=== PATIENT | male | born 1935 | race Caucasian/White ===

== ENCOUNTER 2017-03-21 02:45 | Inpatient (IN) | payer OTHER, MEDICARE ==
[~2017-03-21] VITALS: Ht 182.9 cm; Wt 84.5 kg
--- NOTE | 2017-03-21 02:52 | ED INFLUENZA/URI COMPLAINT ---
History of Present Illness General Chief Complaint: Fever Stated Complaint: FEVER AND UN RESPONSIVE Source: EMS, W10 Exam Limitations: clinical condition Vital Signs & Intake/Output Vital Signs & Intake/Output Vital Signs Date Time Temp Pulse Resp B/P B/P Pulse O2 O2 Flow FiO2 Mean Ox Delivery Rate 03/21 0600 110 20 90/59 96 Nasal 2.0L Cannula 03/21 0536 108 03/21 0532 156 03/21 0525 156 22 125/56 99 Nasal 2.0L Cannula 03/21 0459 101.0 154 22 99/64 100 Nasal 2.0L Cannula 03/21 0415 162 22 110/62 100 Nasal 2.0L Cannula 03/21 0331 156 22 113/58 100 Nasal 2.0L Cannula 03/21 0315 156 22 110/60 100 Nasal 2.0L Cannula 03/21 0305 100 Nasal 2.0L Cannula 03/21 0302 102.5 03/21 0301 102.5 151 22 119/55 100 Nasal 2.0L Cannula Allergies Coded Allergies: amoxicillin (RASH 03/21/17) Reconcile Medications Amlodipine Besylate (Norvasc) 5 MG TABLET 1 TAB PO DAILY HTN (Reported) Aspirin (Aspirin*) 81 MG TAB.CHEW 1 TAB PO DAILY HEART HEALTH (Reported) Aspirin (Aspirin*) 81 MG TAB.CHEW 1 TAB PO DAILY HEART (Reported) Atorvastatin Calcium 20 MG TABLET 1 TAB PO DAILY CHOL (Reported) Carbidopa/Levodopa (Carbidopa-Levodopa 25-100 Tab) 25 MG-100 MG TABLET 1 TAB PO TID PARKINSONS (Reported) Ciprofloxacin HCl (Cipro) 500 MG TABLET 1 TAB PO BID INFECTION (Reported) Cranberry Fruit Concentrate (Cranberry) 450 MG CAPSULE 1 TAB PO BID VITAMIN ( Reported) Duloxetine Hydrochloride (Cymbalta) 30 MG CAPSULE.DR 1 CAP PO DAILY UNK ( Reported) Finasteride 5 MG TABLET 1 TAB PO DAILY URINE (Reported) Gabapentin (Neurontin) 300 MG CAPSULE 1 CAP PO TID NEUROPATHY (Reported) Lactobacillus Acidophilus (Acidophilus) 1 EACH CAPSULE 1 CAP PO BID PROBIOTIC (Reported) Melatonin 3 MG TABLET 1 TAB PO QPM SLEEP (Reported) Metoprolol Tartrate 50 MG TABLET 1 TAB PO BID HTN (Reported) Olmesartan Medoxomil (Benicar) 40 MG TABLET 1 TAB PO DAILY HTN (Reported) Polyethylene Glycol 3350 (Miralax) 17 GRAM POWD.PACK 1 PAC PO DAILY CONSTIPA (Reported) dissolve in water Potassium Chloride 10 MEQ CAPSULE.ER 1 CAP PO DAILY SUPPLEMENT (Reported) Prochlorperazine (Compazine) 25 MG SUPP.RECT 1 SUPP [place] DAILY NAUSEA (Reported ) Sennosides (Senokot) 8.6 MG TABLET 2 TAB PO DAILY CONSTIPATION (Reported) Triage Nurses Notes Reviewed? yes Onset: Abrupt Duration: hour(s): (? FEW HOURS) Timing: single episode today Severity: moderate, severe No Modifying Factors: none Associated Symptoms: UNRESPONSIVE, WARM TO TOUCH, HYPOTENSIVE HPI: This is a 79-year-old male with history of PPM, parkinsons disease who arrives by ambulance from custodial for chief complaint of being found unresponsive. According to EMS custodial staff reports that he was diagnosed with UTI and started on Cipro given 1 dose. It tends that they were trying to increase his fluid intake today with multiple cups of water at the bedside. Patient unresponsive by EMS, found hypotensive. Given IV fluids en route. He arrives unresponsive, moaning, tachycardic, warm to touch. Rectal temperature is 100.5. Past History Travel History Traveled to [place] past 21 day No Medical History Any Pertinent Medical History? see below for history Neurological: Parkinson's disease Cardiovascular: hypertension, ppm Renal: BPH Other Medical Hx: FREQUENT FALLS Surgical History Surgical History: PPM Family History Hx Contributory? No Review of Systems Review of Systems Constitutional: Reports: see HPI (PER W-10, PATIENT UNRESPONSIVE). Physical Exam Physical Exam General Appearance: moderate distress, severe distress, THIN, OBTUNDED, UNRESPONSIVE Head: atraumatic Eyes: Bilateral: other (4 MM, REACTIVE). Ears, Nose, Throat: DRY MUCUS MEMBRANES Neck: normal inspection, supple Respiratory: decreased breath sounds Cardiovascular: tachycardia, irregularly irregular Peripheral Pulses: 1+ radial (R), 1+ radial (L) Gastrointestinal: normal bowel sounds, soft, non-tender Extremities: normal inspection, DRY SKIN, POOR CAP REFILL Neurologic/Psych: OBTUNDED, UNRESPONSIVE Skin: DRY/WARM Core Measures Sepsis Present: Yes Sepsis Focused Exam Completed? Yes ED Sepsis Exam Date of Focused Sepsis Exam: 03/21/17 Time of Focused Sepsis Exam: 0300 Sepsis Cardiac Exam: Tachycardia Sepsis Resp Exam: DIMINISHED BILATERAL Sepsis Cap Refill Exam: >2 sec Sepsis Peripheral Pulse Exam: Weak Sepsis Peripheral Pulse Location: Radial Sepsis Skin Color Exam: Normal for Ethnicity Skin Temp/Moisture Exam: Hot/Dry Progress Differential Diagnosis: influenza, pneumonia, UTI, SEPSIS, DAISHA, DEHYDRATION, AMI Plan of Care: Orders Procedure Date/time Status Nothing by Mouth 03/21 B Active ICU LAB BUNDLE 03/21 1000 Active CBC WITHOUT DIFFERENTIAL 03/21 1000 Active LACTIC ACID 03/21 0551 Active Pathway - chart 03/21 0534 Active House Staff 03/21 0534 Active Patient Data 03/21 0534 Active Code Status 03/21 0534 Active Patient Data 03/21 0432 Active ED Holding Orders 03/21 0415 Active Admit to inpatient 03/21 0415 Active Vital Signs 03/21 0415 Active Code Status 03/21 0409 Complete Add-on Test (ER Only) 03/21 0407 Active Intake & Output 03/21 0337 Active CULTURE,URINE 03/21 0311 Active EKG 03/21 0311 Active PARTIAL THROMBOPLASTIN TIME 03/21 0310 Complete PROTHROMBIN TIME 03/21 0310 Complete PHOSPHORUS 03/21 0310 Active MAGNESIUM 03/21 0310 Active Straight Cath 03/21 0252 Active RAPID VIRAL INFLUENZA A 03/21 0251 Complete BLOOD CULTURE 03/21 0251 Active URINALYSIS 03/21 0251 Complete TROPONIN LEVEL 03/21 0251 Active LACTIC ACID 03/21 0251 Active COMPREHENSIVE METABOLIC PANEL 03/21 0251 Active CREATINE PHOSPHOKINASE 03/21 0251 Active CBC WITHOUT DIFFERENTIAL 03/21 0251 Complete Lab Add-on Test 03/21 UNK Active VTE Mechanical Prophylaxis 03/21 UNK Active Current Medications Sig/[place] Start time Last Medication Dose Stop Time Status Admin Ceftriaxone Sodium 1,000 MG Q24H 03/22 0330 AC (Rocephin) Metoprolol Tartrate 5 MG Q8 03/21 0630 UNVr (Lopressor) Sodium Chloride 1,000 ML Q10H 03/21 0615 AC 03/21 (Normal Saline 0.9%) 0620 Acetaminophen 1,000 MG ONCE ONE 03/21 0300 CAN (Ofirmev) 03/21 0314 N/A 1 UNIT (No Carrier) Laboratory Tests 03/21/17 0600: Lactic Acid Pending 03/21/17 0320: Urine Color YEL, Urine Clarity CLDY H, Urine pH 6.5, Ur Specific Orient 1.015, Urine Protein 100 H, Urine Ketones NEG, Urine Nitrite NEG, Urine Bilirubin NEG, Urine Urobilinogen 0.2, Ur Leukocyte Esterase LARGE H, Ur Microscopic SEDIMENT EXAMINED, Urine RBC 1-3, Urine WBC > 75 H, Ur Epithelial Cells RARE, Urine Bacteria PACKD H, Urine Hemoglobin SMALL H, Urine Glucose NEG 03/21/17 0310: Anion Gap 19 H, Estimated GFR 29 L, BUN/Creatinine Ratio 17.7, Glucose 78, Lactic Acid 8.4 H, Calcium 8.6, Phosphorus Pending, Magnesium Pending, Total Bilirubin 3.7 H, AST 54, ALT 22, Alkaline Phosphatase 343 H, Creatine Kinase 40 L, Troponin I 0.07, Total Protein 5.0 L, Albumin 2.5 L, Globulin 2.5, Albumin/Globulin Ratio 1.0 L, PT 28.2 H, INR 2.71 H, APTT 32, CBC w Diff MAN DIFF ORDERED, RBC 3.79 L, MCV 86.0, MCH 28.8, RDW 16.9 H, MPV 7.1 L, Gran % 96.0 H, Lymphocytes % 3.7 L, Monocytes % 0.1 L, Eosinophils % 0.2, Basophils % 0, Absolute Granulocytes 9.5 H, Segmented Neutrophils 71, Band Neutrophils 17 H, Absolute Lymphocytes 0.4 L, Lymphocytes 7 L, Monocytes 1 L, Absolute Monocytes 0 L, Eosinophils 1, Absolute Eosinophils 0, Absolute Basophils 0, Metamyelocytes 3 H, Platelet Estimate ADEQUATE, Polychromasia 1+, Poikilocytosis 1+, PUBS MCHC 33.5 Microbiology 03/21 325 BLOOD: Blood Culture - RECD 03/21 320 URINE ROUT: Urine Culture - RECD 03/21 310 NASOPHARYN: Influenza Virus A & B Rapid Smear - COMP 03/21 310 BLOOD: Blood Culture - RECD FLUID RESUSSCITATION, IV ABX ORDERED. 4 L FLUID GIVEN, HEART RATE STILL 120'S. IV LOPRESSOR GIVEN WITH GOOD RESPONSE. PATIENT DNR/DNI, ADMITTED TO ICU PER DR SALAZAR. HEAD CT NON ACUTE. Diagnostic Imaging: Viewed by Me: Radiology Read. Discussed w/RAD: Radiology Read. Radiology Impression: PATIENT: JADIEL NOBLES PRESENT AGE: 79 PATIENT ACCOUNT NO: [id number] : [birth year] LOCATION: [facility] ORDERING PHYSICIAN: Jo-Ann Frost MD SERVICE DATE: 03/21/17 EXAM TYPE: CAT - CT HEAD WO IV CONTRAST CT HEAD WITHOUT CONTRAST CLINICAL INFORMATION: Unresponsive with sepsis. COMPARISON: None available. TECHNIQUE: Contiguous axial imaging was performed from the skull base to vertex without intravenous administration of contrast. FINDINGS: There is extensive confluent hypoattenuation throughout the supratentorial white matter that may reflect advanced chronic microangiopathy though is nonspecific and an acute white matter process would be difficult to exclude. The patient has a non-MRI compatible pacemaker. Basal ganglia calcifications bilaterally. There is no intracranial hemorrhage, hydrocephalus, extra-axial surface collection, midline shift, or other herniation pattern. Parker to white matter differentiation is diffusely maintained without evidence of an evolved acute territorial infarct. The basilar cisterns are preserved. No significant soft tissue abnormality. No acute osseous abnormality. The paranasal sinuses and the mastoid air cells are well-aerated. IMPRESSION: There is extensive confluent hypoattenuation throughout the supratentorial white matter that may reflect advanced chronic microangiopathy though is nonspecific and an acute white matter process would be difficult to exclude. The patient has a non- MRI compatible pacemaker. DICTATED BY: Charles Sheridan MD DATE/TIME DICTATED:532 HEAD TURNING MACHINE OPERATOR:KISHAN DATE/TIME TRANSCRIBED:03/21/17532 CONFIDENTIAL, DO NOT COPY WITHOUT APPROPRIATE AUTHORIZATION. <Electronically signed in Other Vendor System> SIGNED BY: Charles Sheridan MD 03/21/17540 CXR Impression: PATIENT: JADIEL NOBLES PRESENT AGE: 79 PATIENT ACCOUNT NO: [id number] : [birth year] LOCATION: [facility] ORDERING PHYSICIAN: Jo-Ann Frost MD SERVICE DATE: 03/21/17 EXAM TYPE: RAD - XRY-PORTABLE CHEST XRAY XR PORTABLE CHEST CLINICAL INFORMATION: Fever and hypotension. COMPARISON: None available. TECHNIQUE: Portable frontal view of the chest was obtained. FINDINGS: Left pectoral dual-lead pacemaker with lead tips projecting over the right atrium and right ventricle. Mild left basilar opacity may reflect atelectasis, pneumonia, or aspiration. Lungs are otherwise clear. Hiatal hernia. No pneumothorax. Cardiac silhouette is enlarged. There are no acute osseous findings. Cervical degenerative changes. IMPRESSION: Mild left basilar opacity that may reflect atelectasis, pneumonia, or aspiration. DICTATED BY: Charles Sheridan MD DATE/TIME DICTATED:03/21/17440 HEAD TURNING MACHINE OPERATOR:KISHAN DATE/TIME TRANSCRIBED:03/21/17440 CONFIDENTIAL, DO NOT COPY WITHOUT APPROPRIATE AUTHORIZATION. <Electronically signed in Other Vendor System> SIGNED BY: Charles Sheridan MD 03/21/17446 Initial ED EKG: AFIB (RVR) Prior EKG: unchanged Rhythm Strip: atrial fibrillation (RVR) Departure Departure Time of Disposition: 414 Disposition: STILL A PATIENT Condition: Stable Clinical Impression Primary Impression: Sepsis Secondary Impressions: DAISHA (acute kidney injury), Atrial fibrillation with RVR, Hypokalemia, Lactic acidosis, UTI (urinary tract infection) Referrals: Madelin Chin MD (PCP/Family) Departure Forms: Customer Survey General Discharge Information Admission Note Spoke With: Krystal Salazar MD Documentation of Exam: Documentation of any treatments & extenuating circumstances including Concerns Regarding Discharge (functional status, medication knowledge or non-compliance, living conditions, etc.) that warrant an admission rather than observation: [ICU MONITOR, IV ABX, FLUID RESUSSCITATION, ELECTROLYTE REPLETION, F/U BLOOD AND URINE CULTURES, SERIAL TROPONIN, CARDIOLOGY EVALUATION, RATE CONTROL ONCE ADEQUATELY VOLUME REPLETED] Critical Care Note Critical Care Note Critical Care Time: 30-74 min
[2017-03-21 03:18] LABS: ABSOLUTE BASOPHIL COUNT 0 /CUMM (0.0-0.2); ABSOLUTE EOSINOPHIL COUNT 0 /CUMM (0.0-0.7); ABSOLUTE LYMPH COUNT 0.4 /CUMM (1.2-3.4); ABSOLUTE MONOCYTE COUNT 0 /CUMM (0.10-0.60); BASOPHIL % 0 % (0.0-2.0); EOSINOPHIL % 0.2 % (0-5)
[2017-03-21 03:28] LABS: ABSOLUTE GRANULOCYTE CT 9.5 /CUMM (1.4-6.5); HEMATOCRIT 32.6 % (42-52); MEAN CORPUSCULAR HGB 28.8 PG (27.0-31.0); MEAN CORPUSCULAR HGB CONC 33.5 G/DL (33.0-37.0); MEAN PLATELET VOLUME 7.1 FL (7.4-10.4); PLATELET COUNT 252 /CUMM (130-400); RBC DISTRIBUTION WIDTH 16.9 % (11.5-14.5); RED BLOOD CELL CT 3.79 /CUMM (4.70-6.10)
[2017-03-21 03:31] LABS: WHITE BLOOD CELL COUNT 9.9 /CUMM (4.8-10.8)
[2017-03-21 04:27] LABS: PT 28.2 SEC (9.4-12.5); PTT 32 SEC (25-37)
--- NOTE | 2017-03-21 04:38 | History & Physical ---
Salo PHILLIPS,[facility] 03/21/17 0437: General Information and HPI History of Present Illness: Mr. Torres is 79-year-old male with past medical history of Parkinson's disease , hypertension, permanent pacemaker, BPH who presents from [facility] after being found unresponsive. Patient was lethargic and unable to provide any history. According to his , he had a urinary tract infection 3 weeks ago that was treated with nitrofurantoin. He self catheterizes at baseline. He recovered from this subsequently had cloudy urine grew gram-negative rods. For this, ciprofloxacin was started yesterday. She also reports that he had some nausea and vomiting last night. Otherwise, it seems that he was found unresponsive at the longterm and sent in by EMS. Allergies/Medications Allergies: Coded Allergies: amoxicillin (RASH 03/21/17) Past History Travel History Traveled to [facility] past 21 day No Medical History Neurological: Parkinson's disease Cardiovascular: hypertension, ppm Renal: benign prost hyperplasia [employer]/Reproductive: PROSTATE Other Medical Hx: FREQUENT FALLS Surgical History Surgical History: non-contributory Review of Systems Review of Systems Constitutional: Reports: no symptoms. EENTM: Reports: no symptoms. Cardiovascular: Reports: no symptoms. Respiratory: Reports: no symptoms. GI: Reports: no symptoms. Genitourinary: Reports: no symptoms. Musculoskeletal: Reports: no symptoms. Skin: Reports: no symptoms. Neurological/Psychological: Reports: no symptoms. Hematologic/Endocrine: Reports: no symptoms. Immunologic/Allergic: Reports: no symptoms. All Other Systems: Reviewed and Negative Exam & Diagnostic Data Last 24 Hrs of Vital Signs/I&O Vital Signs Date Time Temp Pulse Resp B/P B/P Pulse O2 O2 Flow FiO2 Mean Ox Delivery Rate 03/21 0536 108 03/21 0532 156 03/21 0525 156 22 125/56 99 Nasal 2.0L Cannula 03/21 0459 101.0 154 22 99/64 100 Nasal 2.0L Cannula 03/21 0415 162 22 110/62 100 Nasal 2.0L Cannula 03/21 0331 156 22 113/58 100 Nasal 2.0L Cannula 03/21 0315 156 22 110/60 100 Nasal 2.0L Cannula 03/21 0305 100 Nasal 2.0L Cannula 03/21 0302 102.5 03/21 030 102.5 151 22 119/55 100 Nasal 2.0L Cannula Intake & Output 03/21 0800 03/21 0000 03/20 1600 Intake Total 1000 Output Total 600 Balance 400 Intake, IV 1000 Output, Urine 600 Patient 220 lb Weight Physical Exam General Appearance opens eyes to physical touch Skin No Rashes, No Breakdown, No Significant Lesion Sepsis Skin Exam (color): Normal for Ethnicity HEENT Atraumatic, PERRLA Cardiovascular Regular Rate, Normal S1, Normal S2 Lungs rhonci bilaterally Abdomen Normal Bowel Sounds, Soft, No Tenderness Extremities No Edema, Normal Pulses, No Tenderness/Swelling Sepsis Peripheral Pulse Location: Dorsalis Pedis Sepsis Peripheral Pulse Exam: Normal Sepsis Cap Refill Exam: >2 sec Last 24 Hrs of Labs/Travon: Laboratory Tests 03/21/17 0320: Urine Color YEL, Urine Clarity CLDY H, Urine pH 6.5, Ur Specific Snyder 1.015, Urine Protein 100 H, Urine Ketones NEG, Urine Nitrite NEG, Urine Bilirubin NEG, Urine Urobilinogen 0.2, Ur Leukocyte Esterase LARGE H, Ur Microscopic SEDIMENT EXAMINED, Urine RBC 1-3, Urine WBC > 75 H, Ur Epithelial Cells RARE, Urine Bacteria PACKD H, Urine Hemoglobin SMALL H, Urine Glucose NEG 03/21/17 0310: Anion Gap 19 H, Estimated GFR 29 L, BUN/Creatinine Ratio 17.7, Glucose 78, Lactic Acid 8.4 H, Calcium 8.6, Total Bilirubin 3.7 H, AST 54, ALT 22, Alkaline Phosphatase 343 H, Creatine Kinase 40 L, Troponin I 0.07, Total Protein 5.0 L, Albumin 2.5 L, Globulin 2.5, Albumin/Globulin Ratio 1.0 L, PT 28.2 H, INR 2.71 H, APTT 32, CBC w Diff MAN DIFF ORDERED, RBC 3.79 L, MCV 86.0, MCH 28.8, RDW 16.9 H, MPV 7.1 L, Gran % 96.0 H, Lymphocytes % 3.7 L, Monocytes % 0.1 L, Eosinophils % 0.2, Basophils % 0, Absolute Granulocytes 9.5 H, Segmented Neutrophils 71, Band Neutrophils 17 H, Absolute Lymphocytes 0.4 L , Lymphocytes 7 L, Monocytes 1 L, Absolute Monocytes 0 L, Eosinophils 1, Absolute Eosinophils 0, Absolute Basophils 0, Metamyelocytes 3 H, Platelet Estimate ADEQUATE, Polychromasia 1+, Poikilocytosis 1+, PUBS MCHC 33.5 Microbiology 03/21 325 BLOOD: Blood Culture - RECD 03/21 320 URINE ROUT: Urine Culture - RECD 03/21 310 NASOPHARYN: Influenza Virus A & B Rapid Smear - COMP 03/21 310 BLOOD: Blood Culture - RECD Assessment/Plan Assessment: Mr. Torres is 79-year-old male with past medical history of Parkinson's disease , hypertension, permanent pacemaker, BPH, and Afib on warfarin who presents from [facility] after being found unresponsive. On presentation, vital signs were T1 102.5, HR 151, RR 22, BP 119/55, saturating 100% on 2 L cannula. Laboratories are significant for white blood cell count 9.9 , 96% granulocytes, 17 bands, hemoglobin 10.9, MCV 86.2, sodium 135, potassium 3.0, carbon dioxide 18, BUN 39, creatinine 2.2 (baseline 1.1), lactic acid 8.4, calcium 8.6, total bilirubin 3.7, a ST 54, ALT 22, alkaline phosphatase 343, creatinine kinase 40, troponin 0.07, INR 2.71. Urinalysis revealed 100 protein, large leukocyte esterase, greater than 75 WBCs. Chest x-ray showed mild left basilar opacity. He'll be admitted to the ICU and treated for the following problems: 1. Sepsis with lactic acidosis 2. Healthcare associated pneumonia 3. Urinary tract infection 4. Hypokalemia 5. Hyperbilirubinemia 6. Supratherapeutic INR 7. Acute kidney injury 8. Normocytic anemia 9. Atrial fibrillation with rapid ventricular rate #Sepsis with lactic acidosis: The patient presents with 3/4 SIRS criteria (fever , tachycardia, tachypnea). While he does not have leukocytosis, he does have bandemia. Patient has two potential sources of infection including the urine and lung. The patient was found unresponsive and his mental status is still severely altered from baseline. At baseline, he can hold conversations apparently. This is likely due to sepsis. Please note that the patient normally gets his care at [facility] and has no medical records here. -ID consult -CRCU consult -IV fluid hydration -Trend lactic acid -Vancomycin and ceftazidine -CT head -Please obtain medical records from [facility] -Panculture, flu, legionella/streptococcus antigen -Pantoprazole #Atrial fibrillation with rapid ventricular rate: Likely secondary to sepsis. -Telemetry monitoring -Metoprolol -Cardiology consult -TTE #Acute kidney injury: Likely prerenal azotemia in the setting of dehydration and sepsis. -Fluid hydration -Avoid nephrotoxins #Hyperbilirubinemia: Patient also has elevated alkaline phosphatase. May be secondary to sepsis. -Consider R upper quadrant ultrasound #Hypokalemia: Mild with no EKG changes. -Replenish electrolytes #Supratherapeutic INR: INR 2.71. No signs of bleeding at this time. -Monitor for bleeding -Hold warfain, daily INR #Chronic medical problems: -Hold gabapentin, duloxetine, olmesartan, amlodipine, atorvastatin, finasteride, carbidopa-levodopa DVT prophylaxis with warfarin Nothing by mouth DNR/DNI As Ranked By This Provider Problem List: 1. Sepsis Core Measures/Misc (12/07) Acute Coronary Syndrome ACS Diagnosis: No Congestive Heart Failure Congestive Heart Failure Diagnosis No Cerebrovascular Accident CVA/TIA Diagnosis: No VTE (View Protocol) VTE Risk Factors Age>40 No Mechanical VTE Prophylaxis d/t N/A MechProphylax Ordered No VTE Pharm Prophylaxis d/t NA PharmProphylax ordered Sepsis (View protocol) Sepsis Present: Yes Lior PHILLIPS, [facility] 03/21/17 0546: General Information and HPI Allergies/Medications Home Med list Amlodipine Besylate (Norvasc) 5 MG TABLET 1 TAB PO DAILY HTN (Reported) Aspirin (Aspirin*) 81 MG TAB.CHEW 1 TAB PO DAILY HEART HEALTH (Reported) Aspirin (Aspirin*) 81 MG TAB.CHEW 1 TAB PO DAILY HEART (Reported) Atorvastatin Calcium 20 MG TABLET 1 TAB PO DAILY CHOL (Reported) Carbidopa/Levodopa (Carbidopa-Levodopa 25-100 Tab) 25 MG-100 MG TABLET 1 TAB PO TID PARKINSONS (Reported) Ciprofloxacin HCl (Cipro) 500 MG TABLET 1 TAB PO BID INFECTION (Reported) Cranberry Fruit Concentrate (Cranberry) 450 MG CAPSULE 1 TAB PO BID VITAMIN ( Reported) Duloxetine Hydrochloride (Cymbalta) 30 MG CAPSULE.DR 1 CAP PO DAILY UNK ( Reported) Finasteride 5 MG TABLET 1 TAB PO DAILY URINE (Reported) Gabapentin (Neurontin) 300 MG CAPSULE 1 CAP PO TID NEUROPATHY (Reported) Lactobacillus Acidophilus (Acidophilus) 1 EACH CAPSULE 1 CAP PO BID PROBIOTIC (Reported) Melatonin 3 MG TABLET 1 TAB PO QPM SLEEP (Reported) Metoprolol Tartrate 50 MG TABLET 1 TAB PO BID HTN (Reported) Olmesartan Medoxomil (Benicar) 40 MG TABLET 1 TAB PO DAILY HTN (Reported) Polyethylene Glycol 3350 (Miralax) 17 GRAM POWD.PACK 1 PAC PO DAILY CONSTIPA (Reported) dissolve in water Potassium Chloride 10 MEQ CAPSULE.ER 1 CAP PO DAILY SUPPLEMENT (Reported) Prochlorperazine (Compazine) 25 MG SUPP.RECT 1 SUPP [place] DAILY NAUSEA (Reported ) Sennosides (Senokot) 8.6 MG TABLET 2 TAB PO DAILY CONSTIPATION (Reported) Attending MD Review Statement Attending Statement Attending MD Statement: examined this patient, discuss w/resident/PA/WET CHEMISTRY ANALYST, agreed w/resident/PA/WET CHEMISTRY ANALYST, reviewed images, amended to note Attending Assessment/Plan: 79 yo M with h/o Parkinson's disease, Afib s/p PPM on coumadin, HTN, BPH with recurrent UTI, who is sent in from [facility] after being found unresponsive by the RN. History obtained from patient's . Details as documented above. In summary, patient was recently admitted to [facility], underwent left femur fracture repair and was discharged to [facility] for acute rehab. He was doing well but for recurrent UTI's (treated with macrobid 3 weeks ago). He was home for [place] and was noted to have a low grade fever. He was doing self catheterization and family noted cloudy and foul smelling urine. Urine culture was sent came back positive for GNR and he was initiated on Cipro 1 day prior to admission. He continued to have fevers, weakness, malaise and nausea/ vomiting. Early this morning at 2 am, patient found him unresponsive with HR in 120's, BP 122/70, sats 87% RA --> 93% on 2L. EMS was called and patient was brought to [place] ER. Vitals: Tmax 102.5, HR 150-170's, BP 110/62 --> 90/59 --> 95/55 after receiving 4 L NS and IV metoprolol for rate control. Examination is limited as patient does not respond to verbal stimuli, winces when touching his eyes. He is not arousable. Face is flushed, very dry mucous membranes, Skin warm and dry, capillary refill < 2 secs, pupils difficult to assess, Neck jugular fullness noted, Chest clear anteriorly, basilar crackles on the left side, Heart S1S2 irregularly irregular, unable to assess a murmur as he is tachycardic, Abd soft, NT, LE: b/l no edema, red/ flushed feet. Unable to assess back. Labs: no leukocytosis, bands 17, INR 2.71, Na 135, K 3.0, bicarb 18, AG 19, BUN 39, creat 2.2 (baseline 0.8-1.1), lactic acid 8.4 --> 11.8, Mag 1.4, T. Bili 3.7 , AST/ALT normal, CK 40, trop neg. UA cloudy, large LE, WBC > 75, packed bacteria. EKG: Afib with RVR. CXR: mild left basilar opacity atelectasis, pneumonia or aspiration. Head CT: exensive confluent hypoattenuation chronic microangiopathy, no acute process. Assessment and plan: 1. Severe sepsis of urological origin 2. Urinary retention, BPH, history of self catheterization 3. Complicated UTI 4. Lactic acidosis with AG metabolic acidosis 5. DAISHA 6. Atrial fibrillation with rapid ventricular response 7. Left basilar opacity concerning for pneumonia ?aspiration 8. Electrolytes abnormalities hypokalemia, hypomagnesemia 9. Therapeutic INR on coumadin - Admit to ICU - Vitals Q 1 hour - Fall, aspiration precautions - NPO - Panculture urine, blood and sputum culture - Urine legionella and strep Ag, check flu swab - IV ceftaz and vanco for now - IV fluids 4 L bolus given, continue maintenance at 100-150/hr - CRCU and ID consult in AM - If HR does not improve after fluid resuscitation will initiate cardizem drip low dose or consider IV metoprolol Q6 for rate control based on BP - Serial EKG and troponin - Obtain Echo and Cardio consult - Hold coumadin. Once INR < 2.0, consider IV heparin. - Replete electrolytes - Resume aspirin [place] - Hold neurontin, cymbalta, benixar, norvasc, atorvastatin, finasteride, cerbidopa-levodopa resume once patient more awake/alert. - Goals of care discussion with - Resident talked to , who wishes for central line and pressors if needed. If patient deteriorates, she will decide to keep him comfortable. GI ppx IV protonix DVT ppx therapeutic INR on coumadin. DNR/I. TTS > 45 mins Shirley Tate MD 03/21/17 0647: Resident Review Statement Resident Statement: examined this patient, discussed with email marketing intern, agreed with email marketing intern, discussed with family, reviewed EMR data (avail) Other Findings: Patient is a 79-year old male, BIBA from [facility] secondary to unresponsiveness. Most of the history is taken from the , Herlinda over the phone. According to her. Patient was relatively alright in December when he fell down and broke his hip needed to repair which was done at [facility]. Afterward, he was placed into [facility] for further rehabilitation. His recovery was slow. His that's why he is still in the [facility]. He had an episode of UTI on 3-4 weeks ago and was treated with Macrobid, after which he recovered well. He came to celebrate the [place] at home during that time he was having mild grade fever. He usually do self-catheterization and found that his urine was cloudy and having abnormal smell. She talked to [facility] for sending urine for analysis and culture. Initial test showed mixed saravanan and afterwards second sample showed gram-negative bacilli. So he was started on ciprofloxacin yesterday. He took only 1 tablet of ciprofloxacin. He was having mild grade fever of 99 - 100. His appetite has been decreased, though he is eating and drinking. He had couple of episodes of vomiting. Talked to the nurse in the facility, she told that he was conscious, till 1 o'clock, but she found unconscious at 2 o'clock. His vitals were blood pressure 122/70, heart rate 120, SPO2 87% on room air and become 93% on 2 liters of oxygen, respiratory rate was 20. So they called the EMS and send him to [facility]. ED course -At the time of admission his vitals were - temperature 102.5, pulse 151, respiratory 22, blood pressure 119/55, SPO2 98% on 2 liters of oxygen. On examination, patient was not responding to any verbal, and his all limbs were stiff. He is breathing by himself, does not have any drooling of saliva, pupils were round and reactive. Heart S1, S2 normal, murmur present, lungs bilateral air entry with mild basilar rhonchi. Pulses were palpable in all extremities. Blood workup showed hemoglobin 10.9, hematocrit 32.6, platelet count 252, granulocyte 96 , monocytes 0.1, band neutrophils 17, sodium 135, potassium 3, anion gap 19, BUN 39, lactic acid 8.4, total bilirubin 3.7, alkaline phosphatase 343, creatinine 2.2, creatinine kinase 40, troponin 0.07, albumin 2.5. Chest x- ray shows evidence of mild left basilar opacity. CT scan of head shows advanced chronic microangiopathy. Sepsis secondary to UTI with aspiration pneumonia leading to DAISHA/Lactic acidosis / Hypotension - * We'll admit the patient to ICU * We'll start patient on normal saline and cc per hour * Strict intake output charting * Aspiration precautions * Injection ceftazidime 1 gram IV every 8 and vancomycin * We'll follow the urine and blood cultures * Keep head end of the bed elevated * If blood pressure remain low, then we'll restart patient on vasopressors ( discussed with the . She want central line and pressure support though patient is DNR/DNI.) * If patient does not recovered, then we will discuss goals of care with the . Atrial fibrillation with rapid ventricular rate on PPM and Coumadin * We will start patient on injection metoprolol 5 milligrams IV every 8 as needed * We will take Cardiologic consult for further management * Will consider heaprin in future and hold coumadin We need to get the records from [facility] to know about the patient in detail. CODE STATUS-DNR/DNI Diet -nothing by mouth DVT prophylaxis-heparin
--- NOTE | 2017-03-21 04:47 | RADIOLOGY REPORT ---
XR PORTABLE CHEST CLINICAL INFORMATION: Fever and hypotension. COMPARISON: None available. TECHNIQUE: Portable frontal view of the chest was obtained. FINDINGS: Left pectoral dual-lead pacemaker with lead tips projecting over the right atrium and right ventricle. Mild left basilar opacity may reflect atelectasis, pneumonia, or aspiration. Lungs are otherwise clear. Hiatal hernia. No pneumothorax. Cardiac silhouette is enlarged. There are no acute osseous findings. Cervical degenerative changes. IMPRESSION: Mild left basilar opacity that may reflect atelectasis, pneumonia, or aspiration.
[2017-03-21] MEDS ORDERED: ASPIRIN81 M4 PO ×2 (05:05→05:12)
[2017-03-21] MEDS ORDERED: CIPRO500 M1 PO (05:12)
[2017-03-21] MEDS ORDERED: NEURONTIN300 M1 PO (05:14)
[2017-03-21] MEDS ORDERED: CYMBALTA30 M1 PO (05:15)
[2017-03-21] MEDS ORDERED: COMPAZINE25 M1 PR (05:15)
[2017-03-21] MEDS ORDERED: BENICAR40 M1 PO (05:17)
[2017-03-21] MEDS ORDERED: ATORVASTATIN CA20 M1 PO (05:18)
[2017-03-21] MEDS ORDERED: NORVASC5 M1 PO (05:18)
[2017-03-21] MEDS ORDERED: METOPROLOL TART50 M1 PO (05:18)
[2017-03-21] MEDS ORDERED: MELATONIN3 M4 PO (05:19)
[2017-03-21] MEDS ORDERED: SENOKOT8.6 M2 PO (05:19)
[2017-03-21] MEDS ORDERED: MIRALAX17 G1 PO (05:20)
[2017-03-21] MEDS ORDERED: FINASTERIDE5 M1 PO (05:21)
[2017-03-21] MEDS ORDERED: CARBIDOPA-LEVO1 EAC7 PO (05:21)
[2017-03-21] MEDS ORDERED: POTASSIUM CHLO10 ME3 PO (05:22)
[2017-03-21] MEDS ORDERED: ACIDOPHILUS1 EACH PO (05:23)
[2017-03-21] MEDS ORDERED: CRANBERRY450 M3 PO (05:25)
--- NOTE | 2017-03-21 05:41 | CT SCAN REPORT ---
CT HEAD WITHOUT CONTRAST CLINICAL INFORMATION: Unresponsive with sepsis. COMPARISON: None available. TECHNIQUE: Contiguous axial imaging was performed from the skull base to vertex without intravenous administration of contrast. FINDINGS: There is extensive confluent hypoattenuation throughout the supratentorial white matter that may reflect advanced chronic microangiopathy though is nonspecific and an acute white matter process would be difficult to exclude. The patient has a non-MRI compatible pacemaker. Basal ganglia calcifications bilaterally. There is no intracranial hemorrhage, hydrocephalus, extra-axial surface collection, midline shift, or other herniation pattern. Parker to white matter differentiation is diffusely maintained without evidence of an evolved acute territorial infarct. The basilar cisterns are preserved. No significant soft tissue abnormality. No acute osseous abnormality. The paranasal sinuses and the mastoid air cells are well-aerated. IMPRESSION: There is extensive confluent hypoattenuation throughout the supratentorial white matter that may reflect advanced chronic microangiopathy though is nonspecific and an acute white matter process would be difficult to exclude. The patient has a non-MRI compatible pacemaker.
--- NOTE | 2017-03-21 05:48 | Admission Certification ---
Admission Certification Certification Statement - As attending physician, I certify that at the time of - admission, based on clinical presentation, severity of - symptoms, need for further diagnostic testing and - therapeutic interventions, and risk of adverse outcomes - without in-hospital treatment, in my clinical assessment, - this patient requires an acute hospital stay for a minimum - of two nights or longer. I have also considered psychsocial - factors such as support system, advanced age, financial - issues, cognitive issues, and failed out-patient treatments, - past re-admission history, safety of patient, and lack of - compliance as applicable. Specific rationale supporting this admission is: Severe sepsis of urological origin with DAISHA, lactic acidosis, atrial fibrillation with rapid ventricular response, requiring ICU level of care.
[2017-03-21 08:30] VITALS: BP 74/60
--- NOTE | 2017-03-21 08:52 | Cons- CRCU ---
Eugene Camacho 03/21/17 0852: General Information and HPI Consulting Request Requested By: Dr. Tinajero Reason for Consult: Sepsis Source of Information: family, old records Exam Limitations: unable to give history, clinical condition History of Present Illness: 79-year-old gentleman with past medical history of Parkinson's disease, hypertension, permanent pacemaker, BPH and urinary retention, BIBA from [facility] after being found unresponsive. Per EMR, he had a urinary tract infection 3 weeks prior to admission, associated with n/v that was treated with nitrofurantoin. He self catheterizes at baseline. Reported outpatient urine culture from 03/19 grew gram-negative rods. For this, ciprofloxacin was started at [facility]. Allergies/Medications Allergies: Coded Allergies: amoxicillin (RASH 03/21/17) Home Med List: Amlodipine Besylate (Norvasc) 5 MG TABLET 1 TAB PO DAILY HTN (Reported) Aspirin (Aspirin*) 81 MG TAB.CHEW 1 TAB PO DAILY HEART HEALTH (Reported) Aspirin (Aspirin*) 81 MG TAB.CHEW 1 TAB PO DAILY HEART (Reported) Atorvastatin Calcium 20 MG TABLET 1 TAB PO DAILY CHOL (Reported) Carbidopa/Levodopa (Carbidopa-Levodopa 25-100 Tab) 25 MG-100 MG TABLET 1 TAB PO TID PARKINSONS (Reported) Ciprofloxacin HCl (Cipro) 500 MG TABLET 1 TAB PO BID INFECTION (Reported) Cranberry Fruit Concentrate (Cranberry) 450 MG CAPSULE 1 TAB PO BID VITAMIN ( Reported) Duloxetine Hydrochloride (Cymbalta) 30 MG CAPSULE.DR 1 CAP PO DAILY UNK ( Reported) Finasteride 5 MG TABLET 1 TAB PO DAILY URINE (Reported) Gabapentin (Neurontin) 300 MG CAPSULE 1 CAP PO TID NEUROPATHY (Reported) Lactobacillus Acidophilus (Acidophilus) 1 EACH CAPSULE 1 CAP PO BID PROBIOTIC (Reported) Melatonin 3 MG TABLET 1 TAB PO QPM SLEEP (Reported) Metoprolol Tartrate 50 MG TABLET 1 TAB PO BID HTN (Reported) Olmesartan Medoxomil (Benicar) 40 MG TABLET 1 TAB PO DAILY HTN (Reported) Polyethylene Glycol 3350 (Miralax) 17 GRAM POWD.PACK 1 PAC PO DAILY CONSTIPA (Reported) dissolve in water Potassium Chloride 10 MEQ CAPSULE.ER 1 CAP PO DAILY SUPPLEMENT (Reported) Prochlorperazine (Compazine) 25 MG SUPP.RECT 1 SUPP TX DAILY NAUSEA (Reported ) Sennosides (Senokot) 8.6 MG TABLET 2 TAB PO DAILY CONSTIPATION (Reported) Current Medications: Current Medications Sig/Woodrow Start time Last Medication Dose Route Stop Time Status Admin Acetaminophen 1,000 MG ONCE ONE 03/21 0300 CAN N/A 1 UNIT IV 03/21 0314 Acetaminophen 650 MG ONCE ONE 03/21 0300 DC 03/21 TX 03/21 0301 0302 Ceftazidime 1,000 MG Q12 03/21 2200 UNVr IV Ceftazidime 1,000 MG IQ8 03/21 0800 DC IV Ceftriaxone Sodium 1,000 MG Q24H 03/22 0330 CAN IV Ceftriaxone Sodium 0 .STK-MED ONE 03/21 0330 DC .ROUTE Ceftriaxone Sodium 1,000 MG ONCE ONE 03/21 030 DC 03/21 IV 03/21 030 0330 Metoprolol Tartrate 5 MG Q8H 03/21 0630 DC IV Metoprolol Tartrate 0 .STK-MED ONE 03/21 0531 DC IV Metoprolol Tartrate 5 MG ONCE ONE 03/21 0530 DC 03/21 IV 03/21 0531 0532 Non-Formulary 0 SEE ADMIN CRITERIA 03/21 1030 DC Medication ANY Norepinephrine 4 MG Q7H 03/21 1215 AC Sodium Chloride 250 ML IV Norepinephrine 4 MG Q24H 03/21 1200 DC 03/21 Sodium Chloride 250 ML IV 1158 Potassium Chloride 10 MEQ ONCE ONE 03/21 0515 DC 03/21 IV 03/21 0516 0600 Potassium Chloride 10 MEQ ONCE ONE 03/21 0415 DC 03/21 IV 03/21 0416 0456 Sodium Chloride 1,000 ML Q10H 03/21 0615 AC 03/21 IV 0620 Sodium Chloride 1,000 ML BOLUS ONE 03/21 0415 DC 03/21 IV 03/21 0514 0456 Sodium Chloride 1,000 ML BOLUS ONE 03/21 0415 DC 03/21 IV 03/21 0514 0415 Sodium Chloride 1,000 ML BOLUS ONE 03/21 0400 DC 03/21 IV 03/21 0459 0348 Sodium Chloride 1,000 ML BOLUS ONE 03/21 0300 DC 03/21 IV 03/21 0359 0307 Vancomycin HCl 1,000 MG DAILY 03/22 1000 UNVr Sodium Chloride 250 ML IV Vancomycin HCl 1,000 MG DAILY 03/21 1000 DC Sodium Chloride 250 ML IV Review of Systems Review of Systems Constitutional: Denies: see HPI. Past History Travel History Traveled to [place] past 21 day No Medical History Neurological: Parkinson's disease EENT: NONE Cardiovascular: hypertension, ppm Respiratory: NONE Gastrointestinal: NONE Hepatic: NONE Renal: benign prost hyperplasia Musculoskeletal: NONE Psychiatric: NONE Endocrine: [employer]IN[employer]/Reproductive: PROSTATE Other Medical Hx: FREQUENT FALLS Surgical History Surgical History: PPM Exam & Diagnostic Data Last 24 Hrs of Vital Signs/I&O Vital Signs Date Time Temp Pulse Resp B/P B/P Pulse O2 O2 Flow FiO2 Mean Ox Delivery Rate 03/21 0742 100.0 114 15 90/56 97 Nasal 2.0L Cannula 03/21 0658 103 16 95/55 97 Nasal 2.0L Cannula 03/21 0629 100.7 113 16 89/50 97 Nasal 2.0L Cannula 03/21 0600 110 20 90/59 96 Nasal 2.0L Cannula 03/21 0536 108 03/21 0532 156 03/21 0525 156 22 125/56 99 Nasal 2.0L Cannula 03/21 0459 101.0 154 22 99/64 100 Nasal 2.0L Cannula 03/21 0415 162 22 110/62 100 Nasal 2.0L Cannula 03/21 0331 156 22 113/58 100 Nasal 2.0L Cannula 03/21 0315 156 22 110/60 100 Nasal 2.0L Cannula 03/21 0305 100 Nasal 2.0L Cannula 03/21 0302 102.5 03/21 0301 102.5 151 22 119/55 100 Nasal 2.0L Cannula Intake & Output 03/21 1600 03/21 0800 03/21 0000 Intake Total 1000 Output Total 600 Balance 400 Intake, IV 1000 Output, Urine 600 Patient 220 lb Weight Physical Exam General Appearance: lethargic, pale Head: atraumatic Eyes: Bilateral: normal appearance, PERRL, EOMI, pale conjunctivae. Neck: supple, JVD Respiratory: normal breath sounds Cardiovascular: tachycardia Gastrointestinal: normal bowel sounds, soft, non-tender Extremities: no edema Diagnostic Data EKG Results afib CXR Results SERVICE DATE: 03/21/17 EXAM TYPE: RAD - XRY-PORTABLE CHEST XRAY FINDINGS: Left pectoral dual-lead pacemaker with lead tips projecting over the right atrium and right ventricle. Mild left basilar opacity may reflect atelectasis, pneumonia, or aspiration. Lungs are otherwise clear. Hiatal hernia. No pneumothorax. Cardiac silhouette is enlarged. There are no acute osseous findings. Cervical degenerative changes. IMPRESSION: Mild left basilar opacity that may reflect atelectasis, pneumonia, or aspiration. Assessment/Plan Impression/Plan: 79-year-old gentleman with past medical history of Parkinson's disease, hypertension, permanent pacemaker, BPH and urinary retention, BIBA from [facility] after being found unresponsive. Vitals: Tmax 102.5, HR 150-170's, BP 110/62 --> 90/59 --> 95/55 after receiving 4 L NS and IV metoprolol for rate control. Vitals: Tmax 102.5, HR 150-170's Labs: no leukocytosis, bands 17, INR 2.71, Na 135, K 3.0, bicarb 18, AG 19, BUN 39, creat 2.2 (baseline 0.8-1.1), lactic acid 8.4 --> 11.8, Mag 1.4, T. Bili 3.7 , AST/ALT normal, CK 40, trop neg. UA cloudy, large LE, WBC > 75, packed bacteria. EKG: Afib with RVR. CXR: mild left basilar opacity atelectasis, pneumonia or aspiration. Head CT: exensive confluent hypoattenuation chronic microangiopathy, no acute process. ED course:, BP 110/62 --> 90/59 --> 95/55 after receiving 4 L NS and IV metoprolol for rate control. Problem list: Septic shock secondary to gram-negative sepsis( UTI possible source) Metabolic acidosis DAISHA on CKD Atrial fibrillation on coumadin Hyperbilirubinemia Plan; Admit to ICU, vitals per protocol When patient was transferred up to ICU his blood pressure was 70s/50s. Spoke to and daughter who was at bedside and explained the poor prognosis and offered the option of a central line placement. Consent for procedure was obtained. The consult was obtained, we'll continue with vancomycin/ceftazidime pending cultures/sensitivity Pus was noted to be draining with urine through the lopez. CT abd and pelvis (w/o contrast) r/o hydronephrosis/nephrolithiasis when stable will obtain abdominal US to assess GB Prognosis guarded NPO DNR/DNI Problem List: 1. Atrial fibrillation with RVR 2. Lactic acidosis 3. DAISHA (acute kidney injury) 4. Hypokalemia 5. Sepsis Consult Acknowledgment - Thank you for your consult request. Lupe PHILLIPS,[facility] 03/21/17 1107: General Information and HPI Consulting Request Date of Consult: 03/21/17 Exam & Diagnostic Data Last 48 Hrs of Labs/Travon: Laboratory Tests 03/21/17 0855: Troponin I Cancelled 03/21/17 0855: Anion Gap 20 H, Estimated GFR 29 L, Glucose 77, Lactic Acid 10.6 H, Calcium 7.8 L, Phosphorus 2.1 L, Magnesium 1.4 L, Total Bilirubin 3.7 H, AST 289 H, ALT 48, Troponin I 0.14 *H, Albumin 2.1 L, PT 27.5 H, INR 2.64 H, CBC w Diff MAN DIFF ORDERED, RBC 3.45 L, MCV 86.9, MCH 29.0, RDW 17.6 H, MPV 8.1, Gran % 99.2 H, Lymphocytes % 0.6 L, Monocytes % 0.2 L, Eosinophils % 0, Basophils % 0, Absolute Granulocytes 35.9 H, Segmented Neutrophils 76 H, Band Neutrophils 21 H, Absolute Lymphocytes 0.2 L, Lymphocytes 1 L, Monocytes 2, Absolute Monocytes 0.1, Absolute Eosinophils 0, Absolute Basophils 0, Platelet Estimate ADEQUATE, Polychromasia , Poikilocytosis 2+, Anisocytosis 1+, Ovalocytes 1+, Schistocytes , PUBS MCHC 33.4, Urine Color YEL, Urine Clarity TURBD H, Urine pH 5.5, Ur Specific [place] 1.025, Urine Protein >=300 H, Urine Ketones 15 H, Urine Nitrite NEG, Urine Bilirubin NEG@ICTO, Urine Urobilinogen 0.2, Ur Leukocyte Esterase LARGE H, Ur Microscopic SEDIMENT EXAMINED, Urine RBC 5-10 H , Urine WBC PACKD H, Urine Bacteria MOD H, Urine Hemoglobin MOD H, Urine Glucose 100 H 03/21/17 0600: Lactic Acid 11.8 H 03/21/17 0320: Urine Color YEL, Urine Clarity CLDY H, Urine pH 6.5, Ur Specific [place] 1.015, Urine Protein 100 H, Urine Ketones NEG, Urine Nitrite NEG, Urine Bilirubin NEG, Urine Urobilinogen 0.2, Ur Leukocyte Esterase LARGE H, Ur Microscopic SEDIMENT EXAMINED, Urine RBC 1-3, Urine WBC > 75 H, Ur Epithelial Cells RARE, Urine Bacteria PACKD H, Urine Hemoglobin SMALL H, Urine Glucose NEG 03/21/17 0310: Anion Gap 19 H, Estimated GFR 29 L, BUN/Creatinine Ratio 17.7, Glucose 78, Lactic Acid 8.4 H, Calcium 8.6, Phosphorus 2.8, Magnesium 1.4 L, Total Bilirubin 3.7 H, AST 54, ALT 22, Alkaline Phosphatase 343 H, Creatine Kinase 40 L, Troponin I 0.07, Total Protein 5.0 L, Albumin 2.5 L, Globulin 2.5, Albumin/Globulin Ratio 1.0 L, PT 28.2 H, INR 2.71 H, APTT 32, CBC w Diff MAN DIFF ORDERED, RBC 3.79 L, MCV 86.0, MCH 28.8, RDW 16.9 H, MPV 7.1 L, Gran % 96.0 H, Lymphocytes % 3.7 L, Monocytes % 0.1 L, Eosinophils % 0.2, Basophils % 0, Absolute Granulocytes 9.5 H, Segmented Neutrophils 71, Band Neutrophils 17 H, Absolute Lymphocytes 0.4 L, Lymphocytes 7 L, Monocytes 1 L, Absolute Monocytes 0 L, Eosinophils 1, Absolute Eosinophils 0, Absolute Basophils 0, Metamyelocytes 3 H, Platelet Estimate ADEQUATE, Polychromasia 1+, Poikilocytosis 1+, PUBS MCHC 33.5, Virus Culture Pending Microbiology 03/21 310 NASOPHARYN: Influenza Virus A & B Rapid Smear - COMP Assessment/Plan Other Findings/Comments: Seen and examined independently Events and data reviewed Patient was examined independently, discussed with warehouse supervisor 3rd shift and RN History physical exam as noted above Impression This is an unfortunate elderly gentleman with significant Parkinson's, hypertension, permanent pacemaker, recurrent UTI with urinary outlet obstruction patient does self catheterize himself, recent gram-negative UTI now here with Severe septic shock with gram-negative sepsis of urological origin Multiple organ failure with significantly elevated bilirubin, rule out obstructive biliary disease Left basilar atelectasis unlikely that he has significant pneumonia however aspiration pneumonia and healthcare associated pneumonia needs to be ruled out Severe pyuria BPH Metabolic acidosis lactic acidosis due to septic shock Acute kidney injury with chronic kidney disease Atrial fibrillation with rapid ventricular response which is improving, patient has been on aspirin, and has been on warfarin, with supratherapeutic INR Significant electrolyte abnormality Significant Parkinson's disease with extensive supratentorial white matter disease with 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 RECOMMENDATION Continue intravenous antibiotics Intravenous fluids at 100 cc an hour as patient seems to be slowly improving with aggressive fluid resuscitation Replace potassium IV Ultrasound of the abd and liver and gb to rule out obstructive jaundice and hydronephrosis, if not feasible then can do a noncontrast ct Fractionate the bili Check lfts GI consult if the patient has obstructive jaundice Can change the abx to zosyn Watch urine output Patient would need a femoral line as his INR is supratherapeutic and would require low-dose vasopressors Prog poor and wishes DNR and DNI ok with pressors PT is critically ill tts 45 mins Consult Acknowledgment - Thank you for your consult request.
[2017-03-21 10:04] LABS: ABSOLUTE BASOPHIL COUNT 0 /CUMM (0.0-0.2); ABSOLUTE EOSINOPHIL COUNT 0 /CUMM (0.0-0.7); ABSOLUTE LYMPH COUNT 0.2 /CUMM (1.2-3.4); ABSOLUTE MONOCYTE COUNT 0.1 /CUMM (0.10-0.60); BASOPHIL % 0 % (0.0-2.0); EOSINOPHIL % 0 % (0-5); RED BLOOD CELL CT 3.45 /CUMM (4.70-6.10)
[2017-03-21 10:09] LABS: ABSOLUTE GRANULOCYTE CT 35.9 /CUMM (1.4-6.5); GRANULOCYTE % 99.2 % (42.2-75.2); MEAN CORPUSCULAR HGB CONC 33.4 G/DL (33.0-37.0); MEAN CORPUSCULAR VOLUME 86.9 FL (80.0-94.0); MEAN PLATELET VOLUME 8.1 FL (7.4-10.4); PLATELET COUNT 233 /CUMM (130-400); RBC DISTRIBUTION WIDTH 17.6 % (11.5-14.5)
[2017-03-21 10:15] LABS: PT 27.5 SEC (9.4-12.5)
[2017-03-21 10:19] LABS: WHITE BLOOD CELL COUNT 36.2 /CUMM (4.8-10.8)
--- NOTE | 2017-03-21 11:37 | Cons- Infect Disease ---
General Information and HPI Consulting Request Date of Consult: 03/21/17 Requested By: Lior PHILLIPS,Krystal Reason for Consult: Septic shock Source of Information: primary team Exam Limitations: clinical condition History of Present Illness: 79-year-old male with past medical history of Parkinson's disease, hypertension, permanent pacemaker, BPH and urinary retention, presented to the [facility] from [facility] after being found unresponsive. Patient lethargic brought to the hospital by EMS. Per chart notes, he had a urinary tract infection 3 weeks prior to admission, associated with n/v that was treated with nitrofurantoin. He self catheterizes at baseline. Reported outpatient urine culture from 03/19 grew gram-negative rods. For this, ciprofloxacin was started at [facility]. Patient hypotensive and febrile (102.5F); receiving empiric iv abx (Ceftazidime/ Vancomycin); required several IVF bolulses. consented to central line placement. He remains lethargic, critically ill. Allergies/Medications Allergies: Coded Allergies: amoxicillin (RASH 03/21/17) Home Med List: Amlodipine Besylate (Norvasc) 5 MG TABLET 1 TAB PO DAILY HTN (Reported) Aspirin (Aspirin*) 81 MG TAB.CHEW 1 TAB PO DAILY HEART HEALTH (Reported) Aspirin (Aspirin*) 81 MG TAB.CHEW 1 TAB PO DAILY HEART (Reported) Atorvastatin Calcium 20 MG TABLET 1 TAB PO DAILY CHOL (Reported) Carbidopa/Levodopa (Carbidopa-Levodopa 25-100 Tab) 25 MG-100 MG TABLET 1 TAB PO TID PARKINSONS (Reported) Ciprofloxacin HCl (Cipro) 500 MG TABLET 1 TAB PO BID INFECTION (Reported) Cranberry Fruit Concentrate (Cranberry) 450 MG CAPSULE 1 TAB PO BID VITAMIN ( Reported) Duloxetine Hydrochloride (Cymbalta) 30 MG CAPSULE.DR 1 CAP PO DAILY UNK ( Reported) Finasteride 5 MG TABLET 1 TAB PO DAILY URINE (Reported) Gabapentin (Neurontin) 300 MG CAPSULE 1 CAP PO TID NEUROPATHY (Reported) Lactobacillus Acidophilus (Acidophilus) 1 EACH CAPSULE 1 CAP PO BID PROBIOTIC (Reported) Melatonin 3 MG TABLET 1 TAB PO QPM SLEEP (Reported) Metoprolol Tartrate 50 MG TABLET 1 TAB PO BID HTN (Reported) Olmesartan Medoxomil (Benicar) 40 MG TABLET 1 TAB PO DAILY HTN (Reported) Polyethylene Glycol 3350 (Miralax) 17 GRAM POWD.PACK 1 PAC PO DAILY CONSTIPA (Reported) dissolve in water Potassium Chloride 10 MEQ CAPSULE.ER 1 CAP PO DAILY SUPPLEMENT (Reported) Prochlorperazine (Compazine) 25 MG SUPP.RECT 1 SUPP OR DAILY NAUSEA (Reported ) Sennosides (Senokot) 8.6 MG TABLET 2 TAB PO DAILY CONSTIPATION (Reported) Current Medications: Current Medications Sig/Woodrow Start time Last Medication Dose Route Stop Time Status Admin Acetaminophen 1,000 MG ONCE ONE 03/21 030 CAN N/A 1 UNIT IV 03/21 0314 Acetaminophen 650 MG ONCE ONE 03/21 0300 DC 03/21 OR 03/21 030 0302 Ceftazidime 1,000 MG IQ8 03/21 0800 DC IV Ceftriaxone Sodium 1,000 MG Q24H 03/22 0330 CAN IV Ceftriaxone Sodium 0 .STK-MED ONE 03/21 0330 DC .ROUTE Ceftriaxone Sodium 1,000 MG ONCE ONE 03/21 0300 DC 03/21 IV 03/21 0301 0330 Metoprolol Tartrate 5 MG Q8H 03/21 0630 DC IV Metoprolol Tartrate 0 .STK-MED ONE 03/21 0531 DC IV Metoprolol Tartrate 5 MG ONCE ONE 03/21 0530 DC 03/21 IV 03/21 0531 0532 Non-Formulary 0 SEE ADMIN CRITERIA 03/21 1030 UNVr Medication ANY Potassium Chloride 10 MEQ ONCE ONE 03/21 0515 DC 03/21 IV 03/21 0516 0600 Potassium Chloride 10 MEQ ONCE ONE 03/21 0415 DC 03/21 IV 03/21 0416 0456 Sodium Chloride 1,000 ML Q10H 03/21 0615 AC 03/21 IV 0620 Sodium Chloride 1,000 ML BOLUS ONE 03/21 0415 DC 03/21 IV 03/21 0514 0456 Sodium Chloride 1,000 ML BOLUS ONE 03/21 0415 DC 03/21 IV 03/21 0514 0415 Sodium Chloride 1,000 ML BOLUS ONE 03/21 0400 DC 03/21 IV 03/21 0459 0348 Sodium Chloride 1,000 ML BOLUS ONE 03/21 0300 DC 03/21 IV 03/21 0359 0307 Vancomycin HCl 1,000 MG DAILY 03/21 1000 DC Sodium Chloride 250 ML IV Past History Travel History Traveled to [place] past 21 day No Medical History Neurological: Parkinson's disease EENT: NONE Cardiovascular: hypertension, ppm Respiratory: NONE Gastrointestinal: NONE Hepatic: NONE Renal: benign prost hyperplasia Musculoskeletal: NONE Psychiatric: NONE 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 Exam & Diagnostic Data Last 24 Hrs of Vital Signs/I&O Vital Signs Date Time Temp Pulse Resp B/P B/P Pulse O2 O2 Flow FiO2 Mean Ox Delivery Rate 03/21 0742 100.0 114 15 90/56 97 Nasal 2.0L Cannula 03/21 0658 103 16 95/55 97 Nasal 2.0L Cannula 03/21 0629 100.7 113 16 89/50 97 Nasal 2.0L Cannula 03/21 0600 110 20 90/59 96 Nasal 2.0L Cannula 03/21 0536 108 03/21 0532 156 03/21 0525 156 22 125/56 99 Nasal 2.0L Cannula 03/21 0459 101.0 154 22 99/64 100 Nasal 2.0L Cannula 03/21 0415 162 22 110/62 100 Nasal 2.0L Cannula 03/21 0331 156 22 113/58 100 Nasal 2.0L Cannula 03/21 0315 156 22 110/60 100 Nasal 2.0L Cannula 03/21 0305 100 Nasal 2.0L Cannula 03/21 0302 102.5 03/21 0301 102.5 151 22 119/55 100 Nasal 2.0L Cannula Intake & Output 03/21 1600 03/21 0800 03/21 0000 Intake Total 1000 Output Total 600 Balance 400 Intake, IV 1000 Output, Urine 600 Patient 220 lb Weight Physical Exam Other Physical Findings: General Appearance acutely ill, pale Skin No Rashes, Pale HEENT Atraumatic, sclera nonicteric NEck + JVD Cardiovascular S1, S2 present, tachycardic Lungs rhonci bilaterally Abdomen BS diminished, soft, Hester cath with gross purulent urine Extremities No Edema, Neuro: lethargic, not opening eyes to voice Last 24 Hours of Lab Results: Laboratory Tests 03/21 03/21 03/21 0855 0855 0600 Chemistry Sodium (137 - 145 mmol/L) 138 Potassium (3.5 - 5.1 mmol/L) 3.0 L Chloride (98 - 107 mmol/L) 104 Carbon Dioxide (22 - 30 mmol/L) 14 L Anion Gap (5 - 16) 20 H BUN (9 - 20 mg/dL) 35 H Creatinine (0.7 - 1.2 mg/dL) 2.2 H Estimated GFR (>60 ml/min) 29 L Glucose (65 - 99 mg/dL) 77 Lactic Acid (0.7 - 2.1 mmol/L) 10.6 H 11.8 H Calcium (8.4 - 10.2 mg/dL) 7.8 L Phosphorus (2.5 - 4.5 mg/dL) 2.1 L Magnesium (1.6 - 2.3 mg/dL) 1.4 L Total Bilirubin (0.2 - 1.3 mg/dL) 3.7 H AST (17 - 59 U/L) 289 H ALT (21 - 72 U/L) 48 Troponin I (<0.11 ng/ml) Cancelled 0.14 *H Albumin (3.5 - 5.0 g/dL) 2.1 L Coagulation PT (9.4 - 12.5 SEC) 27.5 H INR (0.90 - 1.17) 2.64 H Hematology CBC w Diff MAN DIFF ORDERED WBC (4.8 - 10.8 /CUMM) 36.2 *H RBC (4.70 - 6.10 /CUMM) 3.45 L Hgb (14.0 - 18.0 G/DL) 10.0 L Hct (42 - 52 %) 30.0 L MCV (80.0 - 94.0 FL) 86.9 MCH (27.0 - 31.0 PG) 29.0 RDW (11.5 - 14.5 %) 17.6 H Plt Count (130 - 400 /CUMM) 233 MPV (7.4 - 10.4 FL) 8.1 Gran % (42.2 - 75.2 %) 99.2 H Lymphocytes % (20.5 - 51.1 %) 0.6 L Monocytes % (1.7 - 9.3 %) 0.2 L Eosinophils % (0 - 5 %) 0 Basophils % (0.0 - 2.0 %) 0 Absolute Granulocytes (1.4 - 6.5 /CUMM) 35.9 H Segmented Neutrophils (42.2 - 75.2 %) 76 H Band Neutrophils (0.0 - 5.0 %) 21 H Absolute Lymphocytes (1.2 - 3.4 /CUMM) 0.2 L Lymphocytes (20.5 - 51.1 %) 1 L Monocytes (1.7 - 9.3 %) 2 Absolute Monocytes (0.10 - 0.60 /CUMM) 0.1 Absolute Eosinophils (0.0 - 0.7 /CUMM) 0 Absolute Basophils (0.0 - 0.2 /CUMM) 0 Platelet Estimate (ADEQUATE) ADEQUATE Polychromasia Poikilocytosis 2+ Anisocytosis 1+ Ovalocytes 1+ Schistocytes PUBS MCHC (33.0 - 37.0 G/DL) 33.4 Urines Urine Color (YEL,AMB,STR) Pending Urine Clarity (CLEAR) Pending Urine pH (5.0 - 8.0) Pending Ur Specific [place] (1.001 - 1.035) Pending Urine Protein (NEG,<30 MG/DL) Pending Urine Ketones (NEG) Pending Urine Nitrite (NEG) Pending Urine Bilirubin (NEG) Pending Urine Urobilinogen (0.1 - 1.0 EU/dl) Pending Ur Leukocyte Esterase (NEG) Pending Ur Microscopic SEDIMENT EXAMINED Urine RBC (0 - 5 /HPF) Pending Urine Hemoglobin (NEG) Pending Urine Glucose (N MG/DL) Pending 03/21 03/21 0320 0310 Chemistry Sodium (137 - 145 mmol/L) 135 L Potassium (3.5 - 5.1 mmol/L) 3.0 L Chloride (98 - 107 mmol/L) 98 Carbon Dioxide (22 - 30 mmol/L) 18 L Anion Gap (5 - 16) 19 H BUN (9 - 20 mg/dL) 39 H Creatinine (0.7 - 1.2 mg/dL) 2.2 H Estimated GFR (>60 ml/min) 29 L BUN/Creatinine Ratio (7 - 25 %) 17.7 Glucose (65 - 99 mg/dL) 78 Lactic Acid (0.7 - 2.1 mmol/L) 8.4 H Calcium (8.4 - 10.2 mg/dL) 8.6 Phosphorus (2.5 - 4.5 mg/dL) 2.8 Magnesium (1.6 - 2.3 mg/dL) 1.4 L Total Bilirubin (0.2 - 1.3 mg/dL) 3.7 H AST (17 - 59 U/L) 54 ALT (21 - 72 U/L) 22 Alkaline Phosphatase (< 127 U/L) 343 H Creatine Kinase (55 - 170 U/L) 40 L Troponin I (<0.11 ng/ml) 0.07 Total Protein (6.3 - 8.2 g/dL) 5.0 L Albumin (3.5 - 5.0 g/dL) 2.5 L Globulin (1.9 - 4.2 gm/dL) 2.5 Albumin/Globulin Ratio (1.1 - 2.2 %) 1.0 L Coagulation PT (9.4 - 12.5 SEC) 28.2 H INR (0.90 - 1.17) 2.71 H APTT (25 - 37 SEC) 32 Hematology CBC w Diff MAN DIFF ORDERED WBC (4.8 - 10.8 /CUMM) 9.9 RBC (4.70 - 6.10 /CUMM) 3.79 L Hgb (14.0 - 18.0 G/DL) 10.9 L Hct (42 - 52 %) 32.6 L MCV (80.0 - 94.0 FL) 86.0 MCH (27.0 - 31.0 PG) 28.8 RDW (11.5 - 14.5 %) 16.9 H Plt Count (130 - 400 /CUMM) 252 MPV (7.4 - 10.4 FL) 7.1 L Gran % (42.2 - 75.2 %) 96.0 H Lymphocytes % (20.5 - 51.1 %) 3.7 L Monocytes % (1.7 - 9.3 %) 0.1 L Eosinophils % (0 - 5 %) 0.2 Basophils % (0.0 - 2.0 %) 0 Absolute Granulocytes (1.4 - 6.5 /CUMM) 9.5 H Segmented Neutrophils (42.2 - 75.2 %) 71 Band Neutrophils (0.0 - 5.0 %) 17 H Absolute Lymphocytes (1.2 - 3.4 /CUMM) 0.4 L Lymphocytes (20.5 - 51.1 %) 7 L Monocytes (1.7 - 9.3 %) 1 L Absolute Monocytes (0.10 - 0.60 /CUMM) 0 L Eosinophils (0 - 5.0 %) 1 Absolute Eosinophils (0.0 - 0.7 /CUMM) 0 Absolute Basophils (0.0 - 0.2 /CUMM) 0 Metamyelocytes (0.0 - 1.0 %) 3 H Platelet Estimate (ADEQUATE) ADEQUATE Polychromasia 1+ Poikilocytosis 1+ PUBS MCHC (33.0 - 37.0 G/DL) 33.5 Serology Virus Culture Pending Urines Urine Color (YEL,AMB,STR) YEL Urine Clarity (CLEAR) CLDY H Urine pH (5.0 - 8.0) 6.5 Ur Specific [place] (1.001 - 1.035) 1.015 Urine Protein (NEG,<30 MG/DL) 100 H Urine Ketones (NEG) NEG Urine Nitrite (NEG) NEG Urine Bilirubin (NEG) NEG Urine Urobilinogen (0.1 - 1.0 EU/dl) 0.2 Ur Leukocyte Esterase (NEG) LARGE H Ur Microscopic SEDIMENT EXAMINED Urine RBC (0 - 5 /HPF) 1-3 Urine WBC (0 - 2 /HPF) > 75 H Ur Epithelial Cells (NONE,FEW) RARE Urine Bacteria (NEG/NONE) PACKD H Urine Hemoglobin (NEG) SMALL H Urine Glucose (N MG/DL) NEG Last 24 Hours of [place] Results: SPEC #: [id number] BLANKA: 03/21/17 STATUS: COMP RECD: 03/21/[address]: Jo-Ann Frost MD SOURCE: NASOPHARYN ENTR: 03/21/17 [facility] [place] DR: Madelin Chin MD SPDESC: CONTENT DIRECTOR ORDERED: QUIK FLU AB Procedure Result > RAPID VIRAL INFLUENZA A/B Final 03/21/17 NEGATIVE FOR INFLUENZA A & B Note Rapid influenza diagnostic tests have low to moderate sensitivity compared to viral culture or RT-PCR. A negative result does not exclude influenza virus infection. If influenza is circulating in your community, a diagnosis of influenza should be considered based on patient's clinical presentation and empiric antiviral treatment should be considered, if indicated. FOR ER PATIENTS WHO ARE ADMITTED AND HEALTHCARE WORKERS, IF THE RAPID FLU IS NEGATIVE AND PATIENT HAS INFLUENZA LIKE ILLNESS, PLEASE CALL MICROBIOLOGY DEPT. [phone] FOR RT-PCR SENDOUT. PLEASE FOLLOW ISOLATION PRECAUTIONS FOR ALL SUSPECTED INFLUENZA CASES. Diagnostic Data Recent Imaging Findings: CT HEAD: IMPRESSION: There is extensive confluent hypoattenuation throughout the supratentorial white matter that may reflect advanced chronic microangiopathy though is nonspecific and an acute white matter process would be difficult to exclude. The patient has a non-MRI compatible pacemaker. DICTATED BY: Charles Sheridan MD DATE/TIME DICTATED:03/21/17532 CONSTRUCTION SUPERINTENDENT:KISHAN DATE/TIME TRANSCRIBED:03/21/17532 CXR/IMPRESSION: Mild left basilar opacity that may reflect atelectasis, pneumonia, or aspiration. DICTATED BY: Charles Sheridan MD DATE/TIME DICTATED:03/21/17440 CONSTRUCTION SUPERINTENDENT:KISHAN DATE/TIME TRANSCRIBED:03/21/17440 CONFIDENTIAL, DO NOT COPY WITHOUT APPROPRIATE AUTHORIZATION. <Electronically signed in Other Vendor System> SIGNED BY: Charels Sheridan MD 03/21/17446 Assessment/Plan Assessment/Plan Impression: 79-year-old male with past medical history of Parkinson's disease, hypertension, permanent pacemaker, BPH and urinary retention admitted 03/21 with septic shock/ UTI/pyelonephritis. Severe leukocytosis (WBC 36K) DAISHA (creatinine at baseline ~1.2) Suggestion: 1. Continue empiric GNR coverage w/ Ceftazidime 1 gm iv q 12 h; f/u UC/BC results to further guide abx therapy. 2. Possible aspiration pneumonia; nasal MRSA surv cx; Vancomycin 1 gm now; random level in am. F/U CXR in am. 3. CT abd and pelvis (w/o contrast) r/o hydronephrosis/nephrolithiasis; eval prostate. 3. Monitor CBC/BMP/lactic acid level. 4. F/U critical care attending recom. Consult Acknowledgment - Thank you for your consult request.
--- NOTE | 2017-03-21 13:20 | Proc Note Internal Medicine ---
Medicine Procedure Procedure Date: 03/21/17 Medical Procedure(s): central venous catheter placement Pre-Operative Diagnosis: Septic shock Estimated Blood Loss: less than 50ml Anesthesia: local monitored anesthesi Procedure Findings: A time-out was completed verifying correct patient, procedure, site, positioning , and equipment. The patient was placed in a dependent position appropriate for central line placement. The patients right neck was prepped and draped in sterile fashion. 1% Lidocaine was used to anesthetize the surrounding skin area. A triple lumen 7-[place] Arrow catheter was introduced into the Right femoral vein using the Seldinger technique and under ultrasound guidance. Two attempts were made by Dr. Kaye unable to advance the guide wire. Dr. Andrade was called in and catheter was re-introduced. A small incision was made in the patients skin with a scalpel and the skin was dilated. The catheter was then threaded smoothly over the guide wire, and the guidewire removed. Blood return was obtained from each port of the catheter. Each lumen of the catheter was flushed with sterile saline, and a biopatch was placed and the catheter sutured in place to the skin and a sterile dressing applied. Estimated Blood Loss: <50 mL The patient tolerated the procedure well and there were no complications. Dr. Kaye, Dr. Camacho, Dr. Andrade and Jackie RANKIN were present throughout the procedure.
[2017-03-21 16:00] VITALS: BP 88/56
--- NOTE | 2017-03-21 16:31 | Cons- Cardiology ---
General Information and HPI Consulting Request Date of Consult: 03/21/17 Requested By: Lior PHILLIPS,Krystal Reason for Consult: Rapid atrial fibrillation; primary legal summer intern Dr. Dinh Source of Information: family, old records Exam Limitations: not alert/orientated History of Present Illness: This is a 79-year-old male with a past medical history of paroxysmal atrial fibrillation on warfarin, permanent pacemaker, prior TIA, neurogenic bladder, CAD with remote PCI, hypertension, and Parkinson's disease who was admitted to [facility] from [facility] after having decreased responsiveness. The patient is currently unable to give a history due to lethargy and the HPI was obtained with his family. They tell me she was having fevers at home with foul- smelling urine since [place] worsening weakness and by mouth intake as well as nausea. No reported bleeding or syncope. He was noted to be in rapid atrial fibrillation on presentation. He was also noted to be hypotensive and required initiation of intravenous pressors. He has been started on intravenous antibiotic therapy. Per his family he had not been complaining of any worsening dyspnea or chest pain. Allergies/Medications Allergies: Coded Allergies: amoxicillin (RASH 03/21/17) Home Med List: Amlodipine Besylate (Norvasc) 5 MG TABLET 1 TAB PO DAILY HTN (Reported) Aspirin (Aspirin*) 81 MG TAB.CHEW 1 TAB PO DAILY HEART HEALTH (Reported) Aspirin (Aspirin*) 81 MG TAB.CHEW 1 TAB PO DAILY HEART (Reported) Atorvastatin Calcium 20 MG TABLET 1 TAB PO DAILY CHOL (Reported) Carbidopa/Levodopa (Carbidopa-Levodopa 25-100 Tab) 25 MG-100 MG TABLET 1 TAB PO TID PARKINSONS (Reported) Ciprofloxacin HCl (Cipro) 500 MG TABLET 1 TAB PO BID INFECTION (Reported) Cranberry Fruit Concentrate (Cranberry) 450 MG CAPSULE 1 TAB PO BID VITAMIN ( Reported) Duloxetine Hydrochloride (Cymbalta) 30 MG CAPSULE.DR 1 CAP PO DAILY UNK ( Reported) Finasteride 5 MG TABLET 1 TAB PO DAILY URINE (Reported) Gabapentin (Neurontin) 300 MG CAPSULE 1 CAP PO TID NEUROPATHY (Reported) Lactobacillus Acidophilus (Acidophilus) 1 EACH CAPSULE 1 CAP PO BID PROBIOTIC (Reported) Melatonin 3 MG TABLET 1 TAB PO QPM SLEEP (Reported) Metoprolol Tartrate 50 MG TABLET 1 TAB PO BID HTN (Reported) Olmesartan Medoxomil (Benicar) 40 MG TABLET 1 TAB PO DAILY HTN (Reported) Polyethylene Glycol 3350 (Miralax) 17 GRAM POWD.PACK 1 PAC PO DAILY CONSTIPA (Reported) dissolve in water Potassium Chloride 10 MEQ CAPSULE.ER 1 CAP PO DAILY SUPPLEMENT (Reported) Prochlorperazine (Compazine) 25 MG SUPP.RECT 1 SUPP VA DAILY NAUSEA (Reported ) Sennosides (Senokot) 8.6 MG TABLET 2 TAB PO DAILY CONSTIPATION (Reported) Current Medications: Current Medications Sig/Woodrow Start time Last Medication Dose Route Stop Time Status Admin Acetaminophen 1,000 MG ONCE ONE 03/21 300 CAN N/A 1 UNIT IV 03/21 0314 Acetaminophen 650 MG ONCE ONE 03/210 DC 03/21 VA 03/21 301 0302 Ceftazidime 1,000 MG Q12 03/21 2200 AC IV Ceftazidime 1,000 MG IQ8 03/21 0800 DC IV Ceftriaxone Sodium 1,000 MG Q24H 03/22 0330 CAN IV Ceftriaxone Sodium 0 .STK-MED ONE 03/21 0330 DC .ROUTE Ceftriaxone Sodium 1,000 MG ONCE ONE 03/21 0300 DC 03/21 IV 03/21 0301 0330 Magnesium Sulfate 1 GM Q2H 03/21 1230 AC 03/21 Dextrose/Water 100 ML IV 03/21 1629 1416 Metoprolol Tartrate 5 MG Q8H 03/21 0630 DC IV Metoprolol Tartrate 0 .STK-MED ONE 03/21 0531 DC IV Metoprolol Tartrate 5 MG ONCE ONE 03/21 0530 DC 03/21 IV 03/21 0531 0532 Non-Formulary 0 SEE ADMIN CRITERIA 03/21 1030 DC Medication ANY Norepinephrine 4 MG Q7H 03/21 1215 AC 03/21 Sodium Chloride 250 ML IV 1252 Norepinephrine 4 MG Q24H 03/21 1200 DC 03/21 Sodium Chloride 250 ML IV 1158 Potassium Chloride 20 MEQ Q1H 03/21 1230 DC 03/21 IV 03/21 1331 1518 Potassium Chloride 10 MEQ ONCE ONE 03/21 0515 DC 03/21 IV 03/21 0516 0600 Potassium Chloride 10 MEQ ONCE ONE 03/21 0415 DC 03/21 IV 03/21 0416 0456 Potassium Phosphate 15 mMol ONE ONE 03/21 1230 AC Dextrose/Water 250 ML IV 03/21 1634 Sodium Chloride 500 ML BOLUS ONE 03/21 1530 AC 03/21 IV 03/21 1629 1100 Sodium Chloride 1,000 ML BOLUS ONE 03/21 1530 AC 03/21 IV 03/21 1629 0830 Sodium Chloride 1,000 ML Q10H 03/21 0615 AC 03/21 IV 1252 Sodium Chloride 1,000 ML BOLUS ONE 03/21 0415 DC 03/21 IV 03/21 0514 0456 Sodium Chloride 1,000 ML BOLUS ONE 03/21 0415 DC 03/21 IV 03/21 0514 0415 Sodium Chloride 1,000 ML BOLUS ONE 03/21 0400 DC 03/21 IV 03/21 0459 0348 Sodium Chloride 1,000 ML BOLUS ONE 03/21 0300 DC 03/21 IV 03/21 0359 0307 Vancomycin HCl 1,000 MG ONCE ONE 03/21 1330 DC 03/21 Sodium Chloride 250 ML IV 03/21 1429 1338 Vancomycin HCl 1,000 MG DAILY 03/21 1300 DC Sodium Chloride 250 ML IV Vancomycin HCl 1,000 MG DAILY 03/21 1000 DC Sodium Chloride 250 ML IV Review of Systems Review of Systems: Unable to obtain as the patient is lethargic Past History Travel History Traveled to [place] past 21 day No Medical History Neurological: Parkinson's disease EENT: NONE Cardiovascular: hypertension, ppm Respiratory: NONE Gastrointestinal: NONE Hepatic: NONE Renal: benign prost hyperplasia Musculoskeletal: NONE Psychiatric: NONE Endocrine: PARKIN[employer]/Reproductive: PROSTATE Other Medical Hx: FREQUENT FALLS Surgical History Surgical History: PPM Exam & Diagnostic Data Vital Signs and I&O Vital Signs Date Time Temp Pulse Resp B/P B/P Pulse O2 O2 Flow FiO2 Mean Ox Delivery Rate 03/21 1252 107 98/64 03/21 1158 108 78/50 03/21 0742 100.0 114 15 90/56 97 Nasal 2.0L Cannula 03/21 0658 103 16 95/55 97 Nasal 2.0L Cannula 03/21 0629 100.7 113 16 89/50 97 Nasal 2.0L Cannula 03/21 0600 110 20 90/59 96 Nasal 2.0L Cannula 03/21 0536 108 03/21 0532 156 03/21 0525 156 22 125/56 99 Nasal 2.0L Cannula 03/21 0459 101.0 154 22 99/64 100 Nasal 2.0L Cannula 03/21 0415 162 22 110/62 100 Nasal 2.0L Cannula 03/21 0331 156 22 113/58 100 Nasal 2.0L Cannula 03/21 0315 156 22 110/60 100 Nasal 2.0L Cannula 03/21 0305 100 Nasal 2.0L Cannula 03/21 0302 102.5 03/21 0301 102.5 151 22 119/55 100 Nasal 2.0L Cannula Intake & Output 03/21 1600 03/21 0800 03/21 0000 03/20 1600 03/20 0800 03/20 0000 Intake Total 1000 Output Total 600 Balance 400 Intake, IV 1000 Output, Urine 600 Patient 220 lb Weight Physical Exam: General: Lethargic Eyes: No obvious scleral icterus. HEENT: No jugular venous distention or abnormal jugular venous pulsations. Cardiovascular: Normal intensity S1/S2. Irregular, pacemaker noted Respiratory: No rales or rhonchi Abdomen: Soft, no obvious guarding Musculoskeletal: No clubbing or cyanosis noted; Trace lower extremity edema Skin: Warm Neurologic: Lethargic Lymph: No gross lymphadenopathy. Labs/Travon Results: Laboratory Tests 03/21 03/21 03/21 03/21 03/21 1615 1320 1320 0900 0855 Chemistry Lactic Acid (0.7 - 2.1 mmol/L) Pending 7.4 H Cancelled Troponin I (<0.11 ng/ml) 0.19 *H Cancelled 03/21 03/21 0855 0600 Chemistry Sodium (137 - 145 mmol/L) 138 Potassium (3.5 - 5.1 mmol/L) 3.0 L Chloride (98 - 107 mmol/L) 104 Carbon Dioxide (22 - 30 mmol/L) 14 L Anion Gap (5 - 16) 20 H BUN (9 - 20 mg/dL) 35 H Creatinine (0.7 - 1.2 mg/dL) 2.2 H Estimated GFR (>60 ml/min) 29 L Glucose (65 - 99 mg/dL) 77 Lactic Acid (0.7 - 2.1 mmol/L) 10.6 H 11.8 H Calcium (8.4 - 10.2 mg/dL) 7.8 L Phosphorus (2.5 - 4.5 mg/dL) 2.1 L Magnesium (1.6 - 2.3 mg/dL) 1.4 L Total Bilirubin (0.2 - 1.3 mg/dL) 3.7 H Direct Bilirubin (< 0.4 mg/dL) Pending AST (17 - 59 U/L) 289 H ALT (21 - 72 U/L) 48 Troponin I (<0.11 ng/ml) 0.14 *H Albumin (3.5 - 5.0 g/dL) 2.1 L Coagulation PT (9.4 - 12.5 SEC) 27.5 H INR (0.90 - 1.17) 2.64 H Hematology CBC w Diff MAN DIFF ORDERED WBC (4.8 - 10.8 /CUMM) 36.2 *H RBC (4.70 - 6.10 /CUMM) 3.45 L Hgb (14.0 - 18.0 G/DL) 10.0 L Hct (42 - 52 %) 30.0 L MCV (80.0 - 94.0 FL) 86.9 MCH (27.0 - 31.0 PG) 29.0 RDW (11.5 - 14.5 %) 17.6 H Plt Count (130 - 400 /CUMM) 233 MPV (7.4 - 10.4 FL) 8.1 Gran % (42.2 - 75.2 %) 99.2 H Lymphocytes % (20.5 - 51.1 %) 0.6 L Monocytes % (1.7 - 9.3 %) 0.2 L Eosinophils % (0 - 5 %) 0 Basophils % (0.0 - 2.0 %) 0 Absolute Granulocytes (1.4 - 6.5 /CUMM) 35.9 H Segmented Neutrophils (42.2 - 75.2 %) 76 H Band Neutrophils (0.0 - 5.0 %) 21 H Absolute Lymphocytes (1.2 - 3.4 /CUMM) 0.2 L Lymphocytes (20.5 - 51.1 %) 1 L Monocytes (1.7 - 9.3 %) 2 Absolute Monocytes (0.10 - 0.60 /CUMM) 0.1 Absolute Eosinophils (0.0 - 0.7 /CUMM) 0 Absolute Basophils (0.0 - 0.2 /CUMM) 0 Platelet Estimate (ADEQUATE) ADEQUATE Polychromasia Poikilocytosis 2+ Anisocytosis 1+ Ovalocytes 1+ Schistocytes PUBS MCHC (33.0 - 37.0 G/DL) 33.4 Urines Urine Color (YEL,AMB,STR) YEL Urine Clarity (CLEAR) TURBD H Urine pH (5.0 - 8.0) 5.5 Ur Specific Warren (1.001 - 1.035) 1.025 Urine Protein (NEG,<30 MG/DL) >=300 H Urine Ketones (NEG) 15 H Urine Nitrite (NEG) NEG Urine Bilirubin (NEG) NEG@ICTO Urine Urobilinogen (0.1 - 1.0 EU/dl) 0.2 Ur Leukocyte Esterase (NEG) LARGE H Ur Microscopic SEDIMENT EXAMINED Urine RBC (0 - 5 /HPF) 5-10 H Urine WBC (0 - 2 /HPF) PACKD H Urine Bacteria (NEG/NONE) MOD H Urine Hemoglobin (NEG) MOD H Urine Glucose (N MG/DL) 100 H 03/21 03/21 0320 0310 Chemistry Sodium (137 - 145 mmol/L) 135 L Potassium (3.5 - 5.1 mmol/L) 3.0 L Chloride (98 - 107 mmol/L) 98 Carbon Dioxide (22 - 30 mmol/L) 18 L Anion Gap (5 - 16) 19 H BUN (9 - 20 mg/dL) 39 H Creatinine (0.7 - 1.2 mg/dL) 2.2 H Estimated GFR (>60 ml/min) 29 L BUN/Creatinine Ratio (7 - 25 %) 17.7 Glucose (65 - 99 mg/dL) 78 Lactic Acid (0.7 - 2.1 mmol/L) 8.4 H Calcium (8.4 - 10.2 mg/dL) 8.6 Phosphorus (2.5 - 4.5 mg/dL) 2.8 Magnesium (1.6 - 2.3 mg/dL) 1.4 L Total Bilirubin (0.2 - 1.3 mg/dL) 3.7 H AST (17 - 59 U/L) 54 ALT (21 - 72 U/L) 22 Alkaline Phosphatase (< 127 U/L) 343 H Creatine Kinase (55 - 170 U/L) 40 L Troponin I (<0.11 ng/ml) 0.07 Total Protein (6.3 - 8.2 g/dL) 5.0 L Albumin (3.5 - 5.0 g/dL) 2.5 L Globulin (1.9 - 4.2 gm/dL) 2.5 Albumin/Globulin Ratio (1.1 - 2.2 %) 1.0 L Coagulation PT (9.4 - 12.5 SEC) 28.2 H INR (0.90 - 1.17) 2.71 H APTT (25 - 37 SEC) 32 Hematology CBC w Diff MAN DIFF ORDERED WBC (4.8 - 10.8 /CUMM) 9.9 RBC (4.70 - 6.10 /CUMM) 3.79 L Hgb (14.0 - 18.0 G/DL) 10.9 L Hct (42 - 52 %) 32.6 L MCV (80.0 - 94.0 FL) 86.0 MCH (27.0 - 31.0 PG) 28.8 RDW (11.5 - 14.5 %) 16.9 H Plt Count (130 - 400 /CUMM) 252 MPV (7.4 - 10.4 FL) 7.1 L Gran % (42.2 - 75.2 %) 96.0 H Lymphocytes % (20.5 - 51.1 %) 3.7 L Monocytes % (1.7 - 9.3 %) 0.1 L Eosinophils % (0 - 5 %) 0.2 Basophils % (0.0 - 2.0 %) 0 Absolute Granulocytes (1.4 - 6.5 /CUMM) 9.5 H Segmented Neutrophils (42.2 - 75.2 %) 71 Band Neutrophils (0.0 - 5.0 %) 17 H Absolute Lymphocytes (1.2 - 3.4 /CUMM) 0.4 L Lymphocytes (20.5 - 51.1 %) 7 L Monocytes (1.7 - 9.3 %) 1 L Absolute Monocytes (0.10 - 0.60 /CUMM) 0 L Eosinophils (0 - 5.0 %) 1 Absolute Eosinophils (0.0 - 0.7 /CUMM) 0 Absolute Basophils (0.0 - 0.2 /CUMM) 0 Metamyelocytes (0.0 - 1.0 %) 3 H Platelet Estimate (ADEQUATE) ADEQUATE Polychromasia 1+ Poikilocytosis 1+ PUBS MCHC (33.0 - 37.0 G/DL) 33.5 Serology Virus Culture Pending Urines Urine Color (YEL,AMB,STR) YEL Urine Clarity (CLEAR) CLDY H Urine pH (5.0 - 8.0) 6.5 Ur Specific Warren (1.001 - 1.035) 1.015 Urine Protein (NEG,<30 MG/DL) 100 H Urine Ketones (NEG) NEG Urine Nitrite (NEG) NEG Urine Bilirubin (NEG) NEG Urine Urobilinogen (0.1 - 1.0 EU/dl) 0.2 Ur Leukocyte Esterase (NEG) LARGE H Ur Microscopic SEDIMENT EXAMINED Urine RBC (0 - 5 /HPF) 1-3 Urine WBC (0 - 2 /HPF) > 75 H Ur Epithelial Cells (NONE,FEW) RARE Urine Bacteria (NEG/NONE) PACKD H Urine Hemoglobin (NEG) SMALL H Urine Glucose (N MG/DL) NEG Diagnostic Data EKG Results Tracing was personally reviewed and shows rapid atrial fibrillation with diffuse STT abnormality CXR Results Mild left basilar opacity that may reflect atelectasis, pneumonia, or aspiration. Other Results Telemetry tracings were personally reviewed and show atrial fibrillation with borderline ventricular response rate Assessment/Plan Assessment/Plan 1. Septic shock due to urosepsis 2. Elevated troponin likely due to supply/demand mismatch (Type 2 OK) 3. Acute kidney injury 4. Paroxysmal atrial fibrillation on warfarin 5. History of permanent pacemaker 6. History of TIA 7. History of coronary artery disease with remote PCI 8. History of hypertension 9. Parkinson's disease The patient remains critically ill and is on intravenous pressors for septic shock. Antibiotics per critical care and infectious disease. Troponin elevation is consistent with a type II myocardial infarction of his critical illness. He was initially noted to be very tachycardic but heart rate is now only slightly elevated and I would allow some mild permissive tachycardia in the setting of his septic shock. Would not give additional metoprolol or Cardizem while on pressors. Would obtain an echocardiogram. His prognosis is guarded. He is currently DNR/DNI. Time spent in critical care was approximately 35 minutes. Joey Jason MD [facility] Consult Acknowledgment - Thank you for your consult request.
--- NOTE | 2017-03-21 17:46 | ULTRASOUND REPORT ---
EXAMINATION: US ABDOMEN COMPLETE CLINICAL INFORMATION: Sepsis, elevated bilirubin. COMPARISON: None TECHNIQUE: Real-time imaging of the abdominal viscera. FINDINGS: PANCREAS: The visualized body the pancreas appears unremarkable. Rest of the pancreas obscured by overlying gas. ABDOMINAL AORTA: The proximal segment is normal in caliber. INFERIOR VENA CAVA: Visualized portions are normal. LIVER: Normal. The liver demonstrates normal size, contour and echogenicity. No focal lesion or intrahepatic biliary duct dilatation. GALLBLADDER: There is mild gallbladder wall thickening measuring 0.5 cm with fluid layering within the gallbladder wall. No echogenic stones seen. No pericholecystic fluid collection. COMMON BILE DUCT: Normal in caliber measuring 0.4 cm in diameter. RIGHT KIDNEY: There is small anechoic lesion measuring 4.1 x 2.8 x 2.7 cm mid to lower pole suspicious of a simple cyst. The right kidney measures 11.9 cm in length. No solid mass or hydronephrosis seen. LEFT KIDNEY: Normal. No hydronephrosis. No renal calculi or focal parenchymal lesions. The kidney measures 11.51 cm in maximum dimension. SPLEEN: Normal. The spleen measures 10.4 cm in maximum dimension. FREE FLUID: None. IMPRESSION: Thickened gallbladder wall with fluid within it but no echogenic stones or pericholecystic fluid collection. Question acalculous cholecystitis. Small cyst mid to lower pole right kidney. Rest of the abdominal ultrasound is unremarkable.
[2017-03-22 04:59] LABS: ABSOLUTE BASOPHIL COUNT 0 /CUMM (0.0-0.2); ABSOLUTE EOSINOPHIL COUNT 0 /CUMM (0.0-0.7); ABSOLUTE GRANULOCYTE CT 76.7 /CUMM (1.4-6.5); ABSOLUTE LYMPH COUNT 0.6 /CUMM (1.2-3.4); ABSOLUTE MONOCYTE COUNT 1.3 /CUMM (0.10-0.60); BASOPHIL % 0 % (0.0-2.0); EOSINOPHIL % 0 % (0-5); GRANULOCYTE % 97.5 % (42.2-75.2); HEMATOCRIT 29.2 % (42-52); MEAN CORPUSCULAR HGB 29.5 PG (27.0-31.0); MEAN CORPUSCULAR HGB CONC 34.1 G/DL (33.0-37.0); MEAN CORPUSCULAR VOLUME 86.5 FL (80.0-94.0); MEAN PLATELET VOLUME 7.9 FL (7.4-10.4); PLATELET COUNT 195 /CUMM (130-400); RBC DISTRIBUTION WIDTH 17.8 % (11.5-14.5); RED BLOOD CELL CT 3.38 /CUMM (4.70-6.10)
[2017-03-22 05:11] LABS: PT 33.9 SEC (9.4-12.5)
[2017-03-22 05:29] LABS: WHITE BLOOD CELL COUNT 78.6 /CUMM (4.8-10.8)
[2017-03-22 08:00] VITALS: BP 120/60
--- NOTE | 2017-03-22 08:42 | PN- Resident CRCU ---
Subjective HPI/CRCU Issues: Mr Torres was seen and examined this morning. He is resting comfortably in bed. He currently has supplemental oxygen via nasal cannula. He is alert although not oriented to place or person. Currently appears that he is doing better (endorsed by his ) and denies any complaints. He is currently nothing by mouth, he did endorse that he was thirsty and would like to have something to drink. He denies any fever, chills, nausea, vomiting. 24 Hour Events: Abdominal Ultrasound showed Acalculous Cholecystitis. Objective Vital Signs & I&O Last 8 Hrs of Vitals and I&O: Intake & Output 03/22 1600 Intake Total 864.5 Output Total 400 Balance 464.5 Intake, IV 864.5 Intake, Oral 0 Number 1 Bowel Movements Output, Urine 400 Patient 83.915 kg Weight Weight Bed scale Measurement Method Exam General Appearance: well developed/nourished, no apparent distress, alert, lethargic Respiratory: normal breath sounds, chest non-tender Cardiovascular: Irregularly Irregular Gastrointestinal: normal bowel sounds, soft, non-tender, tenderness Extremities: normal inspection, normal capillary refill, no edema Cranial Nerves: PERRL Skin: intact Skin Temp/Moisture Exam: Warm/Dry Current Medications: Current Medications Sig/Woodrow Start time Last Medication Dose Route Stop Time Status Admin Acetaminophen 1,000 MG ONCE ONE 03/21 1815 DC 03/21 N/A 1 UNIT IV 03/21 1829 1830 Ceftazidime 1,000 MG Q12 03/21 2200 AC 03/22 IV 0932 Dextrose/Sodium 1,000 ML Q16H 03/22 1245 AC 03/22 Chloride IV 1534 Metronidazole 500 MG Q8H 03/22 1000 AC 03/22 N/A 1 UNIT IV 1116 Norepinephrine 4 MG Q6H 03/21 1900 AC 03/22 Sodium Chloride 250 ML IV 0331 Norepinephrine 4 MG Q7H 03/21 1215 DC 03/21 Sodium Chloride 250 ML IV 03/21 1859 1252 Phytonadione 10 MG ONCE ONE 03/22 1000 DC 03/22 SC 03/22 1001 1036 Sodium Chloride 1,000 ML Q10H 03/21 0615 DC 03/22 IV 1117 Vancomycin HCl 750 MG ONCE ONE 03/22 1315 DC 03/22 Sodium Chloride 250 ML IV 03/[address] Scan Findings: SERVICE DATE: 03/22/17- EXAM TYPE: CAT - CT ABD & PELVIS W/O IV CONTRAS EXAMINATION: CT ABDOMEN AND PELVIS WITHOUT CONTRAST CLINICAL INFORMATION: Abdominal pain, acute cholecystitis. COMPARISON: Ultrasound 03/21/2017. TECHNIQUE: Multidetector volumetric imaging was performed from the superior aspect of the liver through the pubic symphysis. Sagittal and coronal reformatted images were obtained on the technologist's workstation. DLP: 442.64 mGy-cm FINDINGS: LUNG BASES: Bilateral small pleural effusions with atelectatic changes of the adjacent pulmonary parenchyma noted. There is mild cardiomegaly. The noncontrast images of the abdomen and pelvis demonstrate: LIVER, GALLBLADDER, AND BILIARY TREE: The liver is normal in size, shape, and attenuation. No biliary ductal dilatation is present. The gallbladder is slightly over distended. No calcified gallstone is seen. No obvious pericholecystic inflammatory changes, considering the limitation of the exam due to lack of intravenous contrast. PANCREAS: Unremarkable. SPLEEN: Unremarkable. ADRENAL GLANDS: Unremarkable. KIDNEYS AND URETERS: The right kidney measures about 11.2 cm in length. There is a 3.5 cm hypodense lesion seen in the upper pole of the right kidney. The density is about 17 Hounsfield units. It could represent a cortical cyst. There is no hydronephrosis or renal stone. The left kidney measures about 11.8 cm in length. No hydronephrosis or renal stone. There is extrarenal pelvis. Mild dilatation of the left ureter noted. The urinary bladder is almost empty, however there is thickening of the bladder wall up to 1.9 cm in single layer thickness. An indwelling catheter is seen within the urinary bladder. A small amount of intravesical air can be post catheterization. Mild bilateral perinephric stranding noted. No perinephric collection. There is moderate perivesical fat stranding in the pelvis and lower abdomen. GASTROINTESTINAL TRACT: The small and large bowel are not dilated. The rectum is mildly distended, up to 6.9 cm in transverse diameter and contains stool. This suggest fecal impaction. The appendix is not visualized. There is no free air or free fluid within the abdomen or pelvis. ABDOMINAL WALL: There are post hernia repair changes in the lower anterior abdominal wall and inguinal regions. LYMPH NODES: No pelvic sidewall, retroperitoneal or mesenteric adenopathy, considering limitations of the exam due to lack of intravenous contrast. VASCULAR: Atherosclerotic calcifications of the abdominal aorta and major branches noted. No aneurysmal dilatation. PELVIC VISCERA: The pelvic viscera are not well visualized due to inflammatory changes surrounding the urinary bladder and rectal fecal impaction. OSSEOUS STRUCTURES: There are multilevel degenerative changes of the lumbar spine. Post kyphoplasty changes of L3 on L4 noted. Post-ORIF changes of the left femur. Degenerative changes of bilateral hip joints. IMPRESSION: The gallbladder is slightly over distended. No calcified gallstone is seen. No definite pericholecystic inflammatory changes seen on this exam, considering limitations due to lack of intravenous contrast. Thickening of the bladder wall can be as a result of bladder outlet obstruction. The bladder is empty in the presence of indwelling catheter. Moderate amount of perivesical fat stranding extending to the lower abdomen also noted. Possibility of superimposed cystitis is not excluded. Clinical and lab correlation is suggested. Mild dilatation of bilateral ureters, left more than right can be functional as well. The appendix is not visualized and cannot be evaluated. Small bilateral pleural effusions and adjacent pulmonary opacities which could represent atelectasis. Clinical correlation for superimposed pneumonia is suggested. Right renal cortical hypodense lesion, could represent a cyst. This can be further evaluated by nonemergent ultrasound if indicated. DICTATED BY: Edson Velez MD US Findings: SERVICE DATE: 03/21/17- EXAM TYPE: US - US-COMPLETE ABDOMEN EXAMINATION: US ABDOMEN COMPLETE CLINICAL INFORMATION: Sepsis, elevated bilirubin. COMPARISON: None TECHNIQUE: Real-time imaging of the abdominal viscera. FINDINGS: PANCREAS: The visualized body the pancreas appears unremarkable. Rest of the pancreas obscured by overlying gas. ABDOMINAL AORTA: The proximal segment is normal in caliber. INFERIOR VENA CAVA: Visualized portions are normal. LIVER: Normal. The liver demonstrates normal size, contour and echogenicity. No focal lesion or intrahepatic biliary duct dilatation. GALLBLADDER: There is mild gallbladder wall thickening measuring 0.5 cm with fluid layering within the gallbladder wall. No echogenic stones seen. No pericholecystic fluid collection. COMMON BILE DUCT: Normal in caliber measuring 0.4 cm in diameter. RIGHT KIDNEY: There is small anechoic lesion measuring 4.1 x 2.8 x 2.7 cm mid to lower pole suspicious of a simple cyst. The right kidney measures 11.9 cm in length. No solid mass or hydronephrosis seen. LEFT KIDNEY: Normal. No hydronephrosis. No renal calculi or focal parenchymal lesions. The kidney measures 11.51 cm in maximum dimension. SPLEEN: Normal. The spleen measures 10.4 cm in maximum dimension. FREE FLUID: None. IMPRESSION: Thickened gallbladder wall with fluid within it but no echogenic stones or pericholecystic fluid collection. Question acalculous cholecystitis. Small cyst mid to lower pole right kidney. Rest of the abdominal ultrasound is unremarkable. DICTATED BY: January PHILLIPS,Leonel Impression/Plan Impression/Problem List Impression: Ms Torres is a 79-year-old gentleman with past medical history of Parkinson's disease, hypertension, permanent pacemaker, BPH and urinary retention, BIBA from [facility] after being found unresponsive. Vitals: Tmax 102.5, HR 150-170's, BP 110/62 --> 90/59 --> 95/55 after receiving 4 L NS and IV metoprolol for rate control. Vitals: Tmax 102.5, HR 150-170's Labs: no leukocytosis, bands 17, INR 2.71, Na 135, K 3.0, bicarb 18, AG 19, BUN 39, creat 2.2 (baseline 0.8-1.1), lactic acid 8.4 --> 11.8, Mag 1.4, T. Bili 3.7 , AST/ALT normal, CK 40, trop neg. UA cloudy, large LE, WBC > 75, packed bacteria. EKG: Afib with RVR. CXR: mild left basilar opacity atelectasis, pneumonia or aspiration. Head CT: exensive confluent hypoattenuation chronic microangiopathy, no acute process. ED course:, BP 110/62 --> 90/59 --> 95/55 after receiving 4 L NS and IV metoprolol for rate control. Problem list: Septic shock secondary to gram-negative sepsis( UTI possible source) Metabolic acidosis DAISHA on CKD Atrial fibrillation on coumadin Hyperbilirubinemia Plan: Continue managment in ICU Central Line in Placed. Continuing Ceftazidime, Q12, Vancomycin 750 mg once (will repeat a random vancomycin level on 03/23/2017), Flagyl 500 mg iv Q8 h for now. Pus was noted to be draining with urine through the lopez. CT abd and pelvis (w/o contrast) r/o hydronephrosis/nephrolithiasis when stable, done on 03/22/2017, results attached. Percut cholecystostomy scheduled for 03/23/2017. Biliary fluid cx to be obtained. Obtained abdominal US to assess GB, this was done on 03/21/2017. Anticoagulation will be held for now, if repeat INR <2.00, will begin the patient on Heparin IV. This heparin should be discontinued at 5.00 am on 2017. Vitamin K SC was given this am. D5, 1/2 NS for gentle hydration. Levophed to maintain MAP > or equal to 65 Consider hematology eval (? flow cytometry). Dulcolax Supp for fecal Impaction. Prognosis guarded NPO--> will be going for IR guided Cholesystostomy Tube placement tomorrow. DNR/DNI Problem List: 1. Sepsis 2. UTI (urinary tract infection) 3. Atrial fibrillation with RVR 4. Lactic acidosis 5. DAISHA (acute kidney injury) 6. Hypokalemia Pain Ratin Tomorrow's Labs & Rationales: CBC: monitor H/H ICu bundle: monitor electrolytes in the setting of acute illness INR: Monitor INR in the setting of need for anticoagulation Plan DVT/Prophylaxis: mechanical
--- NOTE | 2017-03-22 10:06 | RADIOLOGY REPORT ---
EXAMINATION: XR PORTABLE CHEST CLINICAL INFORMATION: Lethargy, fever. COMPARISON: Chest done on 03/21/2017. TECHNIQUE: Portable frontal view of the chest was obtained. FINDINGS: Bibasilar airspace opacities are noted, shows interval progression on the left, appear new on the right, may represent atelectasis, infiltrate or combination thereof. The cardiomediastinal silhouette is within normal limits. There is mild pulmonary venous congestion present. Dual lead pacer wires are present, appear intact. IMPRESSION: 1. Evidence of mild pulmonary venous congestion, new since prior study. 2. Bibasilar nonspecific airspace opacities (left greater than right), may represent infiltrate, atelectasis or combination thereof.
[2017-03-22 10:28] LABS: PTT 46 SEC (25-37)
--- NOTE | 2017-03-22 11:34 | PN- CRCU ---
Subjective HPI/Critical Care Issues: Events and data reviewed T-Max 100.6 More awake alert with adequate urine output Continues to be on normal saline and on a low dose norepinephrine drip In atrial fibrillation heart rate around 110 blood pressures adequate oxygen saturation 97% on 2 L Significant data ultrasound of the abdomen reviewed which shows that he may have an area calculus gallbladder with tender abdomen Chest x-ray done this morning showed mild pulmonary venous congestion new since yesterday by basilar nonspecific airspace opacity Creatinine stable at 2.2 anion gap is now 15 lactic acid is trending down liver enzymes continued to be elevated with bilirubin of 3 with direct bilirubin of 3.1 with alkaline phosphatase to the 43 and AST elevated his last CK was 40 Troponin 0.22 white count up to 78,000 this morning hemoglobin 10 which is stable platelets 1 9527% bands as INR 3.27 patient was on warfarin Objective Current Medications: Current Medications Sig/Woodrow Start time Last Medication Dose Route Stop Time Status Admin Acetaminophen 1,000 MG ONCE ONE 03/21 1815 DC 03/21 N/A 1 UNIT IV 03/21 1829 1830 Ceftazidime 1,000 MG Q12 03/21 2200 AC 03/22 IV 0932 Magnesium Sulfate 1 GM Q2H 03/21 1230 DC 03/21 Dextrose/Water 100 ML IV 03/21 1629 1416 Metronidazole 500 MG Q8H 03/22 1000 AC 03/22 N/A 1 UNIT IV 1116 Non-Formulary 0 SEE ADMIN CRITERIA 03/21 1030 DC Medication ANY Norepinephrine 4 MG Q6H 03/21 1900 AC 03/22 Sodium Chloride 250 ML IV 0331 Norepinephrine 4 MG Q7H 03/21 1215 DC 03/21 Sodium Chloride 250 ML IV 03/21 1859 1252 Norepinephrine 4 MG Q24H 03/21 1200 DC 03/21 Sodium Chloride 250 ML IV 1158 Phytonadione 10 MG ONCE ONE 03/22 1000 DC 03/22 SC 03/22 1001 1036 Potassium Chloride 20 MEQ Q1H 03/21 1230 DC 03/21 IV 03/21 1331 1628 Potassium Phosphate 15 mMol ONE ONE 03/21 1230 DC 03/21 Dextrose/Water 250 ML IV 03/21 1634 1749 Sodium Chloride 500 ML BOLUS ONE 03/21 1530 DC 12 IV 03/21 1629 1100 Sodium Chloride 1,000 ML BOLUS ONE 03/21 1530 DC 12/30 IV 03/21 1629 0830 Sodium Chloride 1,000 ML Q10H 03/21 0615 AC 03/22 IV 1117 Vancomycin HCl 1,000 MG ONCE ONE 03/21 1330 DC 03/21 Sodium Chloride 250 ML IV 03/21 1429 1338 Vancomycin HCl 1,000 MG DAILY 03/21 1300 DC Sodium Chloride 250 ML IV Vital Signs & I&O Last 24 Hrs of Vitals and I&O: Vital Signs Date Time Temp Pulse Resp B/P B/P Pulse O2 O2 Flow FiO2 Mean Ox Delivery Rate 03/22 0355 96 Nasal 2.0L Cannula 03/22 0331 108 102/65 03/22 0000 97 Nasal 2.0L Cannula 03/21 2000 99.4 03/21 2000 94 Nasal 2.0L Cannula 03/21 1830 100.6 03/21 1830 124 102/60 03/21 1600 100.5 104 18 88/56 96 Nasal 2.0L Cannula 03/21 1600 96 Nasal 2.0L Cannula 03/21 1252 107 98/64 03/21 1200 97 Nasal 2.0L Cannula 03/21 1158 108 78/50 Intake & Output 03/22 1600 03/22 0800 03/22 0000 Intake Total 979 1806 Output Total 300 425 Balance 679 1381 Intake, IV 979 1806 Intake, Oral 0 0 Number 0 1 Bowel Movements Output, Urine 300 425 Impression/Plan Impression/Plan Impression/Plan: General Appearance acutely ill, pale Skin No Rashes, Pale HEENT Atraumatic, sclera nonicteric NEck + JVD Cardiovascular S1, S2 present, tachycardic Lungs rhonci bilaterally Abdomen BS diminished, soft, Hester cath with gross purulent urine Extremities No Edema, Neuro: alert and awake with lethargy Impression This is an unfortunate elderly gentleman with significant Parkinson's, hypertension, permanent pacemaker, recurrent UTI with urinary outlet obstruction patient does self catheterize himself, recent gram-negative UTI now here with * Severe septic shock with gram-negative sepsis of urological origin * Multiple organ failure with significantly elevated bilirubin, now with evidence of acalculus leyla * Bibasilar atelectasis unlikely that he has significant pneumonia however aspiration pneumonia and healthcare associated pneumonia needs to be ruled out * Severe pyuria BPH * Resolving Metabolic acidosis lactic acidosis due to septic shock * Acute kidney injury with chronic kidney disease * Atrial fibrillation with rapid ventricular response which is improving, patient has been on aspirin, and has been on warfarin, with supratherapeutic INR * Improving electrolyte abnormality * Significant Parkinson's disease with extensive supratentorial white matter disease with 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 RECOMMENDATION * Needs perc Leyla tube as his sepsis is sig and has sig abd pain * Continue intravenous antibiotics, flagyl to be added * Intravenous fluids d5 1/2 normal 60 cc an hour as patient is better with evidence of pulm edema after aggresive fluid overload * Replace potassium IV, keep more than 4 * Can give one dose of vit k and ffp if needed for perc leyla * Check lfts daily * GI consult if the patient does not improve after the perc leyla * Watch urine output * When stable give one dose of lasix 40 mg * Wean pressors Discussed with at the bedside Prog guarded and wishes DNR and DNI ok with pressors PT is critically ill tts 40 mins
[2017-03-22 12:00] VITALS: BP 128/80
--- NOTE | 2017-03-22 12:31 | Event Note ---
Event Note Event Note: S: Just spoke to IR. An order for IR Guided Percutaneous Cholecystostomy was ordered and appropriate paper work was filed and faxed to IR department. I was shortly informed that this procedure would not be done today. B: Mr Torres is a 79-year-old male with past medical history of Parkinson's disease, hypertension, permanent pacemaker, BPH and urinary retention admitted 03/21. Septic shock/GNR bacteremia)/UTI (GNR/Enterococcus)/pyelonephritis. A/R: 03.21:I updated the attending and informed him that this will not likely be possible (based on the information given to me). Called: [phone], spoke with Gerard, he connected me with Dr Purvis, I then spoke to Dr Purvis and expalined to him our thoughts and concerns ( abdominal pain, WBC count of 78.6, 27 bands elevated billirubin). He proposed a HIDA scan to be ordered (this was not possible as no Nuclear Medicine not available. A CT scan without IV contrast was ordered. Will check an INR again, if <2.0, will begin the patient on Heparin till 5.00 am 03/23/2017. Goal INR prior to procedure < 2.0 <2. FFP Heparin stopped 5.00
--- NOTE | 2017-03-22 12:35 | PN- Infect Dx ---
Subjective Subjective: Low grade fever. Hester patent, urine cloudy (no gross purulence as previous day) . Mild abdominal discomfort. Review of Systems Comments: 12 points reviewed as noted, otherwise negative. Objective Last 24 Hrs of Vital Signs/I&O Vital Signs Date Time Temp Pulse Resp B/P B/P Pulse O2 O2 Flow FiO2 Mean Ox Delivery Rate 03/22 1200 Nasal 2.0L Cannula 03/22 0800 98.5 128 21 120/60 98 Nasal 2.0L Cannula 03/22 0800 96 Nasal 2.0L Cannula 03/22 0355 96 Nasal 2.0L Cannula 03/22 0331 108 102/65 03/22 0000 97 Nasal 2.0L Cannula 03/21 2000 99.4 03/21 2000 94 Nasal 2.0L Cannula 03/21 1830 100.6 03/21 1830 124 102/60 03/21 1600 100.5 104 18 88/56 96 Nasal 2.0L Cannula 03/21 1600 96 Nasal 2.0L Cannula 03/21 1252 107 98/64 Intake & Output 03/22 1600 03/22 0800 03/22 0000 Intake Total 979 1806 Output Total 300 425 Balance 679 1381 Intake, IV 979 1806 Intake, Oral 0 0 Number 0 1 Bowel Movements Output, Urine 300 425 Patient 185 lb Weight Weight Bed scale Measurement Method Physical Exam Other Physical Findings: General Appearance fatigued, thin, pale Skin No Rashes HEENT Atraumatic, sclera nonicteric NEck + JVD Cardiovascular S1, S2 present, no g/r Lungs BS present, diminished bases Abdomen BS present, soft, Hester cath patent; mild tenderness w/ palpation RUQ and RLQ Extremities No Edema, Neuro: awake and alert, able to answer questions Results Last 24 Hours of Lab Results: Laboratory Tests 03/22 03/22 03/22 1100 0806 0425 Chemistry Sodium (137 - 145 mmol/L) 140 Potassium (3.5 - 5.1 mmol/L) 3.8 Chloride (98 - 107 mmol/L) 108 H Carbon Dioxide (22 - 30 mmol/L) 18 L Anion Gap (5 - 16) 15 BUN (9 - 20 mg/dL) 38 H Creatinine (0.7 - 1.2 mg/dL) 2.2 H Estimated GFR (>60 ml/min) 29 L Glucose (65 - 99 mg/dL) 101 H Lactic Acid (0.7 - 2.1 mmol/L) Pending 2.5 H 3.0 H Calcium (8.4 - 10.2 mg/dL) 7.7 L Phosphorus (2.5 - 4.5 mg/dL) 4.1 Magnesium (1.6 - 2.3 mg/dL) 1.8 Total Bilirubin (0.2 - 1.3 mg/dL) 3.0 H AST (17 - 59 U/L) 193 H ALT (21 - 72 U/L) 50 Albumin (3.5 - 5.0 g/dL) 2.1 L Coagulation PT (9.4 - 12.5 SEC) 33.9 H INR (0.90 - 1.17) 3.27 H APTT (25 - 37 SEC) 46 H Hematology CBC w Diff MAN DIFF ORDERED WBC (4.8 - 10.8 /CUMM) 78.6 *H RBC (4.70 - 6.10 /CUMM) 3.38 L Hgb (14.0 - 18.0 G/DL) 10.0 L Hct (42 - 52 %) 29.2 L MCV (80.0 - 94.0 FL) 86.5 MCH (27.0 - 31.0 PG) 29.5 RDW (11.5 - 14.5 %) 17.8 H Plt Count (130 - 400 /CUMM) 195 MPV (7.4 - 10.4 FL) 7.9 Gran % (42.2 - 75.2 %) 97.5 H Lymphocytes % (20.5 - 51.1 %) 0.8 L Monocytes % (1.7 - 9.3 %) 1.7 Eosinophils % (0 - 5 %) 0 Basophils % (0.0 - 2.0 %) 0 Absolute Granulocytes (1.4 - 6.5 /CUMM) 76.7 H Segmented Neutrophils (42.2 - 75.2 %) 72 Band Neutrophils (0.0 - 5.0 %) 27 H Absolute Lymphocytes (1.2 - 3.4 /CUMM) 0.6 L Lymphocytes (20.5 - 51.1 %) 1 L Absolute Monocytes (0.10 - 0.60 /CUMM) 1.3 H Absolute Eosinophils (0.0 - 0.7 /CUMM) 0 Absolute Basophils (0.0 - 0.2 /CUMM) 0 Platelet Estimate (ADEQUATE) ADEQUATE Normochromic RBCs VERIFIED Poikilocytosis 2+ Fertile Cells 2+ PUBS MCHC (33.0 - 37.0 G/DL) 34.1 Toxicology Random Vancomycin (ug/ml) 8.9 03/21 03/21 03/21 03/21 03/21 2355 2355 2009 182 1615 Chemistry Lactic Acid (0.7 - 2.1 mmol/L) 3.8 H 4.4 H 5.6 H Troponin I (<0.11 ng/ml) 0.22 *H 0.26 *H 03/21 03/21 1320 1320 Chemistry Lactic Acid (0.7 - 2.1 mmol/L) 7.4 H Troponin I (<0.11 ng/ml) 0.19 *H Last 24 Hours of [place]on Results: Patient : JADIEL NOBLES Acct: [id number] DR: Lior PHILLIPS, Krystal Birthdate: [birth year] Age/Sex: 82/M Unit: [id number] Loc: [address] 01 Status : ADM IN SPEC #: [id number] BLANKA: 03/21/17 STATUS: RES RECD: 03/21/[address]: Margot PHILLIPS,Jo-Ann SOURCE: BLOOD ENTR: 03/21/[address]: Giuseppe PHILLIPS, Madelin SCOTTC: 2ND/VENOUS ORDERED: BLOOD CULTURE Procedure Result > BLOOD CULTURE REPORT Preliminary 03/22/17 GRAM STAIN SUGGESTIVE OF: GRAM NEGATIVE RODS Called to/Readback by GUNNER AND DR CHAVEZ AT 1734 03/21/17 LAB.[facility] by [facility] 03/22/17 07 CULTURE: GRAM NEGATIVE RODS Identification and sensitivities to follow SPEC #: [id number] BLANKA: 03/21/17 STATUS: RES RECD: 03/21/[address]: Doug PHILLIPS, Eugene SOURCE: URINE ROUT ENTR: 03/21/[address]: Giuseppe PHILLIPS, Madelin SCOTTC: URINE FOLE Lior MD, Krystal ORDERED: URINE CULTURE Procedure Result > URINE CULTURE Preliminary 03/22/17-1106 Greater than 100,000 colonies per ml of: 1.GRAM NEGATIVE RODS Identification and susceptibilities to follow 2. ENTEROCOCCUS Sensitivity to follow Recent Imaging Studies: SERVICE DATE: 03/21/17- EXAM TYPE: US - US-COMPLETE ABDOMEN EXAMINATION: US ABDOMEN COMPLETE CLINICAL INFORMATION: Sepsis, elevated bilirubin. COMPARISON: None TECHNIQUE: Real-time imaging of the abdominal viscera. FINDINGS: PANCREAS: The visualized body the pancreas appears unremarkable. Rest of the pancreas obscured by overlying gas. ABDOMINAL AORTA: The proximal segment is normal in caliber. INFERIOR VENA CAVA: Visualized portions are normal. LIVER: Normal. The liver demonstrates normal size, contour and echogenicity. No focal lesion or intrahepatic biliary duct dilatation. GALLBLADDER: There is mild gallbladder wall thickening measuring 0.5 cm with fluid layering within the gallbladder wall. No echogenic stones seen. No pericholecystic fluid collection. COMMON BILE DUCT: Normal in caliber measuring 0.4 cm in diameter. RIGHT KIDNEY: There is small anechoic lesion measuring 4.1 x 2.8 x 2.7 cm mid to lower pole suspicious of a simple cyst. The right kidney measures 11.9 cm in length. No solid mass or hydronephrosis seen. LEFT KIDNEY: Normal. No hydronephrosis. No renal calculi or focal parenchymal lesions. The kidney measures 11.51 cm in maximum dimension. SPLEEN: Normal. The spleen measures 10.4 cm in maximum dimension. FREE FLUID: None. IMPRESSION: Thickened gallbladder wall with fluid within it but no echogenic stones or pericholecystic fluid collection. Question acalculous cholecystitis. Small cyst mid to lower pole right kidney. Rest of the abdominal ultrasound is unremarkable. DICTATED BY: January PHILLIPS,Leonel DATE/TIME DICTATED:03/21/171732 TAX ADJUSTER:KISHAN DATE/TIME TRANSCRIBED:03/21/171732 CONFIDENTIAL, DO NOT COPY WITHOUT APPROPRIATE AUTHORIZATION. Assessment/Plan Impression: 79-year-old male with past medical history of Parkinson's disease, hypertension, permanent pacemaker, BPH and urinary retention admitted 03/21. Septic shock/GNR bacteremia)/UTI (GNR/Enterococcus)/pyelonephritis. Clinically appears improved; MS at baseline; fever curve trending down; blood work revealing worsening leukemoid reaction (WBC 76K). Of note UC from 03/19 as OP + ps. aeruginosa (pansensitive). 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 Continue empiric GNR coverage w/ Ceftazidime 1 gm iv q 12 h; f/u final UC/BC results to further guide abx therapy. Repeat BC x 2 on 03/23/17. 2. Vancomycin 750 mg iv x1 today; random level in am 03/23/17 (random level today below 10). 3. Monitor CBC/BMP; consider hematology eval (? flow cytometry). 4. IR eval question if percut cholecystostomy indicated; if procedure performed biliary fluid cx to be obtained; add Flagyl 500 mg iv q 8 h for now.
--- NOTE | 2017-03-22 13:29 | PN- Cardiology ---
Subjective Subjective: Still lethargic but does appear more alert compared with yesterday. Objective Vital Signs and I&Os Vital Signs Date Time Temp Pulse Resp B/P B/P Pulse O2 O2 Flow FiO2 Mean Ox Delivery Rate 03/22 1200 Nasal 2.0L Cannula 03/22 1200 98.4 110 20 128/80 97 Nasal 2.0L Cannula 03/22 0800 98.5 128 21 120/60 98 Nasal 2.0L Cannula 03/22 0800 96 Nasal 2.0L Cannula 03/22 0355 96 Nasal 2.0L Cannula 03/22 0331 108 102/65 03/22 0000 97 Nasal 2.0L Cannula 03/21 2000 99.4 03/21 2000 94 Nasal 2.0L Cannula 03/21 1830 100.6 03/21 1830 124 102/60 03/21 1600 100.5 104 18 88/56 96 Nasal 2.0L Cannula 03/21 1600 96 Nasal 2.0L Cannula Intake & Output 03/22 1600 03/22 0800 03/22 0000 03/21 1600 03/21 0800 03/21 0000 Intake Total 979 1806 2735 1000 Output Total 659 688 8890 600 Balance 679 1381 1635 400 Intake, IV 979 1806 2735 1000 Intake, Oral 0 0 Number 0 1 0 Bowel Movements Output, Urine 339 152 8183 600 Patient 185 lb 0 lb 220 lb Weight Weight Bed scale Bed scale Measurement Method Physical Exam: General: Lethargic Eyes: No obvious scleral icterus. HEENT: No jugular venous distention or abnormal jugular venous pulsations. Cardiovascular: Normal intensity S1/S2. Irregular, pacemaker noted Respiratory: No rales or rhonchi Abdomen: Soft, no obvious guarding Musculoskeletal: No clubbing or cyanosis noted; Trace lower extremity edema Skin: Warm Neurologic: Lethargic Lymph: No gross lymphadenopathy. Current Medications: Current Medications Sig/Woodrow Start time Last Medication Dose Route Stop Time Status Admin Acetaminophen 1,000 MG ONCE ONE 03/21 1815 DC 03/21 N/A 1 UNIT IV 03/21 182 1830 Ceftazidime 1,000 MG Q12 03/21 2200 AC 03/22 IV 0932 Dextrose/Sodium 1,000 ML Q16H 03/22 1245 AC Chloride IV Magnesium Sulfate 1 GM Q2H 03/21 1230 DC 03/21 Dextrose/Water 100 ML IV 03/21 1629 1416 Metronidazole 500 MG Q8H 03/22 1000 AC 03/22 N/A 1 UNIT IV 1116 Norepinephrine 4 MG Q6H 03/21 1900 AC 03/22 Sodium Chloride 250 ML IV 0331 Norepinephrine 4 MG Q7H 03/21 1215 DC 03/21 Sodium Chloride 250 ML IV 03/21 1859 1252 Phytonadione 10 MG ONCE ONE 03/22 1000 DC 03/22 SC 03/22 1001 1036 Potassium Chloride 20 MEQ Q1H 03/21 1230 DC 03/21 IV 03/21 1331 1628 Potassium Phosphate 15 mMol ONE ONE 03/21 1230 DC 03/21 Dextrose/Water 250 ML IV 03/21 1634 1749 Sodium Chloride 500 ML BOLUS ONE 03/21 1530 DC 03/21 IV 03/21 1629 1100 Sodium Chloride 1,000 ML BOLUS ONE 03/21 1530 DC 03/21 IV 03/21 1629 0830 Sodium Chloride 1,000 ML Q10H 03/21 0615 DC 03/22 IV 1117 Vancomycin HCl 750 MG ONCE ONE 03/22 1315 AC Sodium Chloride 250 ML IV 03/22 1414 Vancomycin HCl 1,000 MG ONCE ONE 03/21 1330 DC 03/21 Sodium Chloride 250 ML IV 03/21 1429 1338 Vancomycin HCl 1,000 MG DAILY 03/21 1300 DC Sodium Chloride 250 ML IV Results Last 48 Hrs of Labs/Mics: Laboratory Tests 03/22/17 1100: Lactic Acid Pending 03/22/17 0806: Lactic Acid 2.5 H 03/22/17 0425: Anion Gap 15, Estimated GFR 29 L, Glucose 101 H, Lactic Acid 3.0 H, Calcium 7.7 L, Phosphorus 4.1, Magnesium 1.8, Total Bilirubin 3.0 H, AST 193 H, ALT 50, Albumin 2.1 L, PT 33.9 H, INR 3.27 H, APTT 46 H, CBC w Diff MAN DIFF ORDERED, RBC 3.38 L, MCV 86.5, MCH 29.5, RDW 17.8 H, MPV 7.9, Gran % 97.5 H, Lymphocytes % 0.8 L, Monocytes % 1.7, Eosinophils % 0, Basophils % 0, Absolute Granulocytes 76.7 H, Segmented Neutrophils 72, Band Neutrophils 27 H, Absolute Lymphocytes 0.6 L, Lymphocytes 1 L, Absolute Monocytes 1.3 H, Absolute Eosinophils 0, Absolute Basophils 0, Platelet Estimate ADEQUATE, Normochromic RBCs VERIFIED, Poikilocytosis 2+, Shira Cells 2+, PUBS MCHC 34.1, Random Vancomycin 8.9 03/21/17 2355: Troponin I 0.22 *H 03/21/17 2355: Lactic Acid 3.8 H 03/21/172009: Lactic Acid 4.4 H 03/21/17 1820: Troponin I 0.26 *H 03/21/17 1615: Lactic Acid 5.6 H 03/21/17 1320: Troponin I 0.19 *H 03/21/17 1320: Lactic Acid 7.4 H 03/21/17 0900: Lactic Acid Cancelled 03/21/17 0855: Troponin I Cancelled 03/21/17 0855: Anion Gap 20 H, Estimated GFR 29 L, Glucose 77, Lactic Acid 10.6 H, Calcium 7.8 L, Phosphorus 2.1 L, Magnesium 1.4 L, Total Bilirubin 3.7 H, Direct Bilirubin 3.1 H, AST 289 H, ALT 48, Troponin I 0.14 *H, Albumin 2.1 L, PT 27.5 H, INR 2.64 H, CBC w Diff MAN DIFF ORDERED, RBC 3.45 L, MCV 86.9, MCH 29.0, RDW 17.6 H, MPV 8.1, Gran % 99.2 H, Lymphocytes % 0.6 L, Monocytes % 0.2 L, Eosinophils % 0, Basophils % 0, Absolute Granulocytes 35.9 H, Segmented Neutrophils 76 H, Band Neutrophils 21 H, Absolute Lymphocytes 0.2 L, Lymphocytes 1 L, Monocytes 2, Absolute Monocytes 0.1, Absolute Eosinophils 0, Absolute Basophils 0, Platelet Estimate ADEQUATE, Polychromasia , Poikilocytosis 2+, Anisocytosis 1+, Ovalocytes 1+, Schistocytes , PUBS MCHC 33.4, Urine Color YEL, Urine Clarity TURBD H, Urine pH 5.5, Ur Specific Adams 1.025, Urine Protein >=300 H, Urine Ketones 15 H, Urine Nitrite NEG, Urine Bilirubin NEG@ICTO, Urine Urobilinogen 0.2, Ur Leukocyte Esterase LARGE H, Ur Microscopic SEDIMENT EXAMINED, Urine RBC 5-10 H, Urine WBC PACKD H, Urine Bacteria MOD H, Urine Hemoglobin MOD H, Urine Glucose 100 H 03/21/17 0600: Lactic Acid 11.8 H 03/21/17 0320: Urine Color YEL, Urine Clarity CLDY H, Urine pH 6.5, Ur Specific Adams 1.015, Urine Protein 100 H, Urine Ketones NEG, Urine Nitrite NEG, Urine Bilirubin NEG, Urine Urobilinogen 0.2, Ur Leukocyte Esterase LARGE H, Ur Microscopic SEDIMENT EXAMINED, Urine RBC 1-3, Urine WBC > 75 H, Ur Epithelial Cells RARE, Urine Bacteria PACKD H, Urine Hemoglobin SMALL H, Urine Glucose NEG 03/21/17 0310: Anion Gap 19 H, Estimated GFR 29 L, BUN/Creatinine Ratio 17.7, Glucose 78, Lactic Acid 8.4 H, Calcium 8.6, Phosphorus 2.8, Magnesium 1.4 L, Total Bilirubin 3.7 H, AST 54, ALT 22, Alkaline Phosphatase 343 H, Creatine Kinase 40 L, Troponin I 0.07, Total Protein 5.0 L, Albumin 2.5 L, Globulin 2.5, Albumin/Globulin Ratio 1.0 L, PT 28.2 H, INR 2.71 H, APTT 32, CBC w Diff MAN DIFF ORDERED, RBC 3.79 L, MCV 86.0, MCH 28.8, RDW 16.9 H, MPV 7.1 L, Gran % 96.0 H, Lymphocytes % 3.7 L, Monocytes % 0.1 L, Eosinophils % 0.2, Basophils % 0, Absolute Granulocytes 9.5 H, Segmented Neutrophils 71, Band Neutrophils 17 H, Absolute Lymphocytes 0.4 L, Lymphocytes 7 L, Monocytes 1 L, Absolute Monocytes 0 L, Eosinophils 1, Absolute Eosinophils 0, Absolute Basophils 0, Metamyelocytes 3 H, Platelet Estimate ADEQUATE, Polychromasia 1+, Poikilocytosis 1+, PUBS MCHC 33.5, Virus Culture Pending Microbiology 03/21 815 UPPER RESP: Surveillance Culture - COMP 03/21 815 GI: Surveillance Culture - COMP 03/21 320 URINE ROUT: Legionella Antigen - COMP 03/21 320 URINE ROUT: Streptococcus pneumoniae Antigen (M - COMP 03/21 310 NASOPHARYN: Influenza Virus A & B Rapid Smear - COMP Recent Imaging Studies: Telemetry tracings were personally reviewed show atrial fibrillation with rapid ventricular response rate CXR: 1. Evidence of mild pulmonary venous congestion, new since prior study. 2. Bibasilar nonspecific airspace opacities (left greater than right), may represent infiltrate, atelectasis or combination thereof. Abd US: Thickened gallbladder wall with fluid within it but no echogenic stones or pericholecystic fluid collection. Question acalculous cholecystitis. Small cyst mid to lower pole right kidney. Rest of the abdominal ultrasound is unremarkable. Assessment/Plan Assessment/Plan 1. Septic shock due to urosepsis versus acalculus cholecystitis 2. Elevated troponin likely due to supply/demand mismatch (Type 2 MS) 3. Acute kidney injury 4. Paroxysmal atrial fibrillation on warfarin 5. History of permanent pacemaker 6. History of TIA 7. History of coronary artery disease with remote PCI 8. History of hypertension 9. Parkinson's disease Remains on intravenous pressors and WBC trending up. Troponin is trending down. Remains in atrial fibrillation with tachycardia; will allow some permissive tachycardia in the setting of septic shock. We'll follow up echocardiogram results. He may require percutaneous cholecystostomy tube with the plan to reverse the Coumadin and bridge with intravenous heparin as needed. Creatinine is unchanged and he is making urine. Joey Jason MD FAC Continue telemetry? Yes
--- NOTE | 2017-03-22 15:57 | CT SCAN REPORT ---
EXAMINATION: CT ABDOMEN AND PELVIS WITHOUT CONTRAST CLINICAL INFORMATION: Abdominal pain, acute cholecystitis. COMPARISON: Ultrasound 03/21/2017. TECHNIQUE: Multidetector volumetric imaging was performed from the superior aspect of the liver through the pubic symphysis. Sagittal and coronal reformatted images were obtained on the technologist's workstation. DLP: 442.64 mGy-cm FINDINGS: LUNG BASES: Bilateral small pleural effusions with atelectatic changes of the adjacent pulmonary parenchyma noted. There is mild cardiomegaly. The noncontrast images of the abdomen and pelvis demonstrate: LIVER, GALLBLADDER, AND BILIARY TREE: The liver is normal in size, shape, and attenuation. No biliary ductal dilatation is present. The gallbladder is slightly over distended. No calcified gallstone is seen. No obvious pericholecystic inflammatory changes, considering the limitation of the exam due to lack of intravenous contrast. PANCREAS: Unremarkable. SPLEEN: Unremarkable. ADRENAL GLANDS: Unremarkable. KIDNEYS AND URETERS: The right kidney measures about 11.2 cm in length. There is a 3.5 cm hypodense lesion seen in the upper pole of the right kidney. The density is about 17 Hounsfield units. It could represent a cortical cyst. There is no hydronephrosis or renal stone. The left kidney measures about 11.8 cm in length. No hydronephrosis or renal stone. There is extrarenal pelvis. Mild dilatation of the left ureter noted. The urinary bladder is almost empty, however there is thickening of the bladder wall up to 1.9 cm in single layer thickness. An indwelling catheter is seen within the urinary bladder. A small amount of intravesical air can be post catheterization. Mild bilateral perinephric stranding noted. No perinephric collection. There is moderate perivesical fat stranding in the pelvis and lower abdomen. GASTROINTESTINAL TRACT: The small and large bowel are not dilated. The rectum is mildly distended, up to 6.9 cm in transverse diameter and contains stool. This suggest fecal impaction. The appendix is not visualized. There is no free air or free fluid within the abdomen or pelvis. ABDOMINAL WALL: There are post hernia repair changes in the lower anterior abdominal wall and inguinal regions. LYMPH NODES: No pelvic sidewall, retroperitoneal or mesenteric adenopathy, considering limitations of the exam due to lack of intravenous contrast. VASCULAR: Atherosclerotic calcifications of the abdominal aorta and major branches noted. No aneurysmal dilatation. PELVIC VISCERA: The pelvic viscera are not well visualized due to inflammatory changes surrounding the urinary bladder and rectal fecal impaction. OSSEOUS STRUCTURES: There are multilevel degenerative changes of the lumbar spine. Post kyphoplasty changes of L3 on L4 noted. Post-ORIF changes of the left femur. Degenerative changes of bilateral hip joints. IMPRESSION: The gallbladder is slightly over distended. No calcified gallstone is seen. No definite pericholecystic inflammatory changes seen on this exam, considering limitations due to lack of intravenous contrast. Thickening of the bladder wall can be as a result of bladder outlet obstruction. The bladder is empty in the presence of indwelling catheter. Moderate amount of perivesical fat stranding extending to the lower abdomen also noted. Possibility of superimposed cystitis is not excluded. Clinical and lab correlation is suggested. Mild dilatation of bilateral ureters, left more than right can be functional as well. The appendix is not visualized and cannot be evaluated. Small bilateral pleural effusions and adjacent pulmonary opacities which could represent atelectasis. Clinical correlation for superimposed pneumonia is suggested. Right renal cortical hypodense lesion, could represent a cyst. This can be further evaluated by nonemergent ultrasound if indicated.
[2017-03-22 16:00] VITALS: BP 118/60
--- NOTE | 2017-03-22 18:35 | ECHOCARDIOGRAM REPORT ---
JADIEL NOBLES Age: 79 : 01/04/1938 Gender: M Exam Date: 03/22/2017 08:12 Exam Location: [facility] Ht (in): 72 Wt (lb): 220 BSA: 2.27 BP: 102 / 65 Ordering Physician: Kennedy Leong MD Referring Physician: Moncho Jason M.D. Technologist: Annmarie Hallman VIOLET Room Number: 113 Indications: HYPOTENSION Rhythm: Atrial fibrillation Technical Quality: Fair FINDINGS Left Ventricle Left ventricular cavity size normal. Left ventricular wall thickness mildly increased. Basal inferior hypokinesis without other wall motion abnormalities. Left ventricular ejection fraction is estimated at 50-55 %. Right Ventricle Catheter/pacemaker wire in the right ventricular cavity. Normal right ventricular size and function. Right Atrium Normal right atrial size. Left Atrium Mild left atrial dilatation. Mitral Valve No mitral stenosis. Mild mitral annular calcification. Mild-to- moderate mitral regurgitation. Aortic Valve No aortic stenosis. Trileaflet aortic valve. Trace aortic regurgitation. Tricuspid Valve Structurally normal tricuspid valve. Gdim-br-gssgztdt tricuspid regurgitation. No evidence of pulmonary hypertension. Pulmonic Valve Pulmonic valve not well visualized, grossly normal. Pericardium No pericardial effusion. Great Vessels Normal size aortic root. CONCLUSIONS Left ventricular cavity size normal. Left ventricular wall thickness mildly increased. Basal inferior hypokinesis without other wall motion abnormalities. Left ventricular ejection fraction is estimated at 50-55 %. Catheter/pacemaker wire in the right ventricular cavity. Normal right ventricular size and function. Mild left atrial dilatation. Iidk-fw-scpekzif mitral regurgitation. Tzcv-vv-lzoduzmf tricuspid regurgitation. No evidence of pulmonary hypertension. No pericardial effusion. Moncho Jason M.D. (Electronically Signed) Final Date: 22 March 2017 18:35 MEASUREMENTS (Male / Female) Normal Values 2D ECHO LV Diastolic Diameter PLAX 4.1 cm 4.2 - 5.9 / 3.9 - 5.3 cm LV Systolic Diameter PLAX 2.6 cm 2.1 - 4.0 cm LV Fractional Shortening PLAX 36.6 % 25 - 46 % LV Ejection Fraction 2D Teich 66.8 % IVS Diastolic Thickness 1.2 cm LVPW Diastolic Thickness 1.2 cm LV Relative Wall Thickness 0.6 RV Internal Dim ED PLAX 3.3 cm 1.9 - 3.8 cm LVOT Diameter 2.1 cm Aortic Root Diameter 3.7 cm LA Systolic Diameter LX 4.3 cm 3.0 - 4.0 / 2.7 - 3.8 cm LA Volume 69.0 cm 18 - 58 / 22 - 52 cm Ascending Aorta Diameter 3.8 cm DOPPLER AV Peak Velocity 146.0 cm/s AV Peak Gradient 8.5 mmHg AV Mean Velocity 113.0 cm/s AV Mean Gradient 6.0 mmHg AV Velocity Time Integral 22.1 cm LVOT Peak Velocity 105.0 cm/s LVOT Peak Gradient 4.4 mmHg LVOT Mean Velocity 74.9 cm/s LVOT Mean Gradient 3.0 mmHg LVOT Velocity Time Integral 15.3 cm LVOT Stroke Volume 53.0 cm AV Area Cont Eq vti 2.4 cm AV Area Cont Eq pk 2.5 cm MV Peak Velocity 132.0 cm/s MV Peak Gradient 7.0 mmHg MV Mean Velocity 60.3 cm/s MV Mean Gradient 2.0 mmHg Mitral E Point Velocity 113.0 cm/s MV PHT Velocity 136.0 cm/s MV Deceleration Clarion 685.0 cm/s MV Pressure Half Time 59.6 ms MV Area PHT 3.7 cm MV Deceleration Time 174.0 ms MR Peak Velocity 496.0 cm/s MR Peak Gradient 98.4 mmHg MR ERO PISA 0.4 cm MR Regurgitant Volume PISA 46.0 cm TR Peak Velocity 267.0 cm/s TR Peak Gradient 28.5 mmHg Right Atrial Pressure 5.0 mmHg Pulmonary Artery Systolic Pressu 33.5 mmHg Right Ventricular Systolic Press 33.5 mmHg PV Peak Velocity 97.9 cm/s PV Peak Gradient 3.8 mmHg PV Mean Velocity 71.5 cm/s PV Mean Gradient 2.0 mmHg PV Velocity Time Integral 17.3 cm LV E' Lateral Velocity 17.7 cm/s Mitral E to LV E' Lateral Ratio 6.4 LV E' Septal Velocity 9.9 cm/s Mitral E to LV E' Septal Ratio 11.4
[2017-03-22 19:29] LABS: PT 32.4 SEC (9.4-12.5)
[2017-03-23] VITALS: BP 109/77
[2017-03-23 04:59] LABS: ABSOLUTE BASOPHIL COUNT 0 /CUMM (0.0-0.2); ABSOLUTE EOSINOPHIL COUNT 0 /CUMM (0.0-0.7); ABSOLUTE LYMPH COUNT 0.9 /CUMM (1.2-3.4); ABSOLUTE MONOCYTE COUNT 0.4 /CUMM (0.10-0.60); BASOPHIL % 0 % (0.0-2.0); EOSINOPHIL % 0.1 % (0-5); GRANULOCYTE % 97.8 % (42.2-75.2); HEMATOCRIT 28.2 % (42-52); MEAN CORPUSCULAR HGB 29.2 PG (27.0-31.0); MEAN PLATELET VOLUME 8.1 FL (7.4-10.4); PLATELET COUNT 126 /CUMM (130-400); RED BLOOD CELL CT 3.28 /CUMM (4.70-6.10)
[2017-03-23 05:05] LABS: PT 22.2 SEC (9.4-12.5); PTT 43 SEC (25-37)
[2017-03-23 05:12] LABS: WHITE BLOOD CELL COUNT 60.4 /CUMM (4.8-10.8)
[2017-03-23 08:00] VITALS: BP 120/70
--- NOTE | 2017-03-23 09:04 | PN- Resident CRCU ---
Subjective HPI/CRCU Issues: Septic shock due due to gram-negative sepsis(UTI versus cholecystitis) elevated troponin likely due to supply/demand mismatch (Type 2 IA) Questionable aspiration pneumonia versus healthcare associated pneumonia Severe pyuria/BPH Paroxysmal atrial fibrillation on warfarin/supratherapeutic INR Acute kidney injury on chronic kidney disease 24 Hour Events: Mr Avitia was seen and examined this morning. Has been afebrile overnight. MAXIMUM TEMPERATURE 98.5. It is more awake and alert, however not oriented to time place and person. Pressors have been turned off. Blood pressure holding good at 109/77. INR this a.m. 2.13. Patient is getting 1 unit of FFP. Plan for IR guided cholecystostomy tube placement today. Urine output has been good. White count 16.4 this morning Objective Vital Signs & I&O Last 8 Hrs of Vitals and I&O: Intake & Output 03/24 1600 Intake Total Output Total Balance Patient 87.997 kg Weight Weight Bed scale Measurement Method Exam General Appearance: no apparent distress, alert, awake, lethargic, not orientedX 3 Head: atraumatic, normal appearance Ears, Nose, Throat: normal pharynx Neck: JVD Respiratory: rhonchi Cardiovascular: tachycardia, irregularly irregular Gastrointestinal: normal bowel sounds, soft, Hester catheter, urine looks a little hazy Extremities: normal inspection, TLC in right groin Current Medications: Current Medications Sig/Woodrow Start time Last Medication Dose Route Stop Time Status Admin Bisacodyl 10 MG ONCE ONE 03/[address] 03/22 1646 Ceftazidime 1,000 MG Q12 03/21 2200 AC 03/22 IV 2156 Dextrose/Sodium 1,000 ML Q16H 03/22 1245 AC 03/22 Chloride IV 1534 Hydromorphone HCl 0.2 MG ONCE ONE 03/22 2230 DC 03/22 IV 03/22 2231 2222 Metronidazole 500 MG Q8H 03/22 1000 AC 03/23 N/A 1 UNIT IV 0222 Norepinephrine 4 MG Q6H 03/21 1900 DC 03/22 Sodium Chloride 250 ML IV 0331 Phytonadione 10 MG ONCE ONE 03/22 1000 DC 03/22 SC 03/22 1001 1036 Potassium Chloride 20 MEQ ONCE ONE 03/23 09 UNVr IV 03/23 09 Potassium Chloride 20 MEQ ONCE ONE 03/23 0900 UNVr IV 03/23 0901 Sodium Chloride 1,000 ML Q10H 03/21 0615 DC 03/22 IV 1117 Vancomycin HCl 750 MG ONCE ONE 03/22 1315 DC 03/22 Sodium Chloride 250 ML IV 03/22 1414 1544 Impression/Plan Impression/Problem List Impression: Ms Torres is a 79-year-old gentleman with past medical history of Parkinson's disease, hypertension, permanent pacemaker, BPH and urinary retention, BIBA from [facility] after being found unresponsive. Admission : Labs: no leukocytosis, bands 17, INR 2.71, Na 135, K 3.0, bicarb 18, AG 19, BUN 39, creat 2.2 (baseline 0.8-1.1), lactic acid 8.4 --> 11.8, Mag 1.4, T. Bili 3.7 , AST/ALT normal, CK 40, trop neg. UA cloudy, large LE, WBC > 75, packed bacteria. EKG: Afib with RVR. CXR: mild left basilar opacity atelectasis, pneumonia or aspiration. Head CT: exensive confluent hypoattenuation chronic microangiopathy, no acute process. ED course:, BP 110/62 --> 90/59 --> 95/55 after receiving 4 L NS and IV metoprolol for rate control. Assessment: #1 septic shock secondary to gram-negative sepsis(UTI versus acalculus cholecystitis) #2 elevated troponin likely due to supply/demand mismatch (Type 2 IA) #3 Questionable aspiration pneumonia versus healthcare associated pneumonia #4 Severe pyuria/BPH #5 Paroxysmal atrial fibrillation on warfarin/supratherapeutic INR #6 Acute kidney injury on chronic kidney disease #7 hyperbilirubinemia Plan: -Closely monitor in the ICU -Patient has been afebrile overnight. Off pressors. Blood pressure well maintained. Continue D5 half normal saline at 60 cc an hour(be cautious to prevent fluid overload) -Urine cultures positive for gram-negative rods, enterococcus. Repeat blood cultures today. -White count is same 60.4. Continue on ceftaz and Flagyl day 2 of antibiotics. -Repeat Vanco level 11.3 this a.m. Appreciate ID input. -INR 2.13 this morning. Patient getting 1 unit of FFP. -Plan for IR guided percutaneous cholecystostomy tube placement. Follow-up biliary cultures. -Creatinine improved to 1.7. Making urine. Continue IV fluids. Avoid nephrotoxins. Regular BEP check. -LFTs improving. Keep trending LFTs. -Repleted lites as needed. -GI follow-up if no improvement with cholecystostomy tube placement. -We will consider hematology evaluation if white count continues to stay high. -DVT prophylaxis: Alps. Coumadin off due to supratherapeutic INR/procedure -Nothing by mouth now for procedure -DNR/DNI Problem List: 1. Sepsis 2. UTI (urinary tract infection) 3. Atrial fibrillation with RVR 4. Lactic acidosis 5. DAISHA (acute kidney injury) 6. Hypokalemia Pain Ratin Pain Location: na Tomorrow's Labs & Rationales: Cbc.. Sepsis ICU bundle... Kidney injury Plan DVT/Prophylaxis: mechanical
--- NOTE | 2017-03-23 09:58 | PN- Infect Dx ---
Subjective Subjective: No fever/abd pain; s/p percut cholectostomy tube placement Review of Systems Comments: 12 points reviewed as noted, otherwise negative. Objective Last 24 Hrs of Vital Signs/I&O Vital Signs Date Time Temp Pulse Resp B/P B/P Pulse O2 O2 Flow FiO2 Mean Ox Delivery Rate 03/23 08 97.9 98 20 120/70 97 Room Air 03/23 0400 96 Room Air 03/23 0000 98.1 120 12 109/77 94 Room Air 03/23 0000 94 Room Air 03/22 2000 125 122/71 03/22 2000 97 Room Air 03/22 1600 98.4 113 16 118/60 96 Room Air 03/22 1600 96 Room Air 03/22 1200 Nasal 2.0L Cannula 03/22 1200 98.4 110 20 128/80 97 Nasal 2.0L Cannula Intake & Output 03/23 1600 03/23 0800 03/23 0000 Intake Total 498 770 Output Total 400 500 Balance 98 270 Intake, IV 498 770 Intake, Oral 0 0 Number 1 2 Bowel Movements Output, Urine 400 500 Physical Exam Other Physical Findings: General Appearance NAD, thin, pale Skin No Rashes HEENT Atraumatic, sclera nonicteric NEck + JVD Cardiovascular S1, S2 present, no g/r Lungs BS present, diminished bases Abdomen BS present, soft, Hester cath patent; mild tenderness w/ palpation RUQ and RLQ Extremities No Edema, Neuro: awake and alert Results Last 24 Hours of Lab Results: Laboratory Tests 03/23 03/22 03/22 0345 1756 1100 Chemistry Sodium (137 - 145 mmol/L) 142 Potassium (3.5 - 5.1 mmol/L) 3.3 L Chloride (98 - 107 mmol/L) 111 H Carbon Dioxide (22 - 30 mmol/L) 19 L Anion Gap (5 - 16) 11 BUN (9 - 20 mg/dL) 40 H Creatinine (0.7 - 1.2 mg/dL) 1.7 H Estimated GFR (>60 ml/min) 39 L Glucose (65 - 99 mg/dL) 76 Lactic Acid (0.7 - 2.1 mmol/L) 2.3 H Calcium (8.4 - 10.2 mg/dL) 7.9 L Phosphorus (2.5 - 4.5 mg/dL) 3.9 Magnesium (1.6 - 2.3 mg/dL) 1.8 Total Bilirubin (0.2 - 1.3 mg/dL) 3.3 H AST (17 - 59 U/L) 125 H ALT (21 - 72 U/L) 57 Albumin (3.5 - 5.0 g/dL) 2.1 L Coagulation PT (9.4 - 12.5 SEC) 22.2 H 32.4 H INR (0.90 - 1.17) 2.13 H 3.12 H APTT (25 - 37 SEC) 43 H Hematology CBC w Diff MAN DIFF ORDERED WBC (4.8 - 10.8 /CUMM) 60.4 *H RBC (4.70 - 6.10 /CUMM) 3.28 L Hgb (14.0 - 18.0 G/DL) 9.6 L Hct (42 - 52 %) 28.2 L MCV (80.0 - 94.0 FL) 86.0 MCH (27.0 - 31.0 PG) 29.2 RDW (11.5 - 14.5 %) 18.0 H Plt Count (130 - 400 /CUMM) 126 L MPV (7.4 - 10.4 FL) 8.1 Gran % (42.2 - 75.2 %) 97.8 H Lymphocytes % (20.5 - 51.1 %) 1.5 L Monocytes % (1.7 - 9.3 %) 0.6 L Eosinophils % (0 - 5 %) 0.1 Basophils % (0.0 - 2.0 %) 0 Absolute Granulocytes (1.4 - 6.5 /CUMM) 59.0 H Segmented Neutrophils (42.2 - 75.2 %) 91 H Band Neutrophils (0.0 - 5.0 %) 6 H Absolute Lymphocytes (1.2 - 3.4 /CUMM) 0.9 L Lymphocytes (20.5 - 51.1 %) 2 L Monocytes (1.7 - 9.3 %) 1 L Absolute Monocytes (0.10 - 0.60 /CUMM) 0.4 Absolute Eosinophils (0.0 - 0.7 /CUMM) 0 Absolute Basophils (0.0 - 0.2 /CUMM) 0 Platelet Estimate (ADEQUATE) ADEQUATE Poikilocytosis 1+ Anisocytosis 1+ Target Cells FEW Ovalocytes 1+ Stomatocytes RARE Shira Cells 2+ Schistocytes RARE PUBS MCHC (33.0 - 37.0 G/DL) 34.0 Toxicology Random Vancomycin (ug/ml) 11.3 Last 24 Hours of [place]on Results: Patient : JADIEL NOBLES Acct: [id number] DR: Lior PHILLIPS, Krystal Birthdate: [birth year] Age/Sex: 82/M Unit: [id number] Loc: [facility] 113- Status : ADM IN SPEC #: [id number] BLANKA: 03/21/17 STATUS: COMP RECD: 03/21/[address]: Margot PHILLIPS,Jo-Ann SOURCE: BLOOD ENTR: 03/21/[address]: Giuseppe PHILLIPS, Madelin SCOTTC: 1ST/VENOUS ORDERED: BLOOD CULTURE Procedure Result > BLOOD CULTURE REPORT Final 03/23/17 GRAM STAIN SUGGESTIVE OF: GRAM NEGATIVE RODS Called to/Readback by GUNNER AND DR CHAVEZ AT 1734 03/21/17 LAB.[facility] by [facility] [place] 03/22/17 0703 CULTURE: ESCHERICHIA COLI 1. ESCHERICHIA COLI RX AB ------ -- AMPICILLIN R CEFAZOLIN S AMOXICILLIN/CLAVULINIC ACID S AMPICILLIN/SULBACTAM I CIPROFLOXACIN S GENTAMICIN S TRIMETHOPRIM/SULFAMETHOXAZOLE R SPEC #: [id number] BLANKA: 03/21/17 STATUS: RES RECD: 03/21/[address]: Doug PHILLIPS, Eugene SOURCE: URINE ROUT ENTR: 03/21/[address]: Giuseppe PHILLIPS, Madelin SCOTTC: URINE ROQUE Tinajero MD, Krystal ORDERED: URINE CULTURE Procedure Result > URINE CULTURE Preliminary 03/22/17 Greater than 100,000 colonies per ml of: 1.GRAM NEGATIVE RODS Identification and susceptibilities to follow 2. ENTEROCOCCUS Sensitivity to follow SPEC #: [id number] BLANKA: 03/23/178 STATUS: RECD RECD: 03/23/[address]: Therese PHILLIPS,[facility] SOURCE: BLOOD ENTR: 03/23/17-[address]: Giuseppe PHILLIPS, Madelin SPDESC: 2ND/VENOUS Krystal Tinajero MD ORDERED: BLOOD CULTURE Procedure Result BLOOD CULTURE PENDING Recent Imaging Studies: CXR 03/22 IMPRESSION: 1. Evidence of mild pulmonary venous congestion, new since prior study. 2. Bibasilar nonspecific airspace opacities (left greater than right), may represent infiltrate, atelectasis or combination thereof. DICTATED BY: Samantha Jewell MD DATE/TIME DICTATED:03/22/17943 TEST GRADER:KISHAN DATE/TIME TRANSCRIBED:03/22/17943 Assessment/Plan Impression: 79-year-old male with past medical history of Parkinson's disease, hypertension, permanent pacemaker, BPH and urinary retention admitted 03/21. Septic shock/E.coli bacteremia)/UTI (GNR/Enterococcus)/pyelonephritis. Clinically appears improved; MS at baseline; fever curve trending down; blood work revealing worsening leukemoid reaction (WBC 76K). Of note UC from 03/19 as OP + ps. aeruginosa (pansensitive). 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 Continue empiric GNR coverage w/ Ceftazidime 1 gm iv q 12 h (D #3); f/u final UC results to further guide abx therapy. Repeat BC today (ordered). 2. Vancomycin 500 mg iv x1 today (D#3); random level in am 03/24/17 (random level today ~11). Of note kidney function improving 3. Monitor CBC/BMP/LFT's. 4. F/U biliary fluid cx results; meanwhile cont Flagyl 500 mg iv q 8 h (D#2).
--- NOTE | 2017-03-23 11:53 | PN- CRCU ---
Subjective HPI/Critical Care Issues: No fever; undergoing percut cholectostomy tube placement Objective Current Medications: Current Medications Sig/Woodrow Start time Last Medication Dose Route Stop Time Status Admin Bisacodyl 10 MG ONCE ONE 03/22 1645 DC [place] 03/22 1646 Ceftazidime 1,000 MG Q12 03/21 2200 AC 03/23 IV 0908 Dextrose/Sodium 1,000 ML Q16H 03/22 1245 AC 03/22 Chloride IV 1534 Hydromorphone HCl 0.2 MG ONCE ONE 03/22 2230 DC 03/22 IV 03/22 2231 2222 Lidocaine 0 .STK-MED ONE 03/23 0947 DC .ROUTE Metronidazole 500 MG Q8H 03/22 1000 AC 03/23 N/A 1 UNIT IV 0222 Norepinephrine 4 MG Q6H 03/21 1900 DC 03/22 Sodium Chloride 250 ML IV 0331 Potassium Chloride 20 MEQ ONCE ONE 03/23 1000 DC IV 03/23 1001 Potassium Chloride 20 MEQ ONCE ONE 03/23 0900 DC 03/23 IV 03/23 0901 0911 Sodium Chloride 1,000 ML Q10H 03/21 0615 DC 03/22 IV 1117 Vancomycin HCl 500 MG ONCE ONE 03/23 1100 AC Sodium Chloride 250 ML IV 03/23 1159 Vancomycin HCl 500 MG ONCE ONE 03/23 1100 CAN Sodium Chloride 250 ML IV 03/23 1159 Vancomycin HCl 750 MG ONCE ONE 03/22 1315 DC 03/22 Sodium Chloride 250 ML IV 03/22 1414 1544 Laboratory Tests 03/23 03/22 03/22 0345 1756 1100 Chemistry Sodium (137 - 145 mmol/L) 142 Potassium (3.5 - 5.1 mmol/L) 3.3 L Chloride (98 - 107 mmol/L) 111 H Carbon Dioxide (22 - 30 mmol/L) 19 L Anion Gap (5 - 16) 11 BUN (9 - 20 mg/dL) 40 H Creatinine (0.7 - 1.2 mg/dL) 1.7 H Estimated GFR (>60 ml/min) 39 L Glucose (65 - 99 mg/dL) 76 Lactic Acid (0.7 - 2.1 mmol/L) 2.3 H Calcium (8.4 - 10.2 mg/dL) 7.9 L Phosphorus (2.5 - 4.5 mg/dL) 3.9 Magnesium (1.6 - 2.3 mg/dL) 1.8 Total Bilirubin (0.2 - 1.3 mg/dL) 3.3 H AST (17 - 59 U/L) 125 H ALT (21 - 72 U/L) 57 Albumin (3.5 - 5.0 g/dL) 2.1 L Coagulation PT (9.4 - 12.5 SEC) 22.2 H 32.4 H INR (0.90 - 1.17) 2.13 H 3.12 H APTT (25 - 37 SEC) 43 H Hematology CBC w Diff MAN DIFF ORDERED WBC (4.8 - 10.8 /CUMM) 60.4 *H RBC (4.70 - 6.10 /CUMM) 3.28 L Hgb (14.0 - 18.0 G/DL) 9.6 L Hct (42 - 52 %) 28.2 L MCV (80.0 - 94.0 FL) 86.0 MCH (27.0 - 31.0 PG) 29.2 RDW (11.5 - 14.5 %) 18.0 H Plt Count (130 - 400 /CUMM) 126 L MPV (7.4 - 10.4 FL) 8.1 Gran % (42.2 - 75.2 %) 97.8 H Lymphocytes % (20.5 - 51.1 %) 1.5 L Monocytes % (1.7 - 9.3 %) 0.6 L Eosinophils % (0 - 5 %) 0.1 Basophils % (0.0 - 2.0 %) 0 Absolute Granulocytes (1.4 - 6.5 /CUMM) 59.0 H Segmented Neutrophils (42.2 - 75.2 %) 91 H Band Neutrophils (0.0 - 5.0 %) 6 H Absolute Lymphocytes (1.2 - 3.4 /CUMM) 0.9 L Lymphocytes (20.5 - 51.1 %) 2 L Monocytes (1.7 - 9.3 %) 1 L Absolute Monocytes (0.10 - 0.60 /CUMM) 0.4 Absolute Eosinophils (0.0 - 0.7 /CUMM) 0 Absolute Basophils (0.0 - 0.2 /CUMM) 0 Platelet Estimate (ADEQUATE) ADEQUATE Poikilocytosis 1+ Anisocytosis 1+ Target Cells FEW Ovalocytes 1+ Stomatocytes RARE [place] Cells 2+ Schistocytes RARE PUBS MCHC (33.0 - 37.0 G/DL) 34.0 Toxicology Random Vancomycin (ug/ml) 11.3 03/22 03/22 03/21 0806 0425 2355 Chemistry Sodium (137 - 145 mmol/L) 140 Potassium (3.5 - 5.1 mmol/L) 3.8 Chloride (98 - 107 mmol/L) 108 H Carbon Dioxide (22 - 30 mmol/L) 18 L Anion Gap (5 - 16) 15 BUN (9 - 20 mg/dL) 38 H Creatinine (0.7 - 1.2 mg/dL) 2.2 H Estimated GFR (>60 ml/min) 29 L Glucose (65 - 99 mg/dL) 101 H Lactic Acid (0.7 - 2.1 mmol/L) 2.5 H 3.0 H Calcium (8.4 - 10.2 mg/dL) 7.7 L Phosphorus (2.5 - 4.5 mg/dL) 4.1 Magnesium (1.6 - 2.3 mg/dL) 1.8 Total Bilirubin (0.2 - 1.3 mg/dL) 3.0 H AST (17 - 59 U/L) 193 H ALT (21 - 72 U/L) 50 Troponin I (<0.11 ng/ml) 0.22 *H Albumin (3.5 - 5.0 g/dL) 2.1 L Coagulation PT (9.4 - 12.5 SEC) 33.9 H INR (0.90 - 1.17) 3.27 H APTT (25 - 37 SEC) 46 H Hematology CBC w Diff MAN DIFF ORDERED WBC (4.8 - 10.8 /CUMM) 78.6 *H RBC (4.70 - 6.10 /CUMM) 3.38 L Hgb (14.0 - 18.0 G/DL) 10.0 L Hct (42 - 52 %) 29.2 L MCV (80.0 - 94.0 FL) 86.5 MCH (27.0 - 31.0 PG) 29.5 RDW (11.5 - 14.5 %) 17.8 H Plt Count (130 - 400 /CUMM) 195 MPV (7.4 - 10.4 FL) 7.9 Gran % (42.2 - 75.2 %) 97.5 H Lymphocytes % (20.5 - 51.1 %) 0.8 L Monocytes % (1.7 - 9.3 %) 1.7 Eosinophils % (0 - 5 %) 0 Basophils % (0.0 - 2.0 %) 0 Absolute Granulocytes (1.4 - 6.5 /CUMM) 76.7 H Segmented Neutrophils (42.2 - 75.2 %) 72 Band Neutrophils (0.0 - 5.0 %) 27 H Absolute Lymphocytes (1.2 - 3.4 /CUMM) 0.6 L Lymphocytes (20.5 - 51.1 %) 1 L Absolute Monocytes (0.10 - 0.60 /CUMM) 1.3 H Absolute Eosinophils (0.0 - 0.7 /CUMM) 0 Absolute Basophils (0.0 - 0.2 /CUMM) 0 Platelet Estimate (ADEQUATE) ADEQUATE Normochromic RBCs VERIFIED Poikilocytosis 2+ Shira Cells 2+ PUBS MCHC (33.0 - 37.0 G/DL) 34.1 Toxicology Random Vancomycin (ug/ml) 8.9 03/21 03/21 03/21 03/21 03/21 2355 2009 1820 1615 1320 Chemistry Lactic Acid (0.7 - 2.1 mmol/L) 3.8 H 4.4 H 5.6 H Troponin I (<0.11 ng/ml) 0.26 *H 0.19 *H 03/21 1320 Chemistry Lactic Acid (0.7 - 2.1 mmol/L) 7.4 H Microbiology Date/Time Procedure - Status Source Growth 03/23 0953 Body Fluid Culture - ORD BODY FLUID 03/23 0953 Gram Stain - ORD BODY FLUID 03/23 0358 Blood Culture - RECD BLOOD 03/23 0353 Blood Culture - RECD BLOOD 03/22 1600 Respiratory Culture - CAN LOWER RESP Cancelled: POOR QUALITY SPECIMEN - REORDER AND RECOLLECT 03/22 1600 Gram Stain - CAN LOWER RESP Cancelled: POOR QUALITY SPECIMEN - REORDER AND RECOLLECT 03/21 0855 Urine Culture - RES URINE ROUT ESCHERICHIA COLI ENTEROCOCCUS 03/21 0815 Surveillance Culture - COMP UPPER RESP 03/21 0815 Surveillance Culture - COMP GI 03/21 0742 Respiratory Culture - CAN LOWER RESP Cancelled: NO SAMPLE COLLECTED 03/21 0742 Gram Stain - CAN LOWER RESP Cancelled: NO SAMPLE COLLECTED 03/21 0325 Blood Culture - COMP BLOOD ESCHERICHIA COLI 12/30 0320 Legionella Antigen - COMP URINE ROUT 03/21 320 Streptococcus pneumoniae Antigen (M - COMP URINE ROUT 03/21 320 Urine Culture - RES URINE ROUT ENTEROCOCCUS PSEUDOMONAS AERUGINOSA 03/21 310 Influenza Virus A & B Rapid Smear - COMP NASOPHARYN 03/21 310 Blood Culture - COMP BLOOD ESCHERICHIA COLI Vital Signs & I&O Last 24 Hrs of Vitals and I&O: Vital Signs Date Time Temp Pulse Resp B/P B/P Pulse O2 O2 Flow FiO2 Mean Ox Delivery Rate 03/23 08 97 Room Air 03/23 0800 97.9 98 20 120/70 97 Room Air 03/23 0400 96 Room Air 03/23 0000 98.1 120 12 109/77 94 Room Air 03/23 0000 94 Room Air 03/22 2000 125 122/71 03/22 2000 97 Room Air 03/22 1600 98.4 113 16 118/60 96 Room Air 03/22 1600 96 Room Air 03/22 1200 Nasal 2.0L Cannula 03/22 1200 98.4 110 20 128/80 97 Nasal 2.0L Cannula Intake & Output 03/23 1600 03/23 0800 03/23 0000 Intake Total 498 770 Output Total 400 500 Balance 98 270 Intake, IV 498 770 Intake, Oral 0 0 Number 1 2 Bowel Movements Output, Urine 400 500 Impression/Plan Impression/Plan Impression/Plan: General Appearance acutely ill, pale Skin No Rashes, Pale HEENT Atraumatic, sclera nonicteric NEck + JVD Cardiovascular S1, S2 present, tachycardic Lungs rhonci bilaterally Abdomen BS diminished, soft, Hester cath with gross purulent urine Extremities No Edema, Neuro: alert and awake with lethargy cxr IMPRESSION: 1. Evidence of mild pulmonary venous congestion, new since prior study. 2. Bibasilar nonspecific airspace opacities (left greater than right), may represent infiltrate, atelectasis or combination thereof. DICTATED BY: Fanta PHILLIPS,Samantha CT abd IMPRESSION: The gallbladder is slightly over distended. No calcified gallstone is seen. No definite pericholecystic inflammatory changes seen on this exam, considering limitations due to lack of intravenous contrast. Thickening of the bladder wall can be as a result of bladder outlet obstruction. The bladder is empty in the presence of indwelling catheter. Moderate amount of perivesical fat stranding extending to the lower abdomen also noted. Possibility of superimposed cystitis is not excluded. Clinical and lab correlation is suggested. Mild dilatation of bilateral ureters, left more than right can be functional as well. The appendix is not visualized and cannot be evaluated. Small bilateral pleural effusions and adjacent pulmonary opacities which could represent atelectasis. Clinical correlation for superimposed pneumonia is suggested. Right renal cortical hypodense lesion, could represent a cyst. This can be further evaluated by nonemergent ultrasound if indicated. DICTATED BY: Edson Velez MD DATE/TIME DICTATED:03/22/170 Impression This is an unfortunate elderly gentleman with significant Parkinson's, hypertension, permanent pacemaker, recurrent UTI with urinary outlet obstruction patient does self catheterize himself, recent gram-negative UTI now here with * Severe septic shock with gram-negative sepsis of urological origin slowly improving and acalculus leyla aswell with altered lft * Resolving Multiple organ failure with significantly elevated bilirubin, now with evidence of acalculus leyla * Bibasilar atelectasis unlikely that he has significant pneumonia however aspiration pneumonia and healthcare associated pneumonia needs to be ruled out * Severe pyuria BPH/ stool impaction now s/p bm * Resolving Metabolic acidosis lactic acidosis due to septic shock * Acute kidney injury with chronic kidney disease * Atrial fibrillation with rapid ventricular response which is improving, patient has been on aspirin, and has been on warfarin, with supratherapeutic INR * Improving electrolyte abnormality * Significant Parkinson's disease with extensive supratentorial white matter disease with 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
--- NOTE | 2017-03-23 13:00 | PN- Cardiology ---
Subjective Subjective: More alert today. He is off pressors. Objective Vital Signs and I&Os Vital Signs Date Time Temp Pulse Resp B/P B/P Pulse O2 O2 Flow FiO2 Mean Ox Delivery Rate 03/23 08 97 Room Air 03/23 08 97.9 98 20 120/70 97 Room Air 03/23 0400 96 Room Air 03/23 0000 98.1 120 12 109/77 94 Room Air 03/23 0000 94 Room Air 03/22 2000 125 122/71 03/22 2000 97 Room Air 03/22 1600 98.4 113 16 118/60 96 Room Air 03/22 1600 96 Room Air Intake & Output 03/23 1600 03/23 0800 03/23 0000 03/22 1600 03/22 0800 03/22 0000 Intake Total 498 770 864.5 979 1806 Output Total 400 500 400 300 425 Balance 98 270 464.5 679 1381 Intake, IV 498 770 864.5 979 1806 Intake, Oral 0 0 0 0 0 Number 1 2 1 0 1 Bowel Movements Output, Urine 400 500 400 300 425 Patient 185 lb Weight Weight Bed scale Measurement Method Physical Exam: General: Alert, no distress Eyes: No obvious scleral icterus. HEENT: No jugular venous distention or abnormal jugular venous pulsations. Cardiovascular: Normal intensity S1/S2. Irregular, pacemaker noted Respiratory: No rales or rhonchi Abdomen: Soft, no obvious guarding Musculoskeletal: No clubbing or cyanosis noted; no edema Skin: Warm Neurologic: alert Lymph: No gross lymphadenopathy. Current Medications: Current Medications Sig/Woodrow Start time Last Medication Dose Route Stop Time Status Admin Bisacodyl 10 MG ONCE ONE 03/22 1645 DC IA 03/22 1646 Ceftazidime 1,000 MG Q12 03/21 2200 AC 03/23 IV 0908 Dextrose/Sodium 1,000 ML Q16H 03/22 1245 AC 03/22 Chloride IV 1534 Hydromorphone HCl 0.2 MG ONCE ONE 03/22 2230 DC 03/22 IV 03/22 2231 2222 Lidocaine 0 .STK-MED ONE 03/23 0947 DC .ROUTE Metronidazole 500 MG Q8H 03/22 1000 AC 03/23 N/A 1 UNIT IV 0222 Norepinephrine 4 MG Q6H 03/21 1900 DC 03/22 Sodium Chloride 250 ML IV 0331 Potassium Chloride 20 MEQ ONCE ONE 03/23 1000 DC 03/23 IV 03/23 1001 1226 Potassium Chloride 20 MEQ ONCE ONE 03/23 0900 DC 03/23 IV 03/23 0901 0911 Vancomycin HCl 500 MG ONCE ONE 03/23 1100 DC Sodium Chloride 250 ML IV 03/23 1159 Vancomycin HCl 500 MG ONCE ONE 03/23 1100 CAN Sodium Chloride 250 ML IV 03/23 1159 Vancomycin HCl 750 MG ONCE ONE 03/22 1315 DC 03/22 Sodium Chloride 250 ML IV 03/22 1414 1544 Results Last 48 Hrs of Labs/Mics: Laboratory Tests 03/23/17 0345: Anion Gap 11, Estimated GFR 39 L, Glucose 76, Calcium 7.9 L, Phosphorus 3.9, Magnesium 1.8, Total Bilirubin 3.3 H, AST 125 H, ALT 57, Albumin 2.1 L, PT 22.2 H, INR 2.13 H, APTT 43 H, CBC w Diff MAN DIFF ORDERED, RBC 3.28 L, MCV 86.0, MCH 29.2, RDW 18.0 H, MPV 8.1, Gran % 97.8 H, Lymphocytes % 1.5 L, Monocytes % 0.6 L, Eosinophils % 0.1, Basophils % 0, Absolute Granulocytes 59.0 H, Segmented Neutrophils 91 H, Band Neutrophils 6 H, Absolute Lymphocytes 0.9 L, Lymphocytes 2 L, Monocytes 1 L, Absolute Monocytes 0.4, Absolute Eosinophils 0, Absolute Basophils 0, Platelet Estimate ADEQUATE, Poikilocytosis 1+, Anisocytosis 1+, Target Cells FEW, Ovalocytes 1+, Stomatocytes RARE, Zumbrota Cells 2+, Schistocytes RARE, PUBS MCHC 34.0, Random Vancomycin 11.3 03/22/17 1756: PT 32.4 H, INR 3.12 H 03/22/17 1100: Lactic Acid 2.3 H 03/22/17 0806: Lactic Acid 2.5 H 03/22/17 0425: Anion Gap 15, Estimated GFR 29 L, Glucose 101 H, Lactic Acid 3.0 H, Calcium 7.7 L, Phosphorus 4.1, Magnesium 1.8, Total Bilirubin 3.0 H, AST 193 H, ALT 50, Albumin 2.1 L, PT 33.9 H, INR 3.27 H, APTT 46 H, CBC w Diff MAN DIFF ORDERED, RBC 3.38 L, MCV 86.5, MCH 29.5, RDW 17.8 H, MPV 7.9, Gran % 97.5 H, Lymphocytes % 0.8 L, Monocytes % 1.7, Eosinophils % 0, Basophils % 0, Absolute Granulocytes 76.7 H, Segmented Neutrophils 72, Band Neutrophils 27 H, Absolute Lymphocytes 0.6 L, Lymphocytes 1 L, Absolute Monocytes 1.3 H, Absolute Eosinophils 0, Absolute Basophils 0, Platelet Estimate ADEQUATE, Normochromic RBCs VERIFIED, Poikilocytosis 2+, Zumbrota Cells 2+, PUBS MCHC 34.1, Random Vancomycin 8.9 03/21/17 2355: Troponin I 0.22 *H 03/21/17 2355: Lactic Acid 3.8 H 03/21/172009: Lactic Acid 4.4 H 03/21/17 1820: Troponin I 0.26 *H 03/21/17 1615: Lactic Acid 5.6 H 03/21/17 1320: Troponin I 0.19 *H 03/21/17 1320: Lactic Acid 7.4 H Recent Imaging Studies: Telemetry tracings were personally reviewed and show atrial fibrillation with some tachycardia Echo: Left ventricular cavity size normal. Left ventricular wall thickness mildly increased. Basal inferior hypokinesis without other wall motion abnormalities. Left ventricular ejection fraction is estimated at 50-55 %. Catheter/pacemaker wire in the right ventricular cavity. Normal right ventricular size and function. Mild left atrial dilatation. [id number] mitral regurgitation. [id number] tricuspid regurgitation. No evidence of pulmonary hypertension. No pericardial effusion. Assessment/Plan Assessment/Plan 1. Septic shock due to urosepsis versus acalculus cholecystitis 2. Elevated troponin likely due to supply/demand mismatch (Type 2 [place]) 3. Acute kidney injury 4. Paroxysmal atrial fibrillation on warfarin 5. History of permanent pacemaker 6. History of TIA 7. History of coronary artery disease with remote PCI 8. History of hypertension 9. Parkinson's disease Significantly improved today and is now off pressors. He remains on intravenous antibiotics. Echocardiogram as above shows low-normal ejection fraction with no pericardial effusion. INR is 2.13. Creatinine is improving. If blood pressure remains stable can likely resume his beta jose. Joey Jason MD [facility] Continue telemetry? Yes
[2017-03-23 16:00] VITALS: BP 124/78
--- NOTE | 2017-03-23 18:37 | CT SCAN REPORT ---
PROCEDURE: PERCUTANEOUS CHOLECYSTOSTOMY CLINICAL INFORMATION: Acalculous cholecystitis. COMPARISON: CT abdomen and pelvis 03/22/2017. CONSENT: Informed consent was obtained from the patient's over the telephone prior to the procedure. During this process, the procedure and potential alternatives were explained, along with the intended outcome and benefits. The risks of the procedure including the possibility of an unsuccessful procedure, as well as the risk of not doing the procedure were discussed. The was given the opportunity to ask questions regarding the procedure and appeared competent to make decisions. A consent form documenting this discussion was placed in the medical record. A timeout procedure was performed. ACCESS: Right upper quadrant. CONTRAST: 10 mL Optiray 320. SEDATION: Conscious sedation was not utilized. MEDICATIONS: 20 mL lidocaine 1% for local anesthesia. GUIDANCE: Fluoroscopy, ultrasound and CT. DLP: 454 mGy-cm COMPLICATIONS: None. FLUOROSCOPY TIME: 1.8 minutes. TECHNIQUE/FINDINGS: Initially this procedure was attempted in the interventional radiology suite. The patient was put on the table in the supine position and the right upper quadrant was prepped and draped. All elements of maximal sterile barrier technique followed including use of cap, mask, sterile gown, sterile gloves, a sterile full body drape and hand hygiene. Also followed skin preparation with 2% chlorhexidine for cutaneous antisepsis, and sterile ultrasound preparation with sterile gel and probe cover. Multiple attempts to access the gallbladder were made with a micropuncture system under direct ultrasound guidance. Images are stored in our PACS system. Fortunately, we were unable to obtain a stable entry site into the gallbladder to allow for cholecystostomy tube placement. The decision was made then to move the patient to the CT scanner for placement. The patient was moved to the CT scanner and the right upper quadrant was once again prepped and draped using maximal sterile barrier technique. Under CT guidance, a micropuncture system was used to enter the gallbladder and thick tenacious black bile was obtained. A sample of this was sent for culture and sensitivity. Subsequently, over a guidewire an 8.5 [place] Larkin-Echols drainage catheter was placed in the gallbladder. Approximately 40 mL of thick black bile was removed. The tube was sutured in place using 0-silk and a sterile dressing was applied. The tube was left to gravity drainage with orders written for flushing every 4 hours. The patient tolerated the procedure well with stable vital signs. IMPRESSION: Successful placement of percutaneous cholecystostomy tube as described above.
[2017-03-24] VITALS: BP 160/100
[2017-03-24 05:24] LABS: ABSOLUTE BASOPHIL COUNT 0 /CUMM (0.0-0.2); ABSOLUTE EOSINOPHIL COUNT 0.1 /CUMM (0.0-0.7); ABSOLUTE GRANULOCYTE CT 49.2 /CUMM (1.4-6.5); ABSOLUTE MONOCYTE COUNT 0.1 /CUMM (0.10-0.60); BASOPHIL % 0 % (0.0-2.0); EOSINOPHIL % 0.1 % (0-5); GRANULOCYTE % 97.8 % (42.2-75.2); HEMATOCRIT 30.2 % (42-52); MEAN CORPUSCULAR HGB 28.8 PG (27.0-31.0); MEAN CORPUSCULAR HGB CONC 33.6 G/DL (33.0-37.0); MEAN CORPUSCULAR VOLUME 85.7 FL (80.0-94.0); MEAN PLATELET VOLUME 8.8 FL (7.4-10.4); PLATELET COUNT 95 /CUMM (130-400); RBC DISTRIBUTION WIDTH 18.1 % (11.5-14.5); RED BLOOD CELL CT 3.52 /CUMM (4.70-6.10)
[2017-03-24 05:26] LABS: PT 15.9 SEC (9.4-12.5)
[2017-03-24 05:38] LABS: WHITE BLOOD CELL COUNT 50.3 /CUMM (4.8-10.8)
[2017-03-24 08:00] VITALS: BP 140/70
--- NOTE | 2017-03-24 08:53 | PN- Resident CRCU ---
Subjective HPI/CRCU Issues: Septic shock due due to gram-negative sepsis(UTI versus cholecystitis) elevated troponin likely due to supply/demand mismatch (Type 2 [place]) Questionable aspiration pneumonia versus healthcare associated pneumonia Severe pyuria/BPH Paroxysmal atrial fibrillation on warfarin/supratherapeutic INR Acute kidney injury on chronic kidney disease 24 Hour Events: Patient was seen and examined today. Patient alert, awake, disoriented. Status post percutaneous Deb tube placement yesterday. The patient pulled out his Hester catheter in AM. Patient has penile bleeding with clot when he nursing staff try to move him from bed to the recliner. His right femoral central line removed today. Patient currently in room air with a saturation more than 95%. Afebrile. Tachycardic with acceptable blood pressure. Objective Vital Signs & I&O Last 8 Hrs of Vitals and I&O: Vital Signs Date Time Temp Pulse Resp B/P B/P Pulse O2 O2 Flow FiO2 Mean Ox Delivery Rate 03/24 0914 120 152/98 03/24 0800 98.3 120 20 140/70 96 Room Air 03/24 0400 97 Room Air 03/24 0000 97 Room Air 03/24 0000 97.9 103 16 160/100 97 Room Air 03/23 1600 98.1 114 20 124/78 94 Room Air 03/23 1600 94 Room Air Intake & Output 03/24 1600 03/24 0800 03/24 0000 Intake Total 520 830 Output Total 1080 910 Balance -560 -80 Intake, IV 520 830 Number 1 Bowel Movements Output, 60 50 Drainage Output, Urine 1020 860 Patient 194 lb 193 lb Weight Weight Bed scale Measurement Method Intake & Output 03/24 1600 Intake Total Output Total Balance Patient 194 lb Weight Weight Bed scale Measurement Method Exam General Appearance: well developed/nourished, alert, awake, lethargic Head: atraumatic Neck: normal inspection Respiratory: chest non-tender, no respiratory distress, decreased breath sounds, crackles Cardiovascular: irregularly irregular Gastrointestinal: soft, right cholecystostomy tube noted Extremities: no edema Current Medications: Current Medications Sig/Woodrow Start time Last Medication Dose Route Stop Time Status Admin Ceftazidime 1,000 MG Q12 03/21 2200 AC 03/24 IV 0913 Dextrose/Sodium 1,000 ML Q16H 03/22 1245 AC 03/23 Chloride IV 2128 Heparin Sodium/ 25,000 UNIT Q24H 03/24 0915 AC Dextrose IV Dextrose/Water 500 ML Magnesium Oxide 400 MG BID 03/24 1033 AC PO 03/24 2201 Metoprolol Tartrate 50 MG BID 03/24 1000 AC 03/24 PO 0914 Metronidazole 500 MG Q8H 03/22 1000 AC 03/24 N/A 1 UNIT IV 0913 Phosphate 250 MG ONCE ONE 03/24 0900 DC 03/24 PO 03/24 0901 1015 Potassium Chloride 60 MEQ ONCE ONE 03/24 1045 DC PO 03/24 1046 Potassium Chloride 20 MEQ Q1H 03/24 0645 DC 03/24 IV 03/24 0746 0804 Vancomycin HCl 500 MG ONCE ONE 03/23 1100 DC 03/23 Sodium Chloride 250 ML IV 03/23 1159 1501 Vancomycin HCl 500 MG ONCE ONE 03/23 1100 CAN Sodium Chloride 250 ML IV 03/23 1159 Results Results: Laboratory Tests 03/24 03/23 0455 1308 Chemistry Sodium (137 - 145 mmol/L) 149 H Potassium (3.5 - 5.1 mmol/L) 3.0 L Chloride (98 - 107 mmol/L) 116 H Carbon Dioxide (22 - 30 mmol/L) 21 L Anion Gap (5 - 16) 12 BUN (9 - 20 mg/dL) 36 H Creatinine (0.7 - 1.2 mg/dL) 1.2 Estimated GFR (>60 ml/min) 58 L Glucose (65 - 99 mg/dL) 101 H Lactic Acid (0.7 - 2.1 mmol/L) 1.4 Calcium (8.4 - 10.2 mg/dL) 8.2 L Phosphorus (2.5 - 4.5 mg/dL) 2.7 Magnesium (1.6 - 2.3 mg/dL) 1.7 Total Bilirubin (0.2 - 1.3 mg/dL) 4.2 H Direct Bilirubin (< 0.4 mg/dL) 3.3 H AST (17 - 59 U/L) 70 H ALT (21 - 72 U/L) 62 Albumin (3.5 - 5.0 g/dL) 2.1 L Coagulation PT (9.4 - 12.5 SEC) 15.9 H INR (0.90 - 1.17) 1.52 H Hematology CBC w Diff MAN DIFF ORDERED WBC (4.8 - 10.8 /CUMM) 50.3 *H RBC (4.70 - 6.10 /CUMM) 3.52 L Hgb (14.0 - 18.0 G/DL) 10.2 L Hct (42 - 52 %) 30.2 L MCV (80.0 - 94.0 FL) 85.7 MCH (27.0 - 31.0 PG) 28.8 RDW (11.5 - 14.5 %) 18.1 H Plt Count (130 - 400 /CUMM) 95 L MPV (7.4 - 10.4 FL) 8.8 Gran % (42.2 - 75.2 %) 97.8 H Lymphocytes % (20.5 - 51.1 %) 1.9 L Monocytes % (1.7 - 9.3 %) 0.2 L Eosinophils % (0 - 5 %) 0.1 Basophils % (0.0 - 2.0 %) 0 Absolute Granulocytes (1.4 - 6.5 /CUMM) 49.2 H Segmented Neutrophils (42.2 - 75.2 %) 96 H Band Neutrophils (0.0 - 5.0 %) 1 Absolute Lymphocytes (1.2 - 3.4 /CUMM) 1.0 L Lymphocytes (20.5 - 51.1 %) 2 L Monocytes (1.7 - 9.3 %) 1 L Absolute Monocytes (0.10 - 0.60 /CUMM) 0.1 Absolute Eosinophils (0.0 - 0.7 /CUMM) 0.1 Absolute Basophils (0.0 - 0.2 /CUMM) 0 Platelet Estimate (ADEQUATE) DECREASED Polychromasia 1+ Poikilocytosis 3+ Ovalocytes 1+ Shira Cells 1+ Elliptocytes 1+ PUBS MCHC (33.0 - 37.0 G/DL) 33.6 Other Body Source F[place] Total RBCs Counted (%) 100 Toxicology Random Vancomycin (ug/ml) 11.2 Microbiology Date/Time Procedure - Status Source Growth 03/23 115 Culture & Sensitivity - RES GI FROM OR 03/23 115 Gram Stain - RES GI FROM OR 03/23 1150 Body Fluid Culture - CAN BODY FLUID Cancelled: CORRECTED 0RDER 03/23 1150 Gram Stain - CAN BODY FLUID Cancelled: CORRECTED 0RDER Radiology Findings: EXAM TYPE: RAD - XRY-MODIFIED BARIUM SWALLOW EXAMINATION: MODIFIED BARIUM SWALLOW CLINICAL INFORMATION: 82-year-old male with suspicion for aspiration. COMPARISON: None. TECHNIQUE: Routine airway fluoroscopy was performed. The patient took thin barium without difficulty. FINDINGS: The examination was performed with the speech pathologist present. The patient had delayed swallowing. There was decreased epiglottic inversion. Pur?e and honey: Significant amount of residual in the vallecula which the patient could not eliminate. There was penetration that was not cleared with coughing. FLUOROSCOPY TIME: 1 minute and 48 seconds NUMBER IMAGES: No spot images obtained. IMPRESSION: Laryngeal penetration with puree and honey. Please see speech pathologist's recommendations for feeding guidelines Impression/Plan Impression/Problem List Impression: Ms Torres is a 79-year-old gentleman with past medical history of Parkinson's disease, hypertension, permanent pacemaker, BPH and urinary retention, BIBA from [facility] after being found unresponsive. Assessment: #1 septic shock secondary to gram-negative sepsis(UTI versus acalculus cholecystitis) #2 elevated troponin likely due to supply/demand mismatch (Type 2 [place]) #3 Questionable aspiration pneumonia versus healthcare associated pneumonia #4 Severe pyuria/BPH #5 Paroxysmal atrial fibrillation on warfarin #6 Acute kidney injury on chronic kidney disease #7 hyperbilirubinemia Plan: -We'll discontinue his current antibiotic and will start the patient on meropenem 1 g every 8 as recommended by ID. -After discussion with the leather goods i assembler. The patient on heparin drip and will do close monitoring for his benign feeding if the patient starts to repeat we'll DC heparin, we'll request urology consultation and Will place Hester catheter with CBI. -We'll obtain GI and surgery consult giving the patient hyperbilirubinemia trending up for further evaluation and assessment. -Keep the patient nothing by mouth as she failed the barium swallow evaluation, if patient being cleared by GI and surgery will start him on tube feeding and will reassess him again within the next few days. -We'll supplement his electrolyte -Continue trending his LFTs. -If the patient remains stable will transfer patient to telemetry. -DVT prophylaxis on heparin drip -Patient DNI and DNR family willing to use pressors if needed. Problem List: 1. Sepsis 2. UTI (urinary tract infection) 3. Lactic acidosis 4. DAISHA (acute kidney injury) 5. Hypokalemia Pain Ratin Tomorrow's Labs & Rationales: icu cbc ptt Plan DVT/Prophylaxis: mechanical, pharmacological
--- NOTE | 2017-03-24 08:53 | PN- CRCU ---
Subjective HPI/Critical Care Issues: Much improved s/p Perc leyla Pulled out lopez this am Afebrile TLC in the groin still Objective Current Medications: Current Medications Sig/Woodrow Start time Last Medication Dose Route Stop Time Status Admin Ceftazidime 1,000 MG Q12 03/21 2200 AC 03/23 IV 2128 Dextrose/Sodium 1,000 ML Q16H 03/22 1245 AC 03/23 Chloride IV 2128 Lidocaine 0 .STK-MED ONE 03/23 0947 DC .ROUTE Metoprolol Tartrate 50 MG BID 03/24 1000 AC PO Metronidazole 500 MG Q8H 03/22 1000 AC 03/24 N/A 1 UNIT IV 0154 Potassium Chloride 20 MEQ Q1H 03/24 0645 DC 03/24 IV 03/24 0746 0804 Potassium Chloride 20 MEQ ONCE ONE 03/23 1000 DC 03/23 IV 03/23 1001 1226 Potassium Chloride 20 MEQ ONCE ONE 03/23 0900 DC 03/23 IV 03/23 0901 0911 Vancomycin HCl 500 MG ONCE ONE 03/23 1100 DC 03/23 Sodium Chloride 250 ML IV 03/23 1159 1501 Vancomycin HCl 500 MG ONCE ONE 03/23 1100 CAN Sodium Chloride 250 ML IV 03/23 1159 Vital Signs & I&O Last 24 Hrs of Vitals and I&O: Vital Signs Date Time Temp Pulse Resp B/P B/P Pulse O2 O2 Flow FiO2 Mean Ox Delivery Rate 03/24 0400 97 Room Air 03/24 0000 97 Room Air 03/24 0000 97.9 103 16 160/100 97 Room Air 03/23 1600 98.1 114 20 124/78 94 Room Air 03/23 1600 94 Room Air Intake & Output 03/24 1600 03/24 0800 03/24 0000 Intake Total 520 830 Output Total 1080 910 Balance -560 -80 Intake, IV 520 830 Number 1 Bowel Movements Output, 60 50 Drainage Output, Urine 1020 860 Laboratory Tests 03/24 03/23 0455 1308 Chemistry Sodium (137 - 145 mmol/L) 149 H Potassium (3.5 - 5.1 mmol/L) 3.0 L Chloride (98 - 107 mmol/L) 116 H Carbon Dioxide (22 - 30 mmol/L) 21 L Anion Gap (5 - 16) 12 BUN (9 - 20 mg/dL) 36 H Creatinine (0.7 - 1.2 mg/dL) 1.2 Estimated GFR (>60 ml/min) 58 L Glucose (65 - 99 mg/dL) 101 H Lactic Acid (0.7 - 2.1 mmol/L) 1.4 Calcium (8.4 - 10.2 mg/dL) 8.2 L Phosphorus (2.5 - 4.5 mg/dL) 2.7 Magnesium (1.6 - 2.3 mg/dL) 1.7 Total Bilirubin (0.2 - 1.3 mg/dL) 4.2 H AST (17 - 59 U/L) 70 H ALT (21 - 72 U/L) 62 Albumin (3.5 - 5.0 g/dL) 2.1 L Coagulation PT (9.4 - 12.5 SEC) 15.9 H INR (0.90 - 1.17) 1.52 H Hematology CBC w Diff MAN DIFF ORDERED WBC (4.8 - 10.8 /CUMM) 50.3 *H RBC (4.70 - 6.10 /CUMM) 3.52 L Hgb (14.0 - 18.0 G/DL) 10.2 L Hct (42 - 52 %) 30.2 L MCV (80.0 - 94.0 FL) 85.7 MCH (27.0 - 31.0 PG) 28.8 RDW (11.5 - 14.5 %) 18.1 H Plt Count (130 - 400 /CUMM) 95 L MPV (7.4 - 10.4 FL) 8.8 Gran % (42.2 - 75.2 %) 97.8 H Lymphocytes % (20.5 - 51.1 %) 1.9 L Monocytes % (1.7 - 9.3 %) 0.2 L Eosinophils % (0 - 5 %) 0.1 Basophils % (0.0 - 2.0 %) 0 Absolute Granulocytes (1.4 - 6.5 /CUMM) 49.2 H Segmented Neutrophils (42.2 - 75.2 %) 96 H Band Neutrophils (0.0 - 5.0 %) 1 Absolute Lymphocytes (1.2 - 3.4 /CUMM) 1.0 L Lymphocytes (20.5 - 51.1 %) 2 L Monocytes (1.7 - 9.3 %) 1 L Absolute Monocytes (0.10 - 0.60 /CUMM) 0.1 Absolute Eosinophils (0.0 - 0.7 /CUMM) 0.1 Absolute Basophils (0.0 - 0.2 /CUMM) 0 Platelet Estimate (ADEQUATE) DECREASED Polychromasia 1+ Poikilocytosis 3+ Ovalocytes 1+ Shira Cells 1+ Elliptocytes 1+ PUBS MCHC (33.0 - 37.0 G/DL) 33.6 Other Body Source Fld Total RBCs Counted (%) 100 Toxicology Random Vancomycin (ug/ml) 11.2 03/23 03/22 03/22 0345 1756 1100 Chemistry Sodium (137 - 145 mmol/L) 142 Potassium (3.5 - 5.1 mmol/L) 3.3 L Chloride (98 - 107 mmol/L) 111 H Carbon Dioxide (22 - 30 mmol/L) 19 L Anion Gap (5 - 16) 11 BUN (9 - 20 mg/dL) 40 H Creatinine (0.7 - 1.2 mg/dL) 1.7 H Estimated GFR (>60 ml/min) 39 L Glucose (65 - 99 mg/dL) 76 Lactic Acid (0.7 - 2.1 mmol/L) 2.3 H Calcium (8.4 - 10.2 mg/dL) 7.9 L Phosphorus (2.5 - 4.5 mg/dL) 3.9 Magnesium (1.6 - 2.3 mg/dL) 1.8 Total Bilirubin (0.2 - 1.3 mg/dL) 3.3 H AST (17 - 59 U/L) 125 H ALT (21 - 72 U/L) 57 Albumin (3.5 - 5.0 g/dL) 2.1 L Coagulation PT (9.4 - 12.5 SEC) 22.2 H 32.4 H INR (0.90 - 1.17) 2.13 H 3.12 H APTT (25 - 37 SEC) 43 H Hematology CBC w Diff MAN DIFF ORDERED WBC (4.8 - 10.8 /CUMM) 60.4 *H RBC (4.70 - 6.10 /CUMM) 3.28 L Hgb (14.0 - 18.0 G/DL) 9.6 L Hct (42 - 52 %) 28.2 L MCV (80.0 - 94.0 FL) 86.0 MCH (27.0 - 31.0 PG) 29.2 RDW (11.5 - 14.5 %) 18.0 H Plt Count (130 - 400 /CUMM) 126 L MPV (7.4 - 10.4 FL) 8.1 Gran % (42.2 - 75.2 %) 97.8 H Lymphocytes % (20.5 - 51.1 %) 1.5 L Monocytes % (1.7 - 9.3 %) 0.6 L Eosinophils % (0 - 5 %) 0.1 Basophils % (0.0 - 2.0 %) 0 Absolute Granulocytes (1.4 - 6.5 /CUMM) 59.0 H Segmented Neutrophils (42.2 - 75.2 %) 91 H Band Neutrophils (0.0 - 5.0 %) 6 H Absolute Lymphocytes (1.2 - 3.4 /CUMM) 0.9 L Lymphocytes (20.5 - 51.1 %) 2 L Monocytes (1.7 - 9.3 %) 1 L Absolute Monocytes (0.10 - 0.60 /CUMM) 0.4 Absolute Eosinophils (0.0 - 0.7 /CUMM) 0 Absolute Basophils (0.0 - 0.2 /CUMM) 0 Platelet Estimate (ADEQUATE) ADEQUATE Poikilocytosis 1+ Anisocytosis 1+ Target Cells FEW Ovalocytes 1+ Stomatocytes RARE Shira Cells 2+ Schistocytes RARE PUBS MCHC (33.0 - 37.0 G/DL) 34.0 Toxicology Random Vancomycin (ug/ml) 11.3 Microbiology Date/Time Procedure - Status Source Growth 03/23 1150 Culture & Sensitivity - RES GI FROM OR 03/23 1150 Gram Stain - RES GI FROM OR 03/23 1150 Body Fluid Culture - CAN BODY FLUID Cancelled: CORRECTED 0RDER 03/23 1150 Gram Stain - CAN BODY FLUID Cancelled: CORRECTED 0RDER 03/23 0358 Blood Culture - RECD BLOOD 03/23 0353 Blood Culture - RECD BLOOD 03/22 1600 Respiratory Culture - CAN LOWER RESP Cancelled: POOR QUALITY SPECIMEN - REORDER AND RECOLLECT 03/22 1600 Gram Stain - CAN LOWER RESP Cancelled: POOR QUALITY SPECIMEN - REORDER AND RECOLLECT 03/21 0855 Urine Culture - COMP URINE ROUT ESCHERICHIA COLI ENTEROCOCCUS Impression/Plan Impression/Plan Impression/Plan: General Appearance acutely ill, pale Skin No Rashes, Pale HEENT Atraumatic, sclera nonicteric NEck + JVD Cardiovascular S1, S2 present, tachycardic Lungs rhonci bilaterally Abdomen BS diminished, soft, Lopez cath with gross purulent urine Extremities No Edema, Neuro: alert and awake with lethargy cxr IMPRESSION: 1. Evidence of mild pulmonary venous congestion, new since prior study. 2. Bibasilar nonspecific airspace opacities (left greater than right), may represent infiltrate, atelectasis or combination thereof. DICTATED BY: Fanta PHILLIPS,Samantha CT abd IMPRESSION: The gallbladder is slightly over distended. No calcified gallstone is seen. No definite pericholecystic inflammatory changes seen on this exam, considering limitations due to lack of intravenous contrast. Thickening of the bladder wall can be as a result of bladder outlet obstruction. The bladder is empty in the presence of indwelling catheter. Moderate amount of perivesical fat stranding extending to the lower abdomen also noted. Possibility of superimposed cystitis is not excluded. Clinical and lab correlation is suggested. Mild dilatation of bilateral ureters, left more than right can be functional as well. The appendix is not visualized and cannot be evaluated. Small bilateral pleural effusions and adjacent pulmonary opacities which could represent atelectasis. Clinical correlation for superimposed pneumonia is suggested. Right renal cortical hypodense lesion, could represent a cyst. This can be further evaluated by nonemergent ultrasound if indicated. DICTATED BY: Edson Velez MD DATE/TIME DICTATED:03/22/170 Impression This is an unfortunate elderly gentleman with significant Parkinson's, hypertension, permanent pacemaker, recurrent UTI with urinary outlet obstruction patient does self catheterize himself, recent gram-negative UTI now here with * Resolved Severe septic shock with gram-negative sepsis of urological origin slowly improving / and acalculus leyla aswell with altered lft now s/p perc leyla * Resolving Multiple organ failure with significantly elevated bilirubin, with evidence of acalculus leyla / ultrasound and abd ct did not reveal any sig stone / s/p perc leyla and has still sig indirect bilirubinemia * Bibasilar atelectasis unlikely that he has significant pneumonia * Severe pyuria BPH/ stool impaction now s/p bm * Resolved Metabolic acidosis lactic acidosis due to septic shock * Resolving Acute kidney injury with chronic kidney disease * Atrial fibrillation with rapid ventricular response which is improving, patient has been on aspirin, and on warfarin, with supratherapeutic INR initially and was partially reversed for perc leyla, needs to be resumed * Improving electrolyte abnormality * 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 * Resume warfarin today/ and will ask cardio if any bridge is necessary OK to TEle if stable today Prog guarded and wishes DNR and DNI ok with pressors PT is critically ill tts 36 mins
--- NOTE | 2017-03-24 09:05 | PN- Cardiology ---
Subjective Subjective: Patient awake sitting in the bedside complains of weakness. He continues to have hematuria Review of Systems: Eyes no blurred or double vision Ears no deafness or ringing Nose and throat no recurrent sinusitis Lungs per history of present illness Heart per history of present illness Abdomen no nausea vomiting Musculoskeletal occasional muscle and joint pains Psych no anxiety or depression Neuro without recurrent headache or seizures Endocrine no heat or cold intolerance Objective Vital Signs and I&Os Vital Signs Date Time Temp Pulse Resp B/P B/P Pulse O2 O2 Flow FiO2 Mean Ox Delivery Rate 03/24 0400 97 Room Air 03/24 0000 97 Room Air 03/24 0000 97.9 103 16 160/100 97 Room Air 03/23 1600 98.1 114 20 124/78 94 Room Air 03/23 1600 94 Room Air Intake & Output 03/24 1600 03/24 0803/24 0000 03/23 1600 03/23 0800 03/23 0000 Intake Total 520 830 870 498 770 Output Total 1080 910 700 400 500 Balance -560 -80 170 98 270 Intake, Blood 300 Product Intake, IV 520 830 570 498 770 Intake, Oral 0 0 Number 1 0 1 2 Bowel Movements Output, 60 50 Drainage Output, Urine 1020 860 700 400 500 Physical Exam: Patient is a well-developed well-nourished male appearing in no acute distress HEENT is unremarkable Neck is supple there is no JVD Lungs are clear Heart irregular rhythm S1 and S2 are normal no murmurs gallops or rubs Abdomen bowel sounds positive Extremities without edema Current Medications: Current Medications Sig/Woodrow Start time Last Medication Dose Route Stop Time Status Admin Ceftazidime 1,000 MG Q12 03/21 2200 AC 03/23 IV 2128 Dextrose/Sodium 1,000 ML Q16H 03/22 1245 AC 03/23 Chloride IV 2128 Lidocaine 0 .STK-MED ONE 03/23 0947 DC .ROUTE Metoprolol Tartrate 50 MG BID 03/24 1000 AC PO Metronidazole 500 MG Q8H 03/22 1000 AC 03/24 N/A 1 UNIT IV 0154 Phosphate 250 MG ONCE ONE 03/24 0900 UNVr PO 03/24 0901 Potassium Chloride 20 MEQ Q1H 03/24 0645 DC 03/24 IV 03/24 0746 0804 Potassium Chloride 20 MEQ ONCE ONE 03/23 1000 DC 03/23 IV 03/23 1001 1226 Vancomycin HCl 500 MG ONCE ONE 03/23 1100 DC 03/23 Sodium Chloride 250 ML IV 03/23 1159 1501 Vancomycin HCl 500 MG ONCE ONE 03/23 1100 CAN Sodium Chloride 250 ML IV 03/23 1159 Results Last 48 Hrs of Labs/Mics: Laboratory Tests 03/24/17 0455: Anion Gap 12, Estimated GFR 58 L, Glucose 101 H, Calcium 8.2 L, Phosphorus 2.7, Magnesium 1.7, Total Bilirubin 4.2 H, AST 70 H, ALT 62, Albumin 2.1 L, PT 15.9 H, INR 1.52 H, CBC w Diff MAN DIFF ORDERED, RBC 3.52 L, MCV 85.7, MCH 28.8, RDW 18.1 H, MPV 8.8, Gran % 97.8 H, Lymphocytes % 1.9 L, Monocytes % 0.2 L, Eosinophils % 0.1, Basophils % 0, Absolute Granulocytes 49.2 H, Segmented Neutrophils 96 H, Band Neutrophils 1, Absolute Lymphocytes 1.0 L, Lymphocytes 2 L, Monocytes 1 L, Absolute Monocytes 0.1, Absolute Eosinophils 0.1, Absolute Basophils 0, Platelet Estimate DECREASED, Polychromasia 1+, Poikilocytosis 3+, Ovalocytes 1+, Gateway Cells 1+, Elliptocytes 1+, PUBS MCHC 33.6 , Fld Total RBCs Counted 100, Random Vancomycin 11.2 03/23/17 1308: Lactic Acid 1.4 03/23/17 0345: Anion Gap 11, Estimated GFR 39 L, Glucose 76, Calcium 7.9 L, Phosphorus 3.9, Magnesium 1.8, Total Bilirubin 3.3 H, AST 125 H, ALT 57, Albumin 2.1 L, PT 22.2 H, INR 2.13 H, APTT 43 H, CBC w Diff MAN DIFF ORDERED, RBC 3.28 L, MCV 86.0, MCH 29.2, RDW 18.0 H, MPV 8.1, Gran % 97.8 H, Lymphocytes % 1.5 L, Monocytes % 0.6 L, Eosinophils % 0.1, Basophils % 0, Absolute Granulocytes 59.0 H, Segmented Neutrophils 91 H, Band Neutrophils 6 H, Absolute Lymphocytes 0.9 L, Lymphocytes 2 L, Monocytes 1 L, Absolute Monocytes 0.4, Absolute Eosinophils 0, Absolute Basophils 0, Platelet Estimate ADEQUATE, Poikilocytosis 1+, Anisocytosis 1+, Target Cells FEW, Ovalocytes 1+, Stomatocytes RARE, Shira Cells 2+, Schistocytes RARE, PUBS MCHC 34.0, Random Vancomycin 11.3 03/22/17 1756: PT 32.4 H, INR 3.12 H 03/22/17 1100: Lactic Acid 2.3 H Telemetry personally reviewed atrial fibrillation with rapid ventricular response Assessment/Plan Assessment/Plan 1. Septic shock due to urosepsis versus acalculus cholecystitis 2. Elevated troponin likely due to supply/demand mismatch (Type 2 [place]) 3. Acute kidney injury 4. Paroxysmal atrial fibrillation on warfarin currently on hold due to hematuria 5. History of permanent pacemaker 6. History of TIA 7. History of coronary artery disease with remote PCI 8. History of hypertension 9. Parkinson's disease 10. Hematuria possibly traumatic Recommendations 1. Continue to hold Coumadin due to hematuria 2. Urology input pending 3. Since blood pressure stable I agree with resuming metoprolol for rate control of his atrial fibrillation Continue telemetry? Yes
--- NOTE | 2017-03-24 10:53 | PN- Infect Dx ---
Subjective Subjective: Afebrile without complaints Objective Last 24 Hrs of Vital Signs/I&O Vital Signs Date Time Temp Pulse Resp B/P B/P Pulse O2 O2 Flow FiO2 Mean Ox Delivery Rate 03/24 0914 120 152/98 03/24 0800 98.3 120 20 140/70 96 Room Air 03/24 0400 97 Room Air 03/24 0000 97 Room Air 03/24 0000 97.9 103 16 160/100 97 Room Air 03/23 1600 98.1 114 20 124/78 94 Room Air 03/23 1600 94 Room Air Intake & Output 03/24 1600 03/24 0800 03/24 0000 Intake Total 520 830 Output Total 1080 910 Balance -560 -80 Intake, IV 520 830 Number 1 Bowel Movements Output, 60 50 Drainage Output, Urine 1020 860 Patient 193 lb Weight Weight Bed scale Measurement Method Physical Exam Other Physical Findings: He appears comfortable in no acute distress Lungs crackles at the left base Heart irregular rhythm with no murmur Abdomen is soft, nontender with positive bowel sounds; cholecystostomy tube in place with 50 mL output yesterday and 60 mL overnight Back no obvious CVA tenderness Extremities no cyanosis, clubbing or edema Hester catheter remains in place Results Last 24 Hours of Lab Results: Laboratory Tests 03/24 03/23 0455 1308 Chemistry Sodium (137 - 145 mmol/L) 149 H Potassium (3.5 - 5.1 mmol/L) 3.0 L Chloride (98 - 107 mmol/L) 116 H Carbon Dioxide (22 - 30 mmol/L) 21 L Anion Gap (5 - 16) 12 BUN (9 - 20 mg/dL) 36 H Creatinine (0.7 - 1.2 mg/dL) 1.2 Estimated GFR (>60 ml/min) 58 L Glucose (65 - 99 mg/dL) 101 H Lactic Acid (0.7 - 2.1 mmol/L) 1.4 Calcium (8.4 - 10.2 mg/dL) 8.2 L Phosphorus (2.5 - 4.5 mg/dL) 2.7 Magnesium (1.6 - 2.3 mg/dL) 1.7 Total Bilirubin (0.2 - 1.3 mg/dL) 4.2 H Direct Bilirubin (< 0.4 mg/dL) 3.3 H AST (17 - 59 U/L) 70 H ALT (21 - 72 U/L) 62 Albumin (3.5 - 5.0 g/dL) 2.1 L Coagulation PT (9.4 - 12.5 SEC) 15.9 H INR (0.90 - 1.17) 1.52 H Hematology CBC w Diff MAN DIFF ORDERED WBC (4.8 - 10.8 /CUMM) 50.3 *H RBC (4.70 - 6.10 /CUMM) 3.52 L Hgb (14.0 - 18.0 G/DL) 10.2 L Hct (42 - 52 %) 30.2 L MCV (80.0 - 94.0 FL) 85.7 MCH (27.0 - 31.0 PG) 28.8 RDW (11.5 - 14.5 %) 18.1 H Plt Count (130 - 400 /CUMM) 95 L MPV (7.4 - 10.4 FL) 8.8 Gran % (42.2 - 75.2 %) 97.8 H Lymphocytes % (20.5 - 51.1 %) 1.9 L Monocytes % (1.7 - 9.3 %) 0.2 L Eosinophils % (0 - 5 %) 0.1 Basophils % (0.0 - 2.0 %) 0 Absolute Granulocytes (1.4 - 6.5 /CUMM) 49.2 H Segmented Neutrophils (42.2 - 75.2 %) 96 H Band Neutrophils (0.0 - 5.0 %) 1 Absolute Lymphocytes (1.2 - 3.4 /CUMM) 1.0 L Lymphocytes (20.5 - 51.1 %) 2 L Monocytes (1.7 - 9.3 %) 1 L Absolute Monocytes (0.10 - 0.60 /CUMM) 0.1 Absolute Eosinophils (0.0 - 0.7 /CUMM) 0.1 Absolute Basophils (0.0 - 0.2 /CUMM) 0 Platelet Estimate (ADEQUATE) DECREASED Polychromasia 1+ Poikilocytosis 3+ Ovalocytes 1+ Shira Cells 1+ Elliptocytes 1+ PUBS MCHC (33.0 - 37.0 G/DL) 33.6 Other Body Source Fld Total RBCs Counted (%) 100 Toxicology Random Vancomycin (ug/ml) 11.2 Last 24 Hours of [place] Results: Bile culture March 23 negative Blood cultures March 23 negative Assessment/Plan Impression: Stable with temperatures normal and white blood cell count decreased, though still markedly elevated, and with platelet count continuing to decrease on Vancomycin, Flagyl and Ceftazidime Day 4 of treatment for Escherichia coli sepsis, possibly of urological origin, with his urine cultures positive for Escherichia coli, Enterococcus and Pseudomonas, versus acalculous cholecystitis, status post placement of a cholecystostomy tube yesterday, with the culture of his bile so far negative. His renal failure has improved. Suggestion: 1. Follow-up culture of the bile 2. Await Urology evaluation 3. Discontinue Vancomycin, Flagyl and Ceftazidime 4. Begin Meropenem 1 g IV every 8 hours
--- NOTE | 2017-03-24 12:01 | Cons- General Surgery ---
General Information and HPI Consulting Request Date of Consult: 03/24/17 Requested By: Lupe PHILLIPS,Ivan Peters Reason for Consult: cholecystostomy tube management. History of Present Illness: patient admitted to ICU for treatment of sepsis of urologic origin. Due to concerns of ongoin sepsis and hyperbilirubinemia, workup for gallstone disease was undertaken. There was a concern for acalculous cholecystitis and percutaneous cholecystostomy tube place. Bilirubin is still increased. Allergies/Medications Allergies: Coded Allergies: amoxicillin (RASH 03/21/17) Home Med List: Amlodipine Besylate (Norvasc) 5 MG TABLET 1 TAB PO DAILY HTN (Reported) Aspirin (Aspirin*) 81 MG TAB.CHEW 1 TAB PO DAILY HEART HEALTH (Reported) Aspirin (Aspirin*) 81 MG TAB.CHEW 1 TAB PO DAILY HEART (Reported) Atorvastatin Calcium 20 MG TABLET 1 TAB PO DAILY CHOL (Reported) Carbidopa/Levodopa (Carbidopa-Levodopa 25-100 Tab) 25 MG-100 MG TABLET 1 TAB PO TID PARKINSONS (Reported) Ciprofloxacin HCl (Cipro) 500 MG TABLET 1 TAB PO BID INFECTION (Reported) Cranberry Fruit Concentrate (Cranberry) 450 MG CAPSULE 1 TAB PO BID VITAMIN ( Reported) Duloxetine Hydrochloride (Cymbalta) 30 MG CAPSULE.DR 1 CAP PO DAILY UNK ( Reported) Finasteride 5 MG TABLET 1 TAB PO DAILY URINE (Reported) Gabapentin (Neurontin) 300 MG CAPSULE 1 CAP PO TID NEUROPATHY (Reported) Lactobacillus Acidophilus (Acidophilus) 1 EACH CAPSULE 1 CAP PO BID PROBIOTIC (Reported) Melatonin 3 MG TABLET 1 TAB PO QPM SLEEP (Reported) Metoprolol Tartrate 50 MG TABLET 1 TAB PO BID HTN (Reported) Olmesartan Medoxomil (Benicar) 40 MG TABLET 1 TAB PO DAILY HTN (Reported) Polyethylene Glycol 3350 (Miralax) 17 GRAM POWD.PACK 1 PAC PO DAILY CONSTIPA (Reported) dissolve in water Potassium Chloride 10 MEQ CAPSULE.ER 1 CAP PO DAILY SUPPLEMENT (Reported) Prochlorperazine (Compazine) 25 MG SUPP.RECT 1 SUPP TX DAILY NAUSEA (Reported ) Sennosides (Senokot) 8.6 MG TABLET 2 TAB PO DAILY CONSTIPATION (Reported) Current Medications: Current Medications Sig/Woodrow Start time Last Medication Dose Route Stop Time Status Admin Ceftazidime 1,000 MG Q12 03/21 2200 DC 03/24 IV 0913 Dextrose/Sodium 1,000 ML Q16H 03/22 1245 AC 03/23 Chloride IV 2128 Heparin Sodium/ 25,000 UNIT Q24H 03/24 0915 AC 03/24 Dextrose IV 1217 Dextrose/Water 500 ML Magnesium Oxide 400 MG BID 03/24 1033 AC PO 03/24 2201 Meropenem 1 GM IQ8 03/24 1600 AC IV Metoprolol Tartrate 50 MG BID 03/24 1000 AC 03/24 PO 0914 Metronidazole 500 MG Q8H 03/22 1000 DC 03/24 N/A 1 UNIT IV 0913 Phosphate 250 MG ONCE ONE 03/24 0900 DC 03/24 PO 03/24 0901 1015 Potassium Chloride 60 MEQ ONCE ONE 03/24 1045 DC PO 03/24 1046 Potassium Chloride 20 MEQ Q1H 03/24 0645 DC 03/24 IV 03/24 0746 0804 Past History Medical History Neurological: Parkinson's disease EENT: NONE Cardiovascular: AFIB, hypertension, LCW PACER HLD Respiratory: NONE Gastrointestinal: NONE Hepatic: NONE Renal: benign prost hyperplasia Musculoskeletal: NONE Psychiatric: NONE Endocrine: PARKINSONS Cancer(s): NONE [employer]/Reproductive: PROSTATE Other Medical Hx: FREQUENT FALLS Psychosocial History Where Do You Live? [facility] Facility Smoking Status: Never Smoked Exam & Diagnostic Data Vital Signs and I&O Vital Signs Date Time Temp Pulse Resp B/P B/P Pulse O2 O2 Flow FiO2 Mean Ox Delivery Rate 03/24 0914 120 152/98 03/24 0800 98.3 120 20 140/70 96 Room Air 03/24 0400 97 Room Air 03/24 0000 97 Room Air 03/24 0000 97.9 103 16 160/100 97 Room Air 03/23 1600 98.1 114 20 124/78 94 Room Air 03/23 1600 94 Room Air Intake & Output 03/24 1600 03/24 0803/24 0000 03/23 1600 03/23 0803/23 0000 Intake Total 520 830 870 498 770 Output Total 1080 910 700 400 500 Balance -560 -80 170 98 270 Intake, Blood 300 Product Intake, IV 520 830 570 498 770 Intake, Oral 0 0 Number 1 0 1 2 Bowel Movements Output, 60 50 Drainage Output, Urine 1020 860 700 400 500 Patient 194 lb 193 lb Weight Weight Bed scale Measurement Method Last 24 Hours of Labs: Laboratory Tests 03/24 03/23 0455 1308 Chemistry Sodium (137 - 145 mmol/L) 149 H Potassium (3.5 - 5.1 mmol/L) 3.0 L Chloride (98 - 107 mmol/L) 116 H Carbon Dioxide (22 - 30 mmol/L) 21 L Anion Gap (5 - 16) 12 BUN (9 - 20 mg/dL) 36 H Creatinine (0.7 - 1.2 mg/dL) 1.2 Estimated GFR (>60 ml/min) 58 L Glucose (65 - 99 mg/dL) 101 H Lactic Acid (0.7 - 2.1 mmol/L) 1.4 Calcium (8.4 - 10.2 mg/dL) 8.2 L Phosphorus (2.5 - 4.5 mg/dL) 2.7 Magnesium (1.6 - 2.3 mg/dL) 1.7 Total Bilirubin (0.2 - 1.3 mg/dL) 4.2 H Direct Bilirubin (< 0.4 mg/dL) 3.3 H AST (17 - 59 U/L) 70 H ALT (21 - 72 U/L) 62 Albumin (3.5 - 5.0 g/dL) 2.1 L Coagulation PT (9.4 - 12.5 SEC) 15.9 H INR (0.90 - 1.17) 1.52 H Hematology CBC w Diff MAN DIFF ORDERED WBC (4.8 - 10.8 /CUMM) 50.3 *H RBC (4.70 - 6.10 /CUMM) 3.52 L Hgb (14.0 - 18.0 G/DL) 10.2 L Hct (42 - 52 %) 30.2 L MCV (80.0 - 94.0 FL) 85.7 MCH (27.0 - 31.0 PG) 28.8 RDW (11.5 - 14.5 %) 18.1 H Plt Count (130 - 400 /CUMM) 95 L MPV (7.4 - 10.4 FL) 8.8 Gran % (42.2 - 75.2 %) 97.8 H Lymphocytes % (20.5 - 51.1 %) 1.9 L Monocytes % (1.7 - 9.3 %) 0.2 L Eosinophils % (0 - 5 %) 0.1 Basophils % (0.0 - 2.0 %) 0 Absolute Granulocytes (1.4 - 6.5 /CUMM) 49.2 H Segmented Neutrophils (42.2 - 75.2 %) 96 H Band Neutrophils (0.0 - 5.0 %) 1 Absolute Lymphocytes (1.2 - 3.4 /CUMM) 1.0 L Lymphocytes (20.5 - 51.1 %) 2 L Monocytes (1.7 - 9.3 %) 1 L Absolute Monocytes (0.10 - 0.60 /CUMM) 0.1 Absolute Eosinophils (0.0 - 0.7 /CUMM) 0.1 Absolute Basophils (0.0 - 0.2 /CUMM) 0 Platelet Estimate (ADEQUATE) DECREASED Polychromasia 1+ Poikilocytosis 3+ Ovalocytes 1+ Shira Cells 1+ Elliptocytes 1+ PUBS MCHC (33.0 - 37.0 G/DL) 33.6 Other Body Source Fld Total RBCs Counted (%) 100 Toxicology Random Vancomycin (ug/ml) 11.2 Imaging Results: Ultrasound showed gallbladder wall thickening without stones. Assessment/Plan Assessment/Plan Suspect increased bilirubin related to sepsis and resultant hepatic dysfunction, not obstructive disease. If there remains clinical concern regarding choledocholithiasis, cholangiogram through percutaneous cholecystostomy tube can be performed. Otherwise, I will arrange for outpatient tube check after discharge from the hospital. It should be kept to gravity until then. It can be removed in 6 weeks pending outpatient workup. Consult Acknowledgment - Thank you for your consult request.
--- NOTE | 2017-03-24 13:43 | RADIOLOGY REPORT ---
EXAMINATION: MODIFIED BARIUM SWALLOW CLINICAL INFORMATION: 82-year-old male with suspicion for aspiration. COMPARISON: None. TECHNIQUE: Routine airway fluoroscopy was performed. The patient took thin barium without difficulty. FINDINGS: The examination was performed with the speech pathologist present. The patient had delayed swallowing. There was decreased epiglottic inversion. Pur?e and honey: Significant amount of residual in the vallecula which the patient could not eliminate. There was penetration that was not cleared with coughing. FLUOROSCOPY TIME: 1 minute and 48 seconds NUMBER IMAGES: No spot images obtained. IMPRESSION: Laryngeal penetration with puree and honey. Please see speech pathologist's recommendations for feeding guidelines
[2017-03-24 16:00] VITALS: BP 146/90
--- NOTE | 2017-03-24 16:29 | Cons- Gastroenterology ---
General Information and HPI Consulting Request Date of Consult: 03/24/17 Requested By: Lupe PHILLIPS,Ivan Peters Reason for Consult: 1. Elevated Bilirubin 2. Acute Cholecystitis, s/p Cholecystostomy 3. Leukocytosis Source of Information: Electronic Medical Records Exam Limitations: unable to give history History of Present Illness: Patient is an 82 year old white male who was admitted to [facility] with sepsis of unclear etiology. On admission patient was admitted to the ICU. He had a Temperature of 102.5, HR in the 150s to 170s, BP of 110/62 which dropped to 90/55 after receiving over 4 liters of IV fluids. He was brought to [place] by EMS from [facility] where is a resident. He had been treated three weeks prior to admission for a UTI with Cx positive for gram negative rods. Past medical history is significant for Parkinson's disease, hypertension, permanent pacemaker, BPH. On admission he had a CT Scan of the abdomen and pelvis which showed the following: LIVER, GALLBLADDER, AND BILIARY TREE: The liver is normal in size, shape, and attenuation. No biliary ductal dilatation is present. The gallbladder is slightly over distended. No calcified gallstone is seen. No obvious pericholecystic inflammatory changes, considering the limitation of the exam due to lack of intravenous contrast. PANCREAS: Unremarkable. SPLEEN: Unremarkable. ADRENAL GLANDS: Unremarkable. KIDNEYS AND URETERS: The right kidney measures about 11.2 cm in length. There is a 3.5 cm hypodense lesion seen in the upper pole of the right kidney. The density is about 17 Hounsfield units. It could represent a cortical cyst. There is no hydronephrosis or renal stone. The left kidney measures about 11.8 cm in length. No hydronephrosis or renal stone. There is extrarenal pelvis. Mild dilatation of the left ureter noted. The urinary bladder is almost empty, however there is thickening of the bladder wall up to 1.9 cm in single layer thickness. An indwelling catheter is seen within the urinary bladder. A small amount of intravesical air can be post catheterization. Mild bilateral perinephric stranding noted. No perinephric collection. There is moderate perivesical fat stranding in the pelvis and lower abdomen. GASTROINTESTINAL TRACT: The small and large bowel are not dilated. The rectum is mildly distended, up to 6.9 cm in transverse diameter and contains stool. This suggest fecal impaction. The appendix is not visualized. There is no free air or free fluid within the abdomen or pelvis. ABDOMINAL WALL: There are post hernia repair changes in the lower anterior abdominal wall and inguinal regions. LYMPH NODES: No pelvic sidewall, retroperitoneal or mesenteric adenopathy, considering limitations of the exam due to lack of intravenous contrast. VASCULAR: Atherosclerotic calcifications of the abdominal aorta and major branches noted. No aneurysmal dilatation. PELVIC VISCERA: The pelvic viscera are not well visualized due to inflammatory changes surrounding the urinary bladder and rectal fecal impaction. OSSEOUS STRUCTURES: There are multilevel degenerative changes of the lumbar spine. Post kyphoplasty changes of L3 on L4 noted. Post-ORIF changes of the left femur. Degenerative changes of bilateral hip joints. IMPRESSION: The gallbladder is slightly over distended. No calcified gallstone is seen. No definite pericholecystic inflammatory changes seen on this exam, considering limitations due to lack of intravenous contrast. Thickening of the bladder wall can be as a result of bladder outlet obstruction. The bladder is empty in the presence of indwelling catheter. Moderate amount of perivesical fat stranding extending to the lower abdomen also noted. Possibility of superimposed cystitis is not excluded. Clinical and lab correlation is suggested. Mild dilatation of bilateral ureters, left more than right can be functional as well. The appendix is not visualized and cannot be evaluated. Small bilateral pleural effusions and adjacent pulmonary opacities which could represent atelectasis. Clinical correlation for superimposed pneumonia is suggested. Right renal cortical hypodense lesion, could represent a cyst. This can be further evaluated by nonemergent ultrasound if indicated. On admission on 03/21 T. Bili was 3.7 with an AST/ALT of 239/48 and an alk phos of 343. On 03/22 T. Bili was 3.0, AST/ALT was 193/50, on 03/23, T. Bili was 3.3, AST was 125/57, and on 03/24 T. Bili was 4.2 with an AST/ALT fo 70/57. WBC on were 35.2 with 21 Bands, on 03/22 WBC were 78.6 with 27 bands, and on 03/23 WBC were 60.4 with 6 bands and on 03/24 bands had decreased to 1 with WBC decreasing to 50.3. Urine cultures were positive for E. Coli and enterococcus. On 03/23 patient underwent percutaneous cholecystostomy. We are consulted given elevated bilirubin to rule out the possibility of choledocholithiasis. An ultrasound was done as well which showed the following: IMPRESSION: Thickened gallbladder wall with fluid within it but no echogenic stones or pericholecystic fluid collection. Question acalculous cholecystitis. Small cyst mid to lower pole right kidney. Rest of the abdominal ultrasound is unremarkable. Given the findings on US, the patient underwent percutaneous cholecystostomy with a prompt decline in WBC as noted above. We are consulted for possible CBD stone given elevated bilirubin. Allergies/Medications Allergies: Coded Allergies: amoxicillin (RASH 03/21/17) Home Med List: Amlodipine Besylate (Norvasc) 5 MG TABLET 1 TAB PO DAILY HTN (Reported) Aspirin (Aspirin*) 81 MG TAB.CHEW 1 TAB PO DAILY HEART HEALTH (Reported) Aspirin (Aspirin*) 81 MG TAB.CHEW 1 TAB PO DAILY HEART (Reported) Atorvastatin Calcium 20 MG TABLET 1 TAB PO DAILY CHOL (Reported) Carbidopa/Levodopa (Carbidopa-Levodopa 25-100 Tab) 25 MG-100 MG TABLET 1 TAB PO TID PARKINSONS (Reported) Ciprofloxacin HCl (Cipro) 500 MG TABLET 1 TAB PO BID INFECTION (Reported) Cranberry Fruit Concentrate (Cranberry) 450 MG CAPSULE 1 TAB PO BID VITAMIN ( Reported) Duloxetine Hydrochloride (Cymbalta) 30 MG CAPSULE.DR 1 CAP PO DAILY UNK ( Reported) Finasteride 5 MG TABLET 1 TAB PO DAILY URINE (Reported) Gabapentin (Neurontin) 300 MG CAPSULE 1 CAP PO TID NEUROPATHY (Reported) Lactobacillus Acidophilus (Acidophilus) 1 EACH CAPSULE 1 CAP PO BID PROBIOTIC (Reported) Melatonin 3 MG TABLET 1 TAB PO QPM SLEEP (Reported) Metoprolol Tartrate 50 MG TABLET 1 TAB PO BID HTN (Reported) Olmesartan Medoxomil (Benicar) 40 MG TABLET 1 TAB PO DAILY HTN (Reported) Polyethylene Glycol 3350 (Miralax) 17 GRAM POWD.PACK 1 PAC PO DAILY CONSTIPA (Reported) dissolve in water Potassium Chloride 10 MEQ CAPSULE.ER 1 CAP PO DAILY SUPPLEMENT (Reported) Prochlorperazine (Compazine) 25 MG SUPP.RECT 1 SUPP ID DAILY NAUSEA (Reported ) Sennosides (Senokot) 8.6 MG TABLET 2 TAB PO DAILY CONSTIPATION (Reported) Current Medications: Current Medications Sig/Woodrow Start time Last Medication Dose Route Stop Time Status Admin Ceftazidime 1,000 MG Q12 03/21 2200 DC 03/24 IV 0913 Dextrose/Sodium 1,000 ML Q16H 03/22 1245 AC 03/23 Chloride IV 2128 Heparin Sodium/ 25,000 UNIT Q24H 03/24 0915 AC 03/24 Dextrose IV 1217 Dextrose/Water 500 ML Ketorolac 30 MG ONCE ONE 03/24 1630 UNVr 03/24 Tromethamine IV 03/24 1631 1623 Magnesium Oxide 400 MG BID 03/24 1033 AC PO 03/24 2201 Meropenem 1 GM IQ8 03/24 1600 AC 03/24 IV 1606 Metoprolol Tartrate 50 MG BID 03/24 1000 AC 03/24 PO 0914 Metronidazole 500 MG Q8H 03/22 1000 DC 03/24 N/A 1 UNIT IV 0913 Phosphate 250 MG ONCE ONE 03/24 0900 DC 03/24 PO 03/24 0901 1015 Potassium Chloride 10 MEQ ONCE ONE 03/24 1630 UNVr IV 03/24 1631 Potassium Chloride 60 MEQ ONCE ONE 03/24 1045 DC PO 03/24 1046 Potassium Chloride 20 MEQ Q1H 03/24 0645 DC 03/24 IV 03/24 0746 0804 Sodium Chloride 2 SPRAY Q4P PRN 03/24 1600 AC SHEYLA Past History Travel History Traveled to [place] past 21 day No Medical History Neurological: Parkinson's disease EENT: NONE Cardiovascular: AFIB, hypertension, LCW PACER HLD Respiratory: NONE Gastrointestinal: NONE Hepatic: NONE Renal: benign prost hyperplasia Musculoskeletal: NONE Psychiatric: NONE Endocrine: PARKINSONS Cancer(s): NONE [employer]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 Smoking Status: Never Smoked Review of Systems Review of Systems: Unable to obtain given patient's non-verbal state. Exam & Diagnostic Data Vital Signs and I&O Vital Signs Date Time Temp Pulse Resp B/P B/P Pulse O2 O2 Flow FiO2 Mean Ox Delivery Rate 03/24 0914 120 152/98 03/24 0800 98.3 120 20 140/70 96 Room Air 03/24 0400 97 Room Air 03/24 0000 97 Room Air 03/24 0000 97.9 103 16 160/100 97 Room Air Intake & Output 03/24 1600 03/24 0400 03/23 1600 03/23 0400 03/22 1600 03/22 0400 Intake Total 468 205 6272 770 1843.5 1806 Output Total 2183 632 9014 500 700 425 Balance -560 -80 129 872 1037.5 1381 Intake, Blood 300 Product Intake, IV 257 899 9257 770 1843.5 1806 Intake, Oral 0 0 0 0 Number 1 1 2 1 1 Bowel Movements Output, 60 50 Drainage Output, Urine 1541 696 5275 500 700 425 Patient 194 lb 185 lb Weight Weight Bed scale Bed scale Measurement Method Physical Exam General Appearance: well developed/nourished, alert, Patient is non-verbal and cannot cooperate with exam. Head: atraumatic, normal appearance Eyes: Bilateral: normal appearance. Neck: supple, full range of motion Respiratory: normal breath sounds, chest non-tender, lungs clear Cardiovascular: irregularly irregular, Normal S1 and S2, no rubs, murmurs or gallops Gastrointestinal: normal bowel sounds, soft, non-tender, no organomegaly Rectal: deferred Neurologic/Psych: awake, aphasia Cranial Nerves: Unable to assess patient does not follow directions Skin: intact, jaundice Results Pertinent Lab Results: Laboratory Tests 03/24 03/24 03/23 1820 0455 1308 Chemistry Sodium (137 - 145 mmol/L) 149 H Potassium (3.5 - 5.1 mmol/L) 3.0 L Chloride (98 - 107 mmol/L) 116 H Carbon Dioxide (22 - 30 mmol/L) 21 L Anion Gap (5 - 16) 12 BUN (9 - 20 mg/dL) 36 H Creatinine (0.7 - 1.2 mg/dL) 1.2 Estimated GFR (>60 ml/min) 58 L Glucose (65 - 99 mg/dL) 101 H Lactic Acid (0.7 - 2.1 mmol/L) 1.4 Calcium (8.4 - 10.2 mg/dL) 8.2 L Phosphorus (2.5 - 4.5 mg/dL) 2.7 Magnesium (1.6 - 2.3 mg/dL) 1.7 Total Bilirubin (0.2 - 1.3 mg/dL) 4.2 H Direct Bilirubin (< 0.4 mg/dL) 3.3 H AST (17 - 59 U/L) 70 H ALT (21 - 72 U/L) 62 Albumin (3.5 - 5.0 g/dL) 2.1 L Coagulation PT (9.4 - 12.5 SEC) 15.9 H INR (0.90 - 1.17) 1.52 H APTT (25 - 37 SEC) 62 H Hematology CBC w Diff MAN DIFF ORDERED WBC (4.8 - 10.8 /CUMM) 50.3 *H RBC (4.70 - 6.10 /CUMM) 3.52 L Hgb (14.0 - 18.0 G/DL) 10.2 L Hct (42 - 52 %) 30.2 L MCV (80.0 - 94.0 FL) 85.7 MCH (27.0 - 31.0 PG) 28.8 RDW (11.5 - 14.5 %) 18.1 H Plt Count (130 - 400 /CUMM) 95 L MPV (7.4 - 10.4 FL) 8.8 Gran % (42.2 - 75.2 %) 97.8 H Lymphocytes % (20.5 - 51.1 %) 1.9 L Monocytes % (1.7 - 9.3 %) 0.2 L Eosinophils % (0 - 5 %) 0.1 Basophils % (0.0 - 2.0 %) 0 Absolute Granulocytes (1.4 - 6.5 /CUMM) 49.2 H Segmented Neutrophils (42.2 - 75.2 %) 96 H Band Neutrophils (0.0 - 5.0 %) 1 Absolute Lymphocytes (1.2 - 3.4 /CUMM) 1.0 L Lymphocytes (20.5 - 51.1 %) 2 L Monocytes (1.7 - 9.3 %) 1 L Absolute Monocytes (0.10 - 0.60 /CUMM) 0.1 Absolute Eosinophils (0.0 - 0.7 /CUMM) 0.1 Absolute Basophils (0.0 - 0.2 /CUMM) 0 Platelet Estimate (ADEQUATE) DECREASED Polychromasia 1+ Poikilocytosis 3+ Ovalocytes 1+ Shira Cells 1+ Elliptocytes 1+ PUBS MCHC (33.0 - 37.0 G/DL) 33.6 Other Body Source Fld Total RBCs Counted (%) 100 Toxicology Random Vancomycin (ug/ml) 11.2 03/23 03/22 03/22 0345 1756 1100 Chemistry Sodium (137 - 145 mmol/L) 142 Potassium (3.5 - 5.1 mmol/L) 3.3 L Chloride (98 - 107 mmol/L) 111 H Carbon Dioxide (22 - 30 mmol/L) 19 L Anion Gap (5 - 16) 11 BUN (9 - 20 mg/dL) 40 H Creatinine (0.7 - 1.2 mg/dL) 1.7 H Estimated GFR (>60 ml/min) 39 L Glucose (65 - 99 mg/dL) 76 Lactic Acid (0.7 - 2.1 mmol/L) 2.3 H Calcium (8.4 - 10.2 mg/dL) 7.9 L Phosphorus (2.5 - 4.5 mg/dL) 3.9 Magnesium (1.6 - 2.3 mg/dL) 1.8 Total Bilirubin (0.2 - 1.3 mg/dL) 3.3 H AST (17 - 59 U/L) 125 H ALT (21 - 72 U/L) 57 Albumin (3.5 - 5.0 g/dL) 2.1 L Coagulation PT (9.4 - 12.5 SEC) 22.2 H 32.4 H INR (0.90 - 1.17) 2.13 H 3.12 H APTT (25 - 37 SEC) 43 H Hematology CBC w Diff MAN DIFF ORDERED WBC (4.8 - 10.8 /CUMM) 60.4 *H RBC (4.70 - 6.10 /CUMM) 3.28 L Hgb (14.0 - 18.0 G/DL) 9.6 L Hct (42 - 52 %) 28.2 L MCV (80.0 - 94.0 FL) 86.0 MCH (27.0 - 31.0 PG) 29.2 RDW (11.5 - 14.5 %) 18.0 H Plt Count (130 - 400 /CUMM) 126 L MPV (7.4 - 10.4 FL) 8.1 Gran % (42.2 - 75.2 %) 97.8 H Lymphocytes % (20.5 - 51.1 %) 1.5 L Monocytes % (1.7 - 9.3 %) 0.6 L Eosinophils % (0 - 5 %) 0.1 Basophils % (0.0 - 2.0 %) 0 Absolute Granulocytes (1.4 - 6.5 /CUMM) 59.0 H Segmented Neutrophils (42.2 - 75.2 %) 91 H Band Neutrophils (0.0 - 5.0 %) 6 H Absolute Lymphocytes (1.2 - 3.4 /CUMM) 0.9 L Lymphocytes (20.5 - 51.1 %) 2 L Monocytes (1.7 - 9.3 %) 1 L Absolute Monocytes (0.10 - 0.60 /CUMM) 0.4 Absolute Eosinophils (0.0 - 0.7 /CUMM) 0 Absolute Basophils (0.0 - 0.2 /CUMM) 0 Platelet Estimate (ADEQUATE) ADEQUATE Poikilocytosis 1+ Anisocytosis 1+ Target Cells FEW Ovalocytes 1+ Stomatocytes RARE Shira Cells 2+ Schistocytes RARE PUBS MCHC (33.0 - 37.0 G/DL) 34.0 Toxicology Random Vancomycin (ug/ml) 11.3 03/22 03/22 03/21 0806 0425 2355 Chemistry Sodium (137 - 145 mmol/L) 140 Potassium (3.5 - 5.1 mmol/L) 3.8 Chloride (98 - 107 mmol/L) 108 H Carbon Dioxide (22 - 30 mmol/L) 18 L Anion Gap (5 - 16) 15 BUN (9 - 20 mg/dL) 38 H Creatinine (0.7 - 1.2 mg/dL) 2.2 H Estimated GFR (>60 ml/min) 29 L Glucose (65 - 99 mg/dL) 101 H Lactic Acid (0.7 - 2.1 mmol/L) 2.5 H 3.0 H Calcium (8.4 - 10.2 mg/dL) 7.7 L Phosphorus (2.5 - 4.5 mg/dL) 4.1 Magnesium (1.6 - 2.3 mg/dL) 1.8 Total Bilirubin (0.2 - 1.3 mg/dL) 3.0 H AST (17 - 59 U/L) 193 H ALT (21 - 72 U/L) 50 Troponin I (<0.11 ng/ml) 0.22 *H Albumin (3.5 - 5.0 g/dL) 2.1 L Coagulation PT (9.4 - 12.5 SEC) 33.9 H INR (0.90 - 1.17) 3.27 H APTT (25 - 37 SEC) 46 H Hematology CBC w Diff MAN DIFF ORDERED WBC (4.8 - 10.8 /CUMM) 78.6 *H RBC (4.70 - 6.10 /CUMM) 3.38 L Hgb (14.0 - 18.0 G/DL) 10.0 L Hct (42 - 52 %) 29.2 L MCV (80.0 - 94.0 FL) 86.5 MCH (27.0 - 31.0 PG) 29.5 RDW (11.5 - 14.5 %) 17.8 H Plt Count (130 - 400 /CUMM) 195 MPV (7.4 - 10.4 FL) 7.9 Gran % (42.2 - 75.2 %) 97.5 H Lymphocytes % (20.5 - 51.1 %) 0.8 L Monocytes % (1.7 - 9.3 %) 1.7 Eosinophils % (0 - 5 %) 0 Basophils % (0.0 - 2.0 %) 0 Absolute Granulocytes (1.4 - 6.5 /CUMM) 76.7 H Segmented Neutrophils (42.2 - 75.2 %) 72 Band Neutrophils (0.0 - 5.0 %) 27 H Absolute Lymphocytes (1.2 - 3.4 /CUMM) 0.6 L Lymphocytes (20.5 - 51.1 %) 1 L Absolute Monocytes (0.10 - 0.60 /CUMM) 1.3 H Absolute Eosinophils (0.0 - 0.7 /CUMM) 0 Absolute Basophils (0.0 - 0.2 /CUMM) 0 Platelet Estimate (ADEQUATE) ADEQUATE Normochromic RBCs VERIFIED Poikilocytosis 2+ Shira Cells 2+ PUBS MCHC (33.0 - 37.0 G/DL) 34.1 Toxicology Random Vancomycin (ug/ml) 8.9 03/21 03/21 6485 2009 Chemistry Lactic Acid (0.7 - 2.1 mmol/L) 3.8 H 4.4 H Assessment/Plan Assessment/Recommendations: ASSESSMENT: 1. Acute Cholecystitis -- S/P Percutaneous Cholecystostomy. On Meropenem 2. UTI -- E. Coli and Enterococcus on Meropenem per ID 3. Elevated Bilirubin -- may be related to hyperbilirubinemia of sepsis. There was no ductal dilatation on either US of the abdomen or on CT Scan to suggest a CBD stone. Further patient's transaminases were not markedly elevated to suggest either a retained or passage of a CBD stone. Alk phos was elevated on admission but was not repeated. Further alk phos and bilirubin often lag in terms of return to normal if indeed they are related to passage of a small stone. 4. Dementia 5. Leukocytosis -- WBC and Bandemia decreasing on antibiotics RECOMMENDATIONS: 1. Follow T. Bili, and alk phos 2. Continue antibiotics 3. At this time I do not believe that patient needs ERCP. However, pending trend of liver-associated enzymes as well as T. Bili and alk phos may want to consider additional imaging studies. Patient has a pacemaker, so patient may benefit from HIDA scan to further visualize the CBD, however, at this time I would take a mroe conservative approach with drainage of the GB, and close observation Consult Acknowledgment - Thank you for your consult request.
[2017-03-24 18:55] LABS: PTT 62 SEC (25-37)
--- NOTE | 2017-03-24 19:03 | Event Note ---
Event Note Event Note: Got a call from [facility] regarding NG tube position. The tube is still in the thorax at the diaphragm and needs to be advanced another 8 cm to reach the appropiate position. The information was passed on to resident Yo Bills and patient's nurse who are repositioning it. We will get an Xray post the procedure.
--- NOTE | 2017-03-24 19:04 | RADIOLOGY REPORT ---
EXAMINATION: XR PORTABLE CHEST CLINICAL INFORMATION: NG tube placement. COMPARISON: Chest x-ray 03/22/2017 TECHNIQUE: Portable frontal view of the chest was obtained. 6:34 PM FINDINGS: The tip of the nasogastric tube remains above the diaphragm at the gastroesophageal junction. No pulmonary vascular congestion. There is density in the retrocardiac area with partial silhouetting of the medial left diaphragm of an area of infiltrate/atelectasis. Probable small left pleural effusion as well with blunting of the costophrenic angle. The densities at the left lung base have improved since exam of 03/22/2017. The right lung is clear. No pulmonary vascular congestion. Pulmonary vascular congestion of prior chest x-ray has resolved. IMPRESSION: 1. Nasogastric tube tip at the gastroesophageal junction above the diaphragm. 2. Resolved pulmonary vascular congestion. 3. Persistent but improving atelectasis/infiltrate at left lung base and left pleural effusion compared with chest x-ray 03/22/2017. This critical result was discussed with Dr. Marti Negron on 03/24/2017, 7:00 PM and it was ascertained that the content and urgency of the report was understood at the time of direct communication.
--- NOTE | 2017-03-24 21:32 | RADIOLOGY REPORT ---
EXAMINATION: XR PORTABLE CHEST CLINICAL INFORMATION: Nasogastric tube positioning. COMPARISON: Chest x-ray 03/24/2017, 6:34 PM TECHNIQUE: Portable frontal view of the chest was obtained. 7:16 PM FINDINGS: Nasogastric tube is been advanced and now is within the stomach. The density at the left lung base is persistent partially silhouetting the medial left diaphragm of infiltrate or atelectasis unchanged since prior study. Probable small left pleural effusion as well. No change position of pacemaker leads. No pulmonary vascular congestion. IMPRESSION: Nasogastric tube has been advanced and now is within the stomach.
[2017-03-25] VITALS: BP 119/88
--- NOTE | 2017-03-25 07:52 | PN- Resident CRCU ---
Subjective HPI/CRCU Issues: Septic shock due due to gram-negative sepsis(UTI versus cholecystitis) elevated troponin likely due to supply/demand mismatch (Type 2 OK) Questionable aspiration pneumonia versus healthcare associated pneumonia Severe pyuria/BPH [place] Paroxysmal atrial fibrillation on warfarin/supratherapeutic INR Acute kidney injury on chronic kidney disease 24 Hour Events: seen and examined patient. awake and alert however not oriented to place or time. 97% on 2 L NC Objective Vital Signs & I&O Last 8 Hrs of Vitals and I&O: Laboratory Tests 03/25/17 1602: Anion Gap 12, Estimated GFR 58 L, Glucose 125 H, Calcium 8.2 L, Phosphorus 4.2, Magnesium 2.1, Total Bilirubin 4.1 H, AST 31, ALT 31, Albumin 2.2 L, CBC w Diff MAN DIFF ORDERED, RBC 3.64 L, MCV 84.9, MCH 28.5, RDW 18.4 H, MPV 9.0, Gran % 95.3 H, Lymphocytes % 3.6 L, Monocytes % 0.1 L, Eosinophils % 0.9, Basophils % 0.1, Absolute Granulocytes 21.2 H, Segmented Neutrophils 92 H, Band Neutrophils 2, Absolute Lymphocytes 0.8 L, Lymphocytes 3 L, Monocytes 3, Absolute Monocytes 0 L, Absolute Eosinophils 0.2, Absolute Basophils 0, Platelet Estimate DECREASED, Anisocytosis 1+, PUBS MCHC 33.5 03/25/17 1510: Heparin-induced Plt Ab Pending, Heparin-PF4 AB OD Pending 03/25/17 0630: Anion Gap 11, Estimated GFR > 60, Glucose 116 H, Calcium 8.3 L, Phosphorus 3.0 , Magnesium 1.7, Total Bilirubin 4.4 H, AST 36, ALT 61, Alkaline Phosphatase 205 H, Albumin 2.2 L, APTT 70 H, CBC w Diff MAN DIFF ORDERED, RBC 3.61 L, MCV 85.5, MCH 28.9, RDW 18.0 H, MPV 8.7, Gran % 94.4 H, Lymphocytes % 4.1 L, Monocytes % 0.7 L, Eosinophils % 0.8, Basophils % 0, Absolute Granulocytes 27.5 H, Segmented Neutrophils 95 H, Band Neutrophils 2, Absolute Lymphocytes 1.2, Lymphocytes 2 L, Monocytes 1 L, Absolute Monocytes 0.2, Absolute Eosinophils 0.2, Absolute Basophils 0, Platelet Estimate VERIFIED BY SMEAR, Normocytic RBCs VERIFIED, Normochromic RBCs VERIFIED, [facility] 33.8 03/24/17 1820: APTT 62 H Laboratory Tests 03/25/17 1602: Anion Gap 12, Estimated GFR 58 L, Glucose 125 H, Calcium 8.2 L, Phosphorus 4.2, Magnesium 2.1, Total Bilirubin 4.1 H, AST 31, ALT 31, Albumin 2.2 L, CBC w Diff MAN DIFF ORDERED, RBC 3.64 L, MCV 84.9, MCH 28.5, RDW 18.4 H, MPV 9.0, Gran % 95.3 H, Lymphocytes % 3.6 L, Monocytes % 0.1 L, Eosinophils % 0.9, Basophils % 0.1, Absolute Granulocytes 21.2 H, Segmented Neutrophils 92 H, Band Neutrophils 2, Absolute Lymphocytes 0.8 L, Lymphocytes 3 L, Monocytes 3, Absolute Monocytes 0 L, Absolute Eosinophils 0.2, Absolute Basophils 0, Platelet Estimate DECREASED, Anisocytosis 1+, [facility] 33.5 03/25/17 1510: Heparin-induced Plt Ab Pending, Heparin-PF4 AB OD Pending 03/25/17 0630: Anion Gap 11, Estimated GFR > 60, Glucose 116 H, Calcium 8.3 L, Phosphorus 3.0 , Magnesium 1.7, Total Bilirubin 4.4 H, AST 36, ALT 61, Alkaline Phosphatase 205 H, Albumin 2.2 L, APTT 70 H, CBC w Diff MAN DIFF ORDERED, RBC 3.61 L, MCV 85.5, MCH 28.9, RDW 18.0 H, MPV 8.7, Gran % 94.4 H, Lymphocytes % 4.1 L, Monocytes % 0.7 L, Eosinophils % 0.8, Basophils % 0, Absolute Granulocytes 27.5 H, Segmented Neutrophils 95 H, Band Neutrophils 2, Absolute Lymphocytes 1.2, Lymphocytes 2 L, Monocytes 1 L, Absolute Monocytes 0.2, Absolute Eosinophils 0.2, Absolute Basophils 0, Platelet Estimate VERIFIED BY SMEAR, Normocytic RBCs VERIFIED, Normochromic RBCs VERIFIED, [facility] 33.8 03/24/17 1820: APTT 62 H Vital Signs Date Time Temp Pulse Resp B/P B/P Pulse O2 O2 Flow FiO2 Mean Ox Delivery Rate 03/25 1200 97 Nasal 2.0L Cannula 03/25 1026 77 152/79 03/25 0937 83 152/104 03/25 0800 98.2 79 22 140/94 96 Room Air 03/25 0400 96 Room Air 03/25 0000 96 Room Air 03/25 0000 97.3 73 15 119/88 96 Room Air 03/24 2201 84 143/102 03/24 2000 96 Room Air Intake & Output 03/25 1600 Intake Total 1220 Output Total 220 Balance 1000 Intake, IV 870 Intake, Tube 350 Irrigant Number 0 Bowel Movements Output, 220 Drainage Patient 194 lb Weight Exam General Appearance: no apparent distress, alert, awake Respiratory: normal breath sounds Cardiovascular: regular rate/rhythm Gastrointestinal: soft, tenderness (palpation of lower abdomen) Current Medications: Current Medications Sig/Woodrow Start time Last Medication Dose Route Stop Time Status Admin Acetaminophen 1,000 MG ONCE ONE 03/26 0200 DC 03/26 N/A 1 UNIT IV 03/26 0214 0210 Amlodipine Besylate 5 MG DAILY 03/25 1000 AC 03/25 PO 1026 Aspirin 81 MG DAILY 03/25 1000 AC 03/25 PO 1026 Atorvastatin Calcium 20 MG DAILY 03/25 1000 AC 03/25 PO 1026 Carbidopa/Levodopa 1 TAB TID 03/25 1000 AC 03/25 PO 2149 Dextrose/Water 1,000 ML Q20H 03/25 1115 AC 03/25 IV 1116 Dextrose/Water 1,000 ML Q10H 03/25 0830 DC 03/25 IV 0938 Finasteride 5 MG DAILY 03/25 1856 AC PO Heparin Sodium/ 25,000 UNIT Q24H 03/24 0915 AC 03/25 Dextrose IV 1413 Dextrose/Water 500 ML Magnesium Sulfate 1 GM Q2H 03/25 0830 DC 03/25 Dextrose/Water 100 ML IV 03/25 1229 1040 Meropenem 1 GM IQ8 03/24 1600 AC 03/26 IV 0023 Metoprolol Tartrate 50 MG BID 03/24 1000 AC 03/25 PO 2150 Ondansetron HCl 2 MG ONCE ONE 03/25 1130 DC 03/25 IV 03/25 1131 1144 Potassium Chloride 40 MEQ ONCE ONE 03/25 1330 DC 03/25 PO 03/25 1331 1412 Potassium Chloride 40 MEQ Q10H 03/25 1000 CAN Dextrose/Sodium 1,000 ML IV Chloride Potassium Chloride 20 MEQ Q10H 03/25 1000 DC Dextrose/Sodium 1,000 ML IV Chloride Potassium Chloride 40 MEQ ONCE ONE 03/25 0830 DC 03/25 PO 03/25 0831 0937 Potassium Chloride 20 MEQ Q20H 03/24 1999 DC 03/24 Dextrose/Sodium 1,000 ML IV 2026 Chloride Potassium Phosphate 15 mMol ONE ONE 03/25 0830 DC 03/25 Dextrose/Water 250 ML IV 03/25 1234 1154 Senna/Docusate Sodium 2 TAB DAILY PRN 03/25 1900 AC PO Sodium Chloride 2 SPRAY Q4P PRN 03/24 1600 AC 03/24 SHEYLA 1708 Impression/Plan Impression/Problem List Impression: 79-year-old gentleman with past medical history of Parkinson's disease, hypertension, permanent pacemaker, BPH and urinary retention, current admission for septic shock of urologic origin requiring pressors. Urine cultures have grown E. coli, enterococcus and pseudomonas. Blood cultures have also been positive. A CT of the abd and pelvis showed no evidence of hydronephrosis but a dilated L ureter and a thick-walled bladder. Assessment: #1 septic shock secondary to gram-negative sepsis(UTI versus acalculus cholecystitis-less likely) #2 elevated troponin likely due to supply/demand mismatch (Type 2 OK) #3 Questionable aspiration pneumonia versus healthcare associated pneumonia #4 Severe pyuria/BPH #5 Paroxysmal atrial fibrillation on warfarin #6 Acute kidney injury on chronic kidney disease #7 hyperbilirubinemia Plan: - on meropenem 1 g every 8 as recommended by ID. -on heparin drip, in view of thrombocytopenia will f/up HIT ab - urology consultation -Per GI less likely to be acalculus cholecyctitis and no further imaging is needed - failed swallow eval yesterday, NG re inserted, started him on tube feeds today -We'll supplement his electrolytes as needed, hyper Na (150) will start him on D5W at 60 cc, continue to monitor -Continue trending his LFTs. -downgraded to telemetry today -DVT prophylaxis on heparin drip -Patient DNI and DNR family willing to use pressors if needed. Problem List: 1. Sepsis 2. DAISHA (acute kidney injury) Pain Ratin Tomorrow's Labs & Rationales: cbc/icu Plan DVT/Prophylaxis: mechanical, pharmacological
[2017-03-25 08:00] VITALS: BP 140/94
[2017-03-25 08:11] LABS: ABSOLUTE BASOPHIL COUNT 0 /CUMM (0.0-0.2); ABSOLUTE EOSINOPHIL COUNT 0.2 /CUMM (0.0-0.7); ABSOLUTE GRANULOCYTE CT 27.5 /CUMM (1.4-6.5); ABSOLUTE LYMPH COUNT 1.2 /CUMM (1.2-3.4); ABSOLUTE MONOCYTE COUNT 0.2 /CUMM (0.10-0.60); BASOPHIL % 0 % (0.0-2.0); EOSINOPHIL % 0.8 % (0-5); GRANULOCYTE % 94.4 % (42.2-75.2); HEMATOCRIT 30.8 % (42-52); MEAN CORPUSCULAR HGB 28.9 PG (27.0-31.0); MEAN CORPUSCULAR HGB CONC 33.8 G/DL (33.0-37.0); MEAN CORPUSCULAR VOLUME 85.5 FL (80.0-94.0); MEAN PLATELET VOLUME 8.7 FL (7.4-10.4); PLATELET COUNT 78 /CUMM (130-400); RED BLOOD CELL CT 3.61 /CUMM (4.70-6.10)
[2017-03-25 08:23] LABS: WHITE BLOOD CELL COUNT 29.1 /CUMM (4.8-10.8)
[2017-03-25 08:24] LABS: PTT 70 SEC (25-37)
--- NOTE | 2017-03-25 10:00 | PN- CRCU ---
Subjective HPI/Critical Care Issues: Doing about the same Failed a swallow eval NG tube now in Objective Current Medications: Current Medications Sig/Woodrow Start time Last Medication Dose Route Stop Time Status Admin Amlodipine Besylate 5 MG DAILY 03/25 1000 AC PO Aspirin 81 MG DAILY 03/25 1000 AC PO Atorvastatin Calcium 20 MG DAILY 03/25 1000 AC PO Carbidopa/Levodopa 1 TAB TID 03/25 1000 AC PO Ceftazidime 1,000 MG Q12 03/21 2200 DC 03/24 IV 0913 Dextrose/Sodium 1,000 ML Q16H 03/22 1245 DC 03/24 Chloride IV 1634 Dextrose/Water 1,000 ML Q10H 03/25 0830 DC 03/25 IV 0938 Heparin Sodium/ 25,000 UNIT Q24H 03/24 0915 AC 03/24 Dextrose IV 1217 Dextrose/Water 500 ML Ketorolac 30 MG ONCE ONE 03/24 1630 DC 03/24 Tromethamine IV 03/24 1631 1623 Magnesium Oxide 400 MG BID 03/24 1033 DC 03/24 PO 03/24 220 2201 Magnesium Sulfate 1 GM Q2H 03/25 0830 AC 03/25 Dextrose/Water 100 ML IV 03/25 1229 0938 Meropenem 1 GM IQ8 03/24 1600 AC 03/25 IV 0759 Metoprolol Tartrate 50 MG BID 03/24 1000 AC 03/25 PO 0937 Metronidazole 500 MG Q8H 03/22 1000 DC 03/24 N/A 1 UNIT IV 0913 Potassium Chloride 40 MEQ ONCE ONE 03/25 0830 DC 03/25 PO 03/25 0831 0937 Potassium Chloride 20 MEQ Q20H 03/24 2000 DC 03/24 Dextrose/Sodium 1,000 ML IV 2027 Chloride Potassium Chloride 10 MEQ ONCE ONE 03/24 1630 DC 03/24 IV 03/24 1631 1708 Potassium Chloride 60 MEQ ONCE ONE 03/24 1045 DC PO 03/24 1046 Potassium Phosphate 15 mMol ONE ONE 03/25 0830 AC Dextrose/Water 250 ML IV 03/25 1234 Ramelteon 8 MG ONCE ONE 03/24 2200 DC 03/24 PO 03/24 2201 2201 Sodium Chloride 2 SPRAY Q4P PRN 03/24 1600 AC 03/24 SHEYLA 1708 Vital Signs & I&O Last 24 Hrs of Vitals and I&O: Vital Signs Date Time Temp Pulse Resp B/P B/P Pulse O2 O2 Flow FiO2 Mean Ox Delivery Rate 03/25 0937 83 152/104 03/25 0400 96 Room Air 03/25 0000 96 Room Air 03/25 0000 97.3 73 15 119/88 96 Room Air 03/24 2201 84 143/102 / 2000 96 Room Air 03/24 1600 98.2 88 15 146/90 96 Room Air Intake & Output 03/25 1600 03/25 0800 03/25 0000 Intake Total 643 658 Output Total 70 Balance 643 588 Intake, IV 643 608 Intake, Oral 0 0 Intake, Other 0 50 Number 0 Bowel Movements Output, 70 Drainage Impression/Plan Impression/Plan Impression/Plan: General Appearance acutely ill, pale Skin No Rashes, Pale HEENT Atraumatic, sclera nonicteric NEck + JVD Cardiovascular S1, S2 present, tachycardic Lungs rhonci bilaterally Abdomen BS diminished, soft, Hester cath with gross purulent urine Extremities No Edema, Neuro: alert and awake with lethargy cxr IMPRESSION: 1. Evidence of mild pulmonary venous congestion, new since prior study. 2. Bibasilar nonspecific airspace opacities (left greater than right), may represent infiltrate, atelectasis or combination thereof. DICTATED BY: Samantha Jewell MD CT abd IMPRESSION: The gallbladder is slightly over distended. No calcified gallstone is seen. No definite pericholecystic inflammatory changes seen on this exam, considering limitations due to lack of intravenous contrast. Thickening of the bladder wall can be as a result of bladder outlet obstruction. The bladder is empty in the presence of indwelling catheter. Moderate amount of perivesical fat stranding extending to the lower abdomen also noted. Possibility of superimposed cystitis is not excluded. Clinical and lab correlation is suggested. Mild dilatation of bilateral ureters, left more than right can be functional as well. The appendix is not visualized and cannot be evaluated. Small bilateral pleural effusions and adjacent pulmonary opacities which could represent atelectasis. Clinical correlation for superimposed pneumonia is suggested. Right renal cortical hypodense lesion, could represent a cyst. This can be further evaluated by nonemergent ultrasound if indicated. DICTATED BY: Edson Velez MD DATE/TIME DICTATED:03/22/17 / 1440 IMPRESSION This is an unfortunate elderly gentleman with significant Parkinson's, hypertension, permanent pacemaker, recurrent UTI with urinary outlet obstruction patient does self catheterize himself, recent gram-negative UTI now here with * Resolved Severe septic shock with gram-negative sepsis of urological origin slowly improving / and acalculus leyla aswell with altered lft now s/p perc leyla * Resolving Multiple organ failure with significantly elevated bilirubin, with evidence of acalculus leyla / ultrasound and abd ct did not reveal any sig stone / s/p perc leyla and has still sig indirect bilirubinemia * Bibasilar atelectasis unlikely that he has significant pneumonia / however pt does aspirate * Severe pyuria BPH/ stool impaction now s/p bm * Resolved Metabolic acidosis lactic acidosis due to septic shock * Resolving Acute kidney injury with chronic kidney disease * Atrial fibrillation with rapid ventricular response which is improving, patient has been on aspirin, and on warfarin, with supratherapeutic INR initially and was partially reversed for perc leyla, needs to be resumed * Improving electrolyte abnormality * Significant Parkinson's disease with 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
--- NOTE | 2017-03-25 10:52 | PN- Cardiology ---
Subjective Subjective: The patient is awake, alert, confused The events of the last 24 hours as well as telemetry were reviewed. Review of Systems: The review of systems is unreliable secondary to the patient's underlying confusion; however, he denies chest pains nor palpitations nor dyspnea Objective Vital Signs and I&Os Vital Signs Date Time Temp Pulse Resp B/P B/P Pulse O2 O2 Flow FiO2 Mean Ox Delivery Rate 03/25 1026 77 152/79 03/25 0937 83 152/104 03/25 0400 96 Room Air 03/25 0000 96 Room Air 03/25 0000 97.3 73 15 119/88 96 Room Air 03/24 2201 84 143/102 03/24 2000 96 Room Air 03/24 1600 98.2 88 15 146/90 96 Room Air Intake & Output 03/25 1600 03/25 0800 03/25 0000 03/24 1600 03/24 0800 03/24 0000 Intake Total 643 658 632 520 830 Output Total 70 90 1080 910 Balance 643 588 542 -560 -80 Intake, IV 643 608 632 520 830 Intake, Oral 0 0 Intake, Other 0 50 Number 0 1 Bowel Movements Output, 70 90 60 50 Drainage Output, Urine 1020 860 Patient 194 lb 193 lb Weight Weight Bed scale Measurement Method Physical Exam: General: Nontoxic, no apparent distress. HEENT: Sclera and conjunctiva within normal limits, without xanthelasmas. Neck: Carotids 2+ without bruits. Respiratory: Scattered rhonchi, air movement is good, without accessory respiratory muscle use. Heart: Regular rate and rhythm, 2/6 systolic ejection murmur left sternal border , without JVD. Abdomen: Soft, nontender, no masses, normoactive bowel sounds. Extremities: Without clubbing, cyanosis, without edema. Neuro: Nonfocal exam, strength, 5 out of 5 Skin: Within normal limits without lesions. Psych: Mood and affect: Normal, confused Current Medications: Current Medications Sig/Woodrow Start time Last Medication Dose Route Stop Time Status Admin Amlodipine Besylate 5 MG DAILY 03/25 1000 AC 03/25 PO 1026 Aspirin 81 MG DAILY 03/25 1000 AC 03/25 PO 1026 Atorvastatin Calcium 20 MG DAILY 03/25 1000 AC 03/25 PO 1026 Carbidopa/Levodopa 1 TAB TID 03/25 1000 AC 03/25 PO 1026 Ceftazidime 1,000 MG Q12 03/21 2200 DC 03/24 IV 0913 Dextrose/Sodium 1,000 ML Q16H 03/22 1245 DC 03/24 Chloride IV 1634 Dextrose/Water 1,000 ML Q10H 03/25 0830 DC 03/25 IV 0938 Heparin Sodium/ 25,000 UNIT Q24H 03/24 0915 AC 03/24 Dextrose IV 1217 Dextrose/Water 500 ML Ketorolac 30 MG ONCE ONE 03/24 1630 DC 03/24 Tromethamine IV 03/24 1631 1623 Magnesium Oxide 400 MG BID 03/24 1033 DC 03/24 PO 03/24 2201 2201 Magnesium Sulfate 1 GM Q2H 03/25 0830 AC 03/25 Dextrose/Water 100 ML IV 03/25 1229 1040 Meropenem 1 GM IQ8 03/24 1600 AC 03/25 IV 0759 Metoprolol Tartrate 50 MG BID 03/24 1000 AC 03/25 PO 0937 Metronidazole 500 MG Q8H 03/22 1000 DC 03/24 N/A 1 UNIT IV 0913 Potassium Chloride 40 MEQ Q10H 03/25 1000 CAN Dextrose/Sodium 1,000 ML IV Chloride Potassium Chloride 20 MEQ Q10H 03/25 1000 AC Dextrose/Sodium 1,000 ML IV Chloride Potassium Chloride 40 MEQ ONCE ONE 03/25 0830 DC 03/25 PO 03/25 0831 0937 Potassium Chloride 20 MEQ Q20H 03/24 2000 DC 03/24 Dextrose/Sodium 1,000 ML IV 2027 Chloride Potassium Chloride 10 MEQ ONCE ONE 03/24 1630 DC 03/24 IV 03/24 1631 1708 Potassium Chloride 60 MEQ ONCE ONE 03/24 1045 DC PO 03/24 1046 Potassium Phosphate 15 mMol ONE ONE 03/25 0830 AC Dextrose/Water 250 ML IV 03/25 1234 Ramelteon 8 MG ONCE ONE 03/24 2200 DC 03/24 PO 03/24 2201 2201 Sodium Chloride 2 SPRAY Q4P PRN 03/24 1600 AC 03/24 SHEYLA 1708 Results Last 48 Hrs of Labs/Mics: Laboratory Tests 03/25/17 0630: Anion Gap 11, Estimated GFR > 60, Glucose 116 H, Calcium 8.3 L, Phosphorus 3.0 , Magnesium 1.7, Total Bilirubin 4.4 H, AST 36, ALT 61, Alkaline Phosphatase 205 H, Albumin 2.2 L, APTT 70 H, CBC w Diff MAN DIFF ORDERED, RBC 3.61 L, MCV 85.5, MCH 28.9, RDW 18.0 H, MPV 8.7, Gran % 94.4 H, Lymphocytes % 4.1 L, Monocytes % 0.7 L, Eosinophils % 0.8, Basophils % 0, Absolute Granulocytes 27.5 H, Segmented Neutrophils 95 H, Band Neutrophils 2, Absolute Lymphocytes 1.2, Lymphocytes 2 L, Monocytes 1 L, Absolute Monocytes 0.2, Absolute Eosinophils 0.2, Absolute Basophils 0, Platelet Estimate VERIFIED BY SMEAR, Normocytic RBCs VERIFIED, Normochromic RBCs VERIFIED, PUBS MCHC 33.8 03/24/17 1820: APTT 62 H 03/24/17 0455: Anion Gap 12, Estimated GFR 58 L, Glucose 101 H, Calcium 8.2 L, Phosphorus 2.7, Magnesium 1.7, Total Bilirubin 4.2 H, Direct Bilirubin 3.3 H, AST 70 H, ALT 62, Albumin 2.1 L, PT 15.9 H, INR 1.52 H, CBC w Diff MAN DIFF ORDERED, RBC 3.52 L, MCV 85.7, MCH 28.8, RDW 18.1 H, MPV 8.8, Gran % 97.8 H, Lymphocytes % 1.9 L, Monocytes % 0.2 L, Eosinophils % 0.1, Basophils % 0, Absolute Granulocytes 49.2 H, Segmented Neutrophils 96 H, Band Neutrophils 1, Absolute Lymphocytes 1.0 L, Lymphocytes 2 L, Monocytes 1 L, Absolute Monocytes 0.1, Absolute Eosinophils 0.1, Absolute Basophils 0, Platelet Estimate DECREASED, Polychromasia 1+, Poikilocytosis 3+, Ovalocytes 1+, Shira Cells 1+, Elliptocytes 1+, PUBS MCHC 33.6, Fld Total RBCs Counted 100, Random Vancomycin 11.2 03/23/17 1308: Lactic Acid 1.4 Assessment/Plan Assessment/Plan 1. Septic shock due to urosepsis versus acalculus cholecystitis 2. Elevated troponin, not consistent with an acute coronary syndrome 3. Acute kidney injury 4. Paroxysmal atrial fibrillation on warfarin currently on hold due to hematuria 5. History of permanent pacemaker 6. History of TIA 7. History of coronary artery disease with remote PCI 8. History of hypertension 9. Parkinson's disease 10. Hematuria possibly traumatic The patient's troponin isoenzyme profile is most likely consistent with underlying sepsis in the setting of acute kidney injury, and not consistent with an acute coronary syndrome. At this time, we will maintain an overall conservative approach to his cardiac issues. Given the suboptimal control, we may consider changing his regimen of metoprolol such as carvedilol. Continue telemetry? Yes
--- NOTE | 2017-03-25 11:55 | PN- Infect Dx ---
Subjective Subjective: Afebrile. He has apparently had dry heaves this morning with no vomiting. Objective Last 24 Hrs of Vital Signs/I&O Vital Signs Date Time Temp Pulse Resp B/P B/P Pulse O2 O2 Flow FiO2 Mean Ox Delivery Rate 03/25 1026 77 152/79 03/25 0937 83 152/104 03/25 0400 96 Room Air 03/25 0000 96 Room Air 03/25 0000 97.3 73 15 119/88 96 Room Air 03/24 2201 84 143/102 03/24 2000 96 Room Air 03/24 1600 98.2 88 15 146/90 96 Room Air Intake & Output 03/25 1600 03/25 0800 03/25 0000 Intake Total 643 658 Output Total 70 Balance 643 588 Intake, IV 643 608 Intake, Oral 0 0 Intake, Other 0 50 Number 0 Bowel Movements Output, 70 Drainage Physical Exam Other Physical Findings: He is awake and alert but minimally verbal, in no acute distress Lungs decreased breath sounds at both bases, with crackles at the left base Heart irregular rhythm with no murmur Abdomen is mildly distended, nontender with positive bowel sounds; cholecystostomy tube in place with 220 mL output yesterday Results Last 24 Hours of Lab Results: Laboratory Tests 03/25 03/24 0630 1820 Chemistry Sodium (137 - 145 mmol/L) 150 H Potassium (3.5 - 5.1 mmol/L) 3.3 L Chloride (98 - 107 mmol/L) 116 H Carbon Dioxide (22 - 30 mmol/L) 23 Anion Gap (5 - 16) 11 BUN (9 - 20 mg/dL) 37 H Creatinine (0.7 - 1.2 mg/dL) 1.1 Estimated GFR (>60 ml/min) > 60 Glucose (65 - 99 mg/dL) 116 H Calcium (8.4 - 10.2 mg/dL) 8.3 L Phosphorus (2.5 - 4.5 mg/dL) 3.0 Magnesium (1.6 - 2.3 mg/dL) 1.7 Total Bilirubin (0.2 - 1.3 mg/dL) 4.4 H AST (17 - 59 U/L) 36 ALT (21 - 72 U/L) 61 Alkaline Phosphatase (< 127 U/L) 205 H Albumin (3.5 - 5.0 g/dL) 2.2 L Coagulation APTT (25 - 37 SEC) 70 H 62 H Hematology CBC w Diff MAN DIFF ORDERED WBC (4.8 - 10.8 /CUMM) 29.1 H RBC (4.70 - 6.10 /CUMM) 3.61 L Hgb (14.0 - 18.0 G/DL) 10.4 L Hct (42 - 52 %) 30.8 L MCV (80.0 - 94.0 FL) 85.5 MCH (27.0 - 31.0 PG) 28.9 RDW (11.5 - 14.5 %) 18.0 H Plt Count (130 - 400 /CUMM) 78 L MPV (7.4 - 10.4 FL) 8.7 Gran % (42.2 - 75.2 %) 94.4 H Lymphocytes % (20.5 - 51.1 %) 4.1 L Monocytes % (1.7 - 9.3 %) 0.7 L Eosinophils % (0 - 5 %) 0.8 Basophils % (0.0 - 2.0 %) 0 Absolute Granulocytes (1.4 - 6.5 /CUMM) 27.5 H Segmented Neutrophils (42.2 - 75.2 %) 95 H Band Neutrophils (0.0 - 5.0 %) 2 Absolute Lymphocytes (1.2 - 3.4 /CUMM) 1.2 Lymphocytes (20.5 - 51.1 %) 2 L Monocytes (1.7 - 9.3 %) 1 L Absolute Monocytes (0.10 - 0.60 /CUMM) 0.2 Absolute Eosinophils (0.0 - 0.7 /CUMM) 0.2 Absolute Basophils (0.0 - 0.2 /CUMM) 0 Platelet Estimate (ADEQUATE) VERIFIED BY SMEAR Normocytic RBCs VERIFIED Normochromic RBCs VERIFIED PUBS MCHC (33.0 - 37.0 G/DL) 33.8 Last 24 Hours of [place] Results: Bile culture March 23 negative Blood cultures 2 March 23 negative Recent Imaging Studies: Chest x-ray March 24, personally reviewed, reveals left lower lobe atelectasis with blunting of the left costophrenic angle Assessment/Plan Impression: Stable with temperatures remaining normal, white blood cell count decreasing, though still elevated, and with platelet count continuing to decrease now on Meropenem Day 5 of treatment for Escherichia coli sepsis, most likely of urological origin, with his urine cultures also positive for Escherichia coli, in addition to Enterococcus and Pseudomonas. The possibility of acalculous cholecystitis also exists, though it is felt to be less likely, now 2 days status post placement of a cholecystostomy tube, with the culture of his bile remaining negative. Suggestion: 1. Urology evaluation 2. Follow-up final bile culture 3. Continue Meropenem
--- NOTE | 2017-03-25 13:53 | PN- Gastroenterology ---
Assessment/Plan Assessment/Recommendations: ASSESSMENT: 1. Acute Cholecystitis -- S/P Percutaneous Cholecystostomy. On Meropenem. Cutures of Bile from Cholecystostomy remain negative. 2. UTI -- E. Coli and Enterococcus on Meropenem per ID 3. Elevated Bilirubin -- may be related to hyperbilirubinemia of sepsis. Alk phos is decreased since admission. If Bilirubin is related to passage of a small CBD stone may lag behind other liver associated enzymes in returning towards normal. Repeat Alk Phos is decreased as are transaminases which are now normal. 4. Dementia 5. Leukocytosis -- WBC and Bandemia decreasing on antibiotics 6. Nutrition RECOMMENDATIONS: 1. Follow T. Bili, and alk phos 2. Continue antibiotics 3. At this time I do not believe that patient needs ERCP or imaging studies. However, would continue to follow expectantly and if there are signs of Biliary Obstruction imaging studies should be performed 4. Start Tube Feedings Subjective Subjective: Patient appears to be resting comfortably. Is non-verbal. Review of Systems: Unable to obtain ROS. Objective Vital Signs and I&Os Vital Signs Date Time Temp Pulse Resp B/P B/P Pulse O2 O2 Flow FiO2 Mean Ox Delivery Rate 03/25 1200 97 Nasal 2.0L Cannula 03/25 1026 77 152/79 03/25 0937 83 152/104 03/25 0800 98.2 79 22 140/94 96 Room Air 03/25 0400 96 Room Air 03/25 0000 96 Room Air 03/25 0000 97.3 73 15 119/88 96 Room Air 03/24 2201 84 143/102 03/24 2000 96 Room Air 03/24 1600 98.2 88 15 146/90 96 Room Air Intake & Output 03/25 1600 03/25 0400 03/24 1600 03/24 0400 03/23 1600 03/23 0400 Intake Total 529 342 7667 830 1368 770 Output Total 70 6747 858 7963 500 Balance 643 588 -18 -80 268 270 Intake, Blood 300 Product Intake, IV 737 896 1495 830 1068 770 Intake, Oral 0 0 0 0 Intake, Other 0 50 Number 0 1 1 2 Bowel Movements Output, 70 150 50 Drainage Output, Urine 8387 608 5580 500 Patient 194 lb 194 lb Weight Weight Bed scale Measurement Method Physical Exam General Appearance: no apparent distress Head: normal appearance Respiratory: decreased breath sounds, crackles Cardiovascular: irregularly irregular Abdomen: normal bowel sounds, soft, non-tender Neurologic/Psychiatric: disoriented x 3, Patient is non-verbal. Does not follow commands Skin: intact, warm/dry Current Medications: Current Medications Sig/Woodrow Start time Last Medication Dose Route Stop Time Status Admin Amlodipine Besylate 5 MG DAILY 03/25 1000 AC 03/25 PO 1026 Aspirin 81 MG DAILY 03/25 1000 AC 03/25 PO 1026 Atorvastatin Calcium 20 MG DAILY 03/25 1000 AC 03/25 PO 1026 Carbidopa/Levodopa 1 TAB TID 03/25 1000 AC 03/25 PO 1026 Dextrose/Sodium 1,000 ML Q16H 03/22 1245 DC 03/24 Chloride IV 1634 Dextrose/Water 1,000 ML Q20H 03/25 1115 AC 03/25 IV 1116 Dextrose/Water 1,000 ML Q10H 03/25 0830 DC 03/25 IV 0938 Heparin Sodium/ 25,000 UNIT Q24H 03/24 0915 AC 03/24 Dextrose IV 1217 Dextrose/Water 500 ML Ketorolac 30 MG ONCE ONE 03/24 1630 DC 03/24 Tromethamine IV 03/24 1631 1623 Magnesium Oxide 400 MG BID 03/24 1033 DC 03/24 PO 03/24 2201 2201 Magnesium Sulfate 1 GM Q2H 03/25 0830 DC 03/25 Dextrose/Water 100 ML IV 03/25 1229 1040 Meropenem 1 GM IQ8 / 1600 AC 03/25 IV 0759 Metoprolol Tartrate 50 MG BID 03/24 1000 AC 03/25 PO 0937 Ondansetron HCl 2 MG ONCE ONE 03/25 1130 DC 03/25 IV 03/25 1131 1144 Potassium Chloride 40 MEQ ONCE ONE 03/25 1330 DC PO 03/25 1331 Potassium Chloride 40 MEQ Q10H 03/25 1000 CAN Dextrose/Sodium 1,000 ML IV Chloride Potassium Chloride 20 MEQ Q10H 03/25 1000 DC Dextrose/Sodium 1,000 ML IV Chloride Potassium Chloride 40 MEQ ONCE ONE 03/25 0830 DC 03/25 PO 03/25 0831 0937 Potassium Chloride 20 MEQ Q20H / 2000 DC 03/24 Dextrose/Sodium 1,000 ML IV 2027 Chloride Potassium Chloride 10 MEQ ONCE ONE 03/24 1630 DC 03/24 IV 03/24 1631 1708 Potassium Phosphate 15 mMol ONE ONE 03/25 0830 DC 03/25 Dextrose/Water 250 ML IV 03/25 1234 1154 Ramelteon 8 MG ONCE ONE 03/24 2200 DC 03/24 PO 03/24 220 2201 Sodium Chloride 2 SPRAY Q4P PRN 03/24 1600 AC 03/24 SHEYLA 1708 Results Pertinent Lab Results: Laboratory Tests 03/25 03/24 0630 1820 Chemistry Sodium (137 - 145 mmol/L) 150 H Potassium (3.5 - 5.1 mmol/L) 3.3 L Chloride (98 - 107 mmol/L) 116 H Carbon Dioxide (22 - 30 mmol/L) 23 Anion Gap (5 - 16) 11 BUN (9 - 20 mg/dL) 37 H Creatinine (0.7 - 1.2 mg/dL) 1.1 Estimated GFR (>60 ml/min) > 60 Glucose (65 - 99 mg/dL) 116 H Calcium (8.4 - 10.2 mg/dL) 8.3 L Phosphorus (2.5 - 4.5 mg/dL) 3.0 Magnesium (1.6 - 2.3 mg/dL) 1.7 Total Bilirubin (0.2 - 1.3 mg/dL) 4.4 H AST (17 - 59 U/L) 36 ALT (21 - 72 U/L) 61 Alkaline Phosphatase (< 127 U/L) 205 H Albumin (3.5 - 5.0 g/dL) 2.2 L Coagulation APTT (25 - 37 SEC) 70 H 62 H Hematology CBC w Diff MAN DIFF ORDERED WBC (4.8 - 10.8 /CUMM) 29.1 H RBC (4.70 - 6.10 /CUMM) 3.61 L Hgb (14.0 - 18.0 G/DL) 10.4 L Hct (42 - 52 %) 30.8 L MCV (80.0 - 94.0 FL) 85.5 MCH (27.0 - 31.0 PG) 28.9 RDW (11.5 - 14.5 %) 18.0 H Plt Count (130 - 400 /CUMM) 78 L MPV (7.4 - 10.4 FL) 8.7 Gran % (42.2 - 75.2 %) 94.4 H Lymphocytes % (20.5 - 51.1 %) 4.1 L Monocytes % (1.7 - 9.3 %) 0.7 L Eosinophils % (0 - 5 %) 0.8 Basophils % (0.0 - 2.0 %) 0 Absolute Granulocytes (1.4 - 6.5 /CUMM) 27.5 H Segmented Neutrophils (42.2 - 75.2 %) 95 H Band Neutrophils (0.0 - 5.0 %) 2 Absolute Lymphocytes (1.2 - 3.4 /CUMM) 1.2 Lymphocytes (20.5 - 51.1 %) 2 L Monocytes (1.7 - 9.3 %) 1 L Absolute Monocytes (0.10 - 0.60 /CUMM) 0.2 Absolute Eosinophils (0.0 - 0.7 /CUMM) 0.2 Absolute Basophils (0.0 - 0.2 /CUMM) 0 Platelet Estimate (ADEQUATE) VERIFIED BY SMEAR Normocytic RBCs VERIFIED Normochromic RBCs VERIFIED PUBS MCHC (33.0 - 37.0 G/DL) 33.8 03/24 03/23 0455 1308 Chemistry Sodium (137 - 145 mmol/L) 149 H Potassium (3.5 - 5.1 mmol/L) 3.0 L Chloride (98 - 107 mmol/L) 116 H Carbon Dioxide (22 - 30 mmol/L) 21 L Anion Gap (5 - 16) 12 BUN (9 - 20 mg/dL) 36 H Creatinine (0.7 - 1.2 mg/dL) 1.2 Estimated GFR (>60 ml/min) 58 L Glucose (65 - 99 mg/dL) 101 H Lactic Acid (0.7 - 2.1 mmol/L) 1.4 Calcium (8.4 - 10.2 mg/dL) 8.2 L Phosphorus (2.5 - 4.5 mg/dL) 2.7 Magnesium (1.6 - 2.3 mg/dL) 1.7 Total Bilirubin (0.2 - 1.3 mg/dL) 4.2 H Direct Bilirubin (< 0.4 mg/dL) 3.3 H AST (17 - 59 U/L) 70 H ALT (21 - 72 U/L) 62 Albumin (3.5 - 5.0 g/dL) 2.1 L Coagulation PT (9.4 - 12.5 SEC) 15.9 H INR (0.90 - 1.17) 1.52 H Hematology CBC w Diff MAN DIFF ORDERED WBC (4.8 - 10.8 /CUMM) 50.3 *H RBC (4.70 - 6.10 /CUMM) 3.52 L Hgb (14.0 - 18.0 G/DL) 10.2 L Hct (42 - 52 %) 30.2 L MCV (80.0 - 94.0 FL) 85.7 MCH (27.0 - 31.0 PG) 28.8 RDW (11.5 - 14.5 %) 18.1 H Plt Count (130 - 400 /CUMM) 95 L MPV (7.4 - 10.4 FL) 8.8 Gran % (42.2 - 75.2 %) 97.8 H Lymphocytes % (20.5 - 51.1 %) 1.9 L Monocytes % (1.7 - 9.3 %) 0.2 L Eosinophils % (0 - 5 %) 0.1 Basophils % (0.0 - 2.0 %) 0 Absolute Granulocytes (1.4 - 6.5 /CUMM) 49.2 H Segmented Neutrophils (42.2 - 75.2 %) 96 H Band Neutrophils (0.0 - 5.0 %) 1 Absolute Lymphocytes (1.2 - 3.4 /CUMM) 1.0 L Lymphocytes (20.5 - 51.1 %) 2 L Monocytes (1.7 - 9.3 %) 1 L Absolute Monocytes (0.10 - 0.60 /CUMM) 0.1 Absolute Eosinophils (0.0 - 0.7 /CUMM) 0.1 Absolute Basophils (0.0 - 0.2 /CUMM) 0 Platelet Estimate (ADEQUATE) DECREASED Polychromasia 1+ Poikilocytosis 3+ Ovalocytes 1+ [place] Cells 1+ Elliptocytes 1+ PUBS MCHC (33.0 - 37.0 G/DL) 33.6 Other Body Source Fld Total RBCs Counted (%) 100 Toxicology Random Vancomycin (ug/ml) 11.2 03/23 03/22 1125 8246 Chemistry Sodium (137 - 145 mmol/L) 142 Potassium (3.5 - 5.1 mmol/L) 3.3 L Chloride (98 - 107 mmol/L) 111 H Carbon Dioxide (22 - 30 mmol/L) 19 L Anion Gap (5 - 16) 11 BUN (9 - 20 mg/dL) 40 H Creatinine (0.7 - 1.2 mg/dL) 1.7 H Estimated GFR (>60 ml/min) 39 L Glucose (65 - 99 mg/dL) 76 Calcium (8.4 - 10.2 mg/dL) 7.9 L Phosphorus (2.5 - 4.5 mg/dL) 3.9 Magnesium (1.6 - 2.3 mg/dL) 1.8 Total Bilirubin (0.2 - 1.3 mg/dL) 3.3 H AST (17 - 59 U/L) 125 H ALT (21 - 72 U/L) 57 Albumin (3.5 - 5.0 g/dL) 2.1 L Coagulation PT (9.4 - 12.5 SEC) 22.2 H 32.4 H INR (0.90 - 1.17) 2.13 H 3.12 H APTT (25 - 37 SEC) 43 H Hematology CBC w Diff MAN DIFF ORDERED WBC (4.8 - 10.8 /CUMM) 60.4 *H RBC (4.70 - 6.10 /CUMM) 3.28 L Hgb (14.0 - 18.0 G/DL) 9.6 L Hct (42 - 52 %) 28.2 L MCV (80.0 - 94.0 FL) 86.0 MCH (27.0 - 31.0 PG) 29.2 RDW (11.5 - 14.5 %) 18.0 H Plt Count (130 - 400 /CUMM) 126 L MPV (7.4 - 10.4 FL) 8.1 Gran % (42.2 - 75.2 %) 97.8 H Lymphocytes % (20.5 - 51.1 %) 1.5 L Monocytes % (1.7 - 9.3 %) 0.6 L Eosinophils % (0 - 5 %) 0.1 Basophils % (0.0 - 2.0 %) 0 Absolute Granulocytes (1.4 - 6.5 /CUMM) 59.0 H Segmented Neutrophils (42.2 - 75.2 %) 91 H Band Neutrophils (0.0 - 5.0 %) 6 H Absolute Lymphocytes (1.2 - 3.4 /CUMM) 0.9 L Lymphocytes (20.5 - 51.1 %) 2 L Monocytes (1.7 - 9.3 %) 1 L Absolute Monocytes (0.10 - 0.60 /CUMM) 0.4 Absolute Eosinophils (0.0 - 0.7 /CUMM) 0 Absolute Basophils (0.0 - 0.2 /CUMM) 0 Platelet Estimate (ADEQUATE) ADEQUATE Poikilocytosis 1+ Anisocytosis 1+ Target Cells FEW Ovalocytes 1+ Stomatocytes RARE Shira Cells 2+ Schistocytes RARE PUBS MCHC (33.0 - 37.0 G/DL) 34.0 Toxicology Random Vancomycin (ug/ml) 11.3
[2017-03-25 16:00] VITALS: BP 114/50
[2017-03-25 16:39] LABS: ABSOLUTE BASOPHIL COUNT 0 /CUMM (0.0-0.2); ABSOLUTE EOSINOPHIL COUNT 0.2 /CUMM (0.0-0.7); ABSOLUTE GRANULOCYTE CT 21.2 /CUMM (1.4-6.5); ABSOLUTE LYMPH COUNT 0.8 /CUMM (1.2-3.4); ABSOLUTE MONOCYTE COUNT 0 /CUMM (0.10-0.60); BASOPHIL % 0.1 % (0.0-2.0); EOSINOPHIL % 0.9 % (0-5); GRANULOCYTE % 95.3 % (42.2-75.2); HEMATOCRIT 30.9 % (42-52); MEAN CORPUSCULAR HGB 28.5 PG (27.0-31.0); MEAN CORPUSCULAR HGB CONC 33.5 G/DL (33.0-37.0); MEAN CORPUSCULAR VOLUME 84.9 FL (80.0-94.0); PLATELET COUNT 72 /CUMM (130-400); RBC DISTRIBUTION WIDTH 18.4 % (11.5-14.5); RED BLOOD CELL CT 3.64 /CUMM (4.70-6.10); WHITE BLOOD CELL COUNT 22.3 /CUMM (4.8-10.8)
--- NOTE | 2017-03-25 17:20 | Cons- Urology ---
General Information and HPI Consulting Request Date of Consult: 03/25/17 Requested By: Lupe PHILLIPS,Ivan Peters Reason for Consult: urosepsis and dilated L ureter on CT scan Source of Information: family, old records Exam Limitations: no limitations History of Present Illness: This patient is followed by his usual urologist in [place], Dr Lopez. The patient is an [facility] resident and he was admitted with fever and alterted mental status. He was found to have infected urine and was admitted with a diagnosis of urosepsis. Urine cultures have grown E. coli, enterococcus and pseudomonas. Blood cultures have also been positive. A CT of the abd and pelvis showed no evidence of hydronephrosis but a dilated L ureter and a thick- walled bladder. Urology office notes and procedure notes from Dr Lopez were reviewed in [facility]. The patient has Parkinson's and a neurogenic bladder. He was on intermittent cath bid. A CT scan of the abd and pelvis in mid 2016 showed dilation of the L ureter. Because of this he underwent cystoscopy and L ureteroscopy. This revealed a mild bulbar urethral stricture, a minimally obstructing prostate, for which he is on finasteride, and normal mucosa of the L ureter and no evidence of obstruction. Since admission he was started on meropenum and has slowly improved. He is no longer febrile but has a WBC count of 29k, down from 60k on admission. Yesterday he pulled his lopez out and has been voiding spontaneously. Allergies/Medications Allergies: Coded Allergies: amoxicillin (RASH 03/21/17) Home Med List: Amlodipine Besylate (Norvasc) 5 MG TABLET 1 TAB PO DAILY HTN (Reported) Aspirin (Aspirin*) 81 MG TAB.CHEW 1 TAB PO DAILY HEART (Reported) Atorvastatin Calcium 20 MG TABLET 1 TAB PO DAILY CHOL (Reported) Carbidopa/Levodopa (Carbidopa-Levodopa 25-100 Tab) 25 MG-100 MG TABLET 1 TAB PO TID PARKINSONS (Reported) Ciprofloxacin HCl (Cipro) 500 MG TABLET 1 TAB PO BID INFECTION (Reported) Cranberry Fruit Concentrate (Cranberry) 450 MG CAPSULE 1 TAB PO BID VITAMIN ( Reported) Duloxetine Hydrochloride (Cymbalta) 30 MG CAPSULE.DR 1 CAP PO DAILY UNK ( Reported) Finasteride 5 MG TABLET 1 TAB PO DAILY URINE (Reported) Gabapentin (Neurontin) 300 MG CAPSULE 1 CAP PO TID NEUROPATHY (Reported) Lactobacillus Acidophilus (Acidophilus) 1 EACH CAPSULE 1 CAP PO BID PROBIOTIC (Reported) Melatonin 3 MG TABLET 1 TAB PO QPM SLEEP (Reported) Metoprolol Tartrate 50 MG TABLET 1 TAB PO BID HTN (Reported) Olmesartan Medoxomil (Benicar) 40 MG TABLET 1 TAB PO DAILY HTN (Reported) Polyethylene Glycol 3350 (Miralax) 17 GRAM POWD.PACK 1 PAC PO DAILY CONSTIPA (Reported) dissolve in water Potassium Chloride 10 MEQ CAPSULE.ER 1 CAP PO DAILY SUPPLEMENT (Reported) Prochlorperazine (Compazine) 25 MG SUPP.RECT 1 SUPP [place] DAILY NAUSEA (Reported ) Sennosides (Senokot) 8.6 MG TABLET 2 TAB PO DAILY CONSTIPATION (Reported) Current Medications: Current Medications Sig/Woodrow Start time Last Medication Dose Route Stop Time Status Admin Amlodipine Besylate 5 MG DAILY 03/25 1000 AC 03/25 PO 1026 Aspirin 81 MG DAILY 03/25 1000 AC 03/25 PO 1026 Atorvastatin Calcium 20 MG DAILY 03/25 1000 AC 03/25 PO 1026 Carbidopa/Levodopa 1 TAB TID 03/25 1000 AC 03/25 PO 1630 Dextrose/Sodium 1,000 ML Q16H 03/22 1245 DC 03/24 Chloride IV 1634 Dextrose/Water 1,000 ML Q20H 03/25 1115 AC 03/25 IV 1116 Dextrose/Water 1,000 ML Q10H 03/25 0830 DC 03/25 IV 0938 Heparin Sodium/ 25,000 UNIT Q24H 03/24 0915 AC 03/25 Dextrose IV 1413 Dextrose/Water 500 ML Magnesium Oxide 400 MG BID 03/24 1033 DC 03/24 PO 03/24 2201 2201 Magnesium Sulfate 1 GM Q2H 03/25 0830 DC 03/25 Dextrose/Water 100 ML IV 03/25 1229 1040 Meropenem 1 GM IQ8 03/24 1600 AC 03/25 IV 1630 Metoprolol Tartrate 50 MG BID 03/24 1000 AC 03/25 PO 0937 Ondansetron HCl 2 MG ONCE ONE 03/25 1130 DC 03/25 IV 03/25 1131 1144 Potassium Chloride 40 MEQ ONCE ONE 03/25 1330 DC 03/25 PO 03/25 1331 1412 Potassium Chloride 40 MEQ Q10H 03/25 1000 CAN Dextrose/Sodium 1,000 ML IV Chloride Potassium Chloride 20 MEQ Q10H 03/25 1000 DC Dextrose/Sodium 1,000 ML IV Chloride Potassium Chloride 40 MEQ ONCE ONE 03/25 0830 DC 03/25 PO 03/25 0831 0937 Potassium Chloride 20 MEQ Q20H 03/24 1999 DC 03/24 Dextrose/Sodium 1,000 ML IV 2027 Chloride Potassium Phosphate 15 mMol ONE ONE 03/25 0830 DC 03/25 Dextrose/Water 250 ML IV 03/25 1234 1154 Ramelteon 8 MG ONCE ONE 03/24 2199 DC 03/24 PO 03/24 Sodium Chloride 2 SPRAY Q4P PRN 03/24 1600 AC 03/24 SHEYLA 1708 Past History Medical History Neurological: Parkinson's disease EENT: NONE Cardiovascular: AFIB, hypertension, LCW PACER HLD Respiratory: NONE Gastrointestinal: NONE Hepatic: NONE Renal: benign prost hyperplasia Musculoskeletal: NONE Psychiatric: NONE Endocrine: PARKINSONS Cancer(s): NONE SANE NURSE/Reproductive: PROSTATE Other Medical Hx: FREQUENT FALLS Surgical History Pertinent Surgical History: unobtainable Psychosocial History [facility] Smoking Status: Never Smoked Exam & Diagnostic Data Vital Signs and I&O Vital Signs Date Time Temp Pulse Resp B/P B/P Pulse O2 O2 Flow FiO2 Mean Ox Delivery Rate 03/25 1200 97 Nasal 2.0L Cannula 03/25 1026 77 152/79 03/25 0937 83 152/104 03/25 0800 98.2 79 22 140/94 96 Room Air 03/25 0400 96 Room Air 03/25 0000 96 Room Air 03/25 0000 97.3 73 15 119/88 96 Room Air 03/24 2201 84 143/102 03/24 1999 96 Room Air Intake & Output 03/25 1600 03/25 0800 03/25 0000 03/24 1600 03/24 0800 03/24 0000 Intake Total 1220 643 658 632 520 830 Output Total 220 70 90 1080 910 Balance 1000 643 588 542 -560 -80 Intake, IV 870 643 608 632 520 830 Intake, Oral 0 0 Intake, Other 0 50 Intake, Tube 350 Irrigant Number 0 0 1 Bowel Movements Output, 220 70 90 60 50 Drainage Output, Urine 1020 860 Patient 194 lb 194 lb 193 lb Weight Weight Bed scale Measurement Method Sleepy but arousable Back: No CVA tenderness Abd: soft. Palpable suprapubic mass with some tenderness Genitalia: condom catheter in place. Microbiology Date/Time Procedure - Status Source Growth 03/23 1150 Culture & Sensitivity - RES GI FROM OR 03/23 1150 Gram Stain - RES GI FROM OR 03/23 1150 Body Fluid Culture - CAN BODY FLUID Cancelled: CORRECTED 0RDER 03/23 1150 Gram Stain - CAN BODY FLUID Cancelled: CORRECTED 0RDER 03/23 0358 Blood Culture - RES BLOOD 03/23 0353 Blood Culture - RES BLOOD Assessment/Plan Assessment/Plan Imp: 1. Urosepsis 2. Neurogenic bladder 3. Dilated L ureter. Not obstructed on ureteroscopy in 09/2016 4. Mild BPH 5. Thick-walled bladder likely due to neurogenic bladder 6. Probable distended bladder on exam Plan: 1. Continue abx per ID 2. Check pvr by bladder scan and if greater than 400 cc would str cath. Probably best to avoid indwelling lopez since he pulled it out yesterday 3. No intervention needed for dilated L ureter based on w/u from 09/2016 4. continue finasteride Consult Acknowledgment - Thank you for your consult request.
--- NOTE | 2017-03-25 17:43 | PN- Urology ---
Surgical Brief Attending Note Brief Attending Note: Urology addendum: Unable to str cath patient with a straight catheter. A 16 fr coude was placed with drainage of a large volume of urine. Suprapubic mass resolved. In view of difficulty with str cat would leave indwelling lopez in place for at least the next 48 hours
[2017-03-25 18:36] LABS: PTT 68 SEC (25-37)
[2017-03-26] VITALS: BP 128/70
--- NOTE | 2017-03-26 07:12 | PN- Resident CRCU ---
Subjective HPI/CRCU Issues: #Acute hypoxic respiratory failure, likely due to pneumonia complex pleural effusion with thick pleural rind, fibrosis # Anemia #Diffuse airspace disease and emphysema #History of Lung CA status post radiation and chemotherapy #Minimally elevated troponin secondary to Type 2 DC (supply/demand mismatch) #Significant Weight Loss #5 thrombocytopenia 24 Hour Events: seen and examined patient, he much more awake this morning. Denies being in pain. Objective Vital Signs & I&O Last 8 Hrs of Vitals and I&O: Intake & Output 03/26 1600 03/26 0800 03/26 0000 Intake Total 1400 694 Output Total 1040 2135 Balance 360 -1441 Intake, IV 880 452 Intake, Other 275 Intake, Tube 225 117 Feeding Intake, Tube 20 125 Irrigant Number 0 Bowel Movements Output, 90 110 Drainage Output, Urine 950 2024 Patient 177 lb Weight Weight Bed scale Measurement Method Laboratory Tests 03/26 03/26 03/25 03/25 0715 0040 2228 1800 Chemistry Sodium (137 - 145 mmol/L) 146 H 146 H Potassium (3.5 - 5.1 mmol/L) 3.5 Chloride (98 - 107 mmol/L) 114 H Carbon Dioxide (22 - 30 mmol/L) 24 Anion Gap (5 - 16) 9 BUN (9 - 20 mg/dL) 34 H Creatinine (0.7 - 1.2 mg/dL) 0.9 Estimated GFR (>60 ml/min) > 60 Glucose (65 - 99 mg/dL) 120 H Calcium (8.4 - 10.2 mg/dL) 8.5 Phosphorus (2.5 - 4.5 mg/dL) 3.3 Magnesium (1.6 - 2.3 mg/dL) 2.2 Total Bilirubin (0.2 - 1.3 mg/dL) 3.1 H AST (17 - 59 U/L) 26 ALT (21 - 72 U/L) 43 Albumin (3.5 - 5.0 g/dL) 2.1 L Coagulation APTT (25 - 37 SEC) 89 H 68 H Hematology CBC w Diff MAN DIFF ORDERED WBC (4.8 - 10.8 /CUMM) 13.7 H RBC (4.70 - 6.10 /CUMM) 3.53 L Hgb (14.0 - 18.0 G/DL) 9.9 L Hct (42 - 52 %) 29.8 L MCV (80.0 - 94.0 FL) 84.5 MCH (27.0 - 31.0 PG) 28.1 RDW (11.5 - 14.5 %) 18.6 H Plt Count (130 - 400 /CUMM) 78 L MPV (7.4 - 10.4 FL) 10.1 Gran % (42.2 - 75.2 %) 87.9 H Lymphocytes % (20.5 - 51.1 %) 8.5 L Monocytes % (1.7 - 9.3 %) 1.2 L Eosinophils % (0 - 5 %) 2.3 Basophils % (0.0 - 2.0 %) 0.1 Absolute Granulocytes (1.4 - 6.5 /CUMM) 12.0 H Segmented Neutrophils (42.2 - 75.2 %) 79 H Band Neutrophils (0.0 - 5.0 %) 7 H Absolute Lymphocytes (1.2 - 3.4 /CUMM) 1.2 Lymphocytes (20.5 - 51.1 %) 10 L Monocytes (1.7 - 9.3 %) 2 Absolute Monocytes (0.10 - 0.60 /CUMM) 0.2 Eosinophils (0 - 5.0 %) 1 Absolute Eosinophils (0.0 - 0.7 /CUMM) 0.3 Absolute Basophils (0.0 - 0.2 /CUMM) 0 Metamyelocytes (0.0 - 1.0 %) 1 Platelet Estimate (ADEQUATE) DECREASED Hypochromic-Microcytic 2+ Poikilocytosis 2+ Anisocytosis 1+ Ovalocytes 2+ PUBS MCHC (33.0 - 37.0 G/DL) 33.2 Urines Urine Osmolality (300 - 1000 MOSM/KG) 453 Ur Random Creatinine (mg/dL) 30.5 Ur Random Sodium (30 - 90 mmol/L) 67 Ur Random Potassium (mmol/L) 51.3 Fraction Sodium Excret (<1% %) 1.8 H 03/25 03/25 1602 1510 Chemistry Sodium (137 - 145 mmol/L) 148 H Potassium (3.5 - 5.1 mmol/L) 4.6 Chloride (98 - 107 mmol/L) 115 H Carbon Dioxide (22 - 30 mmol/L) 21 L Anion Gap (5 - 16) 12 BUN (9 - 20 mg/dL) 39 H Creatinine (0.7 - 1.2 mg/dL) 1.2 Estimated GFR (>60 ml/min) 58 L Glucose (65 - 99 mg/dL) 125 H Calcium (8.4 - 10.2 mg/dL) 8.2 L Phosphorus (2.5 - 4.5 mg/dL) 4.2 Magnesium (1.6 - 2.3 mg/dL) 2.1 Total Bilirubin (0.2 - 1.3 mg/dL) 4.1 H AST (17 - 59 U/L) 31 ALT (21 - 72 U/L) 31 Albumin (3.5 - 5.0 g/dL) 2.2 L Hematology CBC w Diff MAN DIFF ORDERED WBC (4.8 - 10.8 /CUMM) 22.3 H RBC (4.70 - 6.10 /CUMM) 3.64 L Hgb (14.0 - 18.0 G/DL) 10.4 L Hct (42 - 52 %) 30.9 L MCV (80.0 - 94.0 FL) 84.9 MCH (27.0 - 31.0 PG) 28.5 RDW (11.5 - 14.5 %) 18.4 H Plt Count (130 - 400 /CUMM) 72 L MPV (7.4 - 10.4 FL) 9.0 Gran % (42.2 - 75.2 %) 95.3 H Lymphocytes % (20.5 - 51.1 %) 3.6 L Monocytes % (1.7 - 9.3 %) 0.1 L Eosinophils % (0 - 5 %) 0.9 Basophils % (0.0 - 2.0 %) 0.1 Absolute Granulocytes (1.4 - 6.5 /CUMM) 21.2 H Segmented Neutrophils (42.2 - 75.2 %) 92 H Band Neutrophils (0.0 - 5.0 %) 2 Absolute Lymphocytes (1.2 - 3.4 /CUMM) 0.8 L Lymphocytes (20.5 - 51.1 %) 3 L Monocytes (1.7 - 9.3 %) 3 Absolute Monocytes (0.10 - 0.60 /CUMM) 0 L Absolute Eosinophils (0.0 - 0.7 /CUMM) 0.2 Absolute Basophils (0.0 - 0.2 /CUMM) 0 Platelet Estimate (ADEQUATE) DECREASED Anisocytosis 1+ PUBS MCHC (33.0 - 37.0 G/DL) 33.5 Immunology Heparin-induced Plt Ab Pending Heparin-PF4 AB OD Pending Exam General Appearance: awake, comfortable Respiratory: normal breath sounds Cardiovascular: irregularly irregular Gastrointestinal: soft, non-tender Extremities: no edema Current Medications: Current Medications Sig/Woodrow Start time Last Medication Dose Route Stop Time Status Admin Acetaminophen 1,000 MG ONCE ONE 03/27 0245 DC 03/27 N/A 1 UNIT IV 03/27 0259 0250 Acetaminophen 1,000 MG ONCE ONE 03/26 1715 DC 03/26 N/A 1 UNIT IV 03/26 1729 1723 Amlodipine Besylate 5 MG DAILY 03/25 1000 AC 03/26 PO 1037 Aspirin 81 MG DAILY 03/25 1000 AC 03/26 PO 1037 Atorvastatin Calcium 20 MG DAILY 03/25 1000 AC 03/26 PO 1037 Carbidopa/Levodopa 1 TAB TID 03/25 1000 AC 03/26 PO 2204 Dextrose/Water 1,000 ML Q20H 03/25 1115 AC 03/27 IV 0250 Finasteride 5 MG DAILY 03/25 1856 DC PO Glycerin 2 SPRAY Q2P PRN 03/27 0330 AC PO Heparin Sodium/ 25,000 UNIT Q24H 03/24 0915 AC 03/26 Dextrose IV 1548 Dextrose/Water 500 ML Meropenem 1 GM IQ8 03/24 1600 AC 03/27 IV 0006 Metoprolol Tartrate 50 MG BID 03/24 1000 AC 03/26 PO 2207 Potassium Chloride 20 MEQ ONCE ONE 03/26 1800 DC 03/26 PO 03/26 1801 1717 Potassium Chloride 20 MEQ ONCE ONE 03/26 1245 DC 03/26 PO 03/26 1246 1421 Senna/Docusate Sodium 2 TAB DAILY PRN 03/25 1900 AC PO Sodium Chloride 2 SPRAY Q4P PRN 03/24 1600 AC 03/26 SHEYLA 2215 Warfarin Sodium 3 MG .STK-MED ONE 03/26 1711 DC PO 03/26 1712 Warfarin Sodium 3 MG COUMADIN 1700 ONE 03/26 1700 DC 03/26 PO 03/26 1701 1718 Impression/Plan Impression/Problem List Impression: 79-year-old gentleman with past medical history of Parkinson's disease, hypertension, permanent pacemaker, BPH and urinary retention, current admission for septic shock of urologic origin requiring pressors. Urine cultures have grown E. coli, enterococcus and pseudomonas. Blood cultures have also been positive. A CT of the abd and pelvis showed no evidence of hydronephrosis but a dilated L ureter and a thick-walled bladder. Assessment: #1 septic shock secondary to gram-negative sepsis(UTI versus acalculus cholecystitis-less likely) #2 elevated troponin likely due to supply/demand mismatch (Type 2 DC) #3 Questionable aspiration pneumonia versus healthcare associated pneumonia #4 Severe pyuria/BPH #5 Paroxysmal atrial fibrillation on warfarin #6 Acute kidney injury on chronic kidney disease #7 hyperbilirubinemia Plan: - on meropenem 1 g every 8 as recommended by ID. -on heparin drip, in view of thrombocytopenia will f/up HIT ab, will start bridging with comadin today - urology on board, appreciate recomendation, finesteride cannot be given via the tube. -Per GI less likely to be acalculus cholecyctitis and no further imaging is needed - tolerating on tube feeds, will have swallow eval tommorrow -We'll supplement his electrolytes as needed, hyper Na (146 ) on D5W at 75 cc, continue to monitor -Continue trending his LFTs. -telemetry hold -DVT prophylaxis on heparin drip -Patient DNI and DNR family willing to use pressors if needed. Problem List: 1. Hypokalemia 2. Atrial fibrillation with RVR 3. UTI (urinary tract infection) 4. Sepsis Pain Ratin Tomorrow's Labs & Rationales: icu/cbc/inr Plan DVT/Prophylaxis: mechanical, pharmacological
[2017-03-26 08:00] VITALS: BP 148/70
--- NOTE | 2017-03-26 08:11 | Transfer of Care Summary ---
Hospital Course Course Hospital Course: 79-year-old gentleman with past medical history of Parkinson's disease, hypertension, permanent pacemaker, BPH and urinary retention. Per EMR, he had a urinary tract infection 3 weeks prior to admission, associated with n/v and was treated with nitrofurantoin. He self catheterizes at baseline. Reported outpatient urine culture from 03/19 grew gram-negative rods. For this, ciprofloxacin was started at [facility]. BIBA from [facility] after being found unresponsive. On admission vitals were : Tmax 102.5, HR 150-170's, BP 110/62 --> 90/59 --> 95/ 55 after receiving 4 L NS, by the time he was transferred up to the ICU his BP was 70s systolics over 40s systolic. Labs significant for :no leukocytosis, bands 17, INR 2.71, Na 135, K 3.0, bicarb 18, AG 19, BUN 39, creat 2.2 (baseline 0.8-1.1), lactic acid 8.4 --> 11.8, Mag 1.4, T. Bili 3.7, AST/ALT normal, CK 40, Following issues were addressed during his ICU stay: 1. Septic shock most likely of urological origin. After discussion with who agreed to Central line. Femoral line was placed on 03/21/17 and levophed was started and he was started on ceftazidime and vancomycin. Hemodynamically he improved. Urine cultures were positive for Escherichia coli, Enterococcus and Pseudomonas which was pansensitive. His hyperbilirubinemia was thought to be due to sepsis vs acalculous cholecystitis. There was no ductal dilatation on either US of the abdomen or on CT Scan to suggest a CBD stone. Further patient's transaminases were not markedly elevated to suggest either a retained or passage of a CBD. A cholecystostomy tube was placed 03/24/[address] Sharp, with the culture of his bile so far negative. As his bilirubinemia trended down, GI did not feel that further imaging with HIDA was necessary at this time. Vancomycin, Flagyl and Ceftazidime was discontined and Meropenem 1 g IV every 8 hours was started. 2. Elevated troponin likely due to supply/demand mismatch (Type 2 AK) Initially noted to be very tachycardic later only slightly elevated ( permissive tachycardia in the setting of his septic shock and not consistent with an acute coronary syndrome. 3.Mild BPH/ neurogenic bladder A CT of the abd and pelvis showed no evidence of hydronephrosis but a dilated L ureter and a thick-walled bladder. Pulled out his lopez 03/26/17 and had urinary retention, urology was consulted and 16 fr coude was placed 03/25/17 with drainage of a large volume of urine. In view of difficulty with straight cath recomendation was to leave the indwelling lopez in place for at least the next 48 hours. Complications: Severe septic shock with gram-negative sepsis of urological origin Multiple organ failure with significantly elevated bilirubin Atrial fibrillation with rapid ventricular response Thrombocytopenia Assessment/Plan: 79-year-old gentleman with past medical history of Parkinson's disease, hypertension, permanent pacemaker, BPH and urinary retention, current admission for septic shock of urologic origin requiring pressors. Urine cultures have grown E. coli, enterococcus and pseudomonas. Blood cultures have also been positive for E. Coli. septic shock (resolved) secondary to gram-negative sepsis(UTI versus acalculus cholecystitis-less likely ) -on meropenem 1 g every 8 as recommended by ID. BPH/Neurogenic bladder Would leave lopez in for now. Resume finasteride when patient is able to swallow. Eventual voiding trial when coagulation profile is at lower end of therapeutic range. Would need bladder scans q shift and str cath if pvr more than 400 cc. If patient needs str cath, use 14 fr or 16 fr coude catheter. On day lopez is removed it should be done early in the AM. With any concern for biliary obstruction, could consider cholangiogram via cholecystostomy tube. arrange for outpatient tube check with Dr. Sharp after discharge from the hospital. It should be kept to gravity until then. It can be removed in 6 weeks pending outpatient workup. Finesteride cannot be given through OG tube, restart when possible Paroxysmal atrial fibrillation on warfarin Kept on IV heparin. Bridging with warfarin was started on 03/26/17 There was suspicion for HIT as he had worsening thrombocytopenia. No active bleeding was noted. HIT antibody panel was sent. Continue ASA, statin lopressor and Norvasc Acute kidney injury on chronic kidney disease-resolved Nutrition Failed swallowing evaluation/MBS on March 24. Receiving tube feedings. Await speech therapy reevaluation. Continue tube feeds. Parkinsons continued on Sinemet
[2017-03-26 08:37] LABS: ABSOLUTE BASOPHIL COUNT 0 /CUMM (0.0-0.2); ABSOLUTE EOSINOPHIL COUNT 0.3 /CUMM (0.0-0.7); ABSOLUTE LYMPH COUNT 1.2 /CUMM (1.2-3.4); ABSOLUTE MONOCYTE COUNT 0.2 /CUMM (0.10-0.60); BASOPHIL % 0.1 % (0.0-2.0); EOSINOPHIL % 2.3 % (0-5); GRANULOCYTE % 87.9 % (42.2-75.2); HEMATOCRIT 29.8 % (42-52); MEAN CORPUSCULAR HGB 28.1 PG (27.0-31.0); MEAN CORPUSCULAR HGB CONC 33.2 G/DL (33.0-37.0); MEAN CORPUSCULAR VOLUME 84.5 FL (80.0-94.0); MEAN PLATELET VOLUME 10.1 FL (7.4-10.4); PLATELET COUNT 78 /CUMM (130-400); RBC DISTRIBUTION WIDTH 18.6 % (11.5-14.5); RED BLOOD CELL CT 3.53 /CUMM (4.70-6.10); WHITE BLOOD CELL COUNT 13.7 /CUMM (4.8-10.8)
[2017-03-26 08:50] LABS: PTT 89 SEC (25-37)
--- NOTE | 2017-03-26 09:18 | PN- Cardiology ---
Subjective Subjective: Telemetry reviewed. Patient is actually a hold for telemetry. No cardiac issues. At percutaneous drainage of the gallbladder. Objective Vital Signs and I&Os Vital Signs Date Time Temp Pulse Resp B/P B/P Pulse O2 O2 Flow FiO2 Mean Ox Delivery Rate 03/26 08 97.8 96 20 148/70 98 Nasal 2.0L Cannula 03/26 0000 97 Nasal 2.0L Cannula 03/26 0000 98.2 76 18 128/70 97 Nasal 2.0L Cannula 03/25 2150 106 18 120/70 03/25 1600 94 Nasal 2.0L Cannula 03/25 1600 98.2 78 16 114/50 94 Nasal 2.0L Cannula 03/25 1200 97 Nasal 2.0L Cannula 03/25 1026 77 152/79 03/25 0937 83 152/104 Intake & Output 03/26 1600 03/26 0800 03/26 0000 03/25 1600 03/25 0800 03/25 0000 Intake Total 694 1220 643 658 Output Total 2135 220 70 Balance -1441 1000 643 588 Intake, IV 452 870 643 608 Intake, Oral 0 0 Intake, Other 0 50 Intake, Tube 117 Feeding Intake, Tube 125 350 Irrigant Number 0 0 Bowel Movements Output, 110 220 70 Drainage Output, Urine 5 Patient 194 lb Weight Physical Exam: Patient is alert awake admits to no pain or shortness of breath. Head normocephalic atraumatic Eyes sclera anicteric conjunctiva showed no pallor extraocular muscles were normal Neck no carotid bruits no jugular venous distention no thyroid masses Chest lungs are clear bilaterally Heart regular rhythm with a 1/6 systolic murmur. Abdomen soft nontender neck and extremities no clubbing cyanosis or edema. Neurological no gross motor or sensory deficits Results Last 48 Hrs of Labs/Mics: Laboratory Tests 03/26/17 0715: Anion Gap 9, Estimated GFR > 60, Glucose 120 H, Calcium 8.5, Phosphorus 3.3, Magnesium 2.2, Total Bilirubin 3.1 H, AST 26, ALT 43, Albumin 2.1 L, APTT Pending, CBC w Diff MAN DIFF ORDERED, WBC Pending, RBC Pending, Hgb Pending, Hct Pending, MCV Pending, MCH Pending, RDW Pending, Plt Count Pending, MPV Pending, Gran % Pending, Lymphocytes % Pending, Monocytes % Pending, Eosinophils % Pending, Basophils % Pending, Absolute Granulocytes Pending, Segmented Neutrophils Pending, Absolute Lymphocytes Pending, Absolute Monocytes Pending, Absolute Eosinophils Pending, Absolute Basophils Pending, [facility] Pending 03/26/17 0040: 03/25/17 2228: Urine Osmolality 453, Ur Random Creatinine 30.5, Ur Random Sodium 67, Ur Random Potassium 51.3, Fraction Sodium Excret 1.8 H 03/25/17 1800: APTT 68 H 03/25/17 1602: Anion Gap 12, Estimated GFR 58 L, Glucose 125 H, Calcium 8.2 L, Phosphorus 4.2, Magnesium 2.1, Total Bilirubin 4.1 H, AST 31, ALT 31, Albumin 2.2 L, CBC w Diff MAN DIFF ORDERED, RBC 3.64 L, MCV 84.9, MCH 28.5, RDW 18.4 H, MPV 9.0, Gran % 95.3 H, Lymphocytes % 3.6 L, Monocytes % 0.1 L, Eosinophils % 0.9, Basophils % 0.1, Absolute Granulocytes 21.2 H, Segmented Neutrophils 92 H, Band Neutrophils 2, Absolute Lymphocytes 0.8 L, Lymphocytes 3 L, Monocytes 3, Absolute Monocytes 0 L, Absolute Eosinophils 0.2, Absolute Basophils 0, Platelet Estimate DECREASED, Anisocytosis 1+, [facility] 33.5 03/25/17 1510: Heparin-induced Plt Ab Pending, Heparin-PF4 AB OD Pending 03/25/17 0630: Anion Gap 11, Estimated GFR > 60, Glucose 116 H, Calcium 8.3 L, Phosphorus 3.0 , Magnesium 1.7, Total Bilirubin 4.4 H, AST 36, ALT 61, Alkaline Phosphatase 205 H, Albumin 2.2 L, APTT 70 H, CBC w Diff MAN DIFF ORDERED, RBC 3.61 L, MCV 85.5, MCH 28.9, RDW 18.0 H, MPV 8.7, Gran % 94.4 H, Lymphocytes % 4.1 L, Monocytes % 0.7 L, Eosinophils % 0.8, Basophils % 0, Absolute Granulocytes 27.5 H, Segmented Neutrophils 95 H, Band Neutrophils 2, Absolute Lymphocytes 1.2, Lymphocytes 2 L, Monocytes 1 L, Absolute Monocytes 0.2, Absolute Eosinophils 0.2, Absolute Basophils 0, Platelet Estimate VERIFIED BY SMEAR, Normocytic RBCs VERIFIED, Normochromic RBCs VERIFIED, PUBS MCHC 33.8 03/24/17 1820: APTT 62 H Assessment/Plan Assessment/Plan In summary this 82-year-old gentleman has the following problems 1. Septic shock due to urosepsis versus acalculus cholecystitis 2. Elevated troponin, not consistent with an acute coronary syndrome 3. Acute kidney injury 4. Paroxysmal atrial fibrillation on warfarin currently on hold due to hematuria 5. History of permanent pacemaker 6. History of TIA 7. History of coronary artery disease with remote PCI 8. History of hypertension 9. Parkinson's disease 10. Hematuria possibly traumatic Her continue present treatment. Continue telemetry? Yes
--- NOTE | 2017-03-26 10:05 | PN- Gastroenterology ---
Assessment/Plan Assessment/Recommendations: 1. Hyperbilirubinemia. Likely secondary to sepsis. Stable. No pain or ductal dilatation to suggest obstructing lesion. 2. Dysphagia. Failed swallowing evaluation/MBS on March 24. Receiving tube feedings. Anticipating follow-up speech therapy. Recommendations * Continue to monitor LFTs/bilirubin. With any concern for biliary obstruction, could consider cholangiogram via cholecystostomy tube. * Await speech therapy reevaluation. Continue tube feeds. Consider switching to small bore KOfeed-type tube. Subjective Subjective: Patient nonverbal. Denies abdominal pain. Receiving tube feeding via large bore nasogastric tube. Review of Systems: Unobtainable Objective Vital Signs and I&Os Vital Signs Date Time Temp Pulse Resp B/P B/P Pulse O2 O2 Flow FiO2 Mean Ox Delivery Rate 03/26 08 97.8 96 20 148/70 98 Nasal 2.0L Cannula 03/26 0800 96 Nasal 2.0L Cannula 03/26 0000 97 Nasal 2.0L Cannula 03/26 0000 98.2 76 18 128/70 97 Nasal 2.0L Cannula 03/25 2150 106 18 120/70 03/25 1600 94 Nasal 2.0L Cannula 03/25 1600 98.2 78 16 114/50 94 Nasal 2.0L Cannula 03/25 1200 97 Nasal 2.0L Cannula 03/25 1026 77 152/79 Intake & Output 03/26 1600 03/26 0400 03/25 1600 03/25 0400 03/24 1600 03/24 0400 Intake Total 8105 494 3034 658 1152 830 Output Total 1040 2135 640 48 5260 910 Balance 360 -1441 1643 588 -18 -80 Intake, IV 753 979 4612 608 1152 830 Intake, Oral 0 0 Intake, Other 275 0 50 Intake, Tube 225 117 Feeding Intake, Tube 20 125 350 Irrigant Number 0 0 1 Bowel Movements Output, 90 110 220 70 150 50 Drainage Output, Urine 950 2025 1020 860 Patient 177 lb 194 lb 194 lb Weight Weight Bed scale Bed scale Measurement Method Physical Exam: Alert. Sclera anicteric. No jaundice. Abdomen soft, nondistended, nontender. No tenderness around cholecystostomy site; draining light bile into gravity bag. Current Medications: Current Medications Sig/Woodrow Start time Last Medication Dose Route Stop Time Status Admin Acetaminophen 1,000 MG ONCE ONE 03/26 0200 DC 03/26 N/A 1 UNIT IV 03/26 0214 0210 Amlodipine Besylate 5 MG DAILY 03/25 1000 AC 03/25 PO 1026 Aspirin 81 MG DAILY 03/25 1000 AC 03/25 PO 1026 Atorvastatin Calcium 20 MG DAILY 03/25 1000 AC 03/25 PO 1026 Carbidopa/Levodopa 1 TAB TID 03/25 1000 AC 03/25 PO 2149 Dextrose/Water 1,000 ML Q20H 03/25 1115 AC 03/26 IV 0901 Finasteride 5 MG DAILY 03/25 1856 AC PO Heparin Sodium/ 25,000 UNIT Q24H 03/24 0915 AC 03/25 Dextrose IV 1413 Dextrose/Water 500 ML Magnesium Sulfate 1 GM Q2H 03/25 0830 DC 03/25 Dextrose/Water 100 ML IV 03/25 1229 1040 Meropenem 1 GM IQ8 03/24 1600 AC 03/26 IV 0902 Metoprolol Tartrate 50 MG BID 03/24 1000 AC 03/25 PO 2150 Ondansetron HCl 2 MG ONCE ONE 03/25 1130 DC 03/25 IV 03/25 1131 1144 Potassium Chloride 40 MEQ ONCE ONE 03/25 1330 DC 03/25 PO 03/25 1331 1412 Potassium Chloride 20 MEQ Q10H 03/25 1000 DC Dextrose/Sodium 1,000 ML IV Chloride Potassium Phosphate 15 mMol ONE ONE 03/25 0830 DC 03/25 Dextrose/Water 250 ML IV 03/25 1234 1154 Senna/Docusate Sodium 2 TAB DAILY PRN 03/25 1900 AC PO Sodium Chloride 2 SPRAY Q4P PRN 03/24 1600 AC 03/24 SHEYLA 1708 Results Pertinent Lab Results: Laboratory Tests 03/26 03/26 03/25 03/25 0715 0040 2228 1800 Chemistry Sodium (137 - 145 mmol/L) 146 H 146 H Potassium (3.5 - 5.1 mmol/L) 3.5 Chloride (98 - 107 mmol/L) 114 H Carbon Dioxide (22 - 30 mmol/L) 24 Anion Gap (5 - 16) 9 BUN (9 - 20 mg/dL) 34 H Creatinine (0.7 - 1.2 mg/dL) 0.9 Estimated GFR (>60 ml/min) > 60 Glucose (65 - 99 mg/dL) 120 H Calcium (8.4 - 10.2 mg/dL) 8.5 Phosphorus (2.5 - 4.5 mg/dL) 3.3 Magnesium (1.6 - 2.3 mg/dL) 2.2 Total Bilirubin (0.2 - 1.3 mg/dL) 3.1 H AST (17 - 59 U/L) 26 ALT (21 - 72 U/L) 43 Albumin (3.5 - 5.0 g/dL) 2.1 L Coagulation APTT (25 - 37 SEC) 89 H 68 H Hematology CBC w Diff MAN DIFF ORDERED WBC (4.8 - 10.8 /CUMM) 13.7 H RBC (4.70 - 6.10 /CUMM) 3.53 L Hgb (14.0 - 18.0 G/DL) 9.9 L Hct (42 - 52 %) 29.8 L MCV (80.0 - 94.0 FL) 84.5 MCH (27.0 - 31.0 PG) 28.1 RDW (11.5 - 14.5 %) 18.6 H Plt Count (130 - 400 /CUMM) 78 L MPV (7.4 - 10.4 FL) 10.1 Gran % (42.2 - 75.2 %) 87.9 H Lymphocytes % (20.5 - 51.1 %) 8.5 L Monocytes % (1.7 - 9.3 %) 1.2 L Eosinophils % (0 - 5 %) 2.3 Basophils % (0.0 - 2.0 %) 0.1 Absolute Granulocytes (1.4 - 6.5 /CUMM) 12.0 H Segmented Neutrophils (42.2 - 75.2 %) 79 H Band Neutrophils (0.0 - 5.0 %) 7 H Absolute Lymphocytes (1.2 - 3.4 /CUMM) 1.2 Lymphocytes (20.5 - 51.1 %) 10 L Monocytes (1.7 - 9.3 %) 2 Absolute Monocytes (0.10 - 0.60 /CUMM) 0.2 Eosinophils (0 - 5.0 %) 1 Absolute Eosinophils (0.0 - 0.7 /CUMM) 0.3 Absolute Basophils (0.0 - 0.2 /CUMM) 0 Metamyelocytes (0.0 - 1.0 %) 1 Platelet Estimate (ADEQUATE) DECREASED Hypochromic-Microcytic 2+ Poikilocytosis 2+ Anisocytosis 1+ Ovalocytes 2+ PUBS MCHC (33.0 - 37.0 G/DL) 33.2 Urines Urine Osmolality (300 - 1000 MOSM/KG) 453 Ur Random Creatinine (mg/dL) 30.5 Ur Random Sodium (30 - 90 mmol/L) 67 Ur Random Potassium (mmol/L) 51.3 Fraction Sodium Excret (<1% %) 1.8 H 03/25 03/25 1602 1510 Chemistry Sodium (137 - 145 mmol/L) 148 H Potassium (3.5 - 5.1 mmol/L) 4.6 Chloride (98 - 107 mmol/L) 115 H Carbon Dioxide (22 - 30 mmol/L) 21 L Anion Gap (5 - 16) 12 BUN (9 - 20 mg/dL) 39 H Creatinine (0.7 - 1.2 mg/dL) 1.2 Estimated GFR (>60 ml/min) 58 L Glucose (65 - 99 mg/dL) 125 H Calcium (8.4 - 10.2 mg/dL) 8.2 L Phosphorus (2.5 - 4.5 mg/dL) 4.2 Magnesium (1.6 - 2.3 mg/dL) 2.1 Total Bilirubin (0.2 - 1.3 mg/dL) 4.1 H AST (17 - 59 U/L) 31 ALT (21 - 72 U/L) 31 Albumin (3.5 - 5.0 g/dL) 2.2 L Hematology CBC w Diff MAN DIFF ORDERED WBC (4.8 - 10.8 /CUMM) 22.3 H RBC (4.70 - 6.10 /CUMM) 3.64 L Hgb (14.0 - 18.0 G/DL) 10.4 L Hct (42 - 52 %) 30.9 L MCV (80.0 - 94.0 FL) 84.9 MCH (27.0 - 31.0 PG) 28.5 RDW (11.5 - 14.5 %) 18.4 H Plt Count (130 - 400 /CUMM) 72 L MPV (7.4 - 10.4 FL) 9.0 Gran % (42.2 - 75.2 %) 95.3 H Lymphocytes % (20.5 - 51.1 %) 3.6 L Monocytes % (1.7 - 9.3 %) 0.1 L Eosinophils % (0 - 5 %) 0.9 Basophils % (0.0 - 2.0 %) 0.1 Absolute Granulocytes (1.4 - 6.5 /CUMM) 21.2 H Segmented Neutrophils (42.2 - 75.2 %) 92 H Band Neutrophils (0.0 - 5.0 %) 2 Absolute Lymphocytes (1.2 - 3.4 /CUMM) 0.8 L Lymphocytes (20.5 - 51.1 %) 3 L Monocytes (1.7 - 9.3 %) 3 Absolute Monocytes (0.10 - 0.60 /CUMM) 0 L Absolute Eosinophils (0.0 - 0.7 /CUMM) 0.2 Absolute Basophils (0.0 - 0.2 /CUMM) 0 Platelet Estimate (ADEQUATE) DECREASED Anisocytosis 1+ PUBS MCHC (33.0 - 37.0 G/DL) 33.5 Immunology Heparin-induced Plt Ab Pending Heparin-PF4 AB OD Pending 03/25 03/24 0630 1820 Chemistry Sodium (137 - 145 mmol/L) 150 H Potassium (3.5 - 5.1 mmol/L) 3.3 L Chloride (98 - 107 mmol/L) 116 H Carbon Dioxide (22 - 30 mmol/L) 23 Anion Gap (5 - 16) 11 BUN (9 - 20 mg/dL) 37 H Creatinine (0.7 - 1.2 mg/dL) 1.1 Estimated GFR (>60 ml/min) > 60 Glucose (65 - 99 mg/dL) 116 H Calcium (8.4 - 10.2 mg/dL) 8.3 L Phosphorus (2.5 - 4.5 mg/dL) 3.0 Magnesium (1.6 - 2.3 mg/dL) 1.7 Total Bilirubin (0.2 - 1.3 mg/dL) 4.4 H AST (17 - 59 U/L) 36 ALT (21 - 72 U/L) 61 Alkaline Phosphatase (< 127 U/L) 205 H Albumin (3.5 - 5.0 g/dL) 2.2 L Coagulation APTT (25 - 37 SEC) 70 H 62 H Hematology CBC w Diff MAN DIFF ORDERED WBC (4.8 - 10.8 /CUMM) 29.1 H RBC (4.70 - 6.10 /CUMM) 3.61 L Hgb (14.0 - 18.0 G/DL) 10.4 L Hct (42 - 52 %) 30.8 L MCV (80.0 - 94.0 FL) 85.5 MCH (27.0 - 31.0 PG) 28.9 RDW (11.5 - 14.5 %) 18.0 H Plt Count (130 - 400 /CUMM) 78 L MPV (7.4 - 10.4 FL) 8.7 Gran % (42.2 - 75.2 %) 94.4 H Lymphocytes % (20.5 - 51.1 %) 4.1 L Monocytes % (1.7 - 9.3 %) 0.7 L Eosinophils % (0 - 5 %) 0.8 Basophils % (0.0 - 2.0 %) 0 Absolute Granulocytes (1.4 - 6.5 /CUMM) 27.5 H Segmented Neutrophils (42.2 - 75.2 %) 95 H Band Neutrophils (0.0 - 5.0 %) 2 Absolute Lymphocytes (1.2 - 3.4 /CUMM) 1.2 Lymphocytes (20.5 - 51.1 %) 2 L Monocytes (1.7 - 9.3 %) 1 L Absolute Monocytes (0.10 - 0.60 /CUMM) 0.2 Absolute Eosinophils (0.0 - 0.7 /CUMM) 0.2 Absolute Basophils (0.0 - 0.2 /CUMM) 0 Platelet Estimate (ADEQUATE) VERIFIED BY SMEAR Normocytic RBCs VERIFIED Normochromic RBCs VERIFIED PUBS MCHC (33.0 - 37.0 G/DL) 33.8 03/24 03/23 0455 1308 Chemistry Sodium (137 - 145 mmol/L) 149 H Potassium (3.5 - 5.1 mmol/L) 3.0 L Chloride (98 - 107 mmol/L) 116 H Carbon Dioxide (22 - 30 mmol/L) 21 L Anion Gap (5 - 16) 12 BUN (9 - 20 mg/dL) 36 H Creatinine (0.7 - 1.2 mg/dL) 1.2 Estimated GFR (>60 ml/min) 58 L Glucose (65 - 99 mg/dL) 101 H Lactic Acid (0.7 - 2.1 mmol/L) 1.4 Calcium (8.4 - 10.2 mg/dL) 8.2 L Phosphorus (2.5 - 4.5 mg/dL) 2.7 Magnesium (1.6 - 2.3 mg/dL) 1.7 Total Bilirubin (0.2 - 1.3 mg/dL) 4.2 H Direct Bilirubin (< 0.4 mg/dL) 3.3 H AST (17 - 59 U/L) 70 H ALT (21 - 72 U/L) 62 Albumin (3.5 - 5.0 g/dL) 2.1 L Coagulation PT (9.4 - 12.5 SEC) 15.9 H INR (0.90 - 1.17) 1.52 H Hematology CBC w Diff MAN DIFF ORDERED WBC (4.8 - 10.8 /CUMM) 50.3 *H RBC (4.70 - 6.10 /CUMM) 3.52 L Hgb (14.0 - 18.0 G/DL) 10.2 L Hct (42 - 52 %) 30.2 L MCV (80.0 - 94.0 FL) 85.7 MCH (27.0 - 31.0 PG) 28.8 RDW (11.5 - 14.5 %) 18.1 H Plt Count (130 - 400 /CUMM) 95 L MPV (7.4 - 10.4 FL) 8.8 Gran % (42.2 - 75.2 %) 97.8 H Lymphocytes % (20.5 - 51.1 %) 1.9 L Monocytes % (1.7 - 9.3 %) 0.2 L Eosinophils % (0 - 5 %) 0.1 Basophils % (0.0 - 2.0 %) 0 Absolute Granulocytes (1.4 - 6.5 /CUMM) 49.2 H Segmented Neutrophils (42.2 - 75.2 %) 96 H Band Neutrophils (0.0 - 5.0 %) 1 Absolute Lymphocytes (1.2 - 3.4 /CUMM) 1.0 L Lymphocytes (20.5 - 51.1 %) 2 L Monocytes (1.7 - 9.3 %) 1 L Absolute Monocytes (0.10 - 0.60 /CUMM) 0.1 Absolute Eosinophils (0.0 - 0.7 /CUMM) 0.1 Absolute Basophils (0.0 - 0.2 /CUMM) 0 Platelet Estimate (ADEQUATE) DECREASED Polychromasia 1+ Poikilocytosis 3+ Ovalocytes 1+ Shira Cells 1+ Elliptocytes 1+ PUBS MCHC (33.0 - 37.0 G/DL) 33.6 Other Body Source [place] Total RBCs Counted (%) 100 Toxicology Random Vancomycin (ug/ml) 11.2
[2017-03-26 16:00] VITALS: BP 148/86
[2017-03-26 20:12] LABS: PT 16.3 SEC (9.4-12.5)
[2017-03-26 20:13] LABS: PTT 48 SEC (25-37)
[2017-03-27] VITALS: BP 130/76
[2017-03-27 05:47] LABS: ABSOLUTE BASOPHIL COUNT 0 /CUMM (0.0-0.2); ABSOLUTE EOSINOPHIL COUNT 0.4 /CUMM (0.0-0.7); ABSOLUTE GRANULOCYTE CT 11.7 /CUMM (1.4-6.5); ABSOLUTE LYMPH COUNT 1.7 /CUMM (1.2-3.4); ABSOLUTE MONOCYTE COUNT 0.4 /CUMM (0.10-0.60); BASOPHIL % 0.1 % (0.0-2.0); GRANULOCYTE % 82.1 % (42.2-75.2); HEMATOCRIT 28.2 % (42-52); MEAN CORPUSCULAR HGB 28.5 PG (27.0-31.0); MEAN CORPUSCULAR HGB CONC 33.7 G/DL (33.0-37.0); MEAN CORPUSCULAR VOLUME 84.6 FL (80.0-94.0); MEAN PLATELET VOLUME 9.5 FL (7.4-10.4); PLATELET COUNT 94 /CUMM (130-400); RBC DISTRIBUTION WIDTH 18.1 % (11.5-14.5); RED BLOOD CELL CT 3.33 /CUMM (4.70-6.10); WHITE BLOOD CELL COUNT 14.3 /CUMM (4.8-10.8)
[2017-03-27 06:07] LABS: PT 17.9 SEC (9.4-12.5)
[2017-03-27 06:26] LABS: PTT > 120 SEC (25-37)
--- NOTE | 2017-03-27 07:17 | PN- Resident CRCU ---
Subjective HPI/CRCU Issues: #1 septic shock secondary to gram-negative sepsis(UTI versus acalculus cholecystitis-less likely) #2 elevated troponin likely due to supply/demand mismatch (Type 2 GA) #3 Questionable aspiration pneumonia versus healthcare associated pneumonia #4 Severe pyuria/BPH #5 Paroxysmal atrial fibrillation on warfarin #6 Acute kidney injury on chronic kidney disease #7 hyperbilirubinemia 24 Hour Events: Seen and examined patient. Offers no complaints. Wishes to take the NG tube out. Objective Vital Signs & I&O Last 8 Hrs of Vitals and I&O: Intake & Output 03/27 1600 03/27 0800 03/27 0000 Intake Total 646 1637 Output Total 1150 1510 Balance -504 127 Intake, IV 626 866 Intake, Other 350 Intake, Tube 401 Feeding Intake, Tube 20 20 Irrigant Number 0 Bowel Movements Output, 200 110 Drainage Output, Urine 950 1400 Laboratory Tests 03/27 03/27 03/26 0500 0450 1915 Chemistry Sodium (137 - 145 mmol/L) 140 Potassium (3.5 - 5.1 mmol/L) 3.5 Chloride (98 - 107 mmol/L) 107 Carbon Dioxide (22 - 30 mmol/L) 26 Anion Gap (5 - 16) 7 BUN (9 - 20 mg/dL) 27 H Creatinine (0.7 - 1.2 mg/dL) 0.7 Estimated GFR (>60 ml/min) > 60 Glucose (65 - 99 mg/dL) 96 Calcium (8.4 - 10.2 mg/dL) 8.1 L Phosphorus (2.5 - 4.5 mg/dL) 3.2 Magnesium (1.6 - 2.3 mg/dL) 1.6 Total Bilirubin (0.2 - 1.3 mg/dL) 2.6 H AST (17 - 59 U/L) 30 ALT (21 - 72 U/L) 34 Albumin (3.5 - 5.0 g/dL) 2.2 L Coagulation PT (9.4 - 12.5 SEC) Cancelled 17.9 H 16.3 H INR (0.90 - 1.17) Cancelled 1.71 H 1.56 H APTT (25 - 37 SEC) > 120 *H 48 H Hematology CBC w Diff NO MAN DIFF REQ WBC (4.8 - 10.8 /CUMM) 14.3 H RBC (4.70 - 6.10 /CUMM) 3.33 L Hgb (14.0 - 18.0 G/DL) 9.5 L Hct (42 - 52 %) 28.2 L MCV (80.0 - 94.0 FL) 84.6 MCH (27.0 - 31.0 PG) 28.5 RDW (11.5 - 14.5 %) 18.1 H Plt Count (130 - 400 /CUMM) 94 L MPV (7.4 - 10.4 FL) 9.5 Gran % (42.2 - 75.2 %) 82.1 H Lymphocytes % (20.5 - 51.1 %) 11.8 L Monocytes % (1.7 - 9.3 %) 3.0 Eosinophils % (0 - 5 %) 3.0 Basophils % (0.0 - 2.0 %) 0.1 Absolute Granulocytes (1.4 - 6.5 /CUMM) 11.7 H Absolute Lymphocytes (1.2 - 3.4 /CUMM) 1.7 Absolute Monocytes (0.10 - 0.60 /CUMM) 0.4 Absolute Eosinophils (0.0 - 0.7 /CUMM) 0.4 Absolute Basophils (0.0 - 0.2 /CUMM) 0 PUBS MCHC (33.0 - 37.0 G/DL) 33.7 Immunology Heparin-induced Plt Ab Pending Heparin-PF4 AB OD Pending Exam General Appearance: awake, comfortable Respiratory: normal breath sounds Cardiovascular: regular rate/rhythm Gastrointestinal: normal bowel sounds, soft, non-tender Extremities: no edema Nutrition Nutrition: tube feeding Current Medications: Current Medications Sig/Woodrow Start time Last Medication Dose Route Stop Time Status Admin Acetaminophen 1,000 MG ONCE ONE 03/27 0245 DC 03/27 N/A 1 UNIT IV 03/27 0259 0250 Acetaminophen 1,000 MG ONCE ONE 03/26 1715 DC 03/26 N/A 1 UNIT IV 03/26 1729 1723 Amlodipine Besylate 5 MG DAILY 03/25 1000 AC 03/27 PO 1206 Aspirin 81 MG DAILY 03/25 1000 AC 03/27 PO 1206 Atorvastatin Calcium 20 MG DAILY 03/25 1000 AC 03/27 PO 1206 Carbidopa/Levodopa 1 TAB TID 03/25 1000 AC 03/27 PO 1206 Dextrose/Water 1,000 ML Q20H 03/25 1115 DC 03/27 IV 0250 Glycerin 2 SPRAY Q2P PRN 03/27 0330 AC PO Heparin Sodium/ 25,000 UNIT Q24H 03/24 0915 AC 03/27 Dextrose IV 1232 Dextrose/Water 500 ML Magnesium Sulfate 1 GM ONCE ONE 03/27 1200 AC 03/27 Dextrose/Water 100 ML IV 03/27 1559 1300 Meropenem 1 GM IQ8 03/24 1600 AC 03/27 IV 0819 Metoprolol Tartrate 50 MG BID 03/24 1000 AC 03/27 PO 1207 Ondansetron HCl 4 MG ONCE ONE 03/27 1300 DC 03/27 IV 03/27 1301 1256 Potassium Chloride 40 MEQ ONCE ONE 03/27 1200 DC 03/27 PO 03/27 1201 1207 Potassium Chloride 20 MEQ ONCE ONE 03/26 1800 DC 03/26 PO 03/26 1801 1717 Potassium Phosphate 15 mMol ONE ONE 03/27 1200 AC Dextrose/Water 250 ML IV 03/27 1604 Senna/Docusate Sodium 2 TAB DAILY PRN 03/25 1900 AC PO Sodium Chloride 2 SPRAY Q4P PRN 03/24 1600 AC 03/26 SHEYLA 2215 Warfarin Sodium 4 MG COUMADIN 1700 ONE 03/27 1700 AC PO 03/27 1701 Warfarin Sodium 3 MG .STK-MED ONE 03/26 1711 DC PO 03/26 1712 Warfarin Sodium 3 MG COUMADIN 1700 ONE 03/26 1700 DC 03/26 PO 03/26 1701 1718 Impression/Plan Impression/Problem List Impression: 79-year-old gentleman with past medical history of Parkinson's disease, hypertension, permanent pacemaker, BPH and urinary retention, current admission for septic shock of urologic origin requiring pressors. Urine cultures have grown E. coli, enterococcus and pseudomonas. Blood cultures have also been positive. A CT of the abd and pelvis showed no evidence of hydronephrosis but a dilated L ureter and a thick-walled bladder. Assessment: #1 septic shock secondary to gram-negative sepsis(UTI versus acalculus cholecystitis-less likely) #2 elevated troponin likely due to supply/demand mismatch (Type 2 GA) #3 Questionable aspiration pneumonia versus healthcare associated pneumonia #4 Severe pyuria/BPH #5 Paroxysmal atrial fibrillation on warfarin #6 Acute kidney injury on chronic kidney disease #7 hyperbilirubinemia Plan: - on meropenem 1 g every 8 as recommended by ID. -on heparin ip, in view of thrombocytopenia will f/up HIT ab, will start bridging with comadin today - urology on board, appreciate recomendation, finesteride cannot be given via the tube. -Per GI less likely to be acalculus cholecyctitis and no further imaging is needed - tolerating on tube feeds, will have swallow eval tommorrow -We'll supplement his electrolytes as needed, Na (140 ) will dc D5W, continue to monitor -awaiting modified bed barium swallow today -telemetry hold -DVT prophylaxis on heparin drip -Patient DNI and DNR family willing to use pressors if needed. Problem List: 1. Sepsis 2. Atrial fibrillation with RVR Pain Ratin Tomorrow's Labs & Rationales: icu/cbc/inr Plan DVT/Prophylaxis: mechanical, pharmacological
--- NOTE | 2017-03-27 07:53 | PN- Urology ---
Subjective Subjective: Awake and conversant Objective Vital Signs and I&Os Vital Signs Date Time Temp Pulse Resp B/P B/P Pulse O2 O2 Flow FiO2 Mean Ox Delivery Rate 03/27 97.4 79 16 130/76 98 Nasal 2.0L Cannula 03/27 0000 98 Nasal 2.0L Cannula 03/26 2207 89 130/76 03/26 1600 98.1 73 18 148/86 99 Nasal 2.0L Cannula 03/26 1600 99 Nasal 2.0L Cannula 03/26 1334 Nasal 2.0L Cannula 03/26 1037 98 158/80 03/26 1037 98 158/80 03/26 0800 97.8 96 20 148/70 98 Nasal 2.0L Cannula 03/26 08 96 Nasal 2.0L Cannula Intake & Output 03/27 0000 03/26 1600 03/26 0803/26 1600 Intake Total 646 1637 1175 9654 648 9603 Output Total 1150 2976 634 8308 2135 220 Balance -504 127 335 360 -1441 1000 Intake, IV 626 866 635 880 452 870 Intake, Oral 0 Intake, Other 350 275 Intake, Tube 401 240 225 117 Feeding Intake, Tube 20 20 300 20 125 350 Irrigant Number 0 0 0 Bowel Movements Output, 200 110 90 90 110 220 Drainage Output, Urine 950 1400 966 529 9991 Patient 177 lb 194 lb Weight Weight Bed scale Measurement Method Abd: soft and non tender Genitalia: lopez in place. Urine clear Laboratory Tests 03/27 03/27 03/26 0500 0450 1915 Chemistry Sodium (137 - 145 mmol/L) 140 Potassium (3.5 - 5.1 mmol/L) 3.5 Chloride (98 - 107 mmol/L) 107 Carbon Dioxide (22 - 30 mmol/L) 26 Anion Gap (5 - 16) 7 BUN (9 - 20 mg/dL) 27 H Creatinine (0.7 - 1.2 mg/dL) 0.7 Estimated GFR (>60 ml/min) > 60 Glucose (65 - 99 mg/dL) 96 Calcium (8.4 - 10.2 mg/dL) 8.1 L Phosphorus (2.5 - 4.5 mg/dL) 3.2 Magnesium (1.6 - 2.3 mg/dL) 1.6 Total Bilirubin (0.2 - 1.3 mg/dL) 2.6 H AST (17 - 59 U/L) 30 ALT (21 - 72 U/L) 34 Albumin (3.5 - 5.0 g/dL) 2.2 L Coagulation PT (9.4 - 12.5 SEC) Cancelled 17.9 H 16.3 H INR (0.90 - 1.17) Cancelled 1.71 H 1.56 H APTT (25 - 37 SEC) > 120 *H 48 H Hematology CBC w Diff NO MAN DIFF REQ WBC (4.8 - 10.8 /CUMM) 14.3 H RBC (4.70 - 6.10 /CUMM) 3.33 L Hgb (14.0 - 18.0 G/DL) 9.5 L Hct (42 - 52 %) 28.2 L MCV (80.0 - 94.0 FL) 84.6 MCH (27.0 - 31.0 PG) 28.5 RDW (11.5 - 14.5 %) 18.1 H Plt Count (130 - 400 /CUMM) 94 L MPV (7.4 - 10.4 FL) 9.5 Gran % (42.2 - 75.2 %) 82.1 H Lymphocytes % (20.5 - 51.1 %) 11.8 L Monocytes % (1.7 - 9.3 %) 3.0 Eosinophils % (0 - 5 %) 3.0 Basophils % (0.0 - 2.0 %) 0.1 Absolute Granulocytes (1.4 - 6.5 /CUMM) 11.7 H Absolute Lymphocytes (1.2 - 3.4 /CUMM) 1.7 Absolute Monocytes (0.10 - 0.60 /CUMM) 0.4 Absolute Eosinophils (0.0 - 0.7 /CUMM) 0.4 Absolute Basophils (0.0 - 0.2 /CUMM) 0 PUBS MCHC (33.0 - 37.0 G/DL) 33.7 Immunology Heparin-induced Plt Ab Pending Heparin-PF4 AB OD Pending Assessment/Plan Assessment/Plan Imp: 1. Urosepsis. Slowly improving 2. Neurogenic bladder 3. Dilated L ureter, chronic and worked up in past 4. Difficult to place lopez Plan: 1. Abx per ID 2. Would leave lopez for now as PTT is quite elevated and he is difficult to catheterize 3. Resume finasteride when NGT is out and patient is able to swallow 4. Eventual voiding trial when coagulation profile is at lower end of therapeutic range. Would then need bladder scans q shift and str cath if pvr more than 400 cc 5. If patient needs str cath, which is likely, would use 14 fr or 16 fr coude catheter 6. On day lopez is removed it should be early in the AM
[2017-03-27 08:00] VITALS: BP 138/80
--- NOTE | 2017-03-27 10:14 | PN- CRCU ---
Subjective HPI/Critical Care Issues: Sleeping this am stable NG tube in and tube feedings have been held this am Objective Current Medications: Current Medications Sig/Woodrow Start time Last Medication Dose Route Stop Time Status Admin Acetaminophen 1,000 MG ONCE ONE 03/27 0245 DC 03/27 N/A 1 UNIT IV 03/27 0259 0250 Acetaminophen 1,000 MG ONCE ONE 03/26 1715 DC 03/26 N/A 1 UNIT IV 03/26 1729 1723 Amlodipine Besylate 5 MG DAILY 03/25 1000 AC 03/26 PO 1037 Aspirin 81 MG DAILY 03/25 1000 AC 03/26 PO 1037 Atorvastatin Calcium 20 MG DAILY 03/25 1000 AC 03/26 PO 1037 Carbidopa/Levodopa 1 TAB TID 03/25 1000 AC 03/26 PO 2204 Dextrose/Water 1,000 ML Q20H 03/25 1115 DC 03/27 IV 0250 Finasteride 5 MG DAILY 03/25 1856 DC PO Glycerin 2 SPRAY Q2P PRN 03/27 0330 AC PO Heparin Sodium/ 25,000 UNIT Q24H 03/24 0915 AC 03/26 Dextrose IV 1548 Dextrose/Water 500 ML Meropenem 1 GM IQ8 03/24 1600 AC 03/27 IV 0819 Metoprolol Tartrate 50 MG BID 03/24 1000 AC 03/26 PO 2207 Potassium Chloride 20 MEQ ONCE ONE 03/26 1800 DC 03/26 PO 03/26 1801 1717 Potassium Chloride 20 MEQ ONCE ONE 03/26 1245 DC 03/26 PO 03/26 1246 1421 Senna/Docusate Sodium 2 TAB DAILY PRN 03/25 1900 AC PO Sodium Chloride 2 SPRAY Q4P PRN 03/24 1600 AC 03/26 SHEYLA 2215 Warfarin Sodium 4 MG COUMADIN 1700 ONE 03/27 1700 AC PO 03/27 1701 Warfarin Sodium 3 MG .STK-MED ONE 03/26 1711 DC PO 03/26 1712 Warfarin Sodium 3 MG COUMADIN 1700 ONE 03/26 1700 DC 03/26 PO 03/26 1701 1718 Vital Signs & I&O Last 24 Hrs of Vitals and I&O: Vital Signs Date Time Temp Pulse Resp B/P B/P Pulse O2 O2 Flow FiO2 Mean Ox Delivery Rate 03/27 799 98.0 82 20 138/80 92 Nasal 2.0L Cannula 03/27 08 98 Nasal 2.0L Cannula 03/27 0000 97.4 79 16 130/76 98 Nasal 2.0L Cannula 03/27 0000 98 Nasal 2.0L Cannula 03/26 2207 89 130/76 03/26 1600 98.1 73 18 148/86 99 Nasal 2.0L Cannula 03/26 1600 99 Nasal 2.0L Cannula 03/26 1334 Nasal 2.0L Cannula 03/26 1037 98 158/80 03/26 1037 98 158/80 Intake & Output 03/27 0800 03/27 0000 Intake Total 646 1637 Output Total 1150 1510 Balance -504 127 Intake, IV 626 866 Intake, Other 350 Intake, Tube 401 Feeding Intake, Tube 20 20 Irrigant Number 0 Bowel Movements Output, 200 110 Drainage Output, Urine 950 1400 Laboratory Tests 03/27 03/27 03/26 0500 0450 1915 Chemistry Sodium (137 - 145 mmol/L) 140 Potassium (3.5 - 5.1 mmol/L) 3.5 Chloride (98 - 107 mmol/L) 107 Carbon Dioxide (22 - 30 mmol/L) 26 Anion Gap (5 - 16) 7 BUN (9 - 20 mg/dL) 27 H Creatinine (0.7 - 1.2 mg/dL) 0.7 Estimated GFR (>60 ml/min) > 60 Glucose (65 - 99 mg/dL) 96 Calcium (8.4 - 10.2 mg/dL) 8.1 L Phosphorus (2.5 - 4.5 mg/dL) 3.2 Magnesium (1.6 - 2.3 mg/dL) 1.6 Total Bilirubin (0.2 - 1.3 mg/dL) 2.6 H AST (17 - 59 U/L) 30 ALT (21 - 72 U/L) 34 Albumin (3.5 - 5.0 g/dL) 2.2 L Coagulation PT (9.4 - 12.5 SEC) Cancelled 17.9 H 16.3 H INR (0.90 - 1.17) Cancelled 1.71 H 1.56 H APTT (25 - 37 SEC) > 120 *H 48 H Hematology CBC w Diff NO MAN DIFF REQ WBC (4.8 - 10.8 /CUMM) 14.3 H RBC (4.70 - 6.10 /CUMM) 3.33 L Hgb (14.0 - 18.0 G/DL) 9.5 L Hct (42 - 52 %) 28.2 L MCV (80.0 - 94.0 FL) 84.6 MCH (27.0 - 31.0 PG) 28.5 RDW (11.5 - 14.5 %) 18.1 H Plt Count (130 - 400 /CUMM) 94 L MPV (7.4 - 10.4 FL) 9.5 Gran % (42.2 - 75.2 %) 82.1 H Lymphocytes % (20.5 - 51.1 %) 11.8 L Monocytes % (1.7 - 9.3 %) 3.0 Eosinophils % (0 - 5 %) 3.0 Basophils % (0.0 - 2.0 %) 0.1 Absolute Granulocytes (1.4 - 6.5 /CUMM) 11.7 H Absolute Lymphocytes (1.2 - 3.4 /CUMM) 1.7 Absolute Monocytes (0.10 - 0.60 /CUMM) 0.4 Absolute Eosinophils (0.0 - 0.7 /CUMM) 0.4 Absolute Basophils (0.0 - 0.2 /CUMM) 0 PUBS MCHC (33.0 - 37.0 G/DL) 33.7 Immunology Heparin-induced Plt Ab Pending Heparin-PF4 AB OD Pending 03/26 03/26 03/25 03/25 0715 0040 4028 1800 Chemistry Sodium (137 - 145 mmol/L) 146 H 146 H Potassium (3.5 - 5.1 mmol/L) 3.5 Chloride (98 - 107 mmol/L) 114 H Carbon Dioxide (22 - 30 mmol/L) 24 Anion Gap (5 - 16) 9 BUN (9 - 20 mg/dL) 34 H Creatinine (0.7 - 1.2 mg/dL) 0.9 Estimated GFR (>60 ml/min) > 60 Glucose (65 - 99 mg/dL) 120 H Calcium (8.4 - 10.2 mg/dL) 8.5 Phosphorus (2.5 - 4.5 mg/dL) 3.3 Magnesium (1.6 - 2.3 mg/dL) 2.2 Total Bilirubin (0.2 - 1.3 mg/dL) 3.1 H AST (17 - 59 U/L) 26 ALT (21 - 72 U/L) 43 Albumin (3.5 - 5.0 g/dL) 2.1 L Coagulation APTT (25 - 37 SEC) 89 H 68 H Hematology CBC w Diff MAN DIFF ORDERED WBC (4.8 - 10.8 /CUMM) 13.7 H RBC (4.70 - 6.10 /CUMM) 3.53 L Hgb (14.0 - 18.0 G/DL) 9.9 L Hct (42 - 52 %) 29.8 L MCV (80.0 - 94.0 FL) 84.5 MCH (27.0 - 31.0 PG) 28.1 RDW (11.5 - 14.5 %) 18.6 H Plt Count (130 - 400 /CUMM) 78 L MPV (7.4 - 10.4 FL) 10.1 Gran % (42.2 - 75.2 %) 87.9 H Lymphocytes % (20.5 - 51.1 %) 8.5 L Monocytes % (1.7 - 9.3 %) 1.2 L Eosinophils % (0 - 5 %) 2.3 Basophils % (0.0 - 2.0 %) 0.1 Absolute Granulocytes (1.4 - 6.5 /CUMM) 12.0 H Segmented Neutrophils (42.2 - 75.2 %) 79 H Band Neutrophils (0.0 - 5.0 %) 7 H Absolute Lymphocytes (1.2 - 3.4 /CUMM) 1.2 Lymphocytes (20.5 - 51.1 %) 10 L Monocytes (1.7 - 9.3 %) 2 Absolute Monocytes (0.10 - 0.60 /CUMM) 0.2 Eosinophils (0 - 5.0 %) 1 Absolute Eosinophils (0.0 - 0.7 /CUMM) 0.3 Absolute Basophils (0.0 - 0.2 /CUMM) 0 Metamyelocytes (0.0 - 1.0 %) 1 Platelet Estimate (ADEQUATE) DECREASED Hypochromic-Microcytic 2+ Poikilocytosis 2+ Anisocytosis 1+ Ovalocytes 2+ PUBS MCHC (33.0 - 37.0 G/DL) 33.2 Urines Urine Osmolality (300 - 1000 MOSM/KG) 453 Ur Random Creatinine (mg/dL) 30.5 Ur Random Sodium (30 - 90 mmol/L) 67 Ur Random Potassium (mmol/L) 51.3 Fraction Sodium Excret (<1% %) 1.8 H 03/25 03/25 1602 1510 Chemistry Sodium (137 - 145 mmol/L) 148 H Potassium (3.5 - 5.1 mmol/L) 4.6 Chloride (98 - 107 mmol/L) 115 H Carbon Dioxide (22 - 30 mmol/L) 21 L Anion Gap (5 - 16) 12 BUN (9 - 20 mg/dL) 39 H Creatinine (0.7 - 1.2 mg/dL) 1.2 Estimated GFR (>60 ml/min) 58 L Glucose (65 - 99 mg/dL) 125 H Calcium (8.4 - 10.2 mg/dL) 8.2 L Phosphorus (2.5 - 4.5 mg/dL) 4.2 Magnesium (1.6 - 2.3 mg/dL) 2.1 Total Bilirubin (0.2 - 1.3 mg/dL) 4.1 H AST (17 - 59 U/L) 31 ALT (21 - 72 U/L) 31 Albumin (3.5 - 5.0 g/dL) 2.2 L Hematology CBC w Diff MAN DIFF ORDERED WBC (4.8 - 10.8 /CUMM) 22.3 H RBC (4.70 - 6.10 /CUMM) 3.64 L Hgb (14.0 - 18.0 G/DL) 10.4 L Hct (42 - 52 %) 30.9 L MCV (80.0 - 94.0 FL) 84.9 MCH (27.0 - 31.0 PG) 28.5 RDW (11.5 - 14.5 %) 18.4 H Plt Count (130 - 400 /CUMM) 72 L MPV (7.4 - 10.4 FL) 9.0 Gran % (42.2 - 75.2 %) 95.3 H Lymphocytes % (20.5 - 51.1 %) 3.6 L Monocytes % (1.7 - 9.3 %) 0.1 L Eosinophils % (0 - 5 %) 0.9 Basophils % (0.0 - 2.0 %) 0.1 Absolute Granulocytes (1.4 - 6.5 /CUMM) 21.2 H Segmented Neutrophils (42.2 - 75.2 %) 92 H Band Neutrophils (0.0 - 5.0 %) 2 Absolute Lymphocytes (1.2 - 3.4 /CUMM) 0.8 L Lymphocytes (20.5 - 51.1 %) 3 L Monocytes (1.7 - 9.3 %) 3 Absolute Monocytes (0.10 - 0.60 /CUMM) 0 L Absolute Eosinophils (0.0 - 0.7 /CUMM) 0.2 Absolute Basophils (0.0 - 0.2 /CUMM) 0 Platelet Estimate (ADEQUATE) DECREASED Anisocytosis 1+ PUBS MCHC (33.0 - 37.0 G/DL) 33.5 Immunology Heparin-induced Plt Ab Pending Heparin-PF4 AB OD Pending Impression/Plan Impression/Plan Impression/Plan: General Appearance acutely ill, pale Skin No Rashes, Pale HEENT Atraumatic, sclera nonicteric NEck + JVD Cardiovascular S1, S2 present, tachycardic Lungs rhonci bilaterally Abdomen BS diminished, soft, Hester cath with gross purulent urine Extremities No Edema, Neuro: alert and awake with lethargy cxr IMPRESSION: 1. Evidence of mild pulmonary venous congestion, new since prior study. 2. Bibasilar nonspecific airspace opacities (left greater than right), may represent infiltrate, atelectasis or combination thereof. DICTATED BY: Fanta PHILLIPS,Samantha CT abd IMPRESSION: The gallbladder is slightly over distended. No calcified gallstone is seen. No definite pericholecystic inflammatory changes seen on this exam, considering limitations due to lack of intravenous contrast. Thickening of the bladder wall can be as a result of bladder outlet obstruction. The bladder is empty in the presence of indwelling catheter. Moderate amount of perivesical fat stranding extending to the lower abdomen also noted. Possibility of superimposed cystitis is not excluded. Clinical and lab correlation is suggested. Mild dilatation of bilateral ureters, left more than right can be functional as well. The appendix is not visualized and cannot be evaluated. Small bilateral pleural effusions and adjacent pulmonary opacities which could represent atelectasis. Clinical correlation for superimposed pneumonia is suggested. Right renal cortical hypodense lesion, could represent a cyst. This can be further evaluated by nonemergent ultrasound if indicated. DICTATED BY: Agustin PHILLIPS,Edson DATE/TIME DICTATED:03/22/17 / 1440 IMPRESSION This is an unfortunate elderly gentleman with significant Parkinson's, hypertension, permanent pacemaker, recurrent UTI with urinary outlet obstruction patient does self catheterize himself, recent gram-negative UTI now here with * Resolved Severe septic shock with gram-negative sepsis of urological origin slowly improving / and acalculus leyla aswell with altered lft now s/p perc leyla * Resolving Multiple organ failure with significantly elevated bilirubin, with evidence of acalculus leyla / ultrasound and abd ct did not reveal any sig stone / s/p perc leyla and has still sig indirect bilirubinemia * Bibasilar atelectasis unlikely that he has significant pneumonia / however pt does aspirate * Severe pyuria BPH/ stool impaction now s/p bm * Resolved Metabolic acidosis lactic acidosis due to septic shock * Resolving Acute kidney injury with chronic kidney disease * Atrial fibrillation with rapid ventricular response which is improving, patient has been on aspirin, and on warfarin, with supratherapeutic INR initially and was partially reversed for perc leyla, needs to be resumed * Improving electrolyte abnormality * Significant Parkinson's disease with extensive supratentorial white matter disease with 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
--- NOTE | 2017-03-27 11:47 | PN- Infect Dx ---
Subjective Subjective: Afebrile without complaints. Objective Last 24 Hrs of Vital Signs/I&O Vital Signs Date Time Temp Pulse Resp B/P B/P Pulse O2 O2 Flow FiO2 Mean Ox Delivery Rate 03/27 799 98.0 82 20 138/80 92 Nasal 2.0L Cannula 03/27 799 98 Nasal 2.0L Cannula 03/27 0000 97.4 79 16 130/76 98 Nasal 2.0L Cannula 03/27 0000 98 Nasal 2.0L Cannula 03/26 2207 89 130/76 03/26 1600 98.1 73 18 148/86 99 Nasal 2.0L Cannula 03/26 1600 99 Nasal 2.0L Cannula 03/26 1334 Nasal 2.0L Cannula Intake & Output 03/27 0000 Intake Total 646 1637 Output Total 1150 1510 Balance -504 127 Intake, IV 626 866 Intake, Other 350 Intake, Tube 401 Feeding Intake, Tube 20 20 Irrigant Number 0 Bowel Movements Output, 200 110 Drainage Output, Urine 950 1400 Physical Exam Other Physical Findings: He appears comfortable in no acute distress Lungs decreased breath sounds at the left base Heart regular rhythm with no murmur Abdomen is soft, nontender with positive bowel sounds Back no CVA tenderness Extremities no cyanosis, clubbing or edema Hester catheter is in place Results Last 24 Hours of Lab Results: Laboratory Tests 03/27 03/27 03/26 0500 0450 1915 Chemistry Sodium (137 - 145 mmol/L) 140 Potassium (3.5 - 5.1 mmol/L) 3.5 Chloride (98 - 107 mmol/L) 107 Carbon Dioxide (22 - 30 mmol/L) 26 Anion Gap (5 - 16) 7 BUN (9 - 20 mg/dL) 27 H Creatinine (0.7 - 1.2 mg/dL) 0.7 Estimated GFR (>60 ml/min) > 60 Glucose (65 - 99 mg/dL) 96 Calcium (8.4 - 10.2 mg/dL) 8.1 L Phosphorus (2.5 - 4.5 mg/dL) 3.2 Magnesium (1.6 - 2.3 mg/dL) 1.6 Total Bilirubin (0.2 - 1.3 mg/dL) 2.6 H AST (17 - 59 U/L) 30 ALT (21 - 72 U/L) 34 Albumin (3.5 - 5.0 g/dL) 2.2 L Coagulation PT (9.4 - 12.5 SEC) Cancelled 17.9 H 16.3 H INR (0.90 - 1.17) Cancelled 1.71 H 1.56 H APTT (25 - 37 SEC) > 120 *H 48 H Hematology CBC w Diff NO MAN DIFF REQ WBC (4.8 - 10.8 /CUMM) 14.3 H RBC (4.70 - 6.10 /CUMM) 3.33 L Hgb (14.0 - 18.0 G/DL) 9.5 L Hct (42 - 52 %) 28.2 L MCV (80.0 - 94.0 FL) 84.6 MCH (27.0 - 31.0 PG) 28.5 RDW (11.5 - 14.5 %) 18.1 H Plt Count (130 - 400 /CUMM) 94 L MPV (7.4 - 10.4 FL) 9.5 Gran % (42.2 - 75.2 %) 82.1 H Lymphocytes % (20.5 - 51.1 %) 11.8 L Monocytes % (1.7 - 9.3 %) 3.0 Eosinophils % (0 - 5 %) 3.0 Basophils % (0.0 - 2.0 %) 0.1 Absolute Granulocytes (1.4 - 6.5 /CUMM) 11.7 H Absolute Lymphocytes (1.2 - 3.4 /CUMM) 1.7 Absolute Monocytes (0.10 - 0.60 /CUMM) 0.4 Absolute Eosinophils (0.0 - 0.7 /CUMM) 0.4 Absolute Basophils (0.0 - 0.2 /CUMM) 0 PUBS MCHC (33.0 - 37.0 G/DL) 33.7 Immunology Heparin-induced Plt Ab Pending Heparin-PF4 AB OD Pending Last 24 Hours of [place] Results: Blood cultures March 23 negative Bile culture March 23 negative Assessment/Plan Impression: Stable with temperatures remaining normal and with white blood cell count continuing to decrease on Meropenem Day 7 of treatment for Escherichia coli sepsis, most likely of urological origin, with his urine cultures also positive for Escherichia coli, in addition to Enterococcus and Pseudomonas. Acalculous cholecystitis is felt to be less likely, now 4 days status post placement of a cholecystostomy tube, with his bile culture negative. His Hester catheter has been reinserted, with Urology comments noted. Suggestion: 1. Continue Meropenem
--- NOTE | 2017-03-27 11:59 | PN- Cardiology ---
Subjective Subjective: Resting comfortably. No chest pain or palpitations. Objective Vital Signs and I&Os Vital Signs Date Time Temp Pulse Resp B/P B/P Pulse O2 O2 Flow FiO2 Mean Ox Delivery Rate 03/27 799 98.0 82 20 138/80 92 Nasal 2.0L Cannula 03/27 08 98 Nasal 2.0L Cannula 03/27 0000 97.4 79 16 130/76 98 Nasal 2.0L Cannula 03/27 0000 98 Nasal 2.0L Cannula 03/26 2207 89 130/76 03/26 1600 98.1 73 18 148/86 99 Nasal 2.0L Cannula 03/26 1600 99 Nasal 2.0L Cannula 03/26 1334 Nasal 2.0L Cannula Intake & Output 03/27 0000 03/26 1600 03/26 0000 Intake Total 646 1637 1175 1400 694 Output Total 1150 1551 617 5095 2135 Balance -504 127 335 360 -1441 Intake, IV 626 866 635 880 452 Intake, Oral 0 Intake, Other 350 275 Intake, Tube 401 240 225 117 Feeding Intake, Tube 20 20 300 20 125 Irrigant Number 0 0 Bowel Movements Output, 200 110 90 90 110 Drainage Output, Urine 950 1400 430 564 1401 Patient 177 lb Weight Weight Bed scale Measurement Method Physical Exam: General: Alert, no distress Eyes: No obvious scleral icterus HEENT: NG tube in place Cardiovascular: Normal intensity S1/S2. Irregular, pacemaker noted Respiratory: No rales or rhonchi Abdomen: Soft, no obvious guarding; status post cholecystostomy tube Musculoskeletal: No clubbing or cyanosis noted; no edema Skin: Warm Neurologic: alert Current Medications: Current Medications Sig/Woodrow Start time Last Medication Dose Route Stop Time Status Admin Acetaminophen 1,000 MG ONCE ONE 03/27 0245 DC 03/27 N/A 1 UNIT IV 03/27 0259 0250 Acetaminophen 1,000 MG ONCE ONE 03/26 1715 DC 03/26 N/A 1 UNIT IV 03/26 1729 1723 Amlodipine Besylate 5 MG DAILY 03/25 1000 AC 03/26 PO 1037 Aspirin 81 MG DAILY 03/25 1000 AC 03/26 PO 1037 Atorvastatin Calcium 20 MG DAILY 03/25 1000 AC 03/26 PO 1037 Carbidopa/Levodopa 1 TAB TID 03/25 1000 AC 03/26 PO 2204 Dextrose/Water 1,000 ML Q20H 03/25 1115 DC 03/27 IV 0250 Glycerin 2 SPRAY Q2P PRN 03/27 0330 AC PO Heparin Sodium/ 25,000 UNIT Q24H 03/24 0915 AC 03/26 Dextrose IV 1548 Dextrose/Water 500 ML Magnesium Sulfate 1 GM ONCE ONE 03/27 1200 UNVr Dextrose/Water 100 ML IV 03/27 1559 Meropenem 1 GM IQ8 03/24 1600 AC 03/27 IV 0819 Metoprolol Tartrate 50 MG BID 03/24 1000 AC 03/26 PO 2207 Potassium Chloride 40 MEQ ONCE ONE 03/27 1200 UNVr PO 03/27 1201 Potassium Chloride 20 MEQ ONCE ONE 03/26 1800 DC 03/26 PO 03/26 1801 1717 Potassium Chloride 20 MEQ ONCE ONE 03/26 1245 DC 03/26 PO 03/26 1246 1421 Senna/Docusate Sodium 2 TAB DAILY PRN 03/25 1900 AC PO Sodium Chloride 2 SPRAY Q4P PRN 03/24 1600 AC 03/26 SHEYLA 2215 Warfarin Sodium 4 MG COUMADIN 1700 ONE 03/27 1700 AC PO 03/27 1701 Warfarin Sodium 3 MG .STK-MED ONE 03/26 1711 DC PO 03/26 1712 Warfarin Sodium 3 MG COUMADIN 1700 ONE 03/26 1700 DC 03/26 PO 03/26 1701 1718 Results Last 48 Hrs of Labs/Mics: Laboratory Tests 03/27/17 0500: PT Cancelled, INR Cancelled 03/27/17 0450: Anion Gap 7, Estimated GFR > 60, Glucose 96, Calcium 8.1 L, Phosphorus 3.2, Magnesium 1.6, Total Bilirubin 2.6 H, AST 30, ALT 34, Albumin 2.2 L, PT 17.9 H, INR 1.71 H, APTT > 120 *H, CBC w Diff NO MAN DIFF REQ, RBC 3.33 L, MCV 84.6 , MCH 28.5, RDW 18.1 H, MPV 9.5, Gran % 82.1 H, Lymphocytes % 11.8 L, Monocytes % 3.0, Eosinophils % 3.0, Basophils % 0.1, Absolute Granulocytes 11.7 H, Absolute Lymphocytes 1.7, Absolute Monocytes 0.4, Absolute Eosinophils 0.4, Absolute Basophils 0, PUBS MCHC 33.7, Heparin-induced Plt Ab Pending, Heparin- PF4 AB OD Pending 03/26/17 1915: PT 16.3 H, INR 1.56 H, APTT 48 H 03/26/17 0715: Anion Gap 9, Estimated GFR > 60, Glucose 120 H, Calcium 8.5, Phosphorus 3.3, Magnesium 2.2, Total Bilirubin 3.1 H, AST 26, ALT 43, Albumin 2.1 L, APTT 89 H, CBC w Diff MAN DIFF ORDERED, RBC 3.53 L, MCV 84.5, MCH 28.1, RDW 18.6 H, MPV 10.1, Gran % 87.9 H, Lymphocytes % 8.5 L, Monocytes % 1.2 L, Eosinophils % 2.3, Basophils % 0.1, Absolute Granulocytes 12.0 H, Segmented Neutrophils 79 H, Band Neutrophils 7 H, Absolute Lymphocytes 1.2, Lymphocytes 10 L, Monocytes 2, Absolute Monocytes 0.2, Eosinophils 1, Absolute Eosinophils 0.3, Absolute Basophils 0, Metamyelocytes 1, Platelet Estimate DECREASED, Hypochromic- Microcytic 2+, Poikilocytosis 2+, Anisocytosis 1+, Ovalocytes 2+, PSYCHIATRIC 33.2 03/26/17 0040: 03/25/17 2228: Urine Osmolality 453, Ur Random Creatinine 30.5, Ur Random Sodium 67, Ur Random Potassium 51.3, Fraction Sodium Excret 1.8 H 03/25/17 1800: APTT 68 H 03/25/17 1602: Anion Gap 12, Estimated GFR 58 L, Glucose 125 H, Calcium 8.2 L, Phosphorus 4.2, Magnesium 2.1, Total Bilirubin 4.1 H, AST 31, ALT 31, Albumin 2.2 L, CBC w Diff MAN DIFF ORDERED, RBC 3.64 L, MCV 84.9, MCH 28.5, RDW 18.4 H, MPV 9.0, Gran % 95.3 H, Lymphocytes % 3.6 L, Monocytes % 0.1 L, Eosinophils % 0.9, Basophils % 0.1, Absolute Granulocytes 21.2 H, Segmented Neutrophils 92 H, Band Neutrophils 2, Absolute Lymphocytes 0.8 L, Lymphocytes 3 L, Monocytes 3, Absolute Monocytes 0 L, Absolute Eosinophils 0.2, Absolute Basophils 0, Platelet Estimate DECREASED, Anisocytosis 1+, [facility] 33.5 03/25/17 1510: Heparin-induced Plt Ab Pending, Heparin-PF4 AB OD Pending Recent Imaging Studies: Telemetry tracings were personally reviewed and show atrial fibrillation with occasional pacing and occasional PVCs Assessment/Plan Assessment/Plan 1. Septic shock due to urosepsis versus acalculus cholecystitis 2. Elevated troponin likely due to supply/demand mismatch (Type 2 ME) 3. Acute kidney injury 4. Paroxysmal atrial fibrillation on warfarin 5. History of permanent pacemaker 6. History of TIA 7. History of coronary artery disease with remote PCI 8. History of hypertension 9. Parkinson's disease 10. Hematuria, resolved 11. Status post cholecystostomy tube Doing well and remains hemodynamically stable with controlled heart rate. Remains on heparin drip and INR currently subtherapeutic. No evidence of recurrent hematuria; continue daily warfarin while following INR levels. Joey Jason MD [facility] Continue telemetry? No
[2017-03-27 12:16] LABS: HEPARIN INDUCED PLATELET AB NEGATIVE (NEGATIVE)
[2017-03-27 15:02] LABS: PTT 115 SEC (25-37)
--- NOTE | 2017-03-27 15:44 | RADIOLOGY REPORT ---
EXAMINATION: XR MODIFIED BARIUM SWALLOW CLINICAL INFORMATION: Patient recently failed a modified barium swallow two days ago. Repeat evaluation. History of Parkinson's disease. COMPARISON: Modified barium swallow dated 03/24/2017. TECHNIQUE: A modified barium swallow was performed with speech pathologist in attendance. Pur?e and honey thick consistencies were given to the patient and the swallowing mechanism was observed fluoroscopically with several spot films taken using the last image hold feature. FLUOROSCOPY TIME: 2 minutes 24 seconds. FINDINGS: With all consistencies, the oropharyngeal phase of swallowing is disordered with difficulty in posterior oral bolus propagation and deglutition. Pooling of contrast is seen within the vallecula and transient penetration without aspiration and without sensation is seen. IMPRESSION: 1. Disordered oral phase of swallowing. 2. Transient penetration of contrast with no sensation noted repeatedly with puree and honey thick consistencies. 3. Pooling of contrast within the valleculae, not clearing on successive swallows. 4. Speech pathologist assessment issued separately.
[2017-03-27 16:00] VITALS: BP 112/64
[2017-03-27 23:19] LABS: PTT 65 SEC (25-37)
[2017-03-27 23:23] VITALS: BP 138/82
[2017-03-28 05:37] LABS: PT 15.2 SEC (9.4-12.5)
[2017-03-28 05:42] LABS: ABSOLUTE BASOPHIL COUNT 0 /CUMM (0.0-0.2); ABSOLUTE EOSINOPHIL COUNT 0.4 /CUMM (0.0-0.7); ABSOLUTE GRANULOCYTE CT 11.9 /CUMM (1.4-6.5); ABSOLUTE LYMPH COUNT 1.9 /CUMM (1.2-3.4); ABSOLUTE MONOCYTE COUNT 0.3 /CUMM (0.10-0.60); BASOPHIL % 0.2 % (0.0-2.0); EOSINOPHIL % 2.9 % (0-5); GRANULOCYTE % 81.5 % (42.2-75.2); HEMATOCRIT 28.2 % (42-52); MEAN CORPUSCULAR HGB 27.8 PG (27.0-31.0); MEAN CORPUSCULAR HGB CONC 32.6 G/DL (33.0-37.0); MEAN CORPUSCULAR VOLUME 85.3 FL (80.0-94.0); MEAN PLATELET VOLUME 10.5 FL (7.4-10.4); PLATELET COUNT 117 /CUMM (130-400); RBC DISTRIBUTION WIDTH 18.1 % (11.5-14.5); RED BLOOD CELL CT 3.31 /CUMM (4.70-6.10); WHITE BLOOD CELL COUNT 14.6 /CUMM (4.8-10.8)
[2017-03-28 08:00] VITALS: BP 120/80
--- NOTE | 2017-03-28 08:45 | PN- Resident CRCU ---
Gwen Valles 03/28/17 0844: Subjective HPI/CRCU Issues: #1 septic shock secondary to gram-negative sepsis(UTI versus acalculus cholecystitis-less likely) #2 elevated troponin likely due to supply/demand mismatch (Type 2 MS) #3 Questionable aspiration pneumonia versus healthcare associated pneumonia #4 Severe pyuria/BPH #5 Paroxysmal atrial fibrillation on warfarin #6 Acute kidney injury on chronic kidney disease #7 hyperbilirubinemia 24 Hour Events: No acute events overnight Objective Vital Signs & I&O Last 8 Hrs of Vitals and I&O: Intake & Output 03/28 1600 Intake Total 926 Output Total 1030 Balance -104 Intake, IV 316 Intake, Other 120 Intake, Tube 240 Feeding Intake, Tube 250 Irrigant Output, 130 Drainage Output, Urine 900 Exam General Appearance: well developed/nourished, no apparent distress, alert, awake , comfortable Head: atraumatic, normal appearance Ears, Nose, Throat: normal pharynx, normal ENT inspection, hearing grossly normal, NGT in place Neck: normal inspection, supple, full range of motion Respiratory: normal breath sounds, chest non-tender, no respiratory distress Cardiovascular: regular rate/rhythm Gastrointestinal: normal bowel sounds, soft, non-tender, Percutaneous drainage intact with dried dark brown contents surrounding incision site. No warmth, hematoma Extremities: normal inspection, no edema Current Medications: Current Medications Sig/Woodrow Start time Last Medication Dose Route Stop Time Status Admin Acetaminophen 1,000 MG ONCE ONE 03/28 1645 DC 03/28 N/A 1 UNIT IV 03/28 1659 1642 Acetaminophen 1,000 MG ONCE ONE 03/28 1130 DC 03/28 N/A 1 UNIT IV 03/28 1144 1140 Amlodipine Besylate 5 MG DAILY 03/25 1000 AC 03/28 PO 1036 Aspirin 81 MG DAILY 03/25 1000 AC 03/28 PO 1036 Atorvastatin Calcium 20 MG DAILY 03/25 1000 AC 03/28 PO 1036 Carbidopa/Levodopa 1 TAB TID 03/25 1000 AC 03/28 PO 1533 Glycerin 2 SPRAY Q2P PRN 03/27 0330 AC PO Heparin Sodium/ 25,000 UNIT Q24H 03/24 0915 AC 03/27 Dextrose IV 1232 Dextrose/Water 500 ML Magnesium Sulfate 1 GM Q2H 03/28 0630 DC 03/28 Dextrose/Water 100 ML IV 01/06 1029 0830 Melatonin 5 MG AT BEDTIME 03/28 2200 AC PO Meropenem 1 GM IQ8 03/24 1600 AC 03/28 IV 1534 Metoprolol Tartrate 50 MG BID 03/24 1000 AC 03/28 PO 1036 Potassium Chloride 40 MEQ BID 03/28 1000 CAN PO 03/28 2201 Potassium Chloride 40 MEQ BID 03/28 1000 AC 03/28 PO 03/28 2201 1036 Senna/Docusate Sodium 2 TAB DAILY PRN 03/25 1900 AC 03/28 PO 1534 Sodium Chloride 2 SPRAY Q4P PRN 03/24 1600 AC 03/26 SHEYLA 2215 Warfarin Sodium 6 MG COUMADIN 1700 ONE 03/28 1700 DC 03/28 PO 03/28 1701 1533 Impression/Plan Impression/Problem List Impression: Mr. Torres is a 79-year-old gentleman with past medical history of Parkinson's disease, hypertension, permanent pacemaker, BPH and urinary retention, current admission for septic shock of urologic origin requiring pressors. Active issues: #1 septic shock secondary to gram-negative sepsis(UTI versus acalculus cholecystitis-less likely) #2 elevated troponin likely due to supply/demand mismatch (Type 2 MS) #3 Questionable aspiration pneumonia versus healthcare associated pneumonia #4 Severe pyuria/BPH #5 Paroxysmal atrial fibrillation on warfarin #6 Acute kidney injury on chronic kidney disease #7 hyperbilirubinemia Plan Continue home meds Continue IV Heparin for PAF Continue Warfarin bridging, dose per INR Continue Meropenem for Pseudomonas coverage Monitor and replete Potassium and Magnesium Continue Tube feeds Continue Hester Cardiology recommendations appreciated ID recommendations appreciated GI recommendations appreciated Urology recommendations appreciated Code: DNR/DNI Problem List: 1. UTI (urinary tract infection) 2. Sepsis 3. Atrial fibrillation with RVR 4. DAISHA (acute kidney injury) 5. Hypokalemia Pain Ratin Tomorrow's Labs & Rationales: CBC, Bundle, PT/INR Plan DVT/Prophylaxis: mechanical, pharmacological Kenn Foster 03/28/17 1302: Attending MD Review Statement Attending Sign Off Attending Cosign Statement: I have: examined this patient, reviewed al EMR data, personally reviewd images, discussd w/resident/PA/[employer], discussed mgmt plan w/mali, discussed mgmt plan w/CM. Other Findings: 82 o/m with pmh Parkinson's, hypertension, permanent pacemaker, recurrent UTI with urinary outlet obstruction patient does self catheterize himself, recent gram-negative UTI now here with Resolved Severe septic shock with gram-negative sepsis of urological origin slowly improving with acalculous cholecystitis. 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 Patient seen/examined bedside in ICU. No new complaints. Can do bed exercises. Decubiti ulcer precautions. Aspiration precautions. RECOMMENDATION Continue tube feeding, MBS, IVF Continue intravenous antibiotics, ID following Keep potassium 4 Check lfts daily Anticoag per cardio, cont warfarin and once inr is more than 2.0, then dc heparin Follow urology rec DNR and DNI.
[2017-03-28 12:57] LABS: PTT 72 SEC (25-37)
[2017-03-28 16:00] VITALS: BP 120/70
[2017-03-28 23:23] VITALS: BP 112/62
[2017-03-29 00:41] LABS: PTT 76 SEC (25-37)
[2017-03-29 05:08] LABS: ABSOLUTE BASOPHIL COUNT 0 /CUMM (0.0-0.2); ABSOLUTE EOSINOPHIL COUNT 0.4 /CUMM (0.0-0.7); ABSOLUTE GRANULOCYTE CT 11.5 /CUMM (1.4-6.5); ABSOLUTE LYMPH COUNT 1.8 /CUMM (1.2-3.4); ABSOLUTE MONOCYTE COUNT 0.5 /CUMM (0.10-0.60); BASOPHIL % 0.2 % (0.0-2.0); HEMATOCRIT 25.7 % (42-52); MEAN CORPUSCULAR HGB 28.3 PG (27.0-31.0); MEAN CORPUSCULAR HGB CONC 33.2 G/DL (33.0-37.0); MEAN CORPUSCULAR VOLUME 85.2 FL (80.0-94.0); MEAN PLATELET VOLUME 10.1 FL (7.4-10.4); PLATELET COUNT 168 /CUMM (130-400); RBC DISTRIBUTION WIDTH 18.3 % (11.5-14.5); RED BLOOD CELL CT 3.01 /CUMM (4.70-6.10); WHITE BLOOD CELL COUNT 14.3 /CUMM (4.8-10.8)
[2017-03-29 08:00] VITALS: BP 104/62
--- NOTE | 2017-03-29 08:23 | PN- Resident CRCU ---
Bobrishiviktorcarlos aEugene 03/29/17 0823: Subjective HPI/CRCU Issues: #1 septic shock secondary to gram-negative sepsis(UTI versus acalculus cholecystitis-less likely) #2 elevated troponin likely due to supply/demand mismatch (Type 2 DE) #3 Questionable aspiration pneumonia versus healthcare associated pneumonia #4 Severe pyuria/BPH #5 Paroxysmal atrial fibrillation on warfarin #6 Acute kidney injury on chronic kidney disease #7 hyperbilirubinemia 24 Hour Events: Seen and examined patient, lying comfortably in bed. Complains of body aches and would like to have some Tylenol. States that he slept well last night with melatonin. Denies fever, chills, chest pain, shortness of breath, abdominal pain. Objective Vital Signs & I&O Last 8 Hrs of Vitals and I&O: Intake & Output 03/29 1600 Intake Total 1400 Output Total 805 Balance 595 Intake, IV 350 Intake, Tube 640 Feeding Intake, Tube 410 Irrigant Output, 105 Drainage Output, Urine 700 Exam General Appearance: alert, awake, comfortable Respiratory: normal breath sounds Cardiovascular: regular rate/rhythm Gastrointestinal: normal bowel sounds, soft, non-tender Extremities: no edema Current Medications: Current Medications Sig/Woodrow Start time Last Medication Dose Route Stop Time Status Admin Acetaminophen 650 MG Q4P PRN 03/29 1800 AC PO Acetaminophen 1,000 MG Q6P PRN 03/29 1545 DC N/A 1 UNIT IV 03/29 1700 Acetaminophen 1,000 MG Q6P PRN 03/28 2345 DC 03/29 N/A 1 UNIT IV 1009 Amlodipine Besylate 5 MG DAILY 03/25 1000 AC 03/29 PO 1008 Aspirin 81 MG DAILY 03/25 1000 AC 03/29 PO 1008 Atorvastatin Calcium 20 MG DAILY 03/25 1000 AC 03/29 PO 1008 Carbidopa/Levodopa 1 TAB TID 03/25 1000 AC 03/29 PO 1541 Glycerin 2 SPRAY Q2P PRN 03/27 0330 AC PO Heparin Sodium/ 25,000 UNIT Q24H 03/24 0915 AC 03/28 Dextrose IV 2154 Dextrose/Water 500 ML Magnesium Sulfate 1 GM Q2H 03/29 1015 DC 03/29 Dextrose/Water 100 ML IV 03/29 1414 1221 Melatonin 5 MG AT BEDTIME 03/28 2200 AC 03/28 PO 2139 Meropenem 1 GM IQ8 03/24 1600 AC 03/29 IV 1540 Metoprolol Tartrate 50 MG BID 03/24 1000 AC 03/29 PO 1008 Potassium Chloride 40 MEQ BID 03/28 1000 DC 03/28 PO 03/28 2201 2138 Senna/Docusate Sodium 2 TAB DAILY PRN 03/25 1900 AC 03/28 PO 1534 Sodium Chloride 2 SPRAY Q4P PRN 03/24 1600 AC 03/26 SHEYLA 2215 Warfarin Sodium 5 MG COUMADIN 1700 ONE 03/29 1700 DC 03/29 PO 03/29 1701 1600 Impression/Plan Impression/Problem List Impression: 79-year-old gentleman with past medical history of Parkinson's disease, hypertension, permanent pacemaker, BPH and urinary retention, current admission for septic shock of urologic origin requiring pressors. Urine cultures have grown E. coli, enterococcus and pseudomonas. Blood cultures have also been positive. A CT of the abd and pelvis showed no evidence of hydronephrosis but a dilated L ureter and a thick-walled bladder. Assessment: #1 septic shock secondary to gram-negative sepsis(UTI versus acalculus cholecystitis-less likely) #2 elevated troponin likely due to supply/demand mismatch (Type 2 DE) #3 Questionable aspiration pneumonia versus healthcare associated pneumonia #4 Severe pyuria/BPH #5 Paroxysmal atrial fibrillation on warfarin #6 Acute kidney injury on chronic kidney disease #7 hyperbilirubinemia Plan: - on meropenem 1 g every 8 as recommended by ID. 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 INR 1.92 to today will dose Coumadin accordingly - urology on board, appreciate recomendation, finesteride cannot be given via the tube. -Per GI less likely to be acalculus cholecyctitis and no further imaging is needed -on tube feeds, failed repeat MDS on mar 27 2017 -We'll supplement his electrolytes as needed -DVT prophylaxis on heparin drip/coumadin bridge -pain control with tyelenol -Patient DNI and DNR -telemetry hold Problem List: 1. Sepsis 2. UTI (urinary tract infection) Pain Ratin Tomorrow's Labs & Rationales: cbc/icu /inr Plan DVT/Prophylaxis: mechanical, pharmacological Kenn Foster 03/29/17 1035: Attending MD Review Statement Attending Sign Off Attending Cosign Statement: I have: examined this patient, reviewed al EMR data, personally reviewd images, discussd w/resident/PA/[employer], discussed mgmt plan w/mali, discussed mgmt plan w/CM. Other Findings: 82 o/m with pmh Parkinson's, hypertension, permanent pacemaker, recurrent UTI with urinary outlet obstruction patient does self catheterize himself, recent gram-negative UTI now here with Resolved Severe septic shock with gram-negative sepsis of urological origin slowly improving with acalculous cholecystitis. 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 Patient seen/examined bedside in ICU. No new complaints. Can do bed exercises. Decubiti ulcer precautions. Aspiration precautions. RECOMMENDATION Continue tube feeding, MBS with increased risk of aspiration, IVF ?PEG tube. f/u GI. Continue intravenous antibiotics, ID following Keep potassium 4 Check lfts daily Anticoag per cardio, cont warfarin and once inr is more than 2.0, then dc heparin. Follow urology rec. DNR and DNI.
--- NOTE | 2017-03-29 09:01 | PN- Infect Dx ---
Subjective Subjective: Afebrile without complaints Objective Last 24 Hrs of Vital Signs/I&O Vital Signs Date Time Temp Pulse Resp B/P B/P Pulse O2 O2 Flow FiO2 Mean Ox Delivery Rate 03/29 0000 98 Room Air 03/28 2323 98.4 81 18 112/62 98 Room Air 03/28 2139 76 110/68 03/28 1600 98.1 80 20 120/70 94 Room Air 03/28 1036 80 120/80 Intake & Output 03/29 1600 03/29 0800 03/29 0000 Intake Total 736.4 696.8 Output Total 850 540 Balance -113.6 156.8 Intake, IV 114.4 116.8 Intake, Oral 0 0 Intake, Other 250 225 Intake, Tube 372 355 Feeding Number 0 0 Bowel Movements Output, 100 40 Drainage Output, Urine 750 500 Physical Exam Other Physical Findings: He appears comfortable in no acute distress HEENT NG tube in place Lungs decreased breath sounds bilaterally Heart irregular rhythm with no murmur Abdomen is distended, nontender with positive bowel sounds; cholecystostomy tube in place with 210 mL output yesterday Back no CVA tenderness Extremities no cyanosis, clubbing or edema Hester catheter remains in place Results Last 24 Hours of Lab Results: Laboratory Tests 03/29 03/29 03/29 0600 0405 0012 Chemistry Sodium (137 - 145 mmol/L) 138 Potassium (3.5 - 5.1 mmol/L) 4.2 Chloride (98 - 107 mmol/L) 105 Carbon Dioxide (22 - 30 mmol/L) 28 Anion Gap (5 - 16) 6 BUN (9 - 20 mg/dL) 24 H Creatinine (0.7 - 1.2 mg/dL) 0.7 Estimated GFR (>60 ml/min) > 60 BUN/Creatinine Ratio (7 - 25 %) 34.3 H Magnesium (1.6 - 2.3 mg/dL) 1.8 Coagulation PT (9.4 - 12.5 SEC) Cancelled 20.0 H INR (0.90 - 1.17) Cancelled 1.92 H APTT (25 - 37 SEC) 76 H Hematology CBC w Diff NO MAN DIFF REQ WBC (4.8 - 10.8 /CUMM) 14.3 H RBC (4.70 - 6.10 /CUMM) 3.01 L Hgb (14.0 - 18.0 G/DL) 8.5 L Hct (42 - 52 %) 25.7 L MCV (80.0 - 94.0 FL) 85.2 MCH (27.0 - 31.0 PG) 28.3 RDW (11.5 - 14.5 %) 18.3 H Plt Count (130 - 400 /CUMM) 168 MPV (7.4 - 10.4 FL) 10.1 Gran % (42.2 - 75.2 %) 81.0 H Lymphocytes % (20.5 - 51.1 %) 12.5 L Monocytes % (1.7 - 9.3 %) 3.3 Eosinophils % (0 - 5 %) 3.0 Basophils % (0.0 - 2.0 %) 0.2 Absolute Granulocytes (1.4 - 6.5 /CUMM) 11.5 H Absolute Lymphocytes (1.2 - 3.4 /CUMM) 1.8 Absolute Monocytes (0.10 - 0.60 /CUMM) 0.5 Absolute Eosinophils (0.0 - 0.7 /CUMM) 0.4 Absolute Basophils (0.0 - 0.2 /CUMM) 0 PUBS MCHC (33.0 - 37.0 G/DL) 33.2 03/28 1239 Coagulation APTT (25 - 37 SEC) 72 H Last 24 Hours of [place]on Results: No new cultures Recent Imaging Studies: Modified barium swallow March 27 disordered oropharyngeal phase of swallowing, with pooling of contrast within the valleculae and transient penetration Assessment/Plan Impression: Stable with temperatures remaining normal and white blood cell count markedly decreased, though still mildly elevated, on Meropenem Day 9 of treatment for Escherichia coli sepsis, most likely of urological origin, with his urine cultures also positive for Escherichia coli in addition to Enterococcus and Pseudomonas. Acalculous cholecystitis is felt to be less likely, now 6 days status post placement of a cholecystostomy tube, with his bile culture negative. Swallowing evaluation noted, with patient felt to be at increased risk for aspiration. Suggestion: 1. Further management of his nutrition per Medicine 2. Continue Meropenem
[2017-03-29 13:27] LABS: PTT 59 SEC (25-37)
[2017-03-29 16:00] VITALS: BP 110/80
[2017-03-29 21:10] LABS: PTT 78 SEC (25-37)
[2017-03-29 22:00] VITALS: BP 132/70
[2017-03-30 05:52] LABS: PT 30.1 SEC (9.4-12.5)
[2017-03-30 05:53] LABS: ABSOLUTE BASOPHIL COUNT 0 /CUMM (0.0-0.2); ABSOLUTE EOSINOPHIL COUNT 0.4 /CUMM (0.0-0.7); ABSOLUTE LYMPH COUNT 1.8 /CUMM (1.2-3.4); ABSOLUTE MONOCYTE COUNT 0.3 /CUMM (0.10-0.60); BASOPHIL % 0.3 % (0.0-2.0); EOSINOPHIL % 3.1 % (0-5); GRANULOCYTE % 79.8 % (42.2-75.2); HEMATOCRIT 21.8 % (42-52); MEAN CORPUSCULAR HGB 28.5 PG (27.0-31.0); MEAN CORPUSCULAR HGB CONC 33.5 G/DL (33.0-37.0); MEAN CORPUSCULAR VOLUME 85.1 FL (80.0-94.0); MEAN PLATELET VOLUME 10.1 FL (7.4-10.4); PLATELET COUNT 220 /CUMM (130-400); RBC DISTRIBUTION WIDTH 18.5 % (11.5-14.5); RED BLOOD CELL CT 2.56 /CUMM (4.70-6.10); WHITE BLOOD CELL COUNT 12.6 /CUMM (4.8-10.8)
[2017-03-30 06:00] VITALS: BP 110/54
--- NOTE | 2017-03-30 07:15 | PN- Housestaff ---
See Addendum Subjective Follow-up For: #1 septic shock secondary to gram-negative sepsis(UTI versus acalculus cholecystitis-less likely) #2 elevated troponin likely due to supply/demand mismatch (Type 2 [place]) #3 Questionable aspiration pneumonia versus healthcare associated pneumonia #4 Severe pyuria/BPH #5 Paroxysmal atrial fibrillation on warfarin #6 Acute kidney injury on chronic kidney disease #7 hyperbilirubinemia Subjective: Mr Torres was seen and examined this morning. He appears comfortable in bed. Did not have any complaints. States that he feels better and is hoping he can have something to drink. Sitter was at bedside. Report from overnight stated that he did not get much sleep. He denies any fever, chills, nausea, vomiting or any abdominal pain. Review of Systems Constitutional: Reports: see HPI. Objective Last 24 Hrs of Vital Signs/I&O Vital Signs Date Time Temp Pulse Resp B/P B/P Pulse O2 O2 Flow FiO2 Mean Ox Delivery Rate 03/30 599 98.0 88 16 110/54 95 Room Air 03/30 0000 Room Air 03/29 2200 98.0 86 20 132/70 98 Room Air 03/29 2058 86 132/70 03/29 1600 89.0 89 20 110/80 95 Room Air 03/29 1008 90 120/70 03/29 0800 Room Air 03/29 08 99.0 96 18 104/62 97 Room Air Intake & Output 03/30 0000 03/29 1600 Intake Total 980 636.2 1400 Output Total 665 1100 805 Balance 315 -463.8 595 Intake, IV 170 71.2 350 Intake, Oral 120 Intake, Tube 560 320 640 Feeding Intake, Tube 250 125 410 Irrigant Output, 165 100 105 Drainage Output, Urine 500 1000 700 Physical Exam General Appearance: Alert, Cooperative, No Acute Distress, Oriented to person and time. Lymphatic: Cervical nl Cardiovascular: Normal S1, Normal S2, Irregularly Irregular Lungs: Clear to Auscultation Abdomen: Normal Bowel Sounds, Soft, No Tenderness Neurological: Normal Speech Extremities: No Edema Vascular: Normal Pulses Current Medications: Current Medications Sig/Woodrow Start time Last Medication Dose Route Stop Time Status Admin Acetaminophen 1,000 MG ONCE ONE 03/29 2345 DC 03/30 N/A 1 UNIT IV 03/29 2359 0001 Acetaminophen 650 MG Q4P PRN 03/29 1800 AC PO Acetaminophen 1,000 MG Q6P PRN 03/29 1545 DC N/A 1 UNIT IV 03/29 1700 Acetaminophen 1,000 MG Q6P PRN 03/28 2345 DC 03/29 N/A 1 UNIT IV 1009 Amlodipine Besylate 5 MG DAILY 03/25 1000 AC 03/29 PO 1008 Aspirin 81 MG DAILY 03/25 1000 AC 03/29 PO 1008 Atorvastatin Calcium 20 MG DAILY 03/25 1000 AC 03/29 PO 1008 Carbidopa/Levodopa 1 TAB TID 03/25 1000 AC 03/29 PO 2058 Glycerin 2 SPRAY Q2P PRN 03/27 0330 AC PO Heparin Sodium/ 25,000 UNIT Q24H 03/24 0915 DC 03/30 Dextrose IV 0542 Dextrose/Water 500 ML Magnesium Sulfate 1 GM Q2H 03/29 1015 DC 03/29 Dextrose/Water 100 ML IV 03/29 1414 1221 Melatonin 5 MG AT BEDTIME 03/28 2200 AC 03/29 PO 205 Meropenem 1 GM IQ8 03/24 1600 AC 03/30 IV 0002 Metoprolol Tartrate 50 MG BID 03/24 1000 AC 03/29 PO 2058 Morphine Sulfate 1 MG Q4 HRS NEEDED PRN 03/30 0330 AC 03/30 IV 0335 Phosphate 250 MG ONCE ONE 03/30 0800 AC PO 03/30 0801 Polyethylene Glycol 17 GM ONCE ONE 03/30 0745 DC PO 03/30 0746 Potassium Chloride 20 MEQ ONCE ONE 03/30 1200 AC PO 03/30 1201 Potassium Chloride 40 MEQ ONCE ONE 03/30 0745 DC PO 03/30 0746 Potassium Chloride 10 MEQ ONCE ONE 03/30 0715 CAN IV 03/30 0716 Potassium Phosphate 15 mMol ONE ONE 03/30 0715 CAN Sodium Chloride 250 ML IV 03/30 1119 Senna/Docusate Sodium 2 TAB DAILY PRN 03/25 1900 AC 03/28 PO 1534 Sodium Chloride 2 SPRAY Q4P PRN 03/24 1600 AC 03/26 SHEYLA 2215 Warfarin Sodium 5 MG COUMADIN 1700 ONE 03/29 1700 DC 03/29 PO 03/29 1701 1600 Last 24 Hrs of Lab/Travon Results Last 24 Hrs of Labs/Mics: Laboratory Tests 03/30/17 0400: Anion Gap 9, Estimated GFR > 60, Glucose 94, Calcium 8.1 L, Phosphorus 3.0, Magnesium 1.9, Total Bilirubin 1.2, AST 29, ALT 35, Albumin 2.1 L, PT 30.1 H, INR 2.90 H, CBC w Diff NO MAN DIFF REQ, RBC 2.56 L, MCV 85.1, MCH 28.5, RDW 18.5 H, MPV 10.1, Gran % 79.8 H, Lymphocytes % 14.0 L, Monocytes % 2.8, Eosinophils % 3.1, Basophils % 0.3, Absolute Granulocytes 10.0 H, Absolute Lymphocytes 1.8, Absolute Monocytes 0.3, Absolute Eosinophils 0.4, Absolute Basophils 0, PUBS MCHC 33.5 03/29/17 1945: APTT 78 H 03/29/17 1215: APTT 59 H Assessment/Plan Assessment: Ms Torres is a 79-year-old gentleman with past medical history of Parkinson's disease, hypertension, permanent pacemaker, BPH and urinary retention, BIBA from [facility] after being found unresponsive. He has subsequently responded to medical therapy and intervention. Problem List: Septic shock secondary to Ecoli sepsis, Urine cultures + enterococcus and Pseudomonas. Metabolic acidosis DAISHA on CKD Atrial fibrillation now on coumadin Hyperbilirubinemia Plan: On meropenem 1 g every 8 hours as recommended by ID. -INR this a.m. 2.90. Subsequently discontinued heparin drip. Will dose warfarin this evening 3.5 milligrams. Monitor INR in AM. Urology on board, appreciate recomendation Per GI less likely to be acalculus cholecyctitis and no further imaging is needed, will sign off for now, they maybe consulted on for placement of a PEG tube. -On tube feeds, this was changed to Jevity 1.2 failed repeat MBS on Mar 27 2017. May consider repeating MBS. Continue to monitor residuals. -We'll supplement his electrolytes as needed -DVT prophylaxis coumadin -Pain control with tyelenol -Patient DNI and DNR -General Medicine Hold Problem List: 1. DAISHA (acute kidney injury) 2. Atrial fibrillation with RVR 3. Sepsis Pain Ratin Pain Location: No Pain Pain Goal: Remain pain free Pain Plan: Acetaminophen and Morphine PRN Tomorrow's Labs & Rationales: CBC BEP
--- NOTE | 2017-03-30 08:12 | PN- Urology ---
Subjective Subjective: No acute distress Objective Vital Signs and I&Os Vital Signs Date Time Temp Pulse Resp B/P B/P Pulse O2 O2 Flow FiO2 Mean Ox Delivery Rate 03/30 0600 98.0 88 16 110/54 95 Room Air 03/30 0000 Room Air 03/29 2200 98.0 86 20 132/70 98 Room Air 03/29 2058 86 132/70 03/29 1600 89.0 89 20 110/80 95 Room Air 03/29 1008 90 120/70 Intake & Output 03/30 0000 03/29 0000 Intake Total 980 636.2 1400 736.4 696.8 Output Total 665 1100 805 850 540 Balance 315 -463.8 595 -113.6 156.8 Intake, IV 170 71.2 350 114.4 116.8 Intake, Oral 120 0 0 Intake, Other 250 225 Intake, Tube 560 320 640 372 355 Feeding Intake, Tube 250 125 410 Irrigant Number 0 0 Bowel Movements Output, 165 100 105 100 40 Drainage Output, Urine 500 1000 700 750 500 Abd: soft and non tender Genitalia: lopez in place. Draining clear urine Laboratory Tests 03/30 03/29 03/29 0400 1945 1215 Chemistry Sodium (137 - 145 mmol/L) 139 Potassium (3.5 - 5.1 mmol/L) 3.8 Chloride (98 - 107 mmol/L) 105 Carbon Dioxide (22 - 30 mmol/L) 26 Anion Gap (5 - 16) 9 BUN (9 - 20 mg/dL) 27 H Creatinine (0.7 - 1.2 mg/dL) 0.7 Estimated GFR (>60 ml/min) > 60 Glucose (65 - 99 mg/dL) 94 Calcium (8.4 - 10.2 mg/dL) 8.1 L Phosphorus (2.5 - 4.5 mg/dL) 3.0 Magnesium (1.6 - 2.3 mg/dL) 1.9 Total Bilirubin (0.2 - 1.3 mg/dL) 1.2 AST (17 - 59 U/L) 29 ALT (21 - 72 U/L) 35 Albumin (3.5 - 5.0 g/dL) 2.1 L Coagulation PT (9.4 - 12.5 SEC) 30.1 H INR (0.90 - 1.17) 2.90 H APTT (25 - 37 SEC) 78 H 59 H Hematology CBC w Diff NO MAN DIFF REQ WBC (4.8 - 10.8 /CUMM) 12.6 H RBC (4.70 - 6.10 /CUMM) 2.56 L Hgb (14.0 - 18.0 G/DL) 7.3 *L Hct (42 - 52 %) 21.8 L MCV (80.0 - 94.0 FL) 85.1 MCH (27.0 - 31.0 PG) 28.5 RDW (11.5 - 14.5 %) 18.5 H Plt Count (130 - 400 /CUMM) 220 MPV (7.4 - 10.4 FL) 10.1 Gran % (42.2 - 75.2 %) 79.8 H Lymphocytes % (20.5 - 51.1 %) 14.0 L Monocytes % (1.7 - 9.3 %) 2.8 Eosinophils % (0 - 5 %) 3.1 Basophils % (0.0 - 2.0 %) 0.3 Absolute Granulocytes (1.4 - 6.5 /CUMM) 10.0 H Absolute Lymphocytes (1.2 - 3.4 /CUMM) 1.8 Absolute Monocytes (0.10 - 0.60 /CUMM) 0.3 Absolute Eosinophils (0.0 - 0.7 /CUMM) 0.4 Absolute Basophils (0.0 - 0.2 /CUMM) 0 PUBS MCHC (33.0 - 37.0 G/DL) 33.5 WBC count slowly decreasing Assessment/Plan Assessment/Plan Imp: 1. Urosepsis, slowly improving 2. Neurogenic bladder, previously on intermittent cath 3. Dilated L ureter. Chronic. No evidence of obstruction on w/u in 2016 Plan: 1. Abx per ID 2. Since lopez was difficult to insert would leave in place for now. Will plan voiding trial later this week but I suspect he will require intermittent cath
[2017-03-30 11:31] LABS: HEPARIN INDUCED PLATELET AB NEGATIVE (NEGATIVE)
--- NOTE | 2017-03-30 11:56 | PN- Infect Dx ---
Subjective Subjective: Afebrile without complaints Objective Last 24 Hrs of Vital Signs/I&O Vital Signs Date Time Temp Pulse Resp B/P B/P Pulse O2 O2 Flow FiO2 Mean Ox Delivery Rate 03/30 935 88 110/54 03/30 934 88 110/54 03/30 0600 98.0 88 16 110/54 95 Room Air 03/30 0000 Room Air 03/29 2200 98.0 86 20 132/70 98 Room Air 03/29 2058 86 132/70 03/29 1600 89.0 89 20 110/80 95 Room Air Intake & Output 03/30 1600 03/30 0803/30 0000 Intake Total 980 636.2 Output Total 665 1100 Balance 315 -463.8 Intake, IV 170 71.2 Intake, Oral 120 Intake, Tube 560 320 Feeding Intake, Tube 250 125 Irrigant Output, 165 100 Drainage Output, Urine 500 1000 Physical Exam Other Physical Findings: He appears comfortable in no acute distress HEENT NG tube in place Lungs are clear Heart irregular rhythm with no murmur Abdomen is soft, nontender with positive bowel sounds Extremities no cyanosis, clubbing or edema Hester catheter remains in place Results Last 24 Hours of Lab Results: Laboratory Tests 03/30 03/29 03/29 0400 1945 1215 Chemistry Sodium (137 - 145 mmol/L) 139 Potassium (3.5 - 5.1 mmol/L) 3.8 Chloride (98 - 107 mmol/L) 105 Carbon Dioxide (22 - 30 mmol/L) 26 Anion Gap (5 - 16) 9 BUN (9 - 20 mg/dL) 27 H Creatinine (0.7 - 1.2 mg/dL) 0.7 Estimated GFR (>60 ml/min) > 60 Glucose (65 - 99 mg/dL) 94 Calcium (8.4 - 10.2 mg/dL) 8.1 L Phosphorus (2.5 - 4.5 mg/dL) 3.0 Magnesium (1.6 - 2.3 mg/dL) 1.9 Total Bilirubin (0.2 - 1.3 mg/dL) 1.2 AST (17 - 59 U/L) 29 ALT (21 - 72 U/L) 35 Albumin (3.5 - 5.0 g/dL) 2.1 L Coagulation PT (9.4 - 12.5 SEC) 30.1 H INR (0.90 - 1.17) 2.90 H APTT (25 - 37 SEC) 78 H 59 H Hematology CBC w Diff NO MAN DIFF REQ WBC (4.8 - 10.8 /CUMM) 12.6 H RBC (4.70 - 6.10 /CUMM) 2.56 L Hgb (14.0 - 18.0 G/DL) 7.3 *L Hct (42 - 52 %) 21.8 L MCV (80.0 - 94.0 FL) 85.1 MCH (27.0 - 31.0 PG) 28.5 RDW (11.5 - 14.5 %) 18.5 H Plt Count (130 - 400 /CUMM) 220 MPV (7.4 - 10.4 FL) 10.1 Gran % (42.2 - 75.2 %) 79.8 H Lymphocytes % (20.5 - 51.1 %) 14.0 L Monocytes % (1.7 - 9.3 %) 2.8 Eosinophils % (0 - 5 %) 3.1 Basophils % (0.0 - 2.0 %) 0.3 Absolute Granulocytes (1.4 - 6.5 /CUMM) 10.0 H Absolute Lymphocytes (1.2 - 3.4 /CUMM) 1.8 Absolute Monocytes (0.10 - 0.60 /CUMM) 0.3 Absolute Eosinophils (0.0 - 0.7 /CUMM) 0.4 Absolute Basophils (0.0 - 0.2 /CUMM) 0 PUBS MCHC (33.0 - 37.0 G/DL) 33.5 Last 24 Hours of Travon Results: No new cultures Assessment/Plan Impression: Stable with temperatures remaining normal and white blood cell count markedly decreased, though still mildly elevated, on Meropenem Day 10 of treatment for Escherichia coli sepsis, most likely of urological origin, with his urine cultures positive for Enterococcus and Pseudomonas in addition to Escherichia coli. Acalculous cholecystitis is felt to be less likely, now 1 week status post placement of a cholecystostomy tube, with his bile culture negative. He is apparently scheduled for another swallowing evaluation today after having failed two modified barium swallow tests. Urology notes reviewed, with continued Hester catheterization recommended given difficulty in inserting the Hester catheter. Suggestion: 1. Further management of his nutrition per Medicine 2. Continue Meropenem
--- NOTE | 2017-03-30 12:28 | PN- Cardiology ---
Subjective Subjective: No chest pain or dyspnea. NG tube remains in place. Objective Vital Signs and I&Os Vital Signs Date Time Temp Pulse Resp B/P B/P Pulse O2 O2 Flow FiO2 Mean Ox Delivery Rate 03/30 935 88 110/54 03/30 934 88 110/54 03/30 0600 98.0 88 16 110/54 95 Room Air 03/30 0000 Room Air 03/29 2200 98.0 86 20 132/70 98 Room Air 03/29 2058 86 132/70 03/29 1600 89.0 89 20 110/80 95 Room Air Intake & Output 03/30 1600 03/30 0000 03/29 1600 03/29 0000 Intake Total 980 636.2 1400 736.4 696.8 Output Total 665 1100 805 850 540 Balance 315 -463.8 595 -113.6 156.8 Intake, IV 170 71.2 350 114.4 116.8 Intake, Oral 120 0 0 Intake, Other 250 225 Intake, Tube 560 320 640 372 355 Feeding Intake, Tube 250 125 410 Irrigant Number 0 0 Bowel Movements Output, 165 100 105 100 40 Drainage Output, Urine 500 1000 700 750 500 Physical Exam: General: Alert, no distress Eyes: No obvious scleral icterus HEENT: NG tube in place Cardiovascular: Normal intensity S1/S2. Irregular, pacemaker noted Respiratory: No rales or rhonchi Abdomen: Soft, no obvious guarding; status post cholecystostomy tube Musculoskeletal: No clubbing or cyanosis noted; no edema Skin: Warm Neurologic: alert : Hester in place, urine appears clear Current Medications: Current Medications Sig/Woodrow Start time Last Medication Dose Route Stop Time Status Admin Acetaminophen 1,000 MG ONCE ONE 03/29 2345 DC 03/30 N/A 1 UNIT IV 03/29 2359 0001 Acetaminophen 650 MG Q4P PRN 03/29 1800 AC PO Acetaminophen 1,000 MG Q6P PRN 03/29 1545 DC N/A 1 UNIT IV 03/29 1700 Acetaminophen 1,000 MG Q6P PRN 03/28 2345 DC 03/29 N/A 1 UNIT IV 1009 Amlodipine Besylate 5 MG DAILY 03/25 1000 AC 03/30 PO 0935 Aspirin 81 MG DAILY 03/25 1000 AC 03/30 PO 0936 Atorvastatin Calcium 20 MG DAILY 03/25 1000 AC 03/30 PO 0936 Carbidopa/Levodopa 1 TAB TID 03/25 1000 AC 03/30 PO 0935 Glycerin 2 SPRAY Q2P PRN 03/27 0330 AC 03/30 PO 0931 Heparin Sodium/ 25,000 UNIT Q24H 03/24 0915 DC 03/30 Dextrose IV 0542 Dextrose/Water 500 ML Magnesium Sulfate 1 GM Q2H 03/29 1015 DC 03/29 Dextrose/Water 100 ML IV 03/29 1414 1221 Melatonin 5 MG AT BEDTIME 03/28 2200 AC 03/29 PO 2058 Meropenem 1 GM IQ8 03/24 1600 AC 03/30 IV 0800 Metoprolol Tartrate 50 MG BID 03/24 1000 AC 03/30 PO 0936 Morphine Sulfate 1 MG Q4 HRS NEEDED PRN 03/30 0330 AC 03/30 IV 0934 Phosphate 250 MG ONCE ONE 03/30 0800 DC 03/30 PO 03/30 0801 0931 Polyethylene Glycol 17 GM ONCE ONE 03/30 0745 DC 03/30 PO 03/30 0746 0930 Potassium Chloride 20 MEQ ONCE ONE 03/30 1200 DC PO 03/30 1201 Potassium Chloride 40 MEQ ONCE ONE 03/30 0900 DC 03/30 PO 03/30 0901 0930 Potassium Chloride 40 MEQ ONCE ONE 03/30 0745 CAN PO 03/30 0746 Potassium Chloride 10 MEQ ONCE ONE 03/30 0715 CAN IV 03/30 0716 Potassium Phosphate 15 mMol ONE ONE 03/30 0715 CAN Sodium Chloride 250 ML IV 03/30 1119 Senna/Docusate Sodium 2 TAB DAILY PRN 03/25 1900 AC 03/28 PO 1534 Sodium Chloride 2 SPRAY Q4P PRN 03/24 1600 AC 03/26 SHEYLA 2215 Warfarin Sodium 5 MG COUMADIN 1700 ONE 03/29 1700 DC 03/29 PO 03/29 1701 1600 Results Last 48 Hrs of Labs/Mics: Laboratory Tests 03/30/17 1200: CBC w Diff Pending, WBC Pending, RBC Pending, Hgb Pending, Hct Pending, MCV Pending, MCH Pending, RDW Pending, Plt Count Pending, MPV Pending, PUBS MCHC Pending 03/30/17 0400: Anion Gap 9, Estimated GFR > 60, Glucose 94, Calcium 8.1 L, Phosphorus 3.0, Magnesium 1.9, Total Bilirubin 1.2, AST 29, ALT 35, Albumin 2.1 L, PT 30.1 H, INR 2.90 H, CBC w Diff NO MAN DIFF REQ, RBC 2.56 L, MCV 85.1, MCH 28.5, RDW 18.5 H, MPV 10.1, Gran % 79.8 H, Lymphocytes % 14.0 L, Monocytes % 2.8, Eosinophils % 3.1, Basophils % 0.3, Absolute Granulocytes 10.0 H, Absolute Lymphocytes 1.8, Absolute Monocytes 0.3, Absolute Eosinophils 0.4, Absolute Basophils 0, PUBS MCHC 33.5 03/29/17 1945: APTT 78 H 03/29/17 1215: APTT 59 H 03/29/17 0600: PT Cancelled, INR Cancelled 03/29/17 0405: Anion Gap 6, Estimated GFR > 60, BUN/Creatinine Ratio 34.3 H, Magnesium 1.8, PT 20.0 H, INR 1.92 H, CBC w Diff NO MAN DIFF REQ, RBC 3.01 L, MCV 85.2, MCH 28.3, RDW 18.3 H, MPV 10.1, Gran % 81.0 H, Lymphocytes % 12.5 L, Monocytes % 3.3, Eosinophils % 3.0, Basophils % 0.2, Absolute Granulocytes 11.5 H, Absolute Lymphocytes 1.8, Absolute Monocytes 0.5, Absolute Eosinophils 0.4, Absolute Basophils 0, PUBS MCHC 33.2 03/29/17 0012: APTT 76 H 03/28/17 1239: APTT 72 H Recent Imaging Studies: The patient is not currently on telemetry Assessment/Plan Assessment/Plan 1. Septic shock due to urosepsis versus acalculus cholecystitis; improved 2. Elevated troponin likely due to supply/demand mismatch (Type 2 [place]) 3. Acute kidney injury; improved 4. Paroxysmal atrial fibrillation on warfarin 5. History of permanent pacemaker 6. History of TIA 7. History of coronary artery disease with remote PCI 8. History of hypertension 9. Parkinson's disease 10. Hematuria, resolved 11. Status post cholecystostomy tube 12. Difficulty swallowing Remains hemodynamically stable with documented heart rate within reasonable limits. NG tube remains in place due to the failed swallow evaluation. Urine appears clear but hemoglobin is 7.3; INR currently within therapeutic range; continue to monitor hemoglobin trend carefully. Antibiotics per ID. Creatinine remains stable. Joey Jason MD [facility] Continue telemetry? Not applicable
[2017-03-30 13:49] LABS: ABSOLUTE BASOPHIL COUNT 0 /CUMM (0.0-0.2); ABSOLUTE EOSINOPHIL COUNT 0.3 /CUMM (0.0-0.7); EOSINOPHIL % 2.4 % (0-5); HEMATOCRIT 20.2 % (42-52); MEAN CORPUSCULAR HGB 28.6 PG (27.0-31.0); RED BLOOD CELL CT 2.37 /CUMM (4.70-6.10)
[2017-03-30 13:56] LABS: ABSOLUTE GRANULOCYTE CT 10.8 /CUMM (1.4-6.5); ABSOLUTE LYMPH COUNT 1.5 /CUMM (1.2-3.4); ABSOLUTE MONOCYTE COUNT 0.3 /CUMM (0.10-0.60); BASOPHIL % 0.2 % (0.0-2.0); MEAN CORPUSCULAR HGB CONC 33.7 G/DL (33.0-37.0); MEAN PLATELET VOLUME 10.6 FL (7.4-10.4); PLATELET COUNT 241 /CUMM (130-400); RBC DISTRIBUTION WIDTH 17.9 % (11.5-14.5); WHITE BLOOD CELL COUNT 12.9 /CUMM (4.8-10.8)
[2017-03-30 14:09] LABS: GRANULOCYTE % 83.6 % (42.2-75.2)
[2017-03-30 16:00] VITALS: BP 100/60
--- NOTE | 2017-03-30 16:42 | PN- Gastroenterology ---
Assessment/Plan Assessment/Recommendations: ASSESSMENT: 1. Acute Cholecystitis -- S/P Percutaneous Cholecystostomy. On Meropenem. Cutures of Bile from Cholecystostomy remain negative. 2. UTI -- E. Coli and Enterococcus on Meropenem per ID 3. Elevated Bilirubin -- Now Normal 4. Dementia 5. Nutrition -- tolerating TF RECOMMENDATIONS: 1. Continue Tube Feedings 2. GI will sign off for now. If patient unable to take PO and if family desires tank terminal gauger enteral nutrition via PEG placement pelase do not hesitate to recontact us as needed Subjective Subjective: Patient tolerating TF. To be re-evaluated by speech pathology. Remains unchanged. Total bilirubin has decreased to 1.2. Liver-associated enzymes are normal. Objective Vital Signs and I&Os Vital Signs Date Time Temp Pulse Resp B/P B/P Pulse O2 O2 Flow FiO2 Mean Ox Delivery Rate 03/30 0936 88 110/54 03/30 0935 88 110/54 03/30 0600 98.0 88 16 110/54 95 Room Air 03/30 0000 Room Air 03/29 2200 98.0 86 20 132/70 98 Room Air 03/29 2058 86 132/70 Intake & Output 03/30 1600 03/30 0400 03/29 1600 03/29 0400 03/28 1600 03/28 0400 Intake Total 980 636.2 2136.4 696.8 1313 813 Output Total 665 1100 2586 016 4396 1005 Balance 315 -463.8 481.4 156.8 -647 -192 Intake, IV 170 71.2 464.4 116.8 427 525 Intake, Oral 120 0 0 0 0 Intake, Other 250 225 270 215 Intake, Tube 664 546 7419 355 366 73 Feeding Intake, Tube 250 125 410 250 Irrigant Number 0 0 0 0 Bowel Movements Output, 165 100 205 40 210 205 Drainage Output, Urine 500 1000 4490 393 4140 800 Physical Exam General Appearance: no apparent distress, awake Respiratory: lungs clear Cardiovascular: irregularly irregular Abdomen: normal bowel sounds, soft Neurologic/Psychiatric: Patient demented, non-verbal Current Medications: Current Medications Sig/Woodrow Start time Last Medication Dose Route Stop Time Status Admin Acetaminophen 1,000 MG ONCE ONE 03/29 2345 DC 03/30 N/A 1 UNIT IV 03/29 2359 0001 Acetaminophen 650 MG Q4P PRN 03/29 1800 AC PO Acetaminophen 1,000 MG Q6P PRN 03/29 1545 DC N/A 1 UNIT IV 03/29 1700 Amlodipine Besylate 5 MG DAILY 03/25 1000 AC 03/30 PO 0935 Aspirin 81 MG DAILY 03/25 1000 AC 03/30 PO 0936 Atorvastatin Calcium 20 MG DAILY 03/25 1000 AC 03/30 PO 0936 Bisacodyl 10 MG ONCE PRN 03/30 1400 AC 03/30 NE 1400 Carbidopa/Levodopa 1 TAB TID 03/25 1000 AC 03/30 PO 0935 Glycerin 2 SPRAY Q2P PRN 03/27 0330 AC 03/30 PO 0931 Heparin Sodium/ 25,000 UNIT Q24H 03/24 0915 DC 03/30 Dextrose IV 0542 Dextrose/Water 500 ML Melatonin 5 MG AT BEDTIME 03/28 2200 AC 03/29 PO 2058 Meropenem 1 GM IQ8 03/24 1600 AC 03/30 IV 0800 Metoprolol Tartrate 50 MG BID 03/24 1000 AC 03/30 PO 0936 Morphine Sulfate 1 MG Q4 HRS NEEDED PRN 03/30 0330 DC 03/30 IV 1454 Phosphate 250 MG ONCE ONE 03/30 0800 DC 03/30 PO 03/30 0801 0931 Polyethylene Glycol 17 GM ONCE ONE 03/30 0745 DC 03/30 PO 03/30 0746 0930 Potassium Chloride 20 MEQ ONCE ONE 03/30 1200 DC PO 03/30 1201 Potassium Chloride 40 MEQ ONCE ONE 03/30 0900 DC 03/30 PO 03/30 0901 0930 Potassium Chloride 40 MEQ ONCE ONE 03/30 0745 CAN PO 03/30 0746 Potassium Chloride 10 MEQ ONCE ONE 03/30 0715 CAN IV 03/30 0716 Potassium Phosphate 15 mMol ONE ONE 03/30 0715 CAN Sodium Chloride 250 ML IV 03/30 1119 Senna/Docusate Sodium 2 TAB DAILY PRN 03/25 1900 AC 03/28 PO 1534 Sodium Chloride 2 SPRAY Q4P PRN 03/24 1600 AC 03/26 SHEYLA 2215 Warfarin Sodium 3.5 MG COUMADIN 1700 ONE 03/30 1700 DC PO 03/30 1701 Warfarin Sodium 4 MG COUMADIN 1700 ONE 03/30 1700 AC PO 03/30 1701 Warfarin Sodium 5 MG COUMADIN 1700 ONE 03/29 1700 DC 03/29 PO 03/29 1701 1600 Results Pertinent Lab Results: Laboratory Tests 03/30 03/30 1200 0400 Chemistry Sodium (137 - 145 mmol/L) 139 Potassium (3.5 - 5.1 mmol/L) 3.8 Chloride (98 - 107 mmol/L) 105 Carbon Dioxide (22 - 30 mmol/L) 26 Anion Gap (5 - 16) 9 BUN (9 - 20 mg/dL) 27 H Creatinine (0.7 - 1.2 mg/dL) 0.7 Estimated GFR (>60 ml/min) > 60 Glucose (65 - 99 mg/dL) 94 Calcium (8.4 - 10.2 mg/dL) 8.1 L Phosphorus (2.5 - 4.5 mg/dL) 3.0 Magnesium (1.6 - 2.3 mg/dL) 1.9 Total Bilirubin (0.2 - 1.3 mg/dL) 1.2 AST (17 - 59 U/L) 29 ALT (21 - 72 U/L) 35 Albumin (3.5 - 5.0 g/dL) 2.1 L Coagulation PT (9.4 - 12.5 SEC) 30.1 H INR (0.90 - 1.17) 2.90 H Hematology CBC w Diff NO MAN DIFF REQ NO MAN DIFF REQ WBC (4.8 - 10.8 /CUMM) 12.9 H 12.6 H RBC (4.70 - 6.10 /CUMM) 2.37 L 2.56 L Hgb (14.0 - 18.0 G/DL) 6.8 *L 7.3 *L Hct (42 - 52 %) 20.2 L 21.8 L MCV (80.0 - 94.0 FL) 85.0 85.1 MCH (27.0 - 31.0 PG) 28.6 28.5 RDW (11.5 - 14.5 %) 17.9 H 18.5 H Plt Count (130 - 400 /CUMM) 241 220 MPV (7.4 - 10.4 FL) 10.6 H 10.1 Gran % (42.2 - 75.2 %) 83.6 H 79.8 H Lymphocytes % (20.5 - 51.1 %) 11.5 L 14.0 L Monocytes % (1.7 - 9.3 %) 2.3 2.8 Eosinophils % (0 - 5 %) 2.4 3.1 Basophils % (0.0 - 2.0 %) 0.2 0.3 Absolute Granulocytes (1.4 - 6.5 /CUMM) 10.8 H 10.0 H Absolute Lymphocytes (1.2 - 3.4 /CUMM) 1.5 1.8 Absolute Monocytes (0.10 - 0.60 /CUMM) 0.3 0.3 Absolute Eosinophils (0.0 - 0.7 /CUMM) 0.3 0.4 Absolute Basophils (0.0 - 0.2 /CUMM) 0 0 PUBS MCHC (33.0 - 37.0 G/DL) 33.7 33.5 03/29 03/29 03/29 1945 1215 0600 Coagulation PT Cancelled INR Cancelled APTT (25 - 37 SEC) 78 H 59 H 03/29 03/29 03/28 0405 0012 1239 Chemistry Sodium (137 - 145 mmol/L) 138 Potassium (3.5 - 5.1 mmol/L) 4.2 Chloride (98 - 107 mmol/L) 105 Carbon Dioxide (22 - 30 mmol/L) 28 Anion Gap (5 - 16) 6 BUN (9 - 20 mg/dL) 24 H Creatinine (0.7 - 1.2 mg/dL) 0.7 Estimated GFR (>60 ml/min) > 60 BUN/Creatinine Ratio (7 - 25 %) 34.3 H Magnesium (1.6 - 2.3 mg/dL) 1.8 Coagulation PT (9.4 - 12.5 SEC) 20.0 H INR (0.90 - 1.17) 1.92 H APTT (25 - 37 SEC) 76 H 72 H Hematology CBC w Diff NO MAN DIFF REQ WBC (4.8 - 10.8 /CUMM) 14.3 H RBC (4.70 - 6.10 /CUMM) 3.01 L Hgb (14.0 - 18.0 G/DL) 8.5 L Hct (42 - 52 %) 25.7 L MCV (80.0 - 94.0 FL) 85.2 MCH (27.0 - 31.0 PG) 28.3 RDW (11.5 - 14.5 %) 18.3 H Plt Count (130 - 400 /CUMM) 168 MPV (7.4 - 10.4 FL) 10.1 Gran % (42.2 - 75.2 %) 81.0 H Lymphocytes % (20.5 - 51.1 %) 12.5 L Monocytes % (1.7 - 9.3 %) 3.3 Eosinophils % (0 - 5 %) 3.0 Basophils % (0.0 - 2.0 %) 0.2 Absolute Granulocytes (1.4 - 6.5 /CUMM) 11.5 H Absolute Lymphocytes (1.2 - 3.4 /CUMM) 1.8 Absolute Monocytes (0.10 - 0.60 /CUMM) 0.5 Absolute Eosinophils (0.0 - 0.7 /CUMM) 0.4 Absolute Basophils (0.0 - 0.2 /CUMM) 0 PUBS MCHC (33.0 - 37.0 G/DL) 33.2 03/28 03/27 0346 2203 Chemistry Sodium (137 - 145 mmol/L) 141 Potassium (3.5 - 5.1 mmol/L) 3.6 Chloride (98 - 107 mmol/L) 106 Carbon Dioxide (22 - 30 mmol/L) 26 Anion Gap (5 - 16) 9 BUN (9 - 20 mg/dL) 23 H Creatinine (0.7 - 1.2 mg/dL) 0.7 Estimated GFR (>60 ml/min) > 60 Glucose (65 - 99 mg/dL) 74 Calcium (8.4 - 10.2 mg/dL) 8.1 L Phosphorus (2.5 - 4.5 mg/dL) 3.4 Magnesium (1.6 - 2.3 mg/dL) 1.6 Total Bilirubin (0.2 - 1.3 mg/dL) 2.3 H AST (17 - 59 U/L) 28 ALT (21 - 72 U/L) 37 Albumin (3.5 - 5.0 g/dL) 2.2 L Coagulation PT (9.4 - 12.5 SEC) 15.2 H INR (0.90 - 1.17) 1.45 H APTT (25 - 37 SEC) 65 H Hematology CBC w Diff NO MAN DIFF REQ WBC (4.8 - 10.8 /CUMM) 14.6 H RBC (4.70 - 6.10 /CUMM) 3.31 L Hgb (14.0 - 18.0 G/DL) 9.2 L Hct (42 - 52 %) 28.2 L MCV (80.0 - 94.0 FL) 85.3 MCH (27.0 - 31.0 PG) 27.8 RDW (11.5 - 14.5 %) 18.1 H Plt Count (130 - 400 /CUMM) 117 L MPV (7.4 - 10.4 FL) 10.5 H Gran % (42.2 - 75.2 %) 81.5 H Lymphocytes % (20.5 - 51.1 %) 13.1 L Monocytes % (1.7 - 9.3 %) 2.3 Eosinophils % (0 - 5 %) 2.9 Basophils % (0.0 - 2.0 %) 0.2 Absolute Granulocytes (1.4 - 6.5 /CUMM) 11.9 H Absolute Lymphocytes (1.2 - 3.4 /CUMM) 1.9 Absolute Monocytes (0.10 - 0.60 /CUMM) 0.3 Absolute Eosinophils (0.0 - 0.7 /CUMM) 0.4 Absolute Basophils (0.0 - 0.2 /CUMM) 0 PUBS MCHC (33.0 - 37.0 G/DL) 32.6 L
[2017-03-31 02:15] LABS: ABSOLUTE BASOPHIL COUNT 0 /CUMM (0.0-0.2); ABSOLUTE EOSINOPHIL COUNT 0.4 /CUMM (0.0-0.7); ABSOLUTE GRANULOCYTE CT 13.6 /CUMM (1.4-6.5); ABSOLUTE LYMPH COUNT 1.9 /CUMM (1.2-3.4); ABSOLUTE MONOCYTE COUNT 0.8 /CUMM (0.10-0.60); BASOPHIL % 0 % (0.0-2.0); EOSINOPHIL % 2.3 % (0-5); GRANULOCYTE % 81.7 % (42.2-75.2); MEAN CORPUSCULAR HGB 28.9 PG (27.0-31.0); MEAN CORPUSCULAR HGB CONC 33.7 G/DL (33.0-37.0); MEAN CORPUSCULAR VOLUME 85.7 FL (80.0-94.0); MEAN PLATELET VOLUME 9.5 FL (7.4-10.4); PLATELET COUNT 263 /CUMM (130-400); RBC DISTRIBUTION WIDTH 17.1 % (11.5-14.5); WHITE BLOOD CELL COUNT 16.6 /CUMM (4.8-10.8)
[2017-03-31 02:20] LABS: HEMATOCRIT 28.6 % (42-52); RED BLOOD CELL CT 3.33 /CUMM (4.70-6.10)
[2017-03-31 03:48] VITALS: BP 100/60
--- NOTE | 2017-03-31 06:49 | PN- Urology ---
Subjective Subjective: No acute distress Objective Vital Signs and I&Os Vital Signs Date Time Temp Pulse Resp B/P B/P Pulse O2 O2 Flow FiO2 Mean Ox Delivery Rate 03/31 0348 97.5 90 20 100/60 95 Room Air 03/30 2240 Room Air 03/30 1600 97 Room Air 03/30 1600 98.8 101 16 100/60 93 Room Air 03/30 0936 88 110/54 03/30 0935 88 110/54 03/30 08 95 Room Air Intake & Output 03/31 1600 03/30 0000 03/29 1600 Intake Total 1070 780 980 636.2 1400 Output Total 850 778 767 7573 805 Balance 220 615 315 -463.8 595 Intake, Blood 700 Product Intake, IV 20 170 71.2 350 Intake, Oral 0 0 120 Intake, Tube 120 510 560 320 640 Feeding Intake, Tube 250 250 250 125 410 Irrigant Number 2 1 Bowel Movements Output, 150 165 100 105 Drainage Output, Other 75 Output, Urine 700 90 500 1000 700 Abd: soft and non tender Genitalia: lopez in place draining clear urine Laboratory Tests 03/31 03/30 0158 1200 Hematology CBC w Diff NO MAN DIFF REQ NO MAN DIFF REQ WBC (4.8 - 10.8 /CUMM) 16.6 H 12.9 H RBC (4.70 - 6.10 /CUMM) 3.33 L 2.37 L Hgb (14.0 - 18.0 G/DL) 9.6 L 6.8 *L Hct (42 - 52 %) 28.6 L 20.2 L MCV (80.0 - 94.0 FL) 85.7 85.0 MCH (27.0 - 31.0 PG) 28.9 28.6 RDW (11.5 - 14.5 %) 17.1 H 17.9 H Plt Count (130 - 400 /CUMM) 263 241 MPV (7.4 - 10.4 FL) 9.5 10.6 H Gran % (42.2 - 75.2 %) 81.7 H 83.6 H Lymphocytes % (20.5 - 51.1 %) 11.3 L 11.5 L Monocytes % (1.7 - 9.3 %) 4.7 2.3 Eosinophils % (0 - 5 %) 2.3 2.4 Basophils % (0.0 - 2.0 %) 0 0.2 Absolute Granulocytes (1.4 - 6.5 /CUMM) 13.6 H 10.8 H Absolute Lymphocytes (1.2 - 3.4 /CUMM) 1.9 1.5 Absolute Monocytes (0.10 - 0.60 /CUMM) 0.8 H 0.3 Absolute Eosinophils (0.0 - 0.7 /CUMM) 0.4 0.3 Absolute Basophils (0.0 - 0.2 /CUMM) 0 0 PUBS MCHC (33.0 - 37.0 G/DL) 33.7 33.7 03/30 0745 Coagulation APTT Cancelled Assessment/Plan Assessment/Plan Imp: 1. Urosepsis, clinically improved although WBC count up yesterday 2. Neurogenic bladder 3. Chronically dilated L ureter. Worked up in 09/2016 in [place] and found to be non obstructing Plan: 1. Abx per ID 2. Will consider removing lopez tomorrow. He will likely need intermittent cath
--- NOTE | 2017-03-31 07:55 | PN- Housestaff ---
Zenia William 03/31/17 0754: Subjective Follow-up For: #1 septic shock secondary to gram-negative sepsis(UTI versus acalculus cholecystitis-less likely) #2 elevated troponin likely due to supply/demand mismatch (Type 2 NV) #3 Questionable aspiration pneumonia versus healthcare associated pneumonia #4 Severe pyuria/BPH #5 Paroxysmal atrial fibrillation on warfarin #6 Acute kidney injury on chronic kidney disease #7 hyperbilirubinemia Subjective: No overnight event. Patient had a hard time speaking in clear sentences but c/o of pain of not being able to move around. Review of Systems Constitutional: Reports: see HPI. Objective Last 24 Hrs of Vital Signs/I&O Vital Signs Date Time Temp Pulse Resp B/P B/P Pulse O2 O2 Flow FiO2 Mean Ox Delivery Rate 03/31 0348 97.5 90 20 100/60 95 Room Air 03/30 2240 Room Air 03/30 1600 97 Room Air 03/30 1600 98.8 101 16 100/60 93 Room Air 03/30 0936 88 110/54 03/30 0935 88 110/54 03/30 0800 95 Room Air Intake & Output 03/31 0800 03/31 0000 03/30 1600 Intake Total 440 1070 780 Output Total 1000 850 165 Balance -560 220 615 Intake, Blood 700 Product Intake, IV 10 20 Intake, Oral 0 0 0 Intake, Tube 180 120 510 Feeding Intake, Tube 250 250 250 Irrigant Number 2 1 Bowel Movements Output, 200 150 Drainage Output, Other 75 Output, Urine 800 700 90 Physical Exam General Appearance: Alert, Oriented X3, Cooperative, No Acute Distress Cardiovascular: Irregular from A-fib Lungs: Clear to Auscultation, Normal Air Movement Abdomen: Soft, No Tenderness Extremities: No Edema, Normal Pulses Current Medications: Current Medications Sig/Woodrow Start time Last Medication Dose Route Stop Time Status Admin Acetaminophen 650 MG Q4P PRN 03/29 1800 AC PO Amlodipine Besylate 5 MG DAILY 03/25 1000 AC 03/30 PO 09 Aspirin 81 MG DAILY 03/25 1000 AC 03/30 PO 0936 Atorvastatin Calcium 20 MG DAILY 03/25 1000 AC 03/30 PO 0936 Bisacodyl 10 MG ONCE PRN 03/30 1400 AC 03/30 DE 1400 Carbidopa/Levodopa 1 TAB TID 03/25 1000 AC 03/30 PO 2132 Glycerin 2 SPRAY Q2P PRN 03/27 0330 AC 03/30 PO 0931 Melatonin 5 MG AT BEDTIME 03/28 2200 AC 03/30 PO 2132 Meropenem 1 GM IQ8 03/24 1600 AC 03/31 IV 0104 Metoprolol Tartrate 50 MG BID 03/24 1000 AC 03/30 PO 2132 Morphine Sulfate 1 MG ONCE ONE 03/31 0630 DC 03/31 IV 03/31 0631 0633 Morphine Sulfate 1 MG Q4 HRS NEEDED PRN 03/30 0330 DC 03/30 IV 1454 Nystatin 1 GENEVIEVE BID PRN 03/31 0145 AC 03/31 TOP 0409 Potassium Chloride 20 MEQ ONCE ONE 03/30 1200 DC PO 03/30 1201 Potassium Chloride 40 MEQ ONCE ONE 03/30 0900 DC 03/30 PO 03/30 0901 0930 Potassium Chloride 40 MEQ ONCE ONE 03/30 0745 CAN PO 03/30 0746 Senna/Docusate Sodium 2 TAB DAILY PRN 03/25 1900 AC 03/28 PO 1534 Sodium Chloride 2 SPRAY Q4P PRN 03/24 1600 AC 03/26 SHEYLA 2215 Warfarin Sodium 3.5 MG COUMADIN 1700 ONE 03/30 1700 DC PO 03/30 1701 Warfarin Sodium 4 MG COUMADIN 1700 ONE 03/30 1700 DC 03/30 PO 03/30 1701 1659 Last 24 Hrs of Lab/Travon Results Last 24 Hrs of Labs/Mics: Laboratory Tests 03/31/17 0158: CBC w Diff NO MAN DIFF REQ, RBC 3.33 L, MCV 85.7, MCH 28.9, RDW 17.1 H, MPV 9.5, Gran % 81.7 H, Lymphocytes % 11.3 L, Monocytes % 4.7, Eosinophils % 2.3, Basophils % 0, Absolute Granulocytes 13.6 H, Absolute Lymphocytes 1.9, Absolute Monocytes 0.8 H, Absolute Eosinophils 0.4, Absolute Basophils 0, PUBS MCHC 33.7 03/30/17 1200: CBC w Diff NO MAN DIFF REQ, RBC 2.37 L, MCV 85.0, MCH 28.6, RDW 17.9 H, MPV 10.6 H, Gran % 83.6 H, Lymphocytes % 11.5 L, Monocytes % 2.3, Eosinophils % 2.4, Basophils % 0.2, Absolute Granulocytes 10.8 H, Absolute Lymphocytes 1.5, Absolute Monocytes 0.3, Absolute Eosinophils 0.3, Absolute Basophils 0, PUBS MCHC 33.7 Assessment/Plan Assessment: Ms Torres is a 79-year-old gentleman with past medical history of Parkinson's disease, hypertension, permanent pacemaker, BPH and urinary retention, BIBA from [facility] after being found unresponsive. He has subsequently responded to medical therapy and intervention. Problem List: Septic shock secondary to Ecoli sepsis, Urine cultures + enterococcus and Pseudomonas. Metabolic acidosis DAISHA on CKD Atrial fibrillation now on coumadin Hyperbilirubinemia Plan: - On meropenem 1 g every 8 hours as recommended by ID, currently day 11, will complete a total 14 day course.. -INR this a.m. 2.08. Will dose warfarin this evening 3.5 milligrams. Monitor INR in AM. - Urology on board, appreciate recomendation, will DC Lopez tomorrow AM - GI reconsult needed as patient failed MBS today (x3 fail). Pending PEG tube discussion with family. Patient is currently on tube feeds,with Jevity 1.2. -We'll supplement his electrolytes as needed -DVT prophylaxis coumadin -Pain control with tyelenol -DNI and DNR Problem List: 1. Atrial fibrillation with RVR 2. UTI (urinary tract infection) 3. Sepsis Pain Ratin Pain Location: NA Pain Goal: Remain pain free Pain Plan: see AP Tomorrow's Labs & Rationales: CBC/BEP Kenn Foster 03/31/17 1258: Attending MD Review Statement Attending Statement Attending MD Statement: examined this patient, discuss w/resident/PA/FIELD ENUMERATOR, agreed w/resident/PA/FIELD ENUMERATOR, discussed with family, reviewed EMR data (avail), discussed with nursing, discussed with case mgmt, reviewed images, amended to note Attending Assessment/Plan: Plan is to obtain speech/swallow evalaution and if failed swallwoing would consider PEG placement if family wishes as per GI recommendations. Patient is on abx meropenem iv as per ID, urology is follwoing and lopez care as per urology. He is on anticoagualtion with warfarin. He is also parkisnons disease and supportive treatment. Cholecystostmy tube care as per surgery/GI. overall slow clinical progress.
[2017-03-31 10:57] LABS: PT 21.7 SEC (9.4-12.5)
--- NOTE | 2017-03-31 11:30 | PN- Cardiology ---
Subjective Subjective: The patient is awake, alert The events of the last 24 hours were reviewed. Review of Systems: The review of systems is negative for chest pains, palpitations nor lightheadedness. The remainder of the 14 point review of systems is noncontributory with the exception of above. Objective Vital Signs and I&Os Vital Signs Date Time Temp Pulse Resp B/P B/P Pulse O2 O2 Flow FiO2 Mean Ox Delivery Rate 03/31 1115 95 108/52 03/31 1115 95 108/52 03/31 0348 97.5 90 20 100/60 95 Room Air 03/30 2240 Room Air 03/30 1600 97 Room Air 03/30 1600 98.8 101 16 100/60 93 Room Air Intake & Output 03/31 1600 03/31 0803/31 0000 03/30 1600 03/30 0000 Intake Total 440 1070 780 980 636.2 Output Total 1000 850 355 987 9114 Balance -560 220 615 315 -463.8 Intake, Blood 700 Product Intake, IV 10 20 170 71.2 Intake, Oral 0 0 0 120 Intake, Tube 180 120 510 560 320 Feeding Intake, Tube 250 250 250 250 125 Irrigant Number 2 1 Bowel Movements Output, 200 150 165 100 Drainage Output, Other 75 Output, Urine 800 700 90 500 1000 Physical Exam: General: Nontoxic, no apparent distress. HEENT: Sclera and conjunctiva within normal limits, without xanthelasmas. Neck: Carotids 2+ without bruits. Respiratory: Scattered rhonchi, air movement is good, without accessory respiratory muscle use. Heart: Regular rate and rhythm, 2/6 systolic ejection murmur at left sternal border, without JVD. Abdomen: Soft, nontender, no masses, normoactive bowel sounds. Extremities: Without clubbing, cyanosis, without edema. Neuro: Nonfocal exam, strength, 5 out of 5 Skin: Within normal limits without lesions. Psych: Mood and affect: Normal Current Medications: Current Medications Sig/Woodrow Start time Last Medication Dose Route Stop Time Status Admin Acetaminophen 650 MG Q4P PRN 03/29 1800 AC PO Amlodipine Besylate 5 MG DAILY 03/25 1000 AC 03/30 PO 0935 Aspirin 81 MG DAILY 03/25 1000 AC 03/31 PO 1114 Atorvastatin Calcium 20 MG DAILY 03/25 1000 AC 03/31 PO 1115 Bisacodyl 10 MG ONCE PRN 03/30 1400 AC 03/30 PA 1400 Carbidopa/Levodopa 1 TAB TID 03/25 1000 AC 03/31 PO 1116 Glycerin 2 SPRAY Q2P PRN 03/27 0330 AC 03/30 PO 0931 Melatonin 5 MG AT BEDTIME 03/28 2200 AC 03/30 PO 2132 Meropenem 1 GM IQ8 03/24 1600 AC 03/31 IV 0835 Metoprolol Tartrate 50 MG BID 03/24 1000 AC 03/30 PO 2132 Morphine Sulfate 1 MG ONCE ONE 03/31 0630 DC 03/31 IV 03/31 0631 0633 Morphine Sulfate 1 MG Q4 HRS NEEDED PRN 03/30 0330 DC 03/30 IV 1454 Nystatin 1 GENEVIEVE BID PRN 03/31 0145 AC 03/31 TOP 0409 Pantoprazole Sodium 40 MG DAILY 03/31 1000 AC 03/31 IV 1116 Senna/Docusate Sodium 2 TAB DAILY PRN 03/25 1900 AC 03/28 PO 1534 Sodium Chloride 2 SPRAY Q4P PRN 03/24 1600 AC 03/26 SHEYLA 2215 Warfarin Sodium 3.5 MG COUMADIN 1700 ONE 03/30 1700 DC PO 03/30 1701 Warfarin Sodium 4 MG COUMADIN 1700 ONE 03/30 1700 DC 03/30 PO 03/30 1701 1659 Results Last 48 Hrs of Labs/Mics: Laboratory Tests 03/31/17 0940: Anion Gap 11, Estimated GFR > 60, Glucose 89, Calcium 8.6, Phosphorus 3.5, Magnesium 1.9, Total Bilirubin 1.8 H, AST 34, ALT 37, Albumin 2.6 L, PT 21.7 H, INR 2.08 H, CBC w Diff Pending, WBC Pending, RBC Pending, Hgb Pending, Hct Pending, MCV Pending, MCH Pending, RDW Pending, Plt Count Pending, MPV Pending, PUBS MCHC Pending 03/31/17 0158: CBC w Diff NO MAN DIFF REQ, RBC 3.33 L, MCV 85.7, MCH 28.9, RDW 17.1 H, MPV 9.5, Gran % 81.7 H, Lymphocytes % 11.3 L, Monocytes % 4.7, Eosinophils % 2.3, Basophils % 0, Absolute Granulocytes 13.6 H, Absolute Lymphocytes 1.9, Absolute Monocytes 0.8 H, Absolute Eosinophils 0.4, Absolute Basophils 0, PUBS MCHC 33.7 03/30/17 1200: CBC w Diff NO MAN DIFF REQ, RBC 2.37 L, MCV 85.0, MCH 28.6, RDW 17.9 H, MPV 10.6 H, Gran % 83.6 H, Lymphocytes % 11.5 L, Monocytes % 2.3, Eosinophils % 2.4, Basophils % 0.2, Absolute Granulocytes 10.8 H, Absolute Lymphocytes 1.5, Absolute Monocytes 0.3, Absolute Eosinophils 0.3, Absolute Basophils 0, PUBS MCHC 33.7 03/30/17 0745: APTT Cancelled 03/30/17 0400: Anion Gap 9, Estimated GFR > 60, Glucose 94, Calcium 8.1 L, Phosphorus 3.0, Magnesium 1.9, Total Bilirubin 1.2, AST 29, ALT 35, Albumin 2.1 L, PT 30.1 H, INR 2.90 H, CBC w Diff NO MAN DIFF REQ, RBC 2.56 L, MCV 85.1, MCH 28.5, RDW 18.5 H, MPV 10.1, Gran % 79.8 H, Lymphocytes % 14.0 L, Monocytes % 2.8, Eosinophils % 3.1, Basophils % 0.3, Absolute Granulocytes 10.0 H, Absolute Lymphocytes 1.8, Absolute Monocytes 0.3, Absolute Eosinophils 0.4, Absolute Basophils 0, PUBS MCHC 33.5 03/29/17 1945: APTT 78 H 03/29/17 1215: APTT 59 H Assessment/Plan Assessment/Plan 1. Septic shock due to urosepsis versus acalculus cholecystitis 2. Elevated troponin, not consistent with an acute coronary syndrome 3. Acute kidney injury 4. Paroxysmal atrial fibrillation on warfarin 5. History of permanent pacemaker 6. History of TIA 7. History of coronary artery disease with remote PCI 8. History of hypertension 9. Parkinson's disease The patient's troponin isoenzyme profile was most likely consistent with underlying sepsis in the setting of acute kidney injury, and not consistent with an acute coronary syndrome. At this time, we will maintain an overall conservative approach to his cardiac issues. We will continue anticoagulation with warfarin, targeting an INR between 2 and 3. Continue telemetry? No
[2017-03-31 11:54] LABS: ABSOLUTE BASOPHIL COUNT 0.1 /CUMM (0.0-0.2); ABSOLUTE EOSINOPHIL COUNT 0.4 /CUMM (0.0-0.7); ABSOLUTE GRANULOCYTE CT 15.2 /CUMM (1.4-6.5); ABSOLUTE LYMPH COUNT 1.7 /CUMM (1.2-3.4); ABSOLUTE MONOCYTE COUNT 0.8 /CUMM (0.10-0.60); BASOPHIL % 0.3 % (0.0-2.0); EOSINOPHIL % 2.4 % (0-5); HEMATOCRIT 29.5 % (42-52); MEAN CORPUSCULAR HGB 28.6 PG (27.0-31.0); MEAN CORPUSCULAR VOLUME 86.6 FL (80.0-94.0); MEAN PLATELET VOLUME 10.3 FL (7.4-10.4); RED BLOOD CELL CT 3.41 /CUMM (4.70-6.10); WHITE BLOOD CELL COUNT 18.2 /CUMM (4.8-10.8)
[2017-03-31 12:45] LABS: GRANULOCYTE % 83.3 % (42.2-75.2); PLATELET COUNT 279 /CUMM (130-400)
--- NOTE | 2017-03-31 13:12 | RADIOLOGY REPORT ---
EXAMINATION: XR MODIFIED BARIUM SWALLOW CLINICAL INFORMATION: Failed modified barium swallow twice. On tube feeding. History of Parkinson's disease. COMPARISON: Barium swallow dated 03/27/2017 and 03/24/2017. TECHNIQUE: A modified barium swallow was performed with speech pathologist in attendance. Pur?e and honey thick consistencies were given to the patient and the swallowing mechanism was observed fluoroscopically with several spot films taken using the last image hold feature. FLUOROSCOPY TIME: 2 minute 40 seconds. FINDINGS: With all consistencies, the oropharyngeal phase of swallowing is disordered with difficulty with oral bolus formation and posterior bolus propagation noted. There is significant pooling of contrast in the valleculae, which does not clear on successive swallows. There is transient asymptomatic penetration of contrast seen. No definite liza aspiration is observed. IMPRESSION: Disordered oral phase of swallowing. Pooling of contrast in the valleculae. Transient asymptomatic penetration of contrast. Speech pathologist assessment issued separately.
--- NOTE | 2017-03-31 14:10 | Discharge Summary ---
See Addendum Visit Information Visit Dates Admission Date: 03/21/17 Discharge Date: 04/09/17 Hospital Course Course Attending Physician: Kristin PHILLIPS,Kenn Primary Care Physician: Madelin Chin MD Consulting Request: 1 Consulting Specialty: Cardiology Consulting Physician: Reason for Consult: Paroxysmal A.fib Consulting Request: 2 Consulting Specialty: Infectious Disease Consulting Physician: Reason for Consult: sepsis of urological origin Hospital Course: Mr. Torres is a 79 yo M with h/o Parkinson's disease, Afib s/p PPM on coumadin, HTN, BPH with recurrent UTI, who is sent in from [facility] after being found unresponsive by the RN. History obtained from patient's . In summary, patient was recently admitted to [facility], underwent left femur fracture repair and was discharged to [facility] for acute rehab. He was doing well but for recurrent UTI's (treated with macrobid 3 weeks ago). He was home for [place] and was noted to have a low grade fever. He was doing self catheterization and family noted cloudy and foul smelling urine. Urine culture was sent came back positive for GNR and he was initiated on Cipro 1 day prior to admission. He continued to have fevers, weakness, malaise and nausea/ vomiting. Early this morning at 2 am, patient found him unresponsive with HR in 120's, BP 122/70, sats 87% RA --> 93% on 2L. EMS was called and patient was brought to [place] ER. ER Course: Vitals: Tmax 102.5, HR 150-170's, BP 110/62 --> 90/59 --> 95/55 after receiving 4 L NS and IV metoprolol for rate control. Examination was limited as patient does not respond to verbal stimuli, winces when touching his eyes. He is not arousable. Face flushed, very dry mucous membranes, Skin warm and dry, capillary refill < 2 secs, pupils difficult to assess, Neck jugular fullness noted, Chest clear anteriorly, basilar crackles on the left side, Heart S1S2 irregularly irregular, unable to assess a murmur as being tachycardic , Abd soft, NT, LE: b/l no edema, red/ flushed feet. Unable to assess back. Labs: no leukocytosis, bands 17, INR 2.71, Na 135, K 3.0, bicarb 18, AG 19, BUN 39, creat 2.2 (baseline 0.8-1.1), lactic acid 8.4 --> 11.8, Mag 1.4, T. Bili 3.7 , AST/ALT normal, CK 40, trop neg. UA cloudy, large LE, WBC > 75, packed bacteria. EKG: Afib with RVR. CXR: mild left basilar opacity atelectasis, pneumonia or aspiration. Head CT: exensive confluent hypoattenuation chronic microangiopathy, no acute process. Patient was admitted to inpatient for the management of the following: Problem list 1. Septic shock due to urosepsis versus acalculus cholecystitis; improved 2. Elevated troponin likely due to supply/demand mismatch (Type 2 CO) 3. Acute kidney injury; improved 4. Paroxysmal atrial fibrillation on warfarin 5. History of permanent pacemaker 6. History of TIA 7. History of coronary artery disease with remote PCI 8. History of hypertension 9. Parkinson's disease 10. Hematuria, resolved 11. Status post cholecystostomy tube 12. Difficulty swallowing; planned for PEG tube 13. Intramuscular hematoma with decrease in Hb level Intially admitted to ICU and the following is his stay. Septic shock most likely of urological origin Admitted to ICU, Femoral line was placed on 03/21/17 and pressors were intiated on ceftazidime and vancomycin. Hemodynamically improved. Urine culx were positive for E.Coli, Enterococcus and Pseudomonas which was pansensitive. His hyperbilirubinemia was thought to be due to sepsis vs acalculous cholecystitis. Further patient's transaminases were not markedly elevated to suggest either a retained or passage of a CBD. A cholecystostomy tube was placed 03/24/[address] Sharp, with the culture of his bile so far negative. As his bilirubinemia trended down, not further evaluated. Vancomycin, Flagyl and Ceftazidime was discontined and Meropenem 1 g IV Q 8 hours was administered for a total of 14days (03/24/17 to 04/03/17). Remained stable with normal white count off antibiotics. Mild BPH/ neurogenic bladder A CT of the abd and pelvis showed no evidence of hydronephrosis but a dilated L ureter and a thick-walled bladder. Pulled out his lopez 03/26/17 and had urinary retention, urology was consulted and 16 fr coude was placed 03/25/17 with drainage of a large volume of urine. lopez removed on apr 04 and placed on (coude catheter) straight cath protocol. Patient was on tamsulosin and finasteride. Tamsulosin cannot be given through PEG tube by crushing, so please give finasteride and continue straight cath. Finasteride should be given crushed by a male nurse if possible. It should not be handled by a female in reproductive age group. Elevated troponin likely due to supply/demand mismatch (Type 2 CO) Initially noted to be very tachycardic later only slightly elevated ( permissive tachycardia in the setting of his septic shock and not consistent with an acute coronary syndrome. Paroxysmal atrial fibrillation on warfarin Kept on IV heparin while in ICU. Bridging with warfarin was started on 03/26/17 which was interrupted by femoral hematoma in the central line region followed by a dose of vitamin K. Surgery was consulted and they are agreeable with the continuing anticoagulation. He was again restarted on warfarin bridging on 04/07/16. His INR is around 1.29-->1.36, so started on SC lovenox 1mg/kg BID till his INR Is therapeutic. SC lovenox need to be discontinued once INR is therapeutic between 2-3. There was suspicion for HIT as he had worsening thrombocytopenia. HIT antibody panel was negative. Acute kidney injury on chronic kidney disease-resolved Cr is 0.6 and GFR is >60 now. Nutrition Failed swallowing evaluation/MBS on March three times. Underwent endoscopy subsequnetly which shows severe esophageal motility disorder. A PEG tube was placed and started on tube feeds jevity 1.2. Tube feeds were started and reached a goal rate of 80ml/hr today. Please see CMR for full instructions. Parkinsons Patient is on sinamet 25/100mg TID and 50/200 at bedtime. The bedtime dose cannot be crushed so started on 25/100mg 2 tabs at bedtime. Morning dose 25/100mg TID need to be adjusted so that patient receives first dose at 4am. DVT Prophylaxis SC lovenox and warfarin. code status DNR/DNI Complications: Severe septic shock with gram-negative sepsis of urological origin Multiple organ failure with significantly elevated bilirubin Atrial fibrillation with rapid ventricular response Thrombocytopenia Allergies: Coded Allergies: amoxicillin (RASH 03/21/17) Significant Procedures: Endoscopy Procedure Medical History: unchanged (see meditech consult) Mental Status: alert/oriented Heart/Lung Eval Prior to Sedation: within normal limits Candidate for Sedation? Yes Procedure Date: 04/07/17 Procedure Type: EGD with PEG placement Marine Electrician Apprentice: Charles Escobar MD ASA Classification: IV Indications: Dysphagia, feeding difficulty; failed swallowing study. Instrument: diagnostic gastroscope Meds Received: MAC (2gm of ancef given pre-op) Patient's Tolerance: good Complications: none Extent Reached: second part of duodenum Procedure: After getting written informed consent the patient was placed in the left lateral decubitus position with pulse oximetry, cardiac monitoring, and supplemental oxygen given. A bite block was inserted and IV sedation was given until the desired effect was achieved. A high definition upper Olympus endoscope was then inserted into the mouth and advanced to the second portion of the duodenum with little difficulty. Retroflexed views and photodocumentation was obtained. After inspection of the upper GI tract as described above the location of the PEG tube was determined by transillumination and finger indentation. This area was located in the antrum of the stomach and the left upper quadrant of the abdomen. The skin was then cleaned with Betadine and draped in a sterile fashion. 1% lidocaine without epinephrine was used to anesthetize the skin and the finder needle was seen entering the stomach endoscopically. A scalpel was used to make a 1 cm wide incision half a centimeter deep. An 18-gauge needle with catheter sheath was then inserted into the gastric lumen, and a floppy plastic wire was fed through the sheath, grabbed with a snare, and removed from the patient's mouth. The PEG tube was then attached to the wire and pulled antegrade without difficulty until the bumper abutted the gastric wall. The scope was then reintroduced to the patient's mouth and endoscopic confirmation of the PEG tube was obtained. The scope was then removed from the patient and the procedure was terminated. Findings: Esophagus: There was some leftover solid food in the esophagus, but the underlying esophageal mucosa was normal in appearance and there were no esophageal strictures or masses appreciated and the scope was able to traverse the GE junction with little resistance. Due to the solid food the Z line was not able to be clearly demarcated. Stomach: The gastric mucosa was atrophic in appearance, but there were no ulcers , erosions, or masses appreciated. Distention and peristalsis of the stomach appeared normal. Retroflexed views were normal did not reveal significant hiatal hernia. As stated in the procedure section of this report a 20 [place] Akbar-Cook feeding tube was placed in the antrum of the stomach without incident. Duodenum: The duodenal bulb, sweep, and folds were grossly normal in appearance. Impression: 1. Leftover food in the esophagus without an obstructing lesion or mucosal disease appreciated suggesting severe esophageal dysmotility. 2. 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 Recommendations: 1. Monitor feeding tube site for infection and bleeding. 2. Apply a dry sterile dressing to the feeding tube daily. 3. Okay to use feeding tube for medications now and if no constipation and would resume tube feeds in the morning. 4. If no significant bleeding would restart his anticoagulation later today. CT head IMPRESSION: 1. There are no acute bleeds or territorial infarcts. As described above, there is extensive white matter change most consistent with chronic microvascular ischemic disease. However, in view of the extensive distribution of these findings, a small acute focus of ischemia cannot be excluded. CT angio IMPRESSION: 1. No evidence of filling defects to indicate central or segmental pulmonary embolus. 2. Small right greater than left pleural effusions. Subjacent airspace opacity from atelectasis or infiltrate. 3. Indeterminate 1 cm hypodense lesion in the right lobe of the liver. CXR IMPRESSION: No acute cardiopulmonary process. DICTATED BY: Antonio Weaver MD DATE/TIME DICTATED:04/03/178 Hip Xray IMPRESSION: 1. Single AP view of the left hip demonstrates sequelae of ORIF of a left intertrochanteric fracture. No acute fractures are demonstrated on the the available view. CT lower extremity IMPRESSION: Marked enlargement with some heterogeneity of the adductor muscles/compartment. This most likely reflects intramuscular hematoma. Myositis or evolving abscess cannot be excluded but is thought to be significantly less likely unless there is a strong clinical presentation favoring infection. This enlargement is not present on the limited images of the upper thigh seen on the CT of the abdomen and pelvis February 2017. More generalized edema within the remaining muscle compartments. Generalized abnormality in the subcutaneous soft tissues more likely reflects edema than cellulitis. Modified barium swallow IMPRESSION: Disordered oral phase of swallowing. Pooling of contrast in the valleculae. Transient asymptomatic penetration of contrast. Speech pathologist assessment issued separately. 03/23/17 Percutaneous cholecystectomy tube placement IMPRESSION: Successful placement of percutaneous cholecystostomy tube as described above. echocardiogram CONCLUSIONS Left ventricular cavity size normal. Left ventricular wall thickness mildly increased. Basal inferior hypokinesis without other wall motion abnormalities. Left ventricular ejection fraction is estimated at 50-55 %. Catheter/pacemaker wire in the right ventricular cavity. Normal right ventricular size and function. Mild left atrial dilatation. [id number] mitral regurgitation. Scyq-ur-nfrepusa tricuspid regurgitation. No evidence of pulmonary hypertension. No pericardial effusion. Moncho Jason M.D. (Electronically Signed) Final Date: 22 March 2017 18:35 Pertinent Lab Results: as above Disposition Summary Disposition Principal Diagnosis: Septic shock secondary to Ecoli sepsis, Urine cultures + enterococcus and Pseudomonas. Metabolic acidosis DAISHA on CKD Atrial fibrillation now on coumadin Hyperbilirubinemia Additional Diagnosis: as Above Discharge Disposition: SNF Discharge Instructions General Discharge Information Code Status: Do Not Resucitate/Intubat Patient's Diet: Tube Feeding Patient's Activity: As tolerated Follow-Up Instructions/Appts: Please follow up with your PCP in a week Please follow up with in a week SC lovenox need to be discontinued once INR is therapeutic between 2-3. Please consider providing medications through PEG tube along with tube feeds Patient is on carbidopa 50/200 at bedtime which need to be transitioned to 2 pills of 25/100 due to difficulty with crushing and please give am dose early around 4am. Straight cath protocol for retention of urine Finasteride (not tamsulosin) can be given through PEG tube but should not be handled by a reproductive age female nursing staff - any male handling it is acceptable. Medications at Discharge Discharge Medications: Stop taking the following medications: Ciprofloxacin HCl (Cipro) 500 MG TABLET ORAL TWICE DAILY Continue taking these medications: Aspirin (Aspirin*) 81 MG TAB.CHEW 1 Tablet ORAL DAILY Comments: Last Taken: Time: 1000 Gabapentin (Neurontin) 300 MG CAPSULE 1 Capsule ORAL THREE TIMES DAILY Comments: NOT GIVEN IN HOSPITAL Duloxetine Hydrochloride (Cymbalta) 30 MG CAPSULE.DR 1 Capsule ORAL DAILY Comments: NOT GIVEN IN HOSPITAL Prochlorperazine (Compazine) 25 MG SUPP.RECT 1 SUPPOSITORY RECTALLY DAILY Comments: NOT GIVEN IN HOSPITAL Olmesartan Medoxomil (Benicar) 40 MG TABLET 1 Tablet ORAL DAILY Comments: NOT GIVEN IN HOSPITAL Metoprolol Tartrate (Metoprolol Tartrate) 50 MG TABLET 1 Tablet ORAL TWICE DAILY Comments: Last Taken: 04/09/17 Time: 0930 Amlodipine Besylate (Norvasc) 5 MG TABLET 1 Tablet ORAL DAILY Comments: NOT GIVEN IN HOSPITAL Atorvastatin Calcium (Atorvastatin Calcium) 20 MG TABLET 1 Tablet ORAL DAILY Comments: Last Taken: 04/09/17 Time: 0930 Melatonin (Melatonin) 3 MG TABLET 1 Tablet ORAL Every night Comments: Last Taken: 04/08/17 Time: 2149 Sennosides (Senokot) 8.6 MG TABLET 2 Tablet ORAL DAILY Comments: Last Taken: 04/08/17 Time: 215 Polyethylene Glycol 3350 (Miralax) 17 GRAM POWD.PACK 1 Packet ORAL DAILY Instructions: dissolve in water Comments: NOT GIVEN IN HOSPITAL Carbidopa/Levodopa (Carbidopa-Levodopa 25-100 Tab) 25 MG-100 MG TABLET 1 Tablet ORAL THREE TIMES DAILY Comments: Last Taken: 04/09/17 Time: 1615 Finasteride (Finasteride) 5 MG TABLET 1 Tablet ORAL DAILY Comments: NOT GIVEN IN HOSPITAL Potassium Chloride (Potassium Chloride) 10 MEQ CAPSULE.ER 1 Capsule ORAL DAILY Comments: NOT GIVEN IN HOSPITAL Lactobacillus Acidophilus (Acidophilus) 1 EACH CAPSULE 1 Capsule ORAL TWICE DAILY Comments: NOT GIVEN IN HOSPITAL Cranberry Fruit Concentrate (Cranberry) 450 MG CAPSULE 1 Tablet ORAL TWICE DAILY Comments: NOT GIVEN IN HOSPITAL Warfarin Sodium (Coumadin) 5 MG TABLET 1 Tablet ORAL DAILY Comments: Last Taken: 04/09/17 Time: 1615 Start taking the following new medications: Lactose-Reduced Food/Fiber (Jevity 1.2 Hua Liquid) 0.06 GRAM-1.2 KCAL/ML LIQUID 0 PEG TUBE SEE INSTRUCTIONS Qty = 1 No Refills Instructions: FIRST 12 HRS RATE 15 SECOND 12 RATE 30 THIRD 12 RATE 50 GOAL 80 FLUSH WATER 125 Q4HR Comments: RUNNING AT 80ML/HOUR BEFORE DISCHARGE Enoxaparin Sodium (Lovenox) 80 MG/0.8 ML SYRINGE 80 Unit Inject into fatty tissue TWICE DAILY Qty = 6 No Refills Comments: Last Taken: 04/09/17 Time: 1250 Carbidopa/Levodopa (Carbidopa-Levodopa 25-100 Tab) 25 MG-100 MG TABLET 2 Tablet ORAL AT BEDTIME Qty = 90 No Refills Comments: PM DOSE STILL DUE, 25/100 GIVEN AT 1615, SEE DAYTIME DOSE/ORDER Copies To: Giuseppe PHILLIPS,Madelin; Shawn PHILLIPS,Charles Attending MD Review Statement Documenting Attending: Kristin PHILLIPS,Kenn Other Findings: Mr. Torres is a 79-year-old gentleman with past medical history of Parkinson's disease, hypertension, permanent pacemaker, BPH and urinary retention, BIBA from [facility] after being found unresponsive. He was found to be in Septic shock secondary to Ecoli sepsis. Urine cultures + enterococcus and Pseudomonas. He has been evaluated by ID, Urology and Gastroenterology. Recently had CT angio that was negative for PE. Found to have hematoma on right inner thigh. Patient with blood loss anemia. General surgery consulted and recommend conservative management. Leukocytosis could be reactive as recently completed meropenem course. Restarting anticaogualtion as per cardiology and surgery in view of hematoma which appears to be resolved. PEG placement by GI 04/07/2017 with EGD suggestive of severe esophageal dysmotility and atrophic gastritis. Patient is tolerating tube feedings. 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 FOLLOW UP PCP in 3-5 days of discharge Cardiology in 2-[address] Asha puentes MD Urology in 1-2 weeks of discharge. Wayne Bernal MD
--- NOTE | 2017-03-31 14:10 | Patient Discharge Instructions ---
Discharge Instructions General Discharge Information You were seen/treated for: Septic shock secondary to Ecoli sepsis, Urine cultures + enterococcus and Pseudomonas. Metabolic acidosis DAISHA on CKD Atrial fibrillation now on coumadin Hyperbilirubinemia Special Instructions: Please follow up with your PCP within 1-2 week of discharge. Please follow up with cardiology in 1-2 weeks Please follow up with Dr. Nogueira in 1-2 weeks - Please watch for these problems: Fever, Chills, Nausea, Vomiting, Shortness of Breath, Productive Cough, Chest Pain/Discomfort, Abdominal Pain, Active Bleeding or Bloody urine/stool. please follow up with INRs for coumadin Diet Continue normal diet: No Additional DIET Information: JEVITY 1.2 FLUSH 125 Q4HR 1ST 12HR RATE 15 2ND 12HR RATE 30 3RD 12HR RATE 50 GOAL RATE 80. Activity Full Activity/No Limits: No Activity Self Limited: Yes Acute Coronary Syndrome Inclusion Criteria At DC or during hospital stay patient has or had the following: ACS DIAGNOSIS No Discharge Core Measures Meds if any: Prescribed or Continued at Discharge Meds if any: NOT Prescribed or Continued at Discharge Congestive Heart Failure Inclusion Criteria At DC or during hospital stay patient has or had the following: CHF DIAGNOSIS No Discharge Core Measures Meds if any: Prescribed or Continued at Discharge Meds if any: NOT Prescribed or Continued at Discharge Cerebrovascular accident Inclusion Criteria At DC or during hospital stay patient has or had the following: CVA/TIA Diagnosis No Discharge Core Measures Meds if any: Prescribed or Continued at Discharge Meds if any: NOT Prescribed or Continued at Discharge Venous thromboembolism Inclusion Criteria VTE Diagnosis No VTE Type NONE VTE Confirmed by (Test) NONE Discharge Core Measures - Per Current guidelines, there needs to be overlap - treatment for the first 5 days of Warfarin therapy. - If discharged on Warfarin prior to 5 days of - overlap therapy, the patient will need to be - assessed for post discharge needs including - *Post discharge parental anticoagulation - *Warfarin and/or parental anticoagulation education - *Follow up date to check INR post discharge At least 5 days overlap therapy as Inpatient No Meds if any: Prescribed or Continued at Discharge Note: Overlap Therapy is Warfarin and Anticoagulant Meds if any: NOT Prescribed or Continued at Discharge
--- NOTE | 2017-03-31 14:12 | PN- Infect Dx ---
Subjective Subjective: Afebrile without complaints Objective Last 24 Hrs of Vital Signs/I&O Vital Signs Date Time Temp Pulse Resp B/P B/P Pulse O2 O2 Flow FiO2 Mean Ox Delivery Rate 03/31 1115 95 108/52 03/31 1115 95 10852 03/31 0348 97.5 90 20 100/60 95 Room Air 03/30 2240 Room Air 03/30 1600 97 Room Air 03/30 1600 98.8 101 16 100/60 93 Room Air Intake & Output 03/31 1600 03/31 0800 03/31 0000 Intake Total 440 1070 Output Total 1000 850 Balance -560 220 Intake, Blood 700 Product Intake, IV 10 Intake, Oral 0 0 Intake, Tube 180 120 Feeding Intake, Tube 250 250 Irrigant Number 2 Bowel Movements Output, 200 150 Drainage Output, Urine 800 700 Physical Exam Other Physical Findings: He appears comfortable in no acute distress HEENT NG tube remains in place Lungs are clear Heart irregular rhythm Abdomen soft, nontender with positive bowel sounds; cholecystostomy tube in place with 315 mL output yesterday and 200 mL overnight Back no CVA tenderness Hester catheter remains in place Results Last 24 Hours of Lab Results: Laboratory Tests 03/31 03/31 0940 0158 Chemistry Sodium (137 - 145 mmol/L) 141 Potassium (3.5 - 5.1 mmol/L) 4.3 Chloride (98 - 107 mmol/L) 104 Carbon Dioxide (22 - 30 mmol/L) 26 Anion Gap (5 - 16) 11 BUN (9 - 20 mg/dL) 26 H Creatinine (0.7 - 1.2 mg/dL) 0.7 Estimated GFR (>60 ml/min) > 60 Glucose (65 - 99 mg/dL) 89 Calcium (8.4 - 10.2 mg/dL) 8.6 Phosphorus (2.5 - 4.5 mg/dL) 3.5 Magnesium (1.6 - 2.3 mg/dL) 1.9 Total Bilirubin (0.2 - 1.3 mg/dL) 1.8 H AST (17 - 59 U/L) 34 ALT (21 - 72 U/L) 37 Albumin (3.5 - 5.0 g/dL) 2.6 L Coagulation PT (9.4 - 12.5 SEC) 21.7 H INR (0.90 - 1.17) 2.08 H Hematology CBC w Diff NO MAN DIFF REQ NO MAN DIFF REQ WBC (4.8 - 10.8 /CUMM) 18.2 H 16.6 H RBC (4.70 - 6.10 /CUMM) 3.41 L 3.33 L Hgb (14.0 - 18.0 G/DL) 9.8 L 9.6 L Hct (42 - 52 %) 29.5 L 28.6 L MCV (80.0 - 94.0 FL) 86.6 85.7 MCH (27.0 - 31.0 PG) 28.6 28.9 RDW (11.5 - 14.5 %) 18.0 H 17.1 H Plt Count (130 - 400 /CUMM) 279 263 MPV (7.4 - 10.4 FL) 10.3 9.5 Gran % (42.2 - 75.2 %) 83.3 H 81.7 H Lymphocytes % (20.5 - 51.1 %) 9.3 L 11.3 L Monocytes % (1.7 - 9.3 %) 4.7 4.7 Eosinophils % (0 - 5 %) 2.4 2.3 Basophils % (0.0 - 2.0 %) 0.3 0 Absolute Granulocytes (1.4 - 6.5 /CUMM) 15.2 H 13.6 H Absolute Lymphocytes (1.2 - 3.4 /CUMM) 1.7 1.9 Absolute Monocytes (0.10 - 0.60 /CUMM) 0.8 H 0.8 H Absolute Eosinophils (0.0 - 0.7 /CUMM) 0.4 0.4 Absolute Basophils (0.0 - 0.2 /CUMM) 0.1 0 PUBS MCHC (33.0 - 37.0 G/DL) 33.0 33.7 Last 24 Hours of [place] Results: No new cultures Recent Imaging Studies: Modified barium swallow March 31 reveals a disordered oral phase of swallowing with pooling of contrast in the valleculae Assessment/Plan Impression: Clinically stable with temperatures remaining normal but with his white blood cell count today increased, along with his bilirubin, suggesting the possibility of a new or residual infection, possibly related to the cholecystostomy tube, placed 8 days ago for the possibility of acalculus cholecystitis, with continued drainage, or to the Hester catheter, now Day 11 of Meropenem for Escherichia coli sepsis, with his initial urine cultures positive for Enterococcus and Pseudomonas in addition to Escherichia coli. Unfortunately he has again failed failed the modified barium swallow and alternative means of nutrition will need to be considered. Suggestion: 1. Repeat urine culture 2. Consider repeat imaging of the biliary tree, either with ultrasound or CT scan 3. Repeat chest x-ray 4. Further management of his nutrition per Medicine 5. Continue Meropenem
[2017-03-31 14:51] VITALS: BP 110/58
--- NOTE | 2017-03-31 15:55 | Event Note ---
Event Note Event Note: Spoke with IR () regarding PEG tube placement, recommendation is to hold Coumadin for 3 days (Goar INR prior to procedure is 1.5), will hold coumadin and start the patient on IV heparin ggt. He needs to swallow contrast prior to the procedure, IR will arrange for that. Procedure is expected at Thursday04/03/2017 once his INR at goal.
[2017-03-31 22:11] VITALS: BP 110/58
--- NOTE | 2017-03-31 22:32 | RADIOLOGY REPORT ---
EXAMINATION: XR PORTABLE CHEST CLINICAL INFORMATION: Rule out acute process, persistent leukocytosis COMPARISON: 03/24/2017 TECHNIQUE: Portable frontal view of the chest was obtained. FINDINGS: Enteric tube descends the esophagus into the stomach with the tip not seen. 2-lead pacemaker, unchanged. There is retrocardiac left lower lobe consolidation, similar to prior study. No pleural effusion or pneumothorax. Normal pulmonary vascularity. Degenerative changes of the shoulders. IMPRESSION: Persistent retrocardiac left lower lobe consolidation, most likely atelectasis although aspiration or pneumonia are possible as well.
[2017-04-01 01:42] LABS: PTT > 120 SEC (25-37)
[2017-04-01 05:43] VITALS: BP 112/64
--- NOTE | 2017-04-01 07:07 | PN- Urology ---
Subjective Subjective: No acute distress Objective Vital Signs and I&Os Vital Signs Date Time Temp Pulse Resp B/P B/P Pulse O2 O2 Flow FiO2 Mean Ox Delivery Rate 04/01 0543 98.5 88 20 112/64 97 Room Air 03/31 2211 98.4 108 18 110/58 97 Room Air 03/31 2155 108 110/58 03/31 1600 73 03/31 1451 98.4 116 20 110/58 97 Room Air 03/31 1115 95 108/52 03/31 1115 95 108/52 Intake & Output 04/01 0000 03/31 1600 03/31 0803/31 0000 03/30 1600 Intake Total 228 761 487 1414 780 Output Total 350 973 107 5980 850 165 Balance -350 -462 30 -560 220 615 Intake, Blood 700 Product Intake, IV 78 30 10 20 Intake, Oral 0 0 0 Intake, Tube 150 400 180 120 510 Feeding Intake, Tube 250 250 250 250 Irrigant Number 2 1 Bowel Movements Output, 65 200 150 Drainage Output, Other 75 Output, Urine 350 625 650 800 700 90 Patient 192 lb 188 lb Weight Weight Bed scale Measurement Method Abd: soft and non tender. Cholecystostomy tube in place Genitalia: lopez in place. Draining clear urine Laboratory Tests 04/01 03/31 0045 0940 Chemistry Sodium (137 - 145 mmol/L) 141 Potassium (3.5 - 5.1 mmol/L) 4.3 Chloride (98 - 107 mmol/L) 104 Carbon Dioxide (22 - 30 mmol/L) 26 Anion Gap (5 - 16) 11 BUN (9 - 20 mg/dL) 26 H Creatinine (0.7 - 1.2 mg/dL) 0.7 Estimated GFR (>60 ml/min) > 60 Glucose (65 - 99 mg/dL) 89 Calcium (8.4 - 10.2 mg/dL) 8.6 Phosphorus (2.5 - 4.5 mg/dL) 3.5 Magnesium (1.6 - 2.3 mg/dL) 1.9 Total Bilirubin (0.2 - 1.3 mg/dL) 1.8 H AST (17 - 59 U/L) 34 ALT (21 - 72 U/L) 37 Albumin (3.5 - 5.0 g/dL) 2.6 L Coagulation PT (9.4 - 12.5 SEC) 21.7 H INR (0.90 - 1.17) 2.08 H APTT (25 - 37 SEC) > 120 *H Hematology CBC w Diff NO MAN DIFF REQ WBC (4.8 - 10.8 /CUMM) 18.2 H RBC (4.70 - 6.10 /CUMM) 3.41 L Hgb (14.0 - 18.0 G/DL) 9.8 L Hct (42 - 52 %) 29.5 L MCV (80.0 - 94.0 FL) 86.6 MCH (27.0 - 31.0 PG) 28.6 RDW (11.5 - 14.5 %) 18.0 H Plt Count (130 - 400 /CUMM) 279 MPV (7.4 - 10.4 FL) 10.3 Gran % (42.2 - 75.2 %) 83.3 H Lymphocytes % (20.5 - 51.1 %) 9.3 L Monocytes % (1.7 - 9.3 %) 4.7 Eosinophils % (0 - 5 %) 2.4 Basophils % (0.0 - 2.0 %) 0.3 Absolute Granulocytes (1.4 - 6.5 /CUMM) 15.2 H Absolute Lymphocytes (1.2 - 3.4 /CUMM) 1.7 Absolute Monocytes (0.10 - 0.60 /CUMM) 0.8 H Absolute Eosinophils (0.0 - 0.7 /CUMM) 0.4 Absolute Basophils (0.0 - 0.2 /CUMM) 0.1 PUBS MCHC (33.0 - 37.0 G/DL) 33.0 Assessment/Plan Assessment/Plan Imp: 1. Resolving urosepsis 2. Dilated L ureter, chronic and worked up in 09/2016 showing no obstruction 3. Neurogenic bladder 4. Leukocytosis Plan: 1. Abx per ID 2. Continue lopez until issue of leukocytosis resolved. Could then remove lopez and str cath q shift. Will need to use 16 fr coude cath for str cath 3. PEG planned
[2017-04-01 09:27] LABS: ABSOLUTE BASOPHIL COUNT 0 /CUMM (0.0-0.2); ABSOLUTE EOSINOPHIL COUNT 0.5 /CUMM (0.0-0.7); ABSOLUTE GRANULOCYTE CT 8.6 /CUMM (1.4-6.5); ABSOLUTE LYMPH COUNT 1.5 /CUMM (1.2-3.4); ABSOLUTE MONOCYTE COUNT 0.7 /CUMM (0.10-0.60); BASOPHIL % 0.4 % (0.0-2.0); EOSINOPHIL % 4.1 % (0-5); GRANULOCYTE % 76.2 % (42.2-75.2); HEMATOCRIT 24.6 % (42-52); MEAN CORPUSCULAR HGB 28.9 PG (27.0-31.0); MEAN CORPUSCULAR HGB CONC 33.5 G/DL (33.0-37.0); MEAN CORPUSCULAR VOLUME 86.5 FL (80.0-94.0); MEAN PLATELET VOLUME 10.1 FL (7.4-10.4); PLATELET COUNT 292 /CUMM (130-400); RBC DISTRIBUTION WIDTH 18.7 % (11.5-14.5); RED BLOOD CELL CT 2.85 /CUMM (4.70-6.10); WHITE BLOOD CELL COUNT 11.2 /CUMM (4.8-10.8)
[2017-04-01 09:42] LABS: PT 21.4 SEC (9.4-12.5)
[2017-04-01 09:44] LABS: PTT 63 SEC (25-37)
--- NOTE | 2017-04-01 10:38 | PN- Housestaff ---
Zenia William 04/01/17 1038: Subjective Follow-up For: #1 septic shock secondary to gram-negative sepsis(UTI versus acalculus cholecystitis-less likely) #2 elevated troponin likely due to supply/demand mismatch (Type 2 [place]) #3 Questionable aspiration pneumonia versus healthcare associated pneumonia #4 Severe pyuria/BPH #5 Paroxysmal atrial fibrillation on warfarin #6 Acute kidney injury on chronic kidney disease #7 hyperbilirubinemia Subjective: No overnight event. Patient felt generally fine except stated being pain of not moving and from chronic hip/back pain. Review of Systems Constitutional: Reports: see HPI. Objective Last 24 Hrs of Vital Signs/I&O Vital Signs Date Time Temp Pulse Resp B/P B/P Pulse O2 O2 Flow FiO2 Mean Ox Delivery Rate 04/01 0543 98.5 88 20 112/64 97 Room Air 03/31 2211 98.4 108 18 110/58 97 Room Air 03/31 2155 108 110/58 03/31 1600 73 03/31 1451 98.4 116 20 110/58 97 Room Air 03/31 1115 95 108/52 03/31 1115 95 108/52 Intake & Output 04/01 1600 04/01 0800 04/01 0000 Intake Total 712.6 228 Output Total 490 690 Balance 222.6 -462 Intake, IV 192.6 78 Intake, Tube 520 150 Feeding Output, 140 65 Drainage Output, Urine 350 625 Patient 87.09 kg 85.275 kg Weight Weight Bed scale Measurement Method Physical Exam General Appearance: Alert, Oriented X3, Cooperative, No Acute Distress Cardiovascular: Irregular rate 2/2 A-fib Lungs: Clear to Auscultation, Normal Air Movement Abdomen: Normal Bowel Sounds, Soft, No Tenderness Extremities: No Edema, Normal Pulses Current Medications: Current Medications Sig/Woodrow Start time Last Medication Dose Route Stop Time Status Admin Acetaminophen 650 MG .STK-MED ONE 04/01 0032 DC PO 04/01 003 Acetaminophen 650 MG .STK-MED ONE 03/31 2154 DC PO 03/31 215 Acetaminophen 650 MG .STK-MED ONE 03/31 1610 DC PO 03/31 1611 Acetaminophen 650 MG Q4P PRN 03/29 1800 AC 04/01 PO 0033 Amlodipine Besylate 5 MG DAILY 03/25 1000 AC 03/30 PO 0935 Aspirin 81 MG DAILY 03/25 1000 AC 03/31 PO 1114 Atorvastatin Calcium 20 MG DAILY 03/25 1000 AC 03/31 PO 1115 Bisacodyl 10 MG ONCE PRN 03/30 1400 AC 03/30 IA 1400 Carbidopa/Levodopa 1 TAB TID 03/25 1000 AC 03/31 PO 2154 Glycerin 2 SPRAY Q2P PRN 03/27 0330 AC 03/30 PO 0931 Heparin Sodium 25,000 UNIT Q24H 03/31 1600 AC 03/31 (Porcine) IV 1825 Sodium Chloride 500 ML Melatonin 5 MG AT BEDTIME 04/01 0245 AC 04/01 PO 0253 Melatonin 5 MG AT BEDTIME 03/28 2200 AC 03/31 PO 2154 Meropenem 1 GM IQ8 03/24 1600 AC 04/01 IV 1022 Metoprolol Tartrate 50 MG BID 03/24 1000 AC 03/31 PO 2155 Nystatin 1 GENEVIEVE BID PRN 03/31 0145 AC 03/31 TOP 0409 Pantoprazole Sodium 40 MG DAILY 03/31 1000 AC 03/31 IV 1116 Senna/Docusate Sodium 2 TAB DAILY PRN 03/25 1900 AC 03/28 PO 1534 Sodium Chloride 2 SPRAY Q4P PRN 03/24 1600 AC 04/01 SHEYLA 0253 Tramadol HCl 50 MG ONCE ONE 04/01 0600 DC 04/01 PO 04/01 0601 0608 Warfarin Sodium 3.5 MG COUMADIN 1700 ONE 03/31 1700 CAN PO 03/31 1701 Last 24 Hrs of Lab/Travon Results Last 24 Hrs of Labs/Mics: Laboratory Tests 04/01/17 1014: APTT Cancelled 04/01/17 0745: PT 21.4 H, INR 2.05 H 04/01/17 0745: Anion Gap 9, Estimated GFR > 60, BUN/Creatinine Ratio 38.6 H, APTT 63 H, CBC w Diff NO MAN DIFF REQ, RBC 2.85 L, MCV 86.5, MCH 28.9, RDW 18.7 H, MPV 10.1, Gran % 76.2 H, Lymphocytes % 13.5 L, Monocytes % 5.8, Eosinophils % 4.1, Basophils % 0.4, Absolute Granulocytes 8.6 H, Absolute Lymphocytes 1.5, Absolute Monocytes 0.7 H, Absolute Eosinophils 0.5, Absolute Basophils 0, PUBS MCHC 33.5 04/01/17 0045: APTT > 120 *H Microbiology 03/31 1542 URINE ROUT: Urine Culture - COLB Assessment/Plan Assessment: Ms Torres is a 79-year-old gentleman with past medical history of Parkinson's disease, hypertension, permanent pacemaker, BPH and urinary retention, BIBA from [facility] after being found unresponsive. He has subsequently responded to medical therapy and intervention. Problem List: Septic shock secondary to Ecoli sepsis, Urine cultures + enterococcus and Pseudomonas. Metabolic acidosis DAISHA on CKD Atrial fibrillation now on coumadin Hyperbilirubinemia Plan: - On meropenem 1 g every 8 hours as recommended by ID, currently day 12, will complete a total 14 day course.. -INR not checked as patient is now on Heparin for pending PEG tube placement by IR on thursday. - Urology on board, appreciate recomendation, will DC Lopez tomorrow AM - Patient is currently on tube feeds,with Jevity 1.2. Family awared of the PEG tube scheduled for Thursday, however would like to perform another MBS today prior PEG tube. -Continued Supplement his electrolytes as needed -DVT prophylaxis Heparin + ALPs -Pain control with tylenol -DNI and DNR Problem List: 1. Sepsis 2. UTI (urinary tract infection) 3. Atrial fibrillation with RVR Pain Ratin Pain Location: left hip/back Pain Goal: Pain 4 or less Pain Plan: see AP Tomorrow's Labs & Rationales: CBC/BEP Kenn Foster 04/01/17 1041: Attending MD Review Statement Attending Statement Attending MD Statement: examined this patient, discuss w/resident/PA/CAREER DEVELOPMENT MANAGER, agreed w/resident/PA/CAREER DEVELOPMENT MANAGER, discussed with family, reviewed EMR data (avail), discussed with nursing, discussed with case mgmt, reviewed images, amended to note Attending Assessment/Plan: Plan is to obtain speech/swallow evalaution and if failed swallwoing would consider PEG placement if family wishes as per GI recommendations. Patient is on abx meropenem iv as per ID, urology is follwoing and lopez care as per urology. He is on anticoagualtion with warfarin. He is also parkisnons disease and supportive treatment. Cholecystostmy tube care as per surgery/GI. overall slow clinical progress. IR consulted for PEG placement. f/u INR and IR for possible PEG.
--- NOTE | 2017-04-01 12:00 | PN- Cardiology ---
Subjective Subjective: Resting comfortably. No new complaints. Objective Vital Signs and I&Os Vital Signs Date Time Temp Pulse Resp B/P B/P Pulse O2 O2 Flow FiO2 Mean Ox Delivery Rate 04/01 1145 88 112/70 04/01 1145 88 11270 04/01 0543 98.5 88 20 112/64 97 Room Air 03/31 2211 98.4 108 18 110/58 97 Room Air 03/31 2155 108 110/58 03/31 1600 73 03/31 1451 98.4 116 20 110/58 97 Room Air Intake & Output 04/01 1600 04/01 0800 04/01 0000 03/31 1600 03/31 0800 03/31 0000 Intake Total 712.6 228 115 396 4912 Output Total 490 478 894 4644 850 Balance 222.6 -462 30 -560 220 Intake, Blood 700 Product Intake, IV 192.6 78 30 10 Intake, Oral 0 0 Intake, Tube 520 150 400 180 120 Feeding Intake, Tube 250 250 250 Irrigant Number 2 Bowel Movements Output, 140 65 200 150 Drainage Output, Urine 350 625 650 800 700 Patient 192 lb 188 lb Weight Weight Bed scale Measurement Method Physical Exam: General: Alert, no distress Eyes: No obvious scleral icterus HEENT: NG tube in place Cardiovascular: Normal intensity S1/S2. Irregular, pacemaker noted Respiratory: No rales or rhonchi Abdomen: Soft, no obvious guarding; status post cholecystostomy tube Musculoskeletal: No clubbing or cyanosis noted; no edema Skin: Warm Neurologic: alert Current Medications: Current Medications Sig/Woodrow Start time Last Medication Dose Route Stop Time Status Admin Acetaminophen 650 MG .STK-MED ONE 04/01 0032 DC PO 04/01 0033 Acetaminophen 650 MG .STK-MED ONE 03/31 2154 DC PO 03/31 2155 Acetaminophen 650 MG .STK-MED ONE 03/31 1610 DC PO 03/31 1611 Acetaminophen 650 MG Q4P PRN 03/29 1800 AC 04/01 PO 1141 Amlodipine Besylate 5 MG DAILY 03/25 1000 AC 04/01 PO 1145 Aspirin 81 MG DAILY 03/25 1000 AC 04/01 PO 1145 Atorvastatin Calcium 20 MG DAILY 03/25 1000 AC 04/01 PO 1145 Bisacodyl 10 MG ONCE PRN 03/30 1400 AC 03/30 AL 1400 Carbidopa/Levodopa 1 TAB TID 03/25 1000 AC 04/01 PO 1142 Glycerin 2 SPRAY Q2P PRN 03/27 0330 AC 03/30 PO 0931 Heparin Sodium 25,000 UNIT Q24H 03/31 1600 AC 03/31 (Porcine) IV 1825 Sodium Chloride 500 ML Melatonin 5 MG AT BEDTIME 04/01 0245 AC 04/01 PO 0253 Melatonin 5 MG AT BEDTIME 03/28 2200 AC 03/31 PO 2154 Meropenem 1 GM IQ8 03/24 1600 AC 04/01 IV 1022 Metoprolol Tartrate 50 MG BID 03/24 1000 AC 04/01 PO 1145 Nystatin 1 GENEVIEVE BID PRN 03/31 0145 AC 03/31 TOP 0409 Pantoprazole Sodium 40 MG DAILY 03/31 1000 AC 04/01 IV 1145 Senna/Docusate Sodium 2 TAB DAILY PRN 03/25 1900 AC 03/28 PO 1534 Sodium Chloride 2 SPRAY Q4P PRN 03/24 1600 AC 04/01 SHEYLA 0253 Tramadol HCl 50 MG ONCE ONE 04/01 0600 DC 04/01 PO 04/01 0601 0608 Warfarin Sodium 3.5 MG COUMADIN 1700 ONE 03/31 1700 CAN PO 03/31 1701 Results Last 48 Hrs of Labs/Mics: Laboratory Tests 04/01/17 1014: APTT Cancelled 04/01/17 0745: PT 21.4 H, INR 2.05 H 04/01/17 0745: Anion Gap 9, Estimated GFR > 60, BUN/Creatinine Ratio 38.6 H, APTT 63 H, CBC w Diff NO MAN DIFF REQ, RBC 2.85 L, MCV 86.5, MCH 28.9, RDW 18.7 H, MPV 10.1, Gran % 76.2 H, Lymphocytes % 13.5 L, Monocytes % 5.8, Eosinophils % 4.1, Basophils % 0.4, Absolute Granulocytes 8.6 H, Absolute Lymphocytes 1.5, Absolute Monocytes 0.7 H, Absolute Eosinophils 0.5, Absolute Basophils 0, PUBS MCHC 33.5 04/01/17 0045: APTT > 120 *H 03/31/17 0940: Anion Gap 11, Estimated GFR > 60, Glucose 89, Calcium 8.6, Phosphorus 3.5, Magnesium 1.9, Total Bilirubin 1.8 H, AST 34, ALT 37, Albumin 2.6 L, PT 21.7 H, INR 2.08 H, CBC w Diff NO MAN DIFF REQ, RBC 3.41 L, MCV 86.6, MCH 28.6, RDW 18.0 H, MPV 10.3, Gran % 83.3 H, Lymphocytes % 9.3 L, Monocytes % 4.7, Eosinophils % 2.4, Basophils % 0.3, Absolute Granulocytes 15.2 H, Absolute Lymphocytes 1.7, Absolute Monocytes 0.8 H, Absolute Eosinophils 0.4, Absolute Basophils 0.1, PUBS MCHC 33.0 03/31/17 0158: CBC w Diff NO MAN DIFF REQ, RBC 3.33 L, MCV 85.7, MCH 28.9, RDW 17.1 H, MPV 9.5, Gran % 81.7 H, Lymphocytes % 11.3 L, Monocytes % 4.7, Eosinophils % 2.3, Basophils % 0, Absolute Granulocytes 13.6 H, Absolute Lymphocytes 1.9, Absolute Monocytes 0.8 H, Absolute Eosinophils 0.4, Absolute Basophils 0, PUBS MCHC 33.7 03/30/17 1200: CBC w Diff NO MAN DIFF REQ, RBC 2.37 L, MCV 85.0, MCH 28.6, RDW 17.9 H, MPV 10.6 H, Gran % 83.6 H, Lymphocytes % 11.5 L, Monocytes % 2.3, Eosinophils % 2.4, Basophils % 0.2, Absolute Granulocytes 10.8 H, Absolute Lymphocytes 1.5, Absolute Monocytes 0.3, Absolute Eosinophils 0.3, Absolute Basophils 0, PUBS MCHC 33.7 Recent Imaging Studies: Not on telemetry Assessment/Plan Assessment/Plan 1. Septic shock due to urosepsis versus acalculus cholecystitis; improved 2. Elevated troponin likely due to supply/demand mismatch (Type 2 [place]) 3. Acute kidney injury; improved 4. Paroxysmal atrial fibrillation on warfarin 5. History of permanent pacemaker 6. History of TIA 7. History of coronary artery disease with remote PCI 8. History of hypertension 9. Parkinson's disease 10. Hematuria, resolved 11. Status post cholecystostomy tube 12. Difficulty swallowing Patient remains hemodynamically stable and is planned for PEG tube. Coumadin is being held with heparin drip bridge. As the procedure is not urgent I do not favor giving FFP at this time. Resume Coumadin post procedure when able. Cardiac status is stable; we will see the patient as needed here in the hospital. Please do not hesitate to call with any additional questions or concerns. Joey Jason MD [facility] Continue telemetry? Not applicable
[2017-04-01 14:12] VITALS: BP 112/70
--- NOTE | 2017-04-01 14:18 | PN- Infect Dx ---
Subjective Subjective: Afebrile. He complains of pain and swelling in the right knee. Objective Last 24 Hrs of Vital Signs/I&O Vital Signs Date Time Temp Pulse Resp B/P B/P Pulse O2 O2 Flow FiO2 Mean Ox Delivery Rate 04/01 1145 88 112/70 04/01 1145 88 11270 04/01 0543 98.5 88 20 112/64 97 Room Air 03/31 2211 98.4 108 18 110/58 97 Room Air 03/31 2155 108 110/58 03/31 1600 73 03/31 1451 98.4 116 20 110/58 97 Room Air Intake & Output 04/01 1600 04/01 0800 04/01 0000 Intake Total 712.6 228 Output Total 490 690 Balance 222.6 -462 Intake, IV 192.6 78 Intake, Tube 520 150 Feeding Output, 140 65 Drainage Output, Urine 350 625 Patient 192 lb 188 lb Weight Weight Bed scale Measurement Method Physical Exam Other Physical Findings: He appears comfortable in no acute distress Lungs are clear Heart irregular rhythm with no murmur Abdomen is soft, nontender with positive bowel sounds; cholecystostomy tube in place with 265 cc output yesterday and 140 cc overnight Back no CVA tenderness Extremities right knee swelling and mild tenderness, with decreased range of motion Hester catheter remains in place Results Last 24 Hours of Lab Results: Laboratory Tests 04/01 04/01 04/01 1014 0745 0745 Chemistry Sodium (137 - 145 mmol/L) 138 Potassium (3.5 - 5.1 mmol/L) 4.3 Chloride (98 - 107 mmol/L) 104 Carbon Dioxide (22 - 30 mmol/L) 24 Anion Gap (5 - 16) 9 BUN (9 - 20 mg/dL) 27 H Creatinine (0.7 - 1.2 mg/dL) 0.7 Estimated GFR (>60 ml/min) > 60 BUN/Creatinine Ratio (7 - 25 %) 38.6 H Coagulation PT (9.4 - 12.5 SEC) 21.4 H INR (0.90 - 1.17) 2.05 H APTT (25 - 37 SEC) Cancelled 63 H Hematology CBC w Diff NO MAN DIFF REQ WBC (4.8 - 10.8 /CUMM) 11.2 H RBC (4.70 - 6.10 /CUMM) 2.85 L Hgb (14.0 - 18.0 G/DL) 8.2 L Hct (42 - 52 %) 24.6 L MCV (80.0 - 94.0 FL) 86.5 MCH (27.0 - 31.0 PG) 28.9 RDW (11.5 - 14.5 %) 18.7 H Plt Count (130 - 400 /CUMM) 292 MPV (7.4 - 10.4 FL) 10.1 Gran % (42.2 - 75.2 %) 76.2 H Lymphocytes % (20.5 - 51.1 %) 13.5 L Monocytes % (1.7 - 9.3 %) 5.8 Eosinophils % (0 - 5 %) 4.1 Basophils % (0.0 - 2.0 %) 0.4 Absolute Granulocytes (1.4 - 6.5 /CUMM) 8.6 H Absolute Lymphocytes (1.2 - 3.4 /CUMM) 1.5 Absolute Monocytes (0.10 - 0.60 /CUMM) 0.7 H Absolute Eosinophils (0.0 - 0.7 /CUMM) 0.5 Absolute Basophils (0.0 - 0.2 /CUMM) 0 PUBS MCHC (33.0 - 37.0 G/DL) 33.5 04/01 0045 Coagulation APTT (25 - 37 SEC) > 120 *H Last 24 Hours of Travon Results: Urine culture April 01 pending Recent Imaging Studies: Chest x-ray March 31 persistent retrocardiac left lower lobe density Assessment/Plan Impression: Overall improved with temperatures remaining normal and with his white blood cell count now nearly normal after an increase yesterday, which was likely related to his blood transfusions. The source of his anemia is unclear and further evaluation may be warranted. He remains on Meropenem now Day 12 of treatment for Escherichia coli sepsis, presumably of urologic origin, with Enterococcus and Pseudomonas isolated from the urine culture in addition to Escherichia coli. He is now 9 days status post placement of a cholecystostomy tube for the possibility of acalculus cholecystitis. His right knee pain and swelling is of unclear etiology and further evaluation will be necessary. He is tentatively scheduled for placement of a PEG later this week if he fails another barium swallow. Suggestion: 1. X-ray of the right knee 2. Add uric acid to his recent labs 3. Further evaluation of his anemia per Medicine 4. Await repeat modified barium swallow and possible PEG based on the results 5. Continue Meropenem
[2017-04-01 21:45] LABS: PTT 47 SEC (25-37)
[2017-04-01 22:06] VITALS: BP 116/68
[2017-04-02 05:15] LABS: PTT 47 SEC (25-37)
[2017-04-02 06:15] VITALS: BP 130/70
--- NOTE | 2017-04-02 07:09 | PN- Urology ---
Subjective Subjective: No acute distress Objective Vital Signs and I&Os Vital Signs Date Time Temp Pulse Resp B/P B/P Pulse O2 O2 Flow FiO2 Mean Ox Delivery Rate 04/02 0615 98.3 90 20 130/70 98 Room Air 04/01 2219 102 116/68 04/01 2206 98.2 102 20 116/68 98 Room Air 04/01 1412 97.9 73 20 112/70 96 04/01 1145 88 112/70 04/01 1145 88 112 Intake & Output 04/02 0000 04/01 1600 04/01 1600 Intake Total 297.3 1685 712.6 228 680 Output Total 700 840 685 490 690 650 Balance -700 -542.7 1000 222.6 -462 30 Intake, Blood 350 Product Intake, IV 57.3 192.6 78 30 Intake, Oral 0 Intake, Other 960 Intake, Tube 240 520 150 400 Feeding Intake, Tube 375 250 Irrigant Output, 190 35 140 65 Drainage Output, Urine 700 650 650 350 625 650 Patient 192 lb 192 lb 188 lb Weight Weight Bed scale Measurement Method Abd: soft and non tender Genitalia: lopez in place. Draining clear urine Laboratory Tests 04/02 04/01 04/01 04/01 0445 2038 1014 0745 Coagulation PT (9.4 - 12.5 SEC) 21.4 H INR (0.90 - 1.17) 2.05 H APTT (25 - 37 SEC) 47 H 47 H Cancelled 04/01 0745 Chemistry Sodium (137 - 145 mmol/L) 138 Potassium (3.5 - 5.1 mmol/L) 4.3 Chloride (98 - 107 mmol/L) 104 Carbon Dioxide (22 - 30 mmol/L) 24 Anion Gap (5 - 16) 9 BUN (9 - 20 mg/dL) 27 H Creatinine (0.7 - 1.2 mg/dL) 0.7 Estimated GFR (>60 ml/min) > 60 BUN/Creatinine Ratio (7 - 25 %) 38.6 H Coagulation APTT (25 - 37 SEC) 63 H Hematology CBC w Diff NO MAN DIFF REQ WBC (4.8 - 10.8 /CUMM) 11.2 H RBC (4.70 - 6.10 /CUMM) 2.85 L Hgb (14.0 - 18.0 G/DL) 8.2 L Hct (42 - 52 %) 24.6 L MCV (80.0 - 94.0 FL) 86.5 MCH (27.0 - 31.0 PG) 28.9 RDW (11.5 - 14.5 %) 18.7 H Plt Count (130 - 400 /CUMM) 292 MPV (7.4 - 10.4 FL) 10.1 Gran % (42.2 - 75.2 %) 76.2 H Lymphocytes % (20.5 - 51.1 %) 13.5 L Monocytes % (1.7 - 9.3 %) 5.8 Eosinophils % (0 - 5 %) 4.1 Basophils % (0.0 - 2.0 %) 0.4 Absolute Granulocytes (1.4 - 6.5 /CUMM) 8.6 H Absolute Lymphocytes (1.2 - 3.4 /CUMM) 1.5 Absolute Monocytes (0.10 - 0.60 /CUMM) 0.7 H Absolute Eosinophils (0.0 - 0.7 /CUMM) 0.5 Absolute Basophils (0.0 - 0.2 /CUMM) 0 PUBS MCHC (33.0 - 37.0 G/DL) 33.5 Assessment/Plan Assessment/Plan Imp: 1. Resolved urosepsis 2. Neurogenic bladder 3. 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 Day after PEG is placed could consider d/c of lopez. It is unlikely patient will void spontaneously and will need str cath 2-3 times per day. Need to use 14fr or 16 fr coude for intermittent cath 2. After discharge patient should f/u with his usual urologist in [place]
[2017-04-02 08:14] LABS: ABSOLUTE BASOPHIL COUNT 0.1 /CUMM (0.0-0.2); ABSOLUTE EOSINOPHIL COUNT 0.5 /CUMM (0.0-0.7); ABSOLUTE GRANULOCYTE CT 9.4 /CUMM (1.4-6.5); ABSOLUTE LYMPH COUNT 1.9 /CUMM (1.2-3.4); ABSOLUTE MONOCYTE COUNT 0.8 /CUMM (0.10-0.60); BASOPHIL % 0.5 % (0.0-2.0); EOSINOPHIL % 3.8 % (0-5); GRANULOCYTE % 74.2 % (42.2-75.2); HEMATOCRIT 24.8 % (42-52); MEAN CORPUSCULAR HGB 28.6 PG (27.0-31.0); MEAN CORPUSCULAR HGB CONC 32.9 G/DL (33.0-37.0); MEAN CORPUSCULAR VOLUME 87.1 FL (80.0-94.0); MEAN PLATELET VOLUME 9.5 FL (7.4-10.4); PLATELET COUNT 358 /CUMM (130-400); RBC DISTRIBUTION WIDTH 18.3 % (11.5-14.5); RED BLOOD CELL CT 2.85 /CUMM (4.70-6.10); WHITE BLOOD CELL COUNT 12.7 /CUMM (4.8-10.8)
--- NOTE | 2017-04-02 08:18 | PN- Housestaff ---
See Addendum Subjective Follow-up For: #1 septic shock secondary to gram-negative sepsis(UTI versus acalculus cholecystitis-less likely) #2 elevated troponin likely due to supply/demand mismatch (Type 2 MS) #3 Questionable aspiration pneumonia versus healthcare associated pneumonia #4 Severe pyuria/BPH #5 Paroxysmal atrial fibrillation on warfarin #6 Acute kidney injury on chronic kidney disease #7 hyperbilirubinemia Subjective: No overnight event. Patient still c/o 5-09/29 pain today regarding his left thigh. Patient acknowledged that he would go to PEG tube today. Review of Systems Constitutional: Reports: see HPI. Objective Last 24 Hrs of Vital Signs/I&O Vital Signs Date Time Temp Pulse Resp B/P B/P Pulse O2 O2 Flow FiO2 Mean Ox Delivery Rate 04/02 0615 98.3 90 20 130/70 98 Room Air 04/01 2219 102 116/68 04/01 2206 98.2 102 20 116/68 98 Room Air 04/01 1412 97.9 73 20 112/70 96 04/01 1145 88 112/70 04/01 1145 88 112/70 Intake & Output 04/02 1600 04/02 0800 04/02 0000 Intake Total 297.3 Output Total 700 840 Balance -700 -542.7 Intake, IV 57.3 Intake, Tube 240 Feeding Output, 190 Drainage Output, Urine 700 650 Patient 87.09 kg Weight Physical Exam General Appearance: Alert, Oriented X3, Cooperative, No Acute Distress Cardiovascular: Irregular rate Lungs: Clear to Auscultation, Normal Air Movement Abdomen: Normal Bowel Sounds, Soft, No Tenderness Neurological: Normal Speech Extremities: No Edema, Normal Pulses Current Medications: Current Medications Sig/Woodrow Start time Last Medication Dose Route Stop Time Status Admin Acetaminophen 650 MG .STK-MED ONE 04/01 1728 DC PO 04/01 1729 Acetaminophen 650 MG .STK-MED ONE 04/01 1140 DC PO 04/01 1141 Acetaminophen 650 MG Q4P PRN 03/29 1800 AC 04/02 PO 0038 Amlodipine Besylate 5 MG DAILY 03/25 1000 AC 04/01 PO 1145 Aspirin 81 MG DAILY 03/25 1000 AC 04/01 PO 1145 Atorvastatin Calcium 20 MG DAILY 03/25 1000 AC 04/01 PO 1145 Bacitracin 1 GENEVIEVE BID 04/01 1546 DC 04/01 TOP 2221 Bisacodyl 10 MG ONCE PRN 03/30 1400 AC 03/30 WV 1400 Carbidopa/Levodopa 1 TAB TID 03/25 1000 AC 04/01 PO 2219 Glycerin 2 SPRAY Q2P PRN 03/27 0330 AC 03/30 PO 0931 Heparin Sodium 3,500 UNIT ONCE ONE 04/02 0600 DC 04/02 (Porcine) IV 04/02 0601 0554 Heparin Sodium 3,500 UNIT ONCE ONE 04/01 2315 DC 04/01 (Porcine) IV 04/01 2316 2313 Heparin Sodium 5,000 UNIT .STK-MED ONE 04/01 2300 DC (Porcine) IV 04/01 2301 Heparin Sodium 25,000 UNIT Q24H 03/31 1600 AC 04/01 (Porcine) IV 1706 Sodium Chloride 500 ML Melatonin 5 MG AT BEDTIME 04/01 0245 AC 04/01 PO 0253 Melatonin 5 MG AT BEDTIME 03/28 2200 AC 04/01 PO 2219 Meropenem 1 GM IQ8 03/24 1600 AC 04/01 IV 2312 Metoprolol Tartrate 50 MG BID 03/24 1000 AC 04/01 PO 2219 Nystatin 1 GENEVIEVE BID PRN 03/31 0145 AC 03/31 TOP 0409 Pantoprazole Sodium 40 MG DAILY 03/31 1000 AC 04/01 IV 1145 Senna/Docusate Sodium 2 TAB DAILY PRN 03/25 1900 AC 03/28 PO 1534 Sodium Chloride 2 SPRAY Q4P PRN 03/24 1600 AC 04/01 SHEYLA 0253 Last 24 Hrs of Lab/Travon Results Last 24 Hrs of Labs/Mics: Laboratory Tests 04/02/17 0715: Sodium Pending, Potassium Pending, Chloride Pending, Carbon Dioxide Pending, Anion Gap Pending, BUN Pending, Creatinine Pending, BUN/Creatinine Ratio Pending , PT Pending, INR Pending, CBC w Diff Pending, WBC Pending, RBC Pending, Hgb Pending, Hct Pending, MCV Pending, MCH Pending, RDW Pending, Plt Count Pending, MPV Pending, PUBS MCHC Pending 04/02/17 0445: APTT 47 H 04/01/17 2038: APTT 47 H 04/01/17 1014: APTT Cancelled Microbiology 04/01 1059 URINE ROUT: Urine Culture - RECD Assessment/Plan Assessment: Ms Torres is a 79-year-old gentleman with past medical history of Parkinson's disease, hypertension, permanent pacemaker, BPH and urinary retention, BIBA from [facility] after being found unresponsive. He has subsequently responded to medical therapy and intervention. Problem List: Septic shock secondary to Ecoli sepsis, Urine cultures + enterococcus and Pseudomonas. Metabolic acidosis DAISHA on CKD Atrial fibrillation now on coumadin Hyperbilirubinemia Plan: - On meropenem 1 g every 8 hours as recommended by ID, currently day 12, will complete a total 14 day course.. -INR not checked as patient is now on Heparin for pending PEG tube placement by IR likely today. Will hold Heparin for now. - Urology on board, appreciate recomendation, will DC Hester after PEG tube placement. - Patient is currently on tube feeds,with Jevity 1.2. Family awared of the PEG tube scheduled for today (pending confirmation by IR). -Continued Supplement his electrolytes as needed -DVT prophylaxis ALPs -Pain control with tylenol -DNI and DNR Problem List: 1. Atrial fibrillation with RVR 2. UTI (urinary tract infection) Pain Ratin Pain Location: Left Hip Pain Goal: Pain 4 or less Pain Plan: see AP Tomorrow's Labs & Rationales: CBC/BEP/INR
[2017-04-02 12:05] VITALS: BP 122/60
[2017-04-02 13:08] LABS: PTT 101 SEC (25-37)
--- NOTE | 2017-04-02 14:45 | PN- Infect Dx ---
Subjective Subjective: Afebrile. He complains of pain in the right knee and thigh. Objective Last 24 Hrs of Vital Signs/I&O Vital Signs Date Time Temp Pulse Resp B/P B/P Pulse O2 O2 Flow FiO2 Mean Ox Delivery Rate 04/02 1205 98.6 92 20 122/60 96 Room Air 04/02 0615 98.3 90 20 130/70 98 Room Air 04/01 2219 102 116/68 04/01 2206 98.2 102 20 116/68 98 Room Air Intake & Output 04/02 1600 04/02 0800 04/02 0000 Intake Total 297.3 Output Total 900 840 Balance -900 -542.7 Intake, IV 57.3 Intake, Tube 240 Feeding Output, 200 190 Drainage Output, Urine 700 650 Patient 192 lb Weight Physical Exam Other Physical Findings: He appears comfortable in no acute distress Lungs are clear Heart irregular rhythm with no murmur Abdomen is soft, nontender with positive bowel sounds; cholecystostomy tube in place with 365 mL output yesterday and 200 mL overnight Extremities right thigh swelling and ecchymosis, slightly tender to palpation; right knee swelling, with limitation to the range of motion; chronic venous stasis changes to the lower extremities Ehster catheter remains in place Results Last 24 Hours of Lab Results: Laboratory Tests 04/02 04/02 04/02 04/01 1215 0715 6015 8 Chemistry Sodium (137 - 145 mmol/L) 138 Potassium (3.5 - 5.1 mmol/L) 4.3 Chloride (98 - 107 mmol/L) 103 Carbon Dioxide (22 - 30 mmol/L) 27 Anion Gap (5 - 16) 8 BUN (9 - 20 mg/dL) 24 H Creatinine (0.7 - 1.2 mg/dL) 0.6 L Estimated GFR (>60 ml/min) > 60 BUN/Creatinine Ratio (7 - 25 %) 40.0 H Uric Acid (3.5 - 8.5 mg/dL) 3.8 Coagulation PT (9.4 - 12.5 SEC) 18.0 H INR (0.90 - 1.17) 1.72 H APTT (25 - 37 SEC) 101 *H 47 H 47 H Hematology CBC w Diff NO MAN DIFF REQ WBC (4.8 - 10.8 /CUMM) 12.7 H RBC (4.70 - 6.10 /CUMM) 2.85 L Hgb (14.0 - 18.0 G/DL) 8.1 L Hct (42 - 52 %) 24.8 L MCV (80.0 - 94.0 FL) 87.1 MCH (27.0 - 31.0 PG) 28.6 RDW (11.5 - 14.5 %) 18.3 H Plt Count (130 - 400 /CUMM) 358 MPV (7.4 - 10.4 FL) 9.5 Gran % (42.2 - 75.2 %) 74.2 Lymphocytes % (20.5 - 51.1 %) 15.3 L Monocytes % (1.7 - 9.3 %) 6.2 Eosinophils % (0 - 5 %) 3.8 Basophils % (0.0 - 2.0 %) 0.5 Absolute Granulocytes (1.4 - 6.5 /CUMM) 9.4 H Absolute Lymphocytes (1.2 - 3.4 /CUMM) 1.9 Absolute Monocytes (0.10 - 0.60 /CUMM) 0.8 H Absolute Eosinophils (0.0 - 0.7 /CUMM) 0.5 Absolute Basophils (0.0 - 0.2 /CUMM) 0.1 PUBS MCHC (33.0 - 37.0 G/DL) 32.9 L Last 24 Hours of Travon Results: Urine culture April 01 negative Assessment/Plan Impression: Right thigh inflammation, likely secondary to bleeding secondary to the Heparin, and suspect this is the cause of his recent anemia. He remains afebrile with a mild leukocytosis on Meropenem now Day 13 of treatment for Escherichia coli sepsis, presumably of urologic origin, with Enterococcus and Pseudomonas isolated from the urine culture in addition to Escherichia coli. He is now 10 days status post placement of a cholecystostomy tube for the possibility of acalculus cholecystitis. He is apparently scheduled for placement of a PEG in the a.m. Suggestion: 1. Consider CT of the right lower extremity (from the knee to the groin) 2. Will need to discuss discontinuation of his anticoagulation with Cardiology 3. Add uric acid to his recent labs 4. Await possible PEG in the a.m. 5. Continue Meropenem
[2017-04-02 15:10] VITALS: BP 120/80
--- NOTE | 2017-04-02 16:31 | CT SCAN REPORT ---
EXAMINATION: CT LOWER EXTREMITY WITHOUT CONTRAST, RIGHT CLINICAL INFORMATION: Evaluate for hematoma, inflammation or other acute process. COMPARISON: CT scan of the abdomen and pelvis February 2017. TECHNIQUE: CT scan of the right thigh was performed without contrast. DLP: 1356 mGy-cm FINDINGS: There is enlargement and heterogeneity of the adductor muscles beginning at the level of the symphysis pubis and extending the length of the muscles to the level of the mid to distal thigh over approximately 22 cm proximal to distal. Otherwise there is some mild generalized edema surrounding the muscles in the posterior compartment as well as gracilis as well as the anterior compartment particularly along the vastus lateralis deep to the fascia. The muscles are otherwise unremarkable. There is moderate generalized stranding in the subcutaneous soft tissues compatible with edema and/or cellulitis. Favor edema. IMPRESSION: Marked enlargement with some heterogeneity of the adductor muscles/compartment. This most likely reflects intramuscular hematoma. Myositis or evolving abscess cannot be excluded but is thought to be significantly less likely unless there is a strong clinical presentation favoring infection. This enlargement is not present on the limited images of the upper thigh seen on the CT of the abdomen and pelvis February 2017. More generalized edema within the remaining muscle compartments. Generalized abnormality in the subcutaneous soft tissues more likely reflects edema than cellulitis.
--- NOTE | 2017-04-02 16:48 | Event Note ---
See Addendum Event Note Event Note: Patient underwent Lower extremity CT and revealed likely intramuscular hematoma. Would DC heparin drip for now pending cans vacuum tester's input regarding further anticoagulation event. Dr. Jason on phone suggested hold heparin for now, despite being at risk of stroke overnight, and reassess the anticoagulation needs after PEG tube placement. Patient's stable, AOx3, however nursing staff notified me regard patient being tachy around 120-140, with SBP of 106, likely from being NPO from last night without adequate fluid intake. Would give one dose of 50mg Metoprolol (patient missed morning dose of metoprolol due to NPO), and one bolus of 500ml NS, and continuous IVF gentle hydration at 75cc/hr NS starting midnight. NPO starting midnight pending IR PEG tube placement in T+1 morning, scheduled at 10AM.
--- NOTE | 2017-04-02 17:15 | RADIOLOGY REPORT ---
EXAMINATION: XR KNEE, RIGHT CLINICAL INFORMATION: Evaluate right knee pain. COMPARISON: None TECHNIQUE: Oblique and slightly more oblique views (2 images) of the right knee are obtained. The technologist reports these are the best images possible. FINDINGS: There is no obvious fracture on these limited views. There is no obvious joint effusion but a good lateral view was not obtained. There are probable mild degenerative changes in the medial and lateral compartments. There are streaky densities in the soft tissues surrounding the knee which may represent edema. IMPRESSION: Soft tissue streaky changes, possibly edema. Probable mild degenerative changes in the right knee. Otherwise, very limited views and no definite evidence of acute fracture.
[2017-04-02 21:54] VITALS: BP 116/68
[2017-04-03 07:07] VITALS: BP 114/60
--- NOTE | 2017-04-03 07:56 | PN- Housestaff ---
See Addendum Subjective Follow-up For: #UTI s/p gram-negative urosepsis #Severe pyuria/BPH #Acalculus Cholecystitis s/p leyla #Paroxysmal atrial fibrillation #hyperbilirubinemia Subjective: No overnight event. Patient still c/o pain on left hip about the same scale compared to yesterday. Review of Systems Constitutional: Reports: see HPI. Objective Last 24 Hrs of Vital Signs/I&O Vital Signs Date Time Temp Pulse Resp B/P B/P Pulse O2 O2 Flow FiO2 Mean Ox Delivery Rate 04/03 0707 97.6 124 20 114/60 98 Room Air 04/02 2154 98.5 107 20 116/68 99 Room Air 04/02 1714 Nasal 2.0L Cannula 04/02 1646 120 106/62 04/02 1510 98.5 88 18 120/80 97 Room Air 04/02 1205 98.6 92 20 122/60 96 Room Air 04/02 1000 92 124/62 04/02 1000 92 124/62 Intake & Output 04/03 0800 04/03 0000 04/02 1600 Intake Total 700 Output Total 850 1005 1150 Balance -850 -305 -1150 Intake, IV 500 Intake, Tube 80 Feeding Intake, Tube 120 Irrigant Output, 30 Drainage Output, Urine 768 549 1962 Physical Exam General Appearance: Alert, Oriented X3, Cooperative, No Acute Distress Cardiovascular: Irregular rate 2/2 A-fib Lungs: Normal Air Movement Abdomen: Soft, No Tenderness Current Medications: Current Medications Sig/Woodrow Start time Last Medication Dose Route Stop Time Status Admin Acetaminophen 650 MG Q4P PRN 03/29 1800 AC 04/02 PO 0038 Amlodipine Besylate 5 MG DAILY 03/25 1000 AC 04/01 PO 1145 Aspirin 81 MG DAILY 03/25 1000 DC 04/02 PO 1645 Atorvastatin Calcium 20 MG DAILY 03/25 1000 AC 04/02 PO 1645 Bisacodyl 10 MG ONCE PRN 03/30 1400 AC 03/30 [place] 1400 Carbidopa/Levodopa 1 TAB TID 03/25 1000 AC 04/02 PO 2225 Glycerin 2 SPRAY Q2P PRN 03/27 0330 AC 03/30 PO 0931 Heparin Sodium 25,000 UNIT Q24H 03/31 1600 DC 04/02 (Porcine) IV 04/03 0500 1412 Sodium Chloride 500 ML Hydrocodone Bitart/ 1 TAB Q6P PRN 04/02 1400 AC Acetaminophen PO Melatonin 7.5 MG AT BEDTIME 04/03 2200 AC PO Melatonin 5 MG AT BEDTIME 04/01 0245 DC 04/01 PO 0253 Melatonin 5 MG AT BEDTIME 03/28 2200 DC 04/02 PO 2225 Meropenem 1 GM IQ8 03/24 1600 AC 04/02 IV 2332 Metoprolol Tartrate 50 MG BID 03/24 1000 AC 04/02 PO 1646 Nystatin 1 GENEVIEVE BID PRN 03/31 0145 AC 03/31 TOP 0409 Pantoprazole Sodium 40 MG DAILY 03/31 1000 AC 04/02 IV 1336 Phytonadione 5 MG DAILY 04/02 1356 DC 04/02 PO 04/02 1357 1646 Senna/Docusate Sodium 2 TAB DAILY PRN 03/25 1900 AC 03/28 PO 1534 Sodium Chloride 1,000 ML Q13H 04/03 0000 AC 04/02 IV 2335 Sodium Chloride 500 ML BOLUS ONE 04/02 1715 DC 04/02 IV 04/02 1814 1710 Sodium Chloride 1,000 ML BOLUS ONE 04/02 1700 CAN IV 04/02 1859 Sodium Chloride 2 SPRAY Q4P PRN 03/24 1600 AC 04/01 SHEYLA 0253 Last 24 Hrs of Lab/Travon Results Last 24 Hrs of Labs/Mics: Laboratory Tests 04/03/17 0801: Sodium Pending, Potassium Pending, Chloride Pending, Carbon Dioxide Pending, Anion Gap Pending, BUN Pending, Creatinine Pending, BUN/Creatinine Ratio Pending , Total Bilirubin Pending, Direct Bilirubin Pending, PT Pending, INR Pending, CBC w Diff Pending, WBC Pending, RBC Pending, Hgb Pending, Hct Pending, MCV Pending, MCH Pending, RDW Pending, Plt Count Pending, MPV Pending, PUBS MCHC Pending 04/02/17 1215: APTT 101 *H Assessment/Plan Assessment: Ms Torres is a 79-year-old gentleman with past medical history of Parkinson's disease, hypertension, permanent pacemaker, BPH and urinary retention, BIBA from [facility] after being found unresponsive. He has subsequently responded to medical therapy and intervention. Problem List: Septic shock secondary to Ecoli sepsis, Urine cultures + enterococcus and Pseudomonas, resolving Metabolic acidosis, resolved DAISHA on CKD, resolved Atrial fibrillation Hyperbilirubinemia Plan: - On meropenem 1 g every 8 hours as recommended by ID, currently day 13, will complete a total 14 day course.. -INR is 1.24 on latest lab. Will hold Heparin for now due to hematoma. Pending Cardiology's input on anticoagulation plan and also possible pacemaker interrogation. - Urology on board, appreciate recomendation, will DC Hester after PEG tube placement. - Patient is currently kept NPO on tube feeding pending procedure. Patient was on hold of all meds except metoprolol, due to NPO as well as underlying hematoma shwon on CT Lower extremities 04/02/2017. Patient's tachycardia could be due to either being anemic (Hgb 7.1 on latest lab) or from A-fib. -Continued Supplement his electrolytes as needed -DVT prophylaxis ALPs -Pain control with tylenol, vicodin -DNI and DNR Problem List: 1. UTI (urinary tract infection) Pain Ratin Pain Location: left hip s/p hip repair in Oct Pain Goal: Pain 4 or less Pain Plan: see AP Tomorrow's Labs & Rationales: CBC/BEP
--- NOTE | 2017-04-03 08:16 | PN- Urology ---
Subjective Subjective: No acute distress Objective Vital Signs and I&Os Vital Signs Date Time Temp Pulse Resp B/P B/P Pulse O2 O2 Flow FiO2 Mean Ox Delivery Rate 04/03 0707 97.6 124 20 114/60 98 Room Air 04/02 2200 107 04/02 2154 98.5 107 20 116/68 99 Room Air 04/02 1714 Nasal 2.0L Cannula 04/02 1646 120 106/62 04/02 1510 98.5 88 18 120/80 97 Room Air 04/02 1205 98.6 92 20 122/60 96 Room Air 04/02 1000 92 124/62 04/02 1000 92 124/62 Intake & Output 04/03 1600 04/03 0800 04/03 0000 04/02 1600 04/02 0800 04/02 0000 Intake Total 600 700 297.3 Output Total 950 1005 1150 900 840 Balance -350 -305 -1150 -900 -542.7 Intake, IV 600 500 57.3 Intake, Oral 0 Intake, Tube 80 240 Feeding Intake, Tube 120 Irrigant Output, 100 30 200 190 Drainage Output, Urine 559 362 0623 700 650 Patient 192 lb Weight Genitalia: lopez in place. Draining clear urine Laboratory Tests 04/03 04/02 0801 1215 Chemistry Sodium Pending Potassium Pending Chloride Pending Carbon Dioxide Pending Anion Gap Pending BUN Pending Creatinine Pending BUN/Creatinine Ratio Pending Total Bilirubin Pending Direct Bilirubin Pending Coagulation PT Pending INR Pending APTT (25 - 37 SEC) 101 *H Hematology CBC w Diff Pending WBC Pending RBC Pending Hgb Pending Hct Pending MCV Pending MCH Pending RDW Pending Plt Count Pending MPV Pending PUBS MCHC Pending Assessment/Plan Assessment/Plan Imp: 1. Urosepsis resolved 2. Neurogenic bladder 3. 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 Abx per ID 2. After PEG would remove lopez and start intermittent cath tid. Use 14 or 16 fr coude catheter. Would not remove lopez late in day. Remove some morning
[2017-04-03 09:12] LABS: ABSOLUTE EOSINOPHIL COUNT 0.2 /CUMM (0.0-0.7); ABSOLUTE LYMPH COUNT 1.4 /CUMM (1.2-3.4); ABSOLUTE MONOCYTE COUNT 0.8 /CUMM (0.10-0.60); EOSINOPHIL % 2.2 % (0-5)
[2017-04-03 09:37] LABS: ABSOLUTE BASOPHIL COUNT 0.1 /CUMM (0.0-0.2); ABSOLUTE GRANULOCYTE CT 8.4 /CUMM (1.4-6.5); BASOPHIL % 0.6 % (0.0-2.0); MEAN CORPUSCULAR HGB 28.9 PG (27.0-31.0); MEAN CORPUSCULAR HGB CONC 33.5 G/DL (33.0-37.0); MEAN CORPUSCULAR VOLUME 86.3 FL (80.0-94.0); MEAN PLATELET VOLUME 9.4 FL (7.4-10.4); PLATELET COUNT 389 /CUMM (130-400); RBC DISTRIBUTION WIDTH 18.6 % (11.5-14.5); RED BLOOD CELL CT 2.46 /CUMM (4.70-6.10)
[2017-04-03 09:46] LABS: HEMATOCRIT 21.2 % (42-52)
--- NOTE | 2017-04-03 11:29 | Event Note ---
Event Note Event Note: Patient is now pending GI PEG tube placement around 2PM today. Discussed the need for telemetry with Dr. Jason and agreed that as long patient's remained asymptomatic with stable vital signs except tachycardia likely due to anemia (Hgb 7.1 on latest CBC lab), will keep patient on General Medicine floor for now to complete the PEG tube placement. Patient is arranged for 1U PRBC transfusion now and will monitor VS and recheck CBC at night and next AM. Currently patient is NPO and will only get Metoprolol as scheduled and hold other meds, off all anticoagulations due to hematoma from CT lower extremity. Patient and family members acknowledged the current plan.
--- NOTE | 2017-04-03 11:47 | PN- Cardiology ---
Subjective Subjective: Still some discomfort in his leg. Denies any palpitations or chest pain. Objective Vital Signs and I&Os Vital Signs Date Time Temp Pulse Resp B/P B/P Pulse O2 O2 Flow FiO2 Mean Ox Delivery Rate 04/03 1112 124 108/58 04/03 0707 97.6 124 20 114/60 98 Room Air 04/02 2200 107 04/02 2154 98.5 107 20 116/68 99 Room Air 04/02 1714 Nasal 2.0L Cannula 04/02 1646 120 106/62 04/02 1510 98.5 88 18 120/80 97 Room Air 04/02 1205 98.6 92 20 122/60 96 Room Air Intake & Output 04/03 1600 04/03 0800 04/03 0000 04/02 1600 04/02 0800 04/02 0000 Intake Total 600 700 297.3 Output Total 950 1005 1150 900 840 Balance -350 -305 -1150 -900 -542.7 Intake, IV 600 500 57.3 Intake, Oral 0 Intake, Tube 80 240 Feeding Intake, Tube 120 Irrigant Output, 100 30 200 190 Drainage Output, Urine 896 723 0974 700 650 Patient 192 lb Weight Physical Exam: General: Alert, no distress Eyes: No obvious scleral icterus HEENT: NG tube in place Cardiovascular: Normal intensity S1/S2. Irregular, pacemaker noted Respiratory: No rales or rhonchi Abdomen: Soft, no obvious guarding; status post cholecystostomy tube Musculoskeletal: No clubbing or cyanosis noted; right upper thigh edema Skin: Warm Neurologic: alert Current Medications: Current Medications Sig/Woodrow Start time Last Medication Dose Route Stop Time Status Admin Acetaminophen 650 MG Q4P PRN 03/29 1800 AC 04/02 PO 0038 Amlodipine Besylate 5 MG DAILY 03/25 1000 AC 04/01 PO 1145 Aspirin 81 MG DAILY 03/25 1000 DC 04/02 PO 1645 Atorvastatin Calcium 20 MG DAILY 03/25 1000 AC 04/02 PO 1645 Bisacodyl 10 MG ONCE PRN 03/30 1400 AC 03/30 [place] 1400 Carbidopa/Levodopa 1 TAB TID 03/25 1000 AC 04/02 PO 2225 Glycerin 2 SPRAY Q2P PRN 03/27 0330 AC 03/30 PO 0931 Heparin Sodium 25,000 UNIT Q24H 03/31 1600 DC 04/02 (Porcine) IV 04/03 0500 1412 Sodium Chloride 500 ML Hydrocodone Bitart/ 1 TAB Q6P PRN 04/02 1400 AC Acetaminophen PO Melatonin 7.5 MG AT BEDTIME 04/03 2200 AC PO Melatonin 5 MG AT BEDTIME 04/01 0245 DC 04/01 PO 0253 Melatonin 5 MG AT BEDTIME 03/28 2200 DC 04/02 PO 2225 Meropenem 1 GM IQ8 03/24 1600 AC 04/03 IV 0815 Metoprolol Tartrate 50 MG BID 03/24 1000 AC 04/03 PO 1112 Nystatin 1 GENEVIEVE BID PRN 03/31 0145 AC 03/31 TOP 0409 Pantoprazole Sodium 40 MG DAILY 03/31 1000 AC 04/03 IV 0818 Phytonadione 5 MG DAILY 04/02 1356 DC 04/02 PO 04/02 1357 1646 Senna/Docusate Sodium 2 TAB DAILY PRN 03/25 1900 AC 03/28 PO 1534 Sodium Chloride 1,000 ML Q13H 04/03 0000 AC 04/02 IV 2335 Sodium Chloride 500 ML BOLUS ONE 04/02 1715 DC 04/02 IV 04/02 1814 1710 Sodium Chloride 1,000 ML BOLUS ONE 04/02 1700 CAN IV 04/02 1859 Sodium Chloride 2 SPRAY Q4P PRN 03/24 1600 AC 04/01 SHEYLA 0253 Results Last 48 Hrs of Labs/Mics: Laboratory Tests 04/03/17 0801: Anion Gap 9, Estimated GFR > 60, BUN/Creatinine Ratio 36.7 H, Total Bilirubin 1.8 H, Direct Bilirubin 0.7 H, PT 13.0 H, INR 1.24 H, CBC w Diff NO MAN DIFF REQ, RBC 2.46 L, MCV 86.3, MCH 28.9, RDW 18.6 H, MPV 9.4, Gran % 77.0 H, Lymphocytes % 12.9 L, Monocytes % 7.3, Eosinophils % 2.2, Basophils % 0.6, Absolute Granulocytes 8.4 H, Absolute Lymphocytes 1.4, Absolute Monocytes 0.8 H, Absolute Eosinophils 0.2, Absolute Basophils 0.1, PUBS MCHC 33.5 04/02/17 1215: APTT 101 *H 04/02/17 0715: Anion Gap 8, Estimated GFR > 60, BUN/Creatinine Ratio 40.0 H, Uric Acid 3.8, PT 18.0 H, INR 1.72 H, CBC w Diff NO MAN DIFF REQ, RBC 2.85 L, MCV 87.1, MCH 28.6, RDW 18.3 H, MPV 9.5, Gran % 74.2, Lymphocytes % 15.3 L, Monocytes % 6.2, Eosinophils % 3.8, Basophils % 0.5, Absolute Granulocytes 9.4 H, Absolute Lymphocytes 1.9, Absolute Monocytes 0.8 H, Absolute Eosinophils 0.5, Absolute Basophils 0.1, PUBS MCHC 32.9 L 04/02/17 0445: APTT 47 H 04/01/172037: APTT 47 H Recent Imaging Studies: LE CT scan: Marked enlargement with some heterogeneity of the adductor muscles/compartment. This most likely reflects intramuscular hematoma. Myositis or evolving abscess cannot be excluded but is thought to be significantly less likely unless there is a strong clinical presentation favoring infection. This enlargement is not present on the limited images of the upper thigh seen on the CT of the abdomen and pelvis February 2017. More generalized edema within the remaining muscle compartments. Generalized abnormality in the subcutaneous soft tissues more likely reflects edema than cellulitis. Assessment/Plan Assessment/Plan 1. Septic shock due to urosepsis versus acalculus cholecystitis; improved 2. Elevated troponin likely due to supply/demand mismatch (Type 2 VT) 3. Acute kidney injury; improved 4. Paroxysmal atrial fibrillation on warfarin 5. History of permanent pacemaker 6. History of TIA 7. History of coronary artery disease with remote PCI 8. History of hypertension 9. Parkinson's disease 10. Hematuria, resolved 11. Status post cholecystostomy tube 12. Difficulty swallowing; planned for PEG tube 13. Intramuscular hematoma with decrease in HG level The patient was found to have evidence of intramuscular hematoma on CT scan and his anticoagulation has been discontinued/reversed. He does have some tachycardia documented by vital signs but denies any palpitations and I think he does not require transfer to telemetry for the time being unless his clinical status deteriorates. Recommend discontinuing his Norvasc and continuing the beta jose. Joey Jason MD [facility] Continue telemetry? Not applicable
--- NOTE | 2017-04-03 12:45 | Event Note ---
See Addendum Event Note Event Note: Situation: Informed by the nurse that the patient has sudden onset SOB, his O2 sat check and it was 97% Background: is an 82 yo man with a hx. of A.fib on coumadin (Currently on hold), history of permanent pacemaker, history of TIA, history of coronary artery disease with remote PCI, history of hypertension who was initially at ICU for sepsis of urologic origin currently on meropenem, transfred to the floor on 2017 after been stabilized, patient is on tube feed as he failed his swallow eval. 3 times, today he is getting PEG tube by GI (). His coumadin on hold for the procedure, he was on heparin gtt which was held yesterday as his right lower extrimity was swollen and CT showed intramuscular hematoma, we held his ASA today. Assessment and plan: -SOB could be 2/2 iv fluid hydration (he received one bolus yesterday and a maintenance NS @ 75ml/hr), it could be also 2/2 new onset PE as his coumadin on hold ( INR today is 1.24) and his heparin gtt held yesterday, aspirin held today. Will r/o pulmonary edema with the CXR first, if no pulmonary edema then will consider CTA chest. -IV fluid discontinued -He is receiving blood transfusion today, will order Lasix with that (H&H is dropping today it's 7.1/21.2 yesterday it was 8.1/24.8) -Stat EKG and troponin was ordered. will f/u Above discussed with attending.
--- NOTE | 2017-04-03 13:08 | PN- Infect Dx ---
Subjective Subjective: Afebrile. He complains of increased shortness of breath. Objective Last 24 Hrs of Vital Signs/I&O Vital Signs Date Time Temp Pulse Resp B/P B/P Pulse O2 O2 Flow FiO2 Mean Ox Delivery Rate 04/03 1112 124 108/58 04/03 0707 97.6 124 20 114/60 98 Room Air 04/02 2200 107 04/02 2154 98.5 107 20 116/68 99 Room Air 04/02 1714 Nasal 2.0L Cannula 04/02 1646 120 106/62 04/02 1510 98.5 88 18 120/80 97 Room Air Intake & Output 04/03 1600 04/03 0800 04/03 0000 Intake Total 600 700 Output Total 950 1005 Balance -350 -305 Intake, IV 600 500 Intake, Oral 0 Intake, Tube 80 Feeding Intake, Tube 120 Irrigant Output, 100 30 Drainage Output, Urine 850 975 Physical Exam Other Physical Findings: He appears comfortable in no acute distress Lungs are clear Heart irregular rhythm with no murmur Abdomen is soft, nontender, with positive bowel sounds; cholecystostomy tube in place with 200 mL output yesterday and 130 mL overnight Extremities right thigh induration and ecchymosis slightly improved Hester catheter remains in place Results Last 24 Hours of Lab Results: Laboratory Tests 04/03 04/03 1245 0801 Chemistry Sodium (137 - 145 mmol/L) 138 Potassium (3.5 - 5.1 mmol/L) 4.2 Chloride (98 - 107 mmol/L) 104 Carbon Dioxide (22 - 30 mmol/L) 24 Anion Gap (5 - 16) 9 BUN (9 - 20 mg/dL) 22 H Creatinine (0.7 - 1.2 mg/dL) 0.6 L Estimated GFR (>60 ml/min) > 60 BUN/Creatinine Ratio (7 - 25 %) 36.7 H Total Bilirubin (0.2 - 1.3 mg/dL) 1.8 H Direct Bilirubin (< 0.4 mg/dL) 0.7 H Troponin I Pending Coagulation PT (9.4 - 12.5 SEC) 13.0 H INR (0.90 - 1.17) 1.24 H Hematology CBC w Diff NO MAN DIFF REQ WBC (4.8 - 10.8 /CUMM) 11.0 H RBC (4.70 - 6.10 /CUMM) 2.46 L Hgb (14.0 - 18.0 G/DL) 7.1 *L Hct (42 - 52 %) 21.2 L MCV (80.0 - 94.0 FL) 86.3 MCH (27.0 - 31.0 PG) 28.9 RDW (11.5 - 14.5 %) 18.6 H Plt Count (130 - 400 /CUMM) 389 MPV (7.4 - 10.4 FL) 9.4 Gran % (42.2 - 75.2 %) 77.0 H Lymphocytes % (20.5 - 51.1 %) 12.9 L Monocytes % (1.7 - 9.3 %) 7.3 Eosinophils % (0 - 5 %) 2.2 Basophils % (0.0 - 2.0 %) 0.6 Absolute Granulocytes (1.4 - 6.5 /CUMM) 8.4 H Absolute Lymphocytes (1.2 - 3.4 /CUMM) 1.4 Absolute Monocytes (0.10 - 0.60 /CUMM) 0.8 H Absolute Eosinophils (0.0 - 0.7 /CUMM) 0.2 Absolute Basophils (0.0 - 0.2 /CUMM) 0.1 PUBS MCHC (33.0 - 37.0 G/DL) 33.5 Last 24 Hours of Travon Results: Urine culture April 01 negative Recent Imaging Studies: CT of the right lower extremity April 02 reveals enlargement and heterogeneity of the adductor muscles beginning at the symphysis pubis and extending to the level of the mid to distal thigh; chondrocalcinosis of the right hip and mild to moderate arthrosis of the right hip, with a mild right hip joint effusion X-ray of the right knee April 02 reveals probable mild degenerative changes in the right knee, with no obvious joint effusion Assessment/Plan Impression: Overall condition remains poor, now with evidence of an intramuscular hematoma of the right thigh, likely explaining his anemia, with his H&H further decreased today, now off anticoagulation. He remains afebrile with a minimal leukocytosis on Meropenem now Day 14 of treatment for Escherichia coli sepsis, presumably of urologic origin, with Enterococcus and Pseudomonas isolated from the urine culture in addition to Escherichia coli. As per Urology his Hester catheter can be removed after PEG placement, which is scheduled for later today, with straight catheterization protocol initiated, using a 14 or 16 [place] coud. He is now 11 days status post placement of a cholecystostomy tube for the possibility of acalculus cholecystitis. The etiology of his shortness of breath is unclear and is being evaluated. Suggestion: 1. Await PEG placement later today 2. Would remove Hester catheter early a.m. on April 04 and initiate straight cath protocol using a 14 or 16 [place] coud per Urology 3. Further evaluation of his shortness of breath per Medicine 4. Discontinue Meropenem after PEG placement and follow off antibiotics
--- NOTE | 2017-04-03 13:33 | RADIOLOGY REPORT ---
EXAMINATION: XR PORTABLE CHEST CLINICAL INFORMATION: Shortness of breath. Evaluate for pulmonary edema, opacity. COMPARISON: Portable chest 03/31/2017. TECHNIQUE: Portable AP 85 degree upright view of the chest was obtained. FINDINGS: Pacemaker and wires are unchanged. The heart is normal in size. There is no congestion or focal consolidation. IMPRESSION: No acute cardiopulmonary process.
[2017-04-03 14:00] VITALS: BP 102/54
--- NOTE | 2017-04-03 14:57 | RADIOLOGY REPORT ---
EXAMINATION: XR HIP, LEFT CLINICAL INFORMATION: Pain. Assess for any changes, fracture or displacement. COMPARISON: CT scan of the abdomen and pelvis 03/22/2017. TECHNIQUE: An AP view of the left hip was obtained. FINDINGS: The study redemonstrates an intramedullary charles in the femoral shaft with a locking screw across the femoral neck, reducing and fixing a left femoral intratrochanteric fracture. No displaced fractures are demonstrated. There is normal alignment of the hip joint. There are hernia repair mesh coils in the left groin. IMPRESSION: 1. Single AP view of the left hip demonstrates sequelae of ORIF of a left intertrochanteric fracture. No acute fractures are demonstrated on the the available view.
--- NOTE | 2017-04-03 16:21 | CT SCAN REPORT ---
EXAMINATION: CT ANGIOGRAM CHEST CLINICAL INFORMATION: Shortness of breath. Rule out pulmonary embolism. COMPARISON: X-ray from today. TECHNIQUE: Multiple axial images were obtained through the chest after the administration of 125 mL of Optiray 320 intravenous contrast. Multiplanar MIP reconstructions obtained and reviewed. FINDINGS: No evidence of filling defects in the central, segmental pulmonary arteries to indicate pulmonary embolus. No pathologically enlarged lymph nodes identified in the mediastinum or denilson. Ascending aorta measures 4.3 cm. Scattered atherosclerotic calcification of the aorta. The heart is mildly enlarged. No pericardial effusion. Nasogastric tube extends to the abdomen. The esophagus is decompressed. Left-sided pacemaker with dual leads, with streak artifact present, with associated limitation in evaluation. Small right greater than left pleural effusions. Trachea and central airway are patent. There is respiratory motion artifact limiting evaluation. Confluent airspace disease in the posterior aspect of bilateral lungs adjacent to the pleural effusion, from atelectasis or infiltrate. No confluent opacification is otherwise seen. No suspicious nodules identified. No axillary lymphadenopathy. No internal mammary lymphadenopathy. 1 cm hypodensity in the right lobe of the liver, [place]oun[place] 33, indeterminate. The remainder of the visualized structures appear unremarkable. Multilevel degenerative changes in the spine. IMPRESSION: 1. No evidence of filling defects to indicate central or segmental pulmonary embolus. 2. Small right greater than left pleural effusions. Subjacent airspace opacity from atelectasis or infiltrate. 3. Indeterminate 1 cm hypodense lesion in the right lobe of the liver.
[2017-04-03 19:14] LABS: ABSOLUTE BASOPHIL COUNT 0.1 /CUMM (0.0-0.2); ABSOLUTE EOSINOPHIL COUNT 0.2 /CUMM (0.0-0.7); ABSOLUTE GRANULOCYTE CT 8.8 /CUMM (1.4-6.5); ABSOLUTE LYMPH COUNT 1.8 /CUMM (1.2-3.4); ABSOLUTE MONOCYTE COUNT 0.7 /CUMM (0.10-0.60); BASOPHIL % 0.7 % (0.0-2.0); EOSINOPHIL % 1.6 % (0-5); GRANULOCYTE % 76.2 % (42.2-75.2); MEAN CORPUSCULAR HGB 28.5 PG (27.0-31.0); MEAN CORPUSCULAR HGB CONC 32.8 G/DL (33.0-37.0); MEAN CORPUSCULAR VOLUME 87.1 FL (80.0-94.0); MEAN PLATELET VOLUME 8.9 FL (7.4-10.4); PLATELET COUNT 417 /CUMM (130-400); RBC DISTRIBUTION WIDTH 18.4 % (11.5-14.5); WHITE BLOOD CELL COUNT 11.6 /CUMM (4.8-10.8)
[2017-04-03 19:21] LABS: HEMATOCRIT 27.7 % (42-52); RED BLOOD CELL CT 3.18 /CUMM (4.70-6.10)
[2017-04-03 22:27] VITALS: BP 132/68
[2017-04-04 06:21] VITALS: BP 130/66
--- NOTE | 2017-04-04 06:49 | PN- Housestaff ---
Subjective Follow-up For: #UTI s/p gram-negative urosepsis #Severe pyuria/BPH #Acalculus Cholecystitis s/p leyla #Paroxysmal atrial fibrillation #hyperbilirubinemia Subjective: No overnight event. Patient was sleeping when I walked in the room Review of Systems Constitutional: Reports: see HPI. Objective Last 24 Hrs of Vital Signs/I&O Vital Signs Date Time Temp Pulse Resp B/P B/P Pulse O2 O2 Flow FiO2 Mean Ox Delivery Rate 04/04 0621 99.0 98 20 130/66 97 04/03 2227 98.8 79 20 132/68 98 Room Air 04/03 1400 98.0 94 20 102/54 97 Room Air Room Air 04/03 1358 Nasal 2.0L Cannula 04/03 1112 124 108/58 04/03 0707 97.6 124 20 114/60 98 Room Air Intake & Output 04/04 0800 04/04 0000 04/03 1600 Intake Total 530 Output Total 1400 650 230 Balance -1400 -650 300 Intake, IV 450 Intake, Oral 0 Intake, Tube 80 Irrigant Output, 150 230 Drainage Output, Urine 1250 650 Patient 87.798 kg Weight Weight Bed scale Measurement Method Physical Exam General Appearance: Patient was sleeping. Current Medications: Current Medications Sig/Woodrow Start time Last Medication Dose Route Stop Time Status Admin Acetaminophen 650 MG Q4P PRN 03/29 1800 AC 04/02 PO 0038 Amlodipine Besylate 5 MG DAILY 03/25 1000 DC 04/01 PO 1145 Aspirin 81 MG DAILY 03/25 1000 DC 04/02 PO 1645 Atorvastatin Calcium 20 MG DAILY 03/25 1000 AC 04/02 PO 1645 Bisacodyl 10 MG ONCE PRN 03/30 1400 AC 03/30 ND 1400 Carbidopa/Levodopa 1 TAB TID 03/25 1000 AC 04/03 PO 2343 Glycerin 2 SPRAY Q2P PRN 03/27 0330 AC 03/30 PO 0931 Hydrocodone Bitart/ 1 TAB Q6P PRN 04/02 1400 AC Acetaminophen PO Melatonin 7.5 MG AT BEDTIME 04/03 2200 AC 04/03 PO 2344 Melatonin 5 MG AT BEDTIME 03/28 2200 DC 04/02 PO 2225 Meropenem 1 GM IQ8 03/24 1600 DC 04/03 IV 04/03 2300 1752 Metoprolol Tartrate 50 MG BID 03/24 1000 AC 04/03 PO 2343 Nystatin 1 GENEVIEVE BID PRN 03/31 0145 DC 03/31 TOP 0409 Pantoprazole Sodium 40 MG DAILY 03/31 1000 AC 04/03 IV 0818 Senna/Docusate Sodium 2 TAB DAILY PRN 03/25 1900 AC 03/28 PO 1534 Sodium Chloride 1,000 ML Q13H 04/03 0000 DC 04/02 IV 2335 Sodium Chloride 2 SPRAY Q4P PRN 03/24 1600 AC 04/01 SHEYLA 0253 Last 24 Hrs of Lab/Travon Results Last 24 Hrs of Labs/Mics: Laboratory Tests 04/03/17 1825: CBC w Diff NO MAN DIFF REQ, RBC 3.18 L, MCV 87.1, MCH 28.5, RDW 18.4 H, MPV 8.9, Gran % 76.2 H, Lymphocytes % 15.1 L, Monocytes % 6.4, Eosinophils % 1.6, Basophils % 0.7, Absolute Granulocytes 8.8 H, Absolute Lymphocytes 1.8, Absolute Monocytes 0.7 H, Absolute Eosinophils 0.2, Absolute Basophils 0.1, PUBS MCHC 32.8 L 04/03/17 1408: pH 7.50 H, pCO2 30 L, pO2 96, HCO3 23, ABG O2 Sat (Measured) 96.0, Carboxyhemoglobin 0.2 L, O2 Concentration % RA, Temperature 98.2, O2 Delivery Method NC, Phlebotomy Draw Site LEFT RADIAL 04/03/17 1245: Troponin I < 0.01 04/03/17 0801: Anion Gap 9, Estimated GFR > 60, BUN/Creatinine Ratio 36.7 H, Total Bilirubin 1.8 H, Direct Bilirubin 0.7 H, PT 13.0 H, INR 1.24 H, CBC w Diff NO MAN DIFF REQ, RBC 2.46 L, MCV 86.3, MCH 28.9, RDW 18.6 H, MPV 9.4, Gran % 77.0 H, Lymphocytes % 12.9 L, Monocytes % 7.3, Eosinophils % 2.2, Basophils % 0.6, Absolute Granulocytes 8.4 H, Absolute Lymphocytes 1.4, Absolute Monocytes 0.8 H, Absolute Eosinophils 0.2, Absolute Basophils 0.1, PUBS MCHC 33.5 Assessment/Plan Assessment: Ms Torres is a 79-year-old gentleman with past medical history of Parkinson's disease, hypertension, permanent pacemaker, BPH and urinary retention, BIBA from [facility] after being found unresponsive. He has subsequently responded to medical therapy and intervention. Problem List: Septic shock secondary to Ecoli sepsis, Urine cultures + enterococcus and Pseudomonas, resolving Metabolic acidosis, resolved DAISHA on CKD, resolved Atrial fibrillation Hyperbilirubinemia Plan: - Meropenem DCed. Will continue monitor off ABx. - Hold all anticoagulations as patient had hematoma and is pending PEG tube placement. - Urology on board, appreciate recomendation, will DC Hester after PEG tube placement. - Patient is currently on tube feeding pending procedure. Patient was on hold of all meds except metoprolol, due to underlying hematoma shwon on CT Lower extremities 04/02/2017. Patient's tachycardia could be due to either being anemic (Hgb 7.1 on latest lab) or from A-fib. - Will keep patient NPO starting Thursday midnight for pending GI PEG tube placement on Thursday. -Continued Supplement his electrolytes as needed -DVT prophylaxis ALPs -Pain control with tylenol, vicodin -DNI and DNR Problem List: 1. On tube feeding diet 2. Atrial fibrillation with RVR Pain Ratin Pain Location: Pt is sleeping Pain Goal: Pain 4 or less Pain Plan: see AP Tomorrow's Labs & Rationales: CBC/BEP
[2017-04-04 09:01] LABS: ABSOLUTE BASOPHIL COUNT 0.1 /CUMM (0.0-0.2); ABSOLUTE EOSINOPHIL COUNT 0.3 /CUMM (0.0-0.7); ABSOLUTE GRANULOCYTE CT 8.5 /CUMM (1.4-6.5); ABSOLUTE LYMPH COUNT 1.3 /CUMM (1.2-3.4); ABSOLUTE MONOCYTE COUNT 0.8 /CUMM (0.10-0.60); BASOPHIL % 0.5 % (0.0-2.0); EOSINOPHIL % 2.5 % (0-5); GRANULOCYTE % 77.2 % (42.2-75.2); HEMATOCRIT 26.4 % (42-52); MEAN CORPUSCULAR HGB 28.7 PG (27.0-31.0); MEAN CORPUSCULAR HGB CONC 32.9 G/DL (33.0-37.0); MEAN CORPUSCULAR VOLUME 87.5 FL (80.0-94.0); MEAN PLATELET VOLUME 9.2 FL (7.4-10.4); PLATELET COUNT 405 /CUMM (130-400); RED BLOOD CELL CT 3.01 /CUMM (4.70-6.10); WHITE BLOOD CELL COUNT 11.1 /CUMM (4.8-10.8)
[2017-04-04 09:05] LABS: PT 13.2 SEC (9.4-12.5)
--- NOTE | 2017-04-04 11:32 | PN- Att Addend ---
Attending Addendum Attending Brief Note Mr. Torres was seen and evalauted. He reports that his SOB is sl better. Denies CP Vital Signs Date Time Temp Pulse Resp B/P B/P Pulse O2 O2 Flow FiO2 Mean Ox Delivery Rate 04/04 0910 109 120/60 04/04 0621 99.0 98 20 130/66 97 04/03 2227 98.8 79 20 132/68 98 Room Air 04/03 1400 98.0 94 20 102/54 97 Room Air Room Air 04/03 1358 Nasal 2.0L Cannula Intake & Output 04/04 1600 04/04 0800 04/04 0000 Intake Total 890 Output Total 1400 650 Balance -510 -650 Intake, Tube 640 Feeding Intake, Tube 250 Irrigant Output, 150 Drainage Output, Urine 1250 650 Patient 87.798 kg Weight Weight Bed scale Measurement Method GEN: frail looking elderly male, able to converse HEENT: NGT in place LUNGS: +bs HEART: s1s2 ABD: +BS Laboratory Tests 04/04/17 0702: Anion Gap 11, Estimated GFR > 60, BUN/Creatinine Ratio 37.1 H, PT 13.2 H, INR 1.26 H, CBC w Diff NO MAN DIFF REQ, RBC 3.01 L, MCV 87.5, MCH 28.7, RDW 18.0 H, MPV 9.2, Gran % 77.2 H, Lymphocytes % 12.2 L, Monocytes % 7.6, Eosinophils % 2.5, Basophils % 0.5, Absolute Granulocytes 8.5 H, Absolute Lymphocytes 1.3, Absolute Monocytes 0.8 H, Absolute Eosinophils 0.3, Absolute Basophils 0.1, PUBS MCHC 32.9 L 04/03/17 1825: CBC w Diff NO MAN DIFF REQ, RBC 3.18 L, MCV 87.1, MCH 28.5, RDW 18.4 H, MPV 8.9, Gran % 76.2 H, Lymphocytes % 15.1 L, Monocytes % 6.4, Eosinophils % 1.6, Basophils % 0.7, Absolute Granulocytes 8.8 H, Absolute Lymphocytes 1.8, Absolute Monocytes 0.7 H, Absolute Eosinophils 0.2, Absolute Basophils 0.1, PUBS MCHC 32.8 L 04/03/17 1408: pH 7.50 H, pCO2 30 L, pO2 96, HCO3 23, ABG O2 Sat (Measured) 96.0, Carboxyhemoglobin 0.2 L, O2 Concentration % RA, Temperature 98.2, O2 Delivery Method NC, Phlebotomy Draw Site LEFT RADIAL 04/03/17 1245: Troponin I < 0.01 A/P: Briefly, Mr. Torres is a 79-year-old gentleman with past medical history of Parkinson's disease, hypertension, permanent pacemaker, BPH and urinary retention, BIBA from [facility] after being found unresponsive. He was found to be in Septic shock secondary to Ecoli sepsis. Urine cultures + enterococcus and Pseudomonas. He has been evaluated by ID, Urology. Recently had CT angio that was negative for PE. --appreciate ID & Urology input --Likely PEG placement on Thursday -- as per Cards, holding Heparin and .ossible pacemaker interrogation. -- DC Hester after PEG tube placement. -- replete lytes as indicated -- DVT prophylaxis ALPs -- Pain control with tylenol, vicodin -- as per chart, DNR/DNI
[2017-04-04 15:00] VITALS: BP 122/60
[2017-04-04 22:39] VITALS: BP 128/68
[2017-04-05 06:00] VITALS: BP 118/68
[2017-04-05 08:24] LABS: PT 13.5 SEC (9.4-12.5)
[2017-04-05 08:26] LABS: ABSOLUTE BASOPHIL COUNT 0.1 /CUMM (0.0-0.2); ABSOLUTE EOSINOPHIL COUNT 0.4 /CUMM (0.0-0.7); ABSOLUTE GRANULOCYTE CT 8.8 /CUMM (1.4-6.5); ABSOLUTE LYMPH COUNT 1.6 /CUMM (1.2-3.4); BASOPHIL % 0.5 % (0.0-2.0); EOSINOPHIL % 3.3 % (0-5); GRANULOCYTE % 74.7 % (42.2-75.2); MEAN CORPUSCULAR HGB 28.8 PG (27.0-31.0); MEAN CORPUSCULAR HGB CONC 33.7 G/DL (33.0-37.0); MEAN CORPUSCULAR VOLUME 85.7 FL (80.0-94.0); PLATELET COUNT 429 /CUMM (130-400); RBC DISTRIBUTION WIDTH 17.5 % (11.5-14.5); RED BLOOD CELL CT 3.03 /CUMM (4.70-6.10); WHITE BLOOD CELL COUNT 11.8 /CUMM (4.8-10.8)
[2017-04-05 13:48] VITALS: BP 120/68
--- NOTE | 2017-04-05 15:34 | PN- Cardiology ---
Objective Vital Signs and I&Os Vital Signs Date Time Temp Pulse Resp B/P B/P Pulse O2 O2 Flow FiO2 Mean Ox Delivery Rate 04/05 1348 98.5 103 20 120/68 96 Room Air Room Air 04/05 0917 110 120/68 04/05 0600 98.3 102 20 118/68 97 Room Air 04/04 2243 115 97 Room Air 04/04 2239 98.7 20 128/68 04/04 2235 64 128/68 Intake & Output 04/05 0804/05 0000 04/04 1600 04/04 0804/04 0000 Intake Total 640 705 455 890 890 Output Total 1000 9696 836 1874 650 Balance 640 -295 -595 640 -510 -650 Intake, IV 0 20 10 0 Intake, Oral 0 0 Intake, Other 685 445 Intake, Tube 640 640 640 Feeding Intake, Tube 250 250 Irrigant Number 0 0 Bowel Movements Output, 200 150 Drainage Output, Urine 800 6946 070 0270 650 Patient 189 lb 194 lb Weight Weight Bed scale Bed scale Measurement Method Current Medications: Current Medications Sig/Woodrow Start time Last Medication Dose Route Stop Time Status Admin Acetaminophen 650 MG Q4P PRN 03/29 1800 AC 04/02 PO 0038 Atorvastatin Calcium 20 MG DAILY 03/25 1000 AC 04/05 PO 0914 Bisacodyl 10 MG ONCE PRN 03/30 1400 AC 03/30 HI 1400 Carbidopa/Levodopa 1 TAB TID 03/25 1000 AC 04/05 PO 0917 Glycerin 2 SPRAY Q2P PRN 03/27 0330 AC 03/30 PO 0931 Hydrocodone Bitart/ 1 TAB Q6P PRN 04/02 1400 AC 04/05 Acetaminophen PO 0914 Melatonin 7.5 MG AT BEDTIME 04/03 2200 AC 04/04 PO 2235 Metoprolol Tartrate 50 MG BID 03/24 1000 AC 04/05 PO 0917 Ondansetron HCl 4 MG ONCE ONE 04/05 1200 DC 04/05 IV 04/05 1201 1201 Pantoprazole Sodium 40 MG DAILY 03/31 1000 AC 04/05 IV 0917 Senna/Docusate Sodium 2 TAB DAILY PRN 03/25 1900 AC 03/28 PO 1534 Sodium Chloride 2 SPRAY Q4P PRN 03/24 1600 AC 04/01 SHEYLA 0253 Results Last 48 Hrs of Labs/Mics: Laboratory Tests 04/05/17 0740: Anion Gap 10, Estimated GFR > 60, BUN/Creatinine Ratio 40.0 H, PT 13.5 H, INR 1.29 H, CBC w Diff NO MAN DIFF REQ, RBC 3.03 L, MCV 85.7, MCH 28.8, RDW 17.5 H, MPV 9.0, Gran % 74.7, Lymphocytes % 13.3 L, Monocytes % 8.2, Eosinophils % 3.3, Basophils % 0.5, Absolute Granulocytes 8.8 H, Absolute Lymphocytes 1.6, Absolute Monocytes 1.0 H, Absolute Eosinophils 0.4, Absolute Basophils 0.1, PUBS MCHC 33.7 04/04/17 0702: Anion Gap 11, Estimated GFR > 60, BUN/Creatinine Ratio 37.1 H, PT 13.2 H, INR 1.26 H, CBC w Diff NO MAN DIFF REQ, RBC 3.01 L, MCV 87.5, MCH 28.7, RDW 18.0 H, MPV 9.2, Gran % 77.2 H, Lymphocytes % 12.2 L, Monocytes % 7.6, Eosinophils % 2.5, Basophils % 0.5, Absolute Granulocytes 8.5 H, Absolute Lymphocytes 1.3, Absolute Monocytes 0.8 H, Absolute Eosinophils 0.3, Absolute Basophils 0.1, PUBS MCHC 32.9 L 04/03/17 1825: CBC w Diff NO MAN DIFF REQ, RBC 3.18 L, MCV 87.1, MCH 28.5, RDW 18.4 H, MPV 8.9, Gran % 76.2 H, Lymphocytes % 15.1 L, Monocytes % 6.4, Eosinophils % 1.6, Basophils % 0.7, Absolute Granulocytes 8.8 H, Absolute Lymphocytes 1.8, Absolute Monocytes 0.7 H, Absolute Eosinophils 0.2, Absolute Basophils 0.1, PUBS MCHC 32.8 L Assessment/Plan Assessment/Plan Assessment: 1. Septic shock due to urosepsis versus acalculus cholecystitis; improved 2. Elevated troponin likely due to supply/demand mismatch (Type 2 MN) 3. Acute kidney injury; improved 4. Paroxysmal atrial fibrillation on warfarin 5. History of permanent pacemaker 6. History of TIA 7. History of coronary artery disease with remote PCI 8. History of hypertension 9. Parkinson's disease 10. Hematuria, resolved 11. Status post cholecystostomy tube 12. Difficulty swallowing; planned for PEG tube 13. Intramuscular hematoma with decrease in HG level Recommendations: -The patient remains minimally tachycardic with a heart rate of 9208. Continue to observe for now. -Continue current medical treatment -Continue metoprolol at current dose for now. -Norvasc remains on hold.
[2017-04-05 22:38] VITALS: BP 130/68
[2017-04-06 01:35] VITALS: BP 138/76
[2017-04-06 05:57] VITALS: BP 118/72
--- NOTE | 2017-04-06 08:10 | PN- Housestaff ---
WilliamZenia 04/06/17 0808: Subjective Follow-up For: #UTI s/p gram-negative urosepsis #Severe pyuria/BPH #Acalculus Cholecystitis s/p leyla #Paroxysmal atrial fibrillation #hyperbilirubinemia Subjective: Pt still c/o of hard to breath yet his oximetry was above 92% in the past days. Otherwise no specific complaint. Acknowledged that he will be going for PEG tube placement today. Review of Systems Constitutional: Reports: see HPI. Objective Last 24 Hrs of Vital Signs/I&O Vital Signs Date Time Temp Pulse Resp B/P B/P Pulse O2 O2 Flow FiO2 Mean Ox Delivery Rate 04/06 0557 98.5 103 22 118/72 95 Room Air 04/06 0135 99.3 110 22 138/76 96 Room Air 04/05 2250 95 Room Air 04/05 2238 98.8 112 20 130/68 95 Room Air 04/05 2139 98.8 98 20 130/68 04/05 1348 98.5 103 20 120/68 96 Room Air Room Air 04/05 0917 110 120/68 Intake & Output 04/06 1600 04/06 0800 04/06 0000 Intake Total 445 Output Total 1825 100 Balance -1825 345 Intake, Oral 0 Intake, Tube 320 Feeding Intake, Tube 125 Irrigant Output, 100 Drainage Output, Urine 1825 Patient 86.183 kg Weight Physical Exam General Appearance: Alert, Oriented X3, Cooperative, No Acute Distress Cardiovascular: Irregular rate 2/2 A-fib Lungs: Clear to Auscultation, Normal Air Movement Abdomen: Soft, No Tenderness Current Medications: Current Medications Sig/Woodrow Start time Last Medication Dose Route Stop Time Status Admin Acetaminophen 650 MG Q4P PRN 03/29 1800 AC 04/02 PO 0038 Atorvastatin Calcium 20 MG DAILY 03/25 1000 AC 04/05 PO 0914 Bisacodyl 10 MG ONCE PRN 03/30 1400 AC 03/30 AL 1400 Carbidopa/Levodopa 1 TAB TID 03/25 1000 AC 04/05 PO 2137 Glycerin 2 SPRAY Q2P PRN 03/27 0330 AC 03/30 PO 0931 Hydrocodone Bitart/ 1 TAB Q6P PRN 04/02 1400 AC 04/05 Acetaminophen PO 0914 Melatonin 7.5 MG AT BEDTIME 04/03 2200 AC 04/05 PO 2138 Metoprolol Tartrate 50 MG BID 03/24 1000 AC 04/05 PO 2139 Ondansetron HCl 4 MG ONCE ONE 04/05 1200 DC 04/05 IV 04/05 1201 1201 Pantoprazole Sodium 40 MG DAILY 03/31 1000 AC 04/05 IV 0917 Senna/Docusate Sodium 2 TAB DAILY PRN 03/25 1900 AC 03/28 PO 1534 Sodium Chloride 2 SPRAY Q4P PRN 03/24 1600 AC 04/01 SHEYLA 0253 Last 24 Hrs of Lab/Travon Results Last 24 Hrs of Labs/Mics: Laboratory Tests 04/06/17 0615: Sodium Pending, Potassium Pending, Chloride Pending, Carbon Dioxide Pending, Anion Gap Pending, BUN Pending, Creatinine Pending, BUN/Creatinine Ratio Pending , PT Pending, INR Pending, CBC w Diff Pending, WBC Pending, RBC Pending, Hgb Pending, Hct Pending, MCV Pending, MCH Pending, RDW Pending, Plt Count Pending, MPV Pending, PUBS MCHC Pending Assessment/Plan Assessment: Ms Torres is a 79-year-old gentleman with past medical history of Parkinson's disease, hypertension, permanent pacemaker, BPH and urinary retention, BIBA from [facility] after being found unresponsive. He has subsequently responded to medical therapy and intervention. Problem List: Septic shock secondary to Ecoli sepsis, Urine cultures + enterococcus and Pseudomonas, resolving Metabolic acidosis, resolved DAISHA on CKD, resolved Atrial fibrillation Hyperbilirubinemia Plan: - Meropenem DCed. Will continue monitor off ABx. - Patient's leukocytosis remained above normal range. Would f.u ID if any recommendations. Patient completed a full 14-day meropenem course, likely leukocytosis could be reactive due to chronic clinical conditions. - Hold all anticoagulations as patient had hematoma and is pending PEG tube placement. PEG tube placemend scheduled for tomorrow as patient's tube feeding was not turned off overnight. Will keep patient NPO starting Thursday midnight for pending GI PEG tube placement on Thursday. - Urology on board, appreciate recomendation, will DC Hester after PEG tube placement. - Patient is currently on tube feeding pending procedure. Patient was on hold of all meds except metoprolol, due to underlying hematoma shwon on CT Lower extremities 04/02/2017. Patient's tachycardia could be due to either being anemic (Hgb 7.1 on latest lab) or from A-fib. -Continued Supplement his electrolytes as needed DVT prophylaxis ALPs Pain control with tylenol, vicodin DNI and DNR Problem List: 1. On tube feeding diet Pain Ratin Pain Location: NA Pain Goal: Remain pain free Pain Plan: see AP Tomorrow's Labs & Rationales: CBC/BEP/INR Kenn Foster 04/06/17 1437: Attending MD Review Statement Attending Statement Attending MD Statement: examined this patient, discuss w/resident/PA/[employer], agreed w/resident/PA/[employer], discussed with family, reviewed EMR data (avail), discussed with nursing, discussed with case mgmt, reviewed images, amended to note Attending Assessment/Plan: Mr. Torres is a 79-year-old gentleman with past medical history of Parkinson's disease, hypertension, permanent pacemaker, BPH and urinary retention, BIBA from [facility] after being found unresponsive. He was found to be in Septic shock secondary to Ecoli sepsis. Urine cultures + enterococcus and Pseudomonas. He has been evaluated by ID, Urology. Recently had CT angio that was negative for PE. Weekend events noted. Found to have hematoma on right inner thigh. Patient with blood loss anemia. General surgery consulted and recommend conservative management. Leukocytosis could be reactive as recently completed meropenem course. Watch for fever and WBC and f/u ID. Holding anticaogualtion as per cardiology and in view of hematoma. Likely PEG placement soon. DC Hester after PEG tube placement. replete lytes as indicated. DVT prophylaxis ALPs. Pain control with tylenol, vicodin. as per chart, DNR/DNI
[2017-04-06 08:16] LABS: PT 13.8 SEC (9.4-12.5)
[2017-04-06 08:43] LABS: ABSOLUTE BASOPHIL COUNT 0.1 /CUMM (0.0-0.2); ABSOLUTE EOSINOPHIL COUNT 0.3 /CUMM (0.0-0.7); ABSOLUTE GRANULOCYTE CT 9.6 /CUMM (1.4-6.5); ABSOLUTE LYMPH COUNT 1.5 /CUMM (1.2-3.4); BASOPHIL % 0.5 % (0.0-2.0); EOSINOPHIL % 2.6 % (0-5); GRANULOCYTE % 76.7 % (42.2-75.2); HEMATOCRIT 25.6 % (42-52); MEAN CORPUSCULAR HGB 28.7 PG (27.0-31.0); MEAN CORPUSCULAR HGB CONC 32.7 G/DL (33.0-37.0); MEAN PLATELET VOLUME 9.4 FL (7.4-10.4); PLATELET COUNT 422 /CUMM (130-400); RBC DISTRIBUTION WIDTH 17.8 % (11.5-14.5); RED BLOOD CELL CT 2.91 /CUMM (4.70-6.10); WHITE BLOOD CELL COUNT 12.5 /CUMM (4.8-10.8)
--- NOTE | 2017-04-06 11:57 | PN- Cardiology ---
Subjective Subjective: The patient is awake, alert Planned PEG tube placement today The events of the last 24 hours as well as telemetry were reviewed. Review of Systems: The review of systems is negative for chest pains, palpitations nor lightheadedness. The remainder of the 14 point review of systems is noncontributory with the exception of above. Objective Vital Signs and I&Os Vital Signs Date Time Temp Pulse Resp B/P B/P Pulse O2 O2 Flow FiO2 Mean Ox Delivery Rate 04/06 0934 128 134/72 04/06 0557 98.5 103 22 118/72 95 Room Air 04/06 0135 99.3 110 22 138/76 96 Room Air 04/05 2250 95 Room Air 04/05 2238 98.8 112 20 130/68 95 Room Air 04/05 2139 98.8 98 20 130/68 04/05 1348 98.5 103 20 120/68 96 Room Air Room Air Intake & Output 04/06 1600 04/06 0800 04/06 0000 04/05 1600 04/05 0800 04/05 0000 Intake Total 765 445 640 705 455 Output Total 4536 306 7054 1050 Balance -1150 345 640 -295 -595 Intake, IV 0 20 10 Intake, Oral 0 0 0 Intake, Other 685 445 Intake, Tube 640 320 640 Feeding Intake, Tube 125 125 Irrigant Number 0 Bowel Movements Output, 90 100 200 Drainage Output, Urine 4746 973 1911 Patient 190 lb 189 lb Weight Weight Bed scale Measurement Method Physical Exam: General: Nontoxic, no apparent distress. HEENT: Sclera and conjunctiva within normal limits, without xanthelasmas. Neck: Carotids 2+ without bruits. Respiratory: Scattered rhonchi, air movement is good, without accessory respiratory muscle use. Heart: Irregularly irregular rate and rhythm, 2/6 systolic ejection murmur at left sternal border, without JVD. Abdomen: Soft, nontender, no masses, normoactive bowel sounds. Extremities: Without clubbing, cyanosis, without edema. Neuro: Nonfocal exam, strength, 5 out of 5 Skin: Within normal limits without lesions. Psych: Mood and affect: Normal Current Medications: Current Medications Sig/Woodrow Start time Last Medication Dose Route Stop Time Status Admin Acetaminophen 650 MG Q4P PRN 03/29 1800 AC 04/02 PO 0038 Atorvastatin Calcium 20 MG DAILY 03/25 1000 AC 04/06 PO 0935 Bisacodyl 10 MG ONCE PRN 03/30 1400 AC 03/30 DC 1400 Carbidopa/Levodopa 1 TAB TID 03/25 1000 AC 04/06 PO 0931 Glycerin 2 SPRAY Q2P PRN 03/27 0330 AC 03/30 PO 0931 Hydrocodone Bitart/ 1 TAB Q6P PRN 04/02 1400 AC 04/05 Acetaminophen PO 0914 Melatonin 7.5 MG AT BEDTIME 04/03 2200 AC 04/05 PO 2138 Metoprolol Tartrate 50 MG BID 03/24 1000 AC 04/06 PO 0934 Ondansetron HCl 4 MG ONCE ONE 04/05 1200 DC 04/05 IV 04/05 1201 1201 Pantoprazole Sodium 40 MG DAILY 03/31 1000 AC 04/06 IV 0944 Senna/Docusate Sodium 2 TAB DAILY PRN 03/25 1900 AC 03/28 PO 1534 Sodium Chloride 2 SPRAY Q4P PRN 03/24 1600 AC 04/01 SHEYLA 0253 Results Last 48 Hrs of Labs/Mics: Laboratory Tests 04/06/17 0615: Anion Gap 10, Estimated GFR > 60, BUN/Creatinine Ratio 40.0 H, PT 13.8 H, INR 1.32 H, CBC w Diff NO MAN DIFF REQ, RBC 2.91 L, MCV 88.0, MCH 28.7, RDW 17.8 H, MPV 9.4, Gran % 76.7 H, Lymphocytes % 12.0 L, Monocytes % 8.2, Eosinophils % 2.6, Basophils % 0.5, Absolute Granulocytes 9.6 H, Absolute Lymphocytes 1.5, Absolute Monocytes 1.0 H, Absolute Eosinophils 0.3, Absolute Basophils 0.1, PUBS MCHC 32.7 L 04/05/17 0740: Anion Gap 10, Estimated GFR > 60, BUN/Creatinine Ratio 40.0 H, PT 13.5 H, INR 1.29 H, CBC w Diff NO MAN DIFF REQ, RBC 3.03 L, MCV 85.7, MCH 28.8, RDW 17.5 H, MPV 9.0, Gran % 74.7, Lymphocytes % 13.3 L, Monocytes % 8.2, Eosinophils % 3.3, Basophils % 0.5, Absolute Granulocytes 8.8 H, Absolute Lymphocytes 1.6, Absolute Monocytes 1.0 H, Absolute Eosinophils 0.4, Absolute Basophils 0.1, PUBS MCHC 33.7 Assessment/Plan Assessment/Plan 1. Septic shock due to urosepsis versus acalculus cholecystitis 2. Elevated troponin, not consistent with an acute coronary syndrome 3. Acute kidney injury 4. Paroxysmal atrial fibrillation on warfarin 5. History of permanent pacemaker 6. History of TIA 7. History of coronary artery disease with remote PCI 8. History of hypertension 9. Parkinson's disease 10. Hematuria, resolved 11. Status post cholecystostomy tube 12. Difficulty swallowing; planned for PEG tube 13. Intramuscular hematoma with decrease in HG level The patient's troponin isoenzyme profile was most likely consistent with underlying sepsis in the setting of acute kidney injury, and not consistent with an acute coronary syndrome. We will maintain an overall conservative approach to his cardiac issues. Anticoagulation will continue to be held at this time given his intramuscular hematoma, anemia and planned PEG tube insertion. Anticoagulation will need to be restarted, and may do so after PEG tube placement if appropriate from a GI standpoint. I would attempt to increase his regimen of metoprolol if tolerated from a blood pressure standpoint. Continue telemetry? No
--- NOTE | 2017-04-06 13:03 | Cons- General Surgery ---
General Information and HPI Consulting Request Date of Consult: 04/06/17 Requested By: Kristin PHILLIPS,Kenn History of Present Illness: CC: Reason for consultation is thigh hematoma HPI: Patient is an 82-year-old admitted to the ICU with fever hypotension, urinary tract infection and an [place] he is a nondiabetic nonsmoker with a history of hypertension Parkinson's, frequent falls he self catheterizes has recurrent urinary tract infections and constipation on medications including metoprolol and aspirin, and Coumadin which has been held. Since admission he has recovered is awake and alert off pressors but has been noted he's been complaining of new right thigh pain for a few days a CT scan was done and showed unusual significant swelling of the abductor muscles medially right upper inner thigh. Today he denies pain there. On review there is no mention of any trauma there unusual positioning in the bed, has not been ambulating during his stay, during which she has received 2 units of FFP and 3 units of blood last one 3 days ago. This is the patient's first admission here so the chart is limited. The PFSH were reviewed. ROS is limited due to patient's recollection and what was documented. Upon admission to the ICU a right femoral line was placed. Allergies/Medications Allergies: Coded Allergies: amoxicillin (RASH 03/21/17) Home Med List: Amlodipine Besylate (Norvasc) 5 MG TABLET 1 TAB PO DAILY HTN (Reported) Aspirin (Aspirin*) 81 MG TAB.CHEW 1 TAB PO DAILY HEART (Reported) Atorvastatin Calcium 20 MG TABLET 1 TAB PO DAILY CHOL (Reported) Carbidopa/Levodopa (Carbidopa-Levodopa 25-100 Tab) 25 MG-100 MG TABLET 1 TAB PO TID PARKINSONS (Reported) Carbidopa/Levodopa (Carbidopa-Levodopa 25-100 Tab) 25 MG-100 MG TABLET 2 TAB PO AT BEDTIME parkinsons disease Cranberry Fruit Concentrate (Cranberry) 450 MG CAPSULE 1 TAB PO BID VITAMIN ( Reported) Duloxetine Hydrochloride (Cymbalta) 30 MG CAPSULE.DR 1 CAP PO DAILY UNK ( Reported) Enoxaparin Sodium (Lovenox) 80 MG/0.8 ML SYRINGE 80 UNIT SC BID blood thinner Finasteride 5 MG TABLET 1 TAB PO DAILY URINE (Reported) Gabapentin (Neurontin) 300 MG CAPSULE 1 CAP PO TID NEUROPATHY (Reported) Lactobacillus Acidophilus (Acidophilus) 1 EACH CAPSULE 1 CAP PO BID PROBIOTIC (Reported) Lactose-Reduced Food/Fiber (Jevity 1.2 Hua Liquid) 0.06 GRAM-1.2 KCAL/ML LIQUID 0 PEG SEE ADMIN CRITERIA TUBE FEEDS FIRST 12 HRS RATE 15 SECOND 12 RATE 30 THIRD 12 RATE 50 GOAL 80 FLUSH WATER 125 Q4HR Melatonin 3 MG TABLET 1 TAB PO QPM SLEEP (Reported) Metoprolol Tartrate 50 MG TABLET 1 TAB PO BID HTN (Reported) Olmesartan Medoxomil (Benicar) 40 MG TABLET 1 TAB PO DAILY HTN (Reported) Polyethylene Glycol 3350 (Miralax) 17 GRAM POWD.PACK 1 PAC PO DAILY CONSTIPA (Reported) dissolve in water Potassium Chloride 10 MEQ CAPSULE.ER 1 CAP PO DAILY SUPPLEMENT (Reported) Prochlorperazine (Compazine) 25 MG SUPP.RECT 1 SUPP [place] DAILY NAUSEA (Reported ) Sennosides (Senokot) 8.6 MG TABLET 2 TAB PO DAILY CONSTIPATION (Reported) Warfarin Sodium (Coumadin) 5 MG TABLET 1 TAB PO DAILY blood thinner (Reported ) Past History Medical History Neurological: Parkinson's disease EENT: NONE Cardiovascular: AFIB, hypertension, LCW PACER HLD Respiratory: NONE Gastrointestinal: NONE Hepatic: NONE Renal: benign prost hyperplasia Musculoskeletal: NONE Psychiatric: NONE Endocrine: PARKINSONS Cancer(s): NONE 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 [facility] Smoking Status: Never Smoked Review of Systems Review of Systems: Limited for reasons as mentioned above, Constitutional: No more fever he's awake ENMT: No sore throat Cardiovascular: As above Respiratory: No shortness of breath, cough, or sputum GI: No GERD or bleeding per rectum : As above Musculoskeletal: As above Skin / Breast: Not documented Psychiatric: Initially unobtainable Hematologic / lymphatic system: As above Exam & Diagnostic Data Vital Signs and I&O Blood pressure 134/68 pulse 108 respirations 18 temperature 99.5 Physical Exam: Constitutional: pleasant, no acute distress, conversant Eyes: sclera anicteric ENMT: ears and nose atraumatic, moist mucous membranes, good dentition, no lip lesions Neck: Supple, trachea is midline, no cervical or supraclavicular adenopathy and no palpable thyromegaly Cardiovascular: S1, S2, no murmurs, moderate anasarca Respiratory: clear to auscultation with normal respiratory effort and no intercostal retractions GI: abdomen soft, nontender, nondistended, no palpable hepatosplenomegaly Extremities / lymphatics: symmetrically warm, range of motion not evaluated, right medial thigh is soft no erythema no obvious mass nontender, no ecchymosis there either, no cervical, supraclavicular, axillary, or inguinal adenopathy Musculoskeletal: Did not evaluate gait and station, no digital cyanosis, good muscle strength and tone some atrophy Skin: no jaundice, no rashes warm, nondiaphoretic, no areas of erythema or induration Psychiatric: mood and affect are appropriate and alert and oriented somewhat Assessment/Plan Assessment/Plan Studies: BUN 24 creatinine 0.6 sodium 138 potassium 4.6 chloride 101 White blood cell count 12.5 hemoglobin 8.4 I reviewed on PACS myself the CT scan from March 22 and compared it to the CT scan from 04/02/2016, the earlier CT does not go low enough but the one on the shows enlargement of the muscles in the right medial upper thigh. Impression Throughout this admission his INR has been elevated during both insertion and removal (17, 17) of a right femoral line (where it was noted that during insertion advancing the wire was difficult), patient was coagulapathic. That muscle is right there by femoral vein. So that's a hematoma, could've happened either time. It was a deep puncture. The exam today is negative it seems what was seen on the CT 4 days ago has already significantly resolved. Incision or another puncture could cause infection or more bleeding, it is not indicated now. Problem List: 1. UTI (urinary tract infection) 2. Atrial fibrillation with RVR 3. Sepsis Consult Acknowledgment - Thank you for your consult request.
[2017-04-06 14:17] VITALS: BP 134/68
[2017-04-06 21:34] VITALS: BP 140/68
[2017-04-07 06:00] VITALS: BP 132/64
[2017-04-07 08:01] LABS: PT 13.5 SEC (9.4-12.5)
[2017-04-07 08:03] VITALS: BP 106/60
[2017-04-07 08:25] LABS: ABSOLUTE BASOPHIL COUNT 0.2 /CUMM (0.0-0.2); ABSOLUTE EOSINOPHIL COUNT 0.3 /CUMM (0.0-0.7); ABSOLUTE GRANULOCYTE CT 10.2 /CUMM (1.4-6.5); ABSOLUTE LYMPH COUNT 1.3 /CUMM (1.2-3.4); ABSOLUTE MONOCYTE COUNT 1.1 /CUMM (0.10-0.60); BASOPHIL % 1.7 % (0.0-2.0); GRANULOCYTE % 77.9 % (42.2-75.2); HEMATOCRIT 25.3 % (42-52); MEAN CORPUSCULAR HGB 28.9 PG (27.0-31.0); MEAN CORPUSCULAR HGB CONC 32.9 G/DL (33.0-37.0); MEAN CORPUSCULAR VOLUME 87.8 FL (80.0-94.0); MEAN PLATELET VOLUME 9.3 FL (7.4-10.4); PLATELET COUNT 432 /CUMM (130-400); RBC DISTRIBUTION WIDTH 16.9 % (11.5-14.5); RED BLOOD CELL CT 2.88 /CUMM (4.70-6.10); WHITE BLOOD CELL COUNT 13.1 /CUMM (4.8-10.8)
--- NOTE | 2017-04-07 10:30 | PN- Cardiology ---
Subjective Subjective: Patient denies chest pain or shortness of breath. He complains of constant itching. Review of Systems: Eyes no blurred or double vision Ears no deafness or ringing Nose and throat no recurrent sinusitis Lungs per history of present illness Heart per history of present illness Abdomen no nausea vomiting Musculoskeletal occasional muscle and joint pains Psych no anxiety or depression Neuro without recurrent headache or seizures Endocrine no heat or cold intolerance Objective Vital Signs and I&Os Vital Signs Date Time Temp Pulse Resp B/P B/P Pulse O2 O2 Flow FiO2 Mean Ox Delivery Rate 04/07 0904 82 04/07 0814 136 106/60 04/07 0803 106/60 04/07 0743 136 04/07 0600 98.8 125 18 132/64 97 04/06 2134 98.7 98 17 140/68 98 Room Air 04/06 1417 99.5 108 18 134/68 97 Intake & Output 04/07 1600 04/07 0800 04/07 0000 04/06 1600 04/06 0800 04/06 0000 Intake Total 500 540 200 765 445 Output Total 812 574 5184 100 Balance -250 -210 200 -1150 345 Intake, IV 500 450 Intake, Oral 0 0 0 0 Intake, Other 90 Intake, Tube 160 640 320 Feeding Intake, Tube 40 125 125 Irrigant Number 0 Bowel Movements Output, 90 100 Drainage Output, Urine 244 824 7502 Patient 187 lb 190 lb Weight Physical Exam: Patient is a well-developed thin male appearing in no acute distress HEENT is unremarkable Neck is supple there is no JVD Lungs are clear Heart regular rhythm S1 and S2 are normal no murmurs gallops or rubs Abdomen bowel sounds positive Extremities without edema Current Medications: Current Medications Sig/Woodrow Start time Last Medication Dose Route Stop Time Status Admin Acetaminophen 650 MG Q4P PRN 03/29 1800 AC 04/02 PO 0038 Atorvastatin Calcium 20 MG DAILY 03/25 1000 AC 04/07 PO 0814 Bisacodyl 10 MG ONCE PRN 03/30 1400 AC 03/30 OH 1400 Carbidopa/Levodopa 1 TAB TID 03/25 1000 AC 04/07 PO 0814 Dextrose/Sodium 1,000 ML Q13H 04/06 1830 CAN Chloride IV Dextrose/Sodium 1,000 ML Q13H 04/06 1830 DC 04/06 Chloride IV 04/07 0729 1837 Glycerin 2 SPRAY Q2P PRN 03/27 0330 AC 03/30 PO 0931 Hydrocodone Bitart/ 1 TAB Q6P PRN 04/02 1400 AC 04/07 Acetaminophen PO 0631 Melatonin 7.5 MG AT BEDTIME 04/03 2200 AC 04/06 PO 2138 Metoprolol Tartrate 100 MG BID 04/07 1000 AC 04/07 PO 0814 Metoprolol Tartrate 75 MG BID 04/06 2200 DC 04/06 PO 2139 Metoprolol Tartrate 50 MG BID 03/24 1000 DC 04/06 PO 0934 Ondansetron HCl 4 MG ONCE ONE 04/06 1845 DC 04/06 IV 04/06 184 184 Pantoprazole Sodium 40 MG DAILY 03/31 1000 AC 04/07 IV 0815 Senna/Docusate Sodium 2 TAB DAILY PRN 03/25 1900 AC 03/28 PO 1534 Sodium Chloride 2 SPRAY Q4P PRN 03/24 1600 AC 04/01 SHEYLA 0253 Results Last 48 Hrs of Labs/Mics: Laboratory Tests 04/07/17 0707: Anion Gap 12, Estimated GFR > 60, BUN/Creatinine Ratio 34.3 H, PT 13.5 H, INR 1.29 H, CBC w Diff NO MAN DIFF REQ, RBC 2.88 L, MCV 87.8, MCH 28.9, RDW 16.9 H, MPV 9.3, Gran % 77.9 H, Lymphocytes % 9.7 L, Monocytes % 8.7, Eosinophils % 2.0, Basophils % 1.7, Absolute Granulocytes 10.2 H, Absolute Lymphocytes 1.3, Absolute Monocytes 1.1 H, Absolute Eosinophils 0.3, Absolute Basophils 0.2, PUBS MCHC 32.9 L 04/06/17 0615: Anion Gap 10, Estimated GFR > 60, BUN/Creatinine Ratio 40.0 H, PT 13.8 H, INR 1.32 H, CBC w Diff NO MAN DIFF REQ, RBC 2.91 L, MCV 88.0, MCH 28.7, RDW 17.8 H, MPV 9.4, Gran % 76.7 H, Lymphocytes % 12.0 L, Monocytes % 8.2, Eosinophils % 2.6, Basophils % 0.5, Absolute Granulocytes 9.6 H, Absolute Lymphocytes 1.5, Absolute Monocytes 1.0 H, Absolute Eosinophils 0.3, Absolute Basophils 0.1, PUBS MCHC 32.7 L Assessment/Plan Assessment/Plan 1. Septic shock due to urosepsis versus acalculus cholecystitis 2. Elevated troponin, not consistent with an acute coronary syndrome 3. Acute kidney injury 4. Paroxysmal atrial fibrillation on warfarin currently being held 5. History of permanent pacemaker 6. History of TIA 7. History of coronary artery disease with remote PCI 8. History of hypertension 9. Parkinson's disease 10. Hematuria, resolved 11. Status post cholecystostomy tube 12. Difficulty swallowing; planned for PEG tube 13. Intramuscular hematoma with decrease in HG level Recommendations 1. Continue to hold Coumadin due to hematoma would resume when cleared by surgery and PEG tube has been placed 2. Continue with conservative management from a cardiac standpoint Continue telemetry? No
--- NOTE | 2017-04-07 12:05 | Proc Note Endoscopy ---
Endoscopy Procedure Medical History: unchanged (see meditech consult) Mental Status: alert/oriented Heart/Lung Eval Prior to Sedation: within normal limits Candidate for Sedation? Yes Procedure Date: 04/07/17 Procedure Type: EGD with PEG placement Photo Lab Manager: Charles Escobar MD ASA Classification: IV Indications: Dysphagia, feeding difficulty; failed swallowing study. Instrument: diagnostic gastroscope Meds Received: MAC (2gm of ancef given pre-op) Patient's Tolerance: good Complications: none Extent Reached: second part of duodenum Procedure: After getting written informed consent the patient was placed in the left lateral decubitus position with pulse oximetry, cardiac monitoring, and supplemental oxygen given. A bite block was inserted and IV sedation was given until the desired effect was achieved. A high definition upper Olympus endoscope was then inserted into the mouth and advanced to the second portion of the duodenum with little difficulty. Retroflexed views and photodocumentation was obtained. After inspection of the upper GI tract as described above the location of the PEG tube was determined by transillumination and finger indentation. This area was located in the antrum of the stomach and the left upper quadrant of the abdomen. The skin was then cleaned with Betadine and draped in a sterile fashion. 1% lidocaine without epinephrine was used to anesthetize the skin and the finder needle was seen entering the stomach endoscopically. A scalpel was used to make a 1 cm wide incision half a centimeter deep. An 18-gauge needle with catheter sheath was then inserted into the gastric lumen, and a floppy plastic wire was fed through the sheath, grabbed with a snare, and removed from the patient's mouth. The PEG tube was then attached to the wire and pulled antegrade without difficulty until the bumper abutted the gastric wall. The scope was then reintroduced to the patient's mouth and endoscopic confirmation of the PEG tube was obtained. The scope was then removed from the patient and the procedure was terminated. Findings: Esophagus: There was some leftover solid food in the esophagus, but the underlying esophageal mucosa was normal in appearance and there were no esophageal strictures or masses appreciated and the scope was able to traverse the GE junction with little resistance. Due to the solid food the Z line was not able to be clearly demarcated. Stomach: The gastric mucosa was atrophic in appearance, but there were no ulcers , erosions, or masses appreciated. Distention and peristalsis of the stomach appeared normal. Retroflexed views were normal did not reveal significant hiatal hernia. As stated in the procedure section of this report a 20 Syriac Akbar-Cook feeding tube was placed in the antrum of the stomach without incident. Duodenum: The duodenal bulb, sweep, and folds were grossly normal in appearance. Impression: 1. Leftover food in the esophagus without an obstructing lesion or mucosal disease appreciated suggesting severe esophageal dysmotility. 2. 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 Recommendations: 1. Monitor feeding tube site for infection and bleeding. 2. Apply a dry sterile dressing to the feeding tube daily. 3. Okay to use feeding tube for medications now and if no constipation and would resume tube feeds in the morning. 4. If no significant bleeding would restart his anticoagulation later today.
--- NOTE | 2017-04-07 13:04 | PN- Housestaff ---
Dawn PHILLIPS,Vy 04/07/17 1304: Subjective Follow-up For: #UTI s/p gram-negative urosepsis #Severe pyuria/BPH #Acalculus Cholecystitis s/p leyla #Paroxysmal atrial fibrillation #hyperbilirubinemia Subjective: patient got PEG tube today and upper endoscopy. patient on interview notes left hip pain where he had a prior surgery. hematoma seems to be largely resolved. Review of Systems Constitutional: Reports: no symptoms. Gastrointestinal: Reports: no symptoms. Musculoskeletal: Reports: joint pain. Objective Last 24 Hrs of Vital Signs/I&O Vital Signs Date Time Temp Pulse Resp B/P B/P Pulse O2 O2 Flow FiO2 Mean Ox Delivery Rate 04/07 1400 97.7 92 20 110/60 97 Room Air 04/07 0904 82 04/07 0814 136 106/60 04/07 0803 106/60 04/07 0743 136 04/07 0600 98.8 125 18 132/64 97 04/06 2134 98.7 98 17 140/68 98 Room Air Intake & Output 04/07 1600 04/07 0800 04/07 0000 Intake Total 0 500 540 Output Total 150 750 750 Balance -150 -250 -210 Intake, IV 0 500 450 Intake, Oral 0 0 Intake, Other 90 Number 0 0 Bowel Movements Output, Urine 150 750 750 Patient 187 lb Weight Physical Exam General Appearance: Alert, Oriented X3, Cooperative, No Acute Distress HEENT: ng tube Cardiovascular: Normal S1, Normal S2, No Murmurs Lungs: Clear to Auscultation Abdomen: Normal Bowel Sounds, Soft, No Tenderness, No Hepatospenomegaly, No Masses, cholecystostomy tube Extremities: No Edema Current Medications: Current Medications Sig/Woodrow Start time Last Medication Dose Route Stop Time Status Admin Acetaminophen 650 MG Q4P PRN 03/29 1800 AC 04/02 PO 0038 Atorvastatin Calcium 20 MG DAILY 03/25 1000 AC 04/07 PO 0814 Bisacodyl 10 MG ONCE PRN 03/30 1400 AC 03/30 NE 1400 Carbidopa/Levodopa 1 TAB QPM 04/07 2200 AC PO Carbidopa/Levodopa 1 TAB TID 03/25 1000 AC 04/07 PO 1743 Cefazolin Sodium 2 GM ONCE ONE 04/07 1045 DC 04/07 N/A 1 UNIT IV 04/07 1114 1200 Chlorhexidine 1 GM .STK-MED ONE 04/07 1323 DC Gluconate TOP 04/07 1324 Dextrose/Sodium 1,000 ML Q13H 04/06 1830 DC 04/06 Chloride IV 04/07 0729 1837 Finasteride 5 MG QPM 04/07 2200 AC PO Glycerin 2 SPRAY Q2P PRN 03/27 0330 AC 03/30 PO 0931 Heparin Sodium 25,000 UNIT Q24H 04/07 1715 AC 04/07 (Porcine) IV 1919 Sodium Chloride 500 ML Hydrocodone Bitart/ 1 TAB Q6P PRN 04/02 1400 AC 04/07 Acetaminophen PO 1743 Lidocaine 1 ML .STK-MED ONE 04/07 1323 DC ID 04/07 1324 Melatonin 7.5 MG AT BEDTIME 04/03 2200 AC 04/06 PO 2138 Metoprolol Tartrate 100 MG BID 04/07 1000 AC 04/07 PO 0814 Metoprolol Tartrate 75 MG BID 04/06 2200 DC 04/06 PO 2139 Pantoprazole Sodium 40 MG DAILY 03/31 1000 AC 04/07 IV 0815 Senna/Docusate Sodium 2 TAB DAILY PRN 03/25 1900 AC 03/28 PO 1534 Sodium Chloride 2 SPRAY Q4P PRN 03/24 1600 AC 04/01 SHEYLA 0253 Warfarin Sodium 5 MG COUMADIN 1700 ONE 04/07 1700 DC 04/07 PO 04/07 1701 1744 Last 24 Hrs of Lab/Travon Results Last 24 Hrs of Labs/Mics: Laboratory Tests 04/07/17 0707: Anion Gap 12, Estimated GFR > 60, BUN/Creatinine Ratio 34.3 H, PT 13.5 H, INR 1.29 H, CBC w Diff NO MAN DIFF REQ, RBC 2.88 L, MCV 87.8, MCH 28.9, RDW 16.9 H, MPV 9.3, Gran % 77.9 H, Lymphocytes % 9.7 L, Monocytes % 8.7, Eosinophils % 2.0, Basophils % 1.7, Absolute Granulocytes 10.2 H, Absolute Lymphocytes 1.3, Absolute Monocytes 1.1 H, Absolute Eosinophils 0.3, Absolute Basophils 0.2, PUBS MCHC 32.9 L Assessment/Plan Assessment: Ms Torres is a 79-year-old gentleman with past medical history of Parkinson's disease, hypertension, permanent pacemaker, BPH and urinary retention, BIBA from [facility] after being found unresponsive. He has subsequently responded to medical therapy and intervention. Problem List: Septic shock secondary to Ecoli sepsis, Urine cultures + enterococcus and Pseudomonas, resolving Metabolic acidosis, resolved DAISHA on CKD, resolved Atrial fibrillation Hyperbilirubinemia Plan: - Meropenem DCed. give patient one dose of ancef during peg placement. patient is allergic to amoxicillin but notes the allergy is just a rash. monitor. - Patient's leukocytosis remained above normal range. Would f/u ID if any recommendations. Patient completed a full 14-day meropenem course, likely leukocytosis could be reactive due to chronic clinical conditions. - start anticoagulation after PEG placement - heparin and coumadin 5mg. inr subtherapeutic. - Urology on board, appreciate recomendation, we dc'd lopez after PEG placement. -EGD showed severe esophageal dysmotility and atrophic gastritis and PEG. CHRYSTAL IS - UPDATE HER [id number] Patient was on hold of all meds except metoprolol, due to underlying hematoma shown on CT Lower extremities 04/02/2017. Patient's tachycardia could be due to either being anemic (Hgb 8.3 on latest lab, 7.1 before) or from A-fib. his heart rate was increased today to 139 so we increased bb to 100mg bid. bp was 106/60. no chest pain or sob. -Continued Supplement his electrolytes as needed. -nutrition suggested tube feeding -CHANGE MEDS TO PO TOMORROW DVT prophylaxis ALPs Pain control with tylenol, vicodin DNI and DNR Problem List: 1. On tube feeding diet 2. DAISHA (acute kidney injury) 3. Atrial fibrillation with RVR 4. UTI (urinary tract infection) 5. Sepsis Pain Ratin Pain Location: HIP Pain Goal: Pain 4 or less Pain Plan: PRN Tomorrow's Labs & Rationales: BEP CBC INR Kenn Foster 04/07/17 1347: Attending MD Review Statement Attending Statement Attending MD Statement: examined this patient, discuss w/resident/PA/DOG BEAUTICIAN, agreed w/resident/PA/DOG BEAUTICIAN, discussed with family, reviewed EMR data (avail), discussed with nursing, discussed with case mgmt, reviewed images, amended to note Attending Assessment/Plan: Mr. Torres is a 79-year-old gentleman with past medical history of Parkinson's disease, hypertension, permanent pacemaker, BPH and urinary retention, BIBA from [facility] after being found unresponsive. He was found to be in Septic shock secondary to Ecoli sepsis. Urine cultures + enterococcus and Pseudomonas. He has been evaluated by ID, Urology. Recently had CT angio that was negative for PE. Weekend events noted. Found to have hematoma on right inner thigh. Patient with blood loss anemia. General surgery consulted and recommend conservative management. Leukocytosis could be reactive as recently completed meropenem course. Watch for fever and WBC and f/u ID. Holding anticaogualtion as per cardiology and in view of hematoma. PEG placement by GI 04/07/2017 with EGD suggestive of severe esophageal dysmotility and atrophic gastritis. DC Lopez after PEG tube placement. Replete lytes as indicated. DVT prophylaxis ALPs. Pain control with tylenol, vicodin. as per chart, DNR/DNI. Restarting anticoagulaiton as per GI, cardiology.
[2017-04-07 14:00] VITALS: BP 110/60
--- NOTE | 2017-04-07 16:36 | PN- Infect Dx ---
Subjective Subjective: Afebrile without complaints. Objective Last 24 Hrs of Vital Signs/I&O Vital Signs Date Time Temp Pulse Resp B/P B/P Pulse O2 O2 Flow FiO2 Mean Ox Delivery Rate 04/07 1400 97.7 92 20 110/60 97 Room Air 04/07 0904 82 04/07 0814 136 106/60 04/07 0803 106/60 04/07 0743 136 04/07 0600 98.8 125 18 132/64 97 04/06 2134 98.7 98 17 140/68 98 Room Air Intake & Output 04/07 1600 04/07 0800 04/07 0000 Intake Total 0 500 540 Output Total 150 750 750 Balance -150 -250 -210 Intake, IV 0 500 450 Intake, Oral 0 0 Intake, Other 90 Number 0 0 Bowel Movements Output, Urine 150 750 750 Patient 187 lb Weight Physical Exam Other Physical Findings: He is awake and alert in no acute distress Lungs are clear Heart irregular rhythm with no murmur Abdomen PEG in place with dressing intact; cholecystostomy tube in place with 90 mL output yesterday Extremities decreased ecchymosis and edema of the right thigh, nontender to palpation Results Last 24 Hours of Lab Results: Laboratory Tests 04/07 0707 Chemistry Sodium (137 - 145 mmol/L) 138 Potassium (3.5 - 5.1 mmol/L) 4.6 Chloride (98 - 107 mmol/L) 103 Carbon Dioxide (22 - 30 mmol/L) 23 Anion Gap (5 - 16) 12 BUN (9 - 20 mg/dL) 24 H Creatinine (0.7 - 1.2 mg/dL) 0.7 Estimated GFR (>60 ml/min) > 60 BUN/Creatinine Ratio (7 - 25 %) 34.3 H Coagulation PT (9.4 - 12.5 SEC) 13.5 H INR (0.90 - 1.17) 1.29 H Hematology CBC w Diff NO MAN DIFF REQ WBC (4.8 - 10.8 /CUMM) 13.1 H RBC (4.70 - 6.10 /CUMM) 2.88 L Hgb (14.0 - 18.0 G/DL) 8.3 L Hct (42 - 52 %) 25.3 L MCV (80.0 - 94.0 FL) 87.8 MCH (27.0 - 31.0 PG) 28.9 RDW (11.5 - 14.5 %) 16.9 H Plt Count (130 - 400 /CUMM) 432 H MPV (7.4 - 10.4 FL) 9.3 Gran % (42.2 - 75.2 %) 77.9 H Lymphocytes % (20.5 - 51.1 %) 9.7 L Monocytes % (1.7 - 9.3 %) 8.7 Eosinophils % (0 - 5 %) 2.0 Basophils % (0.0 - 2.0 %) 1.7 Absolute Granulocytes (1.4 - 6.5 /CUMM) 10.2 H Absolute Lymphocytes (1.2 - 3.4 /CUMM) 1.3 Absolute Monocytes (0.10 - 0.60 /CUMM) 1.1 H Absolute Eosinophils (0.0 - 0.7 /CUMM) 0.3 Absolute Basophils (0.0 - 0.2 /CUMM) 0.2 PUBS MCHC (33.0 - 37.0 G/DL) 32.9 L Last 24 Hours of Travon Results: No new cultures Assessment/Plan Impression: Stable, status post placement of a PEG earlier today, with his H&H remaining stable after a presumed hematoma involving the right thigh, with his anticoagulation held until today. He remains afebrile with a persistent but mild leukocytosis now off antibiotics after 2 weeks of treatment for Escherichia coli sepsis, presumably of urologic origin. His Hester catheter was apparently removed earlier today, but suspect he will require a straight catheterization protocol, which should be done using a 14 or 16 Kuwaiti coud as per Urology. He is now 15 days status post placement of a cholecystostomy tube for the possibility of acalculus cholecystitis. Suggestion: 1. Would initiate straight cath protocol using a 14 or 16 [place]i coud per Urology 2. Continue to follow off antibiotics
[2017-04-07 21:52] VITALS: BP 115/58
[2017-04-08 01:58] LABS: PTT 34 SEC (25-37)
[2017-04-08 06:00] VITALS: BP 108/54
[2017-04-08 09:15] LABS: ABSOLUTE BASOPHIL COUNT 0.1 /CUMM (0.0-0.2); ABSOLUTE EOSINOPHIL COUNT 0.4 /CUMM (0.0-0.7); ABSOLUTE GRANULOCYTE CT 9.2 /CUMM (1.4-6.5); ABSOLUTE LYMPH COUNT 1.2 /CUMM (1.2-3.4); ABSOLUTE MONOCYTE COUNT 0.7 /CUMM (0.10-0.60); BASOPHIL % 0.7 % (0.0-2.0); EOSINOPHIL % 3.6 % (0-5); GRANULOCYTE % 79.3 % (42.2-75.2); HEMATOCRIT 25.5 % (42-52); MEAN CORPUSCULAR HGB 27.9 PG (27.0-31.0); MEAN CORPUSCULAR HGB CONC 31.8 G/DL (33.0-37.0); MEAN CORPUSCULAR VOLUME 87.9 FL (80.0-94.0); MEAN PLATELET VOLUME 8.9 FL (7.4-10.4); PLATELET COUNT 338 /CUMM (130-400); RBC DISTRIBUTION WIDTH 17.2 % (11.5-14.5); WHITE BLOOD CELL COUNT 11.6 /CUMM (4.8-10.8)
[2017-04-08 09:22] LABS: PT 13.4 SEC (9.4-12.5); PTT 52 SEC (25-37)
--- NOTE | 2017-04-08 10:03 | PN- Housestaff ---
Dawn PHILLIPS,Vy 04/08/17 1003: Subjective Follow-up For: #UTI s/p gram-negative urosepsis #Severe pyuria/BPH #Acalculus Cholecystitis s/p leyla #Paroxysmal atrial fibrillation #hyperbilirubinemia Subjective: no complaints today. patient would like to get moving with PT. Review of Systems Constitutional: Reports: weakness. Cardiovascular: Reports: no symptoms. Gastrointestinal: Reports: no symptoms. Objective Last 24 Hrs of Vital Signs/I&O Vital Signs Date Time Temp Pulse Resp B/P B/P Pulse O2 O2 Flow FiO2 Mean Ox Delivery Rate 04/08 1531 98.2 83 18 110/60 97 Room Air 04/08 0600 97.8 92 18 108/54 98 04/07 2223 100 115/60 Intake & Output 04/08 1600 04/08 0800 04/08 0000 Intake Total 490 370 559 Output Total 950 100 110 Balance -460 270 449 Intake, IV 114 Intake, Oral 0 Intake, Tube 240 120 45 Feeding Intake, Tube 250 250 400 Irrigant Number 0 Bowel Movements Output, 100 110 Drainage Output, Urine 950 0 Patient 174 lb 187 lb Weight Weight Bed scale Measurement Method Physical Exam General Appearance: Alert, Oriented X3, Cooperative, No Acute Distress Cardiovascular: Regular Rate, Normal S1, Normal S2 Lungs: Clear to Auscultation Abdomen: Normal Bowel Sounds, Soft, No Tenderness Current Medications: Current Medications Sig/Woodrow Start time Last Medication Dose Route Stop Time Status Admin Acetaminophen 650 MG .STK-MED ONE 04/08 1336 DC PO 04/08 1337 Acetaminophen 650 MG Q4P PRN 03/29 1800 AC 04/08 PO 1336 Atorvastatin Calcium 20 MG DAILY 03/25 1000 AC 04/08 PO 1040 Bisacodyl 10 MG ONCE PRN 03/30 1400 AC 03/30 LA 1400 Carbidopa/Levodopa 1 TAB QPM 04/07 2200 AC PO Carbidopa/Levodopa 1 TAB TID 03/25 1000 AC 04/08 PO 1706 Finasteride 5 MG QPM 04/07 2200 AC PO Glycerin 2 SPRAY Q2P PRN 03/27 0330 AC 03/30 PO 0931 Heparin Sodium 10,000 UNIT .STK-MED ONE 04/08 0231 DC (Porcine) IV 04/08 0232 Heparin Sodium 6,400 UNIT ONCE ONE 04/08 0230 DC 04/08 (Porcine) IV 04/08 0231 0233 Heparin Sodium 25,000 UNIT Q24H 04/07 1715 AC 04/08 (Porcine) IV 1306 Sodium Chloride 500 ML Hydrocodone Bitart/ 1 TAB Q6P PRN 04/02 1400 AC 04/08 Acetaminophen PO 1706 Melatonin 7.5 MG AT BEDTIME 04/03 2200 AC 04/07 PO 2222 Metoprolol Tartrate 100 MG BID 04/07 1000 AC 04/08 PO 1039 Pantoprazole Sodium 40 MG DAILY 03/31 1000 AC 04/08 IV 1040 Senna/Docusate Sodium 2 TAB DAILY PRN 03/25 1900 AC 03/28 PO 1534 Sodium Chloride 2 SPRAY Q4P PRN 03/24 1600 AC 04/01 SHEYLA 0253 Warfarin Sodium 5 MG COUMADIN 1700 ONE 04/08 1700 DC 04/08 PO 04/08 1701 1705 Last 24 Hrs of Lab/Travon Results Last 24 Hrs of Labs/Mics: Laboratory Tests 04/08/17 1440: APTT 80 H 04/08/17 0815: APTT Cancelled 04/08/17 0815: Anion Gap 11, Estimated GFR > 60, BUN/Creatinine Ratio 38.6 H, PT 13.4 H, INR 1.28 H, APTT 52 H, CBC w Diff NO MAN DIFF REQ, RBC 2.90 L, MCV 87.9, MCH 27.9 , RDW 17.2 H, MPV 8.9, Gran % 79.3 H, Lymphocytes % 10.7 L, Monocytes % 5.7, Eosinophils % 3.6, Basophils % 0.7, Absolute Granulocytes 9.2 H, Absolute Lymphocytes 1.2, Absolute Monocytes 0.7 H, Absolute Eosinophils 0.4, Absolute Basophils 0.1, PUBS MCHC 31.8 L 04/08/17 0120: APTT 34 Assessment/Plan Assessment: Ms Torres is a 79-year-old gentleman with past medical history of Parkinson's disease, hypertension, permanent pacemaker, BPH and urinary retention, BIBA from [facility] after being found unresponsive. He has subsequently responded to medical therapy and intervention. Problem List: Septic shock secondary to Ecoli sepsis, Urine cultures + enterococcus and Pseudomonas, resolving Metabolic acidosis, resolved DAISHA on CKD, resolved Atrial fibrillation Hyperbilirubinemia Plan: - Meropenem DCed. gave patient one dose of ancef during peg placement. patient is allergic to amoxicillin but notes the allergy is just a rash. monitor. - Patient's leukocytosis remained above normal range. Would f/u ID if any recommendations. Patient completed a full 14-day meropenem course, likely leukocytosis could be reactive due to chronic clinical conditions. - continue AC after placement peg - heparin and coumadin 5mg. inr still subtherapeutic. - Urology on board, appreciate recomendation, we dc'd lopez after PEG placement as per previous urology note. -EGD showed severe esophageal dysmotility and atrophic gastritis and PEG. CHRYSTAL IS - UPDATE HER [id number] Patient was on hold of all meds except metoprolol, due to underlying hematoma shown on CT Lower extremities 04/02/2017. Patient's tachycardia could be due to either being anemic (Hgb 8.3 on latest lab, 7.1 before) or from A-fib. his heart rate was increased today to 139 so we increased bb to 100mg bid. bp was 106/60. no chest pain or sob. -Continued Supplement his electrolytes as needed. -nutrition suggested tube feeding and jevity 1.2 was added -changed meds to PO except final qpm dose sinemet which could not be crushed. -Patient has bed in short term rehab DVT prophylaxis ALPs Pain control with tylenol, vicodin DNI and DNR Problem List: 1. On tube feeding diet 2. Hypokalemia 3. DAISHA (acute kidney injury) 4. UTI (urinary tract infection) 5. Sepsis 6. Atrial fibrillation with RVR 7. Lactic acidosis Pain Ratin Pain Location: na Pain Goal: Remain pain free Pain Plan: na Tomorrow's Labs & Rationales: inr Kenn Foster 04/08/17 1256: Attending MD Review Statement Attending Statement Attending MD Statement: examined this patient, discuss w/resident/PA/ELECTRICIAN CONSTRUCTOR SUPERVISOR, agreed w/resident/PA/ELECTRICIAN CONSTRUCTOR SUPERVISOR, discussed with family, reviewed EMR data (avail), discussed with nursing, discussed with case mgmt, reviewed images, amended to note Attending Assessment/Plan: Mr. Torres is a 79-year-old gentleman with past medical history of Parkinson's disease, hypertension, permanent pacemaker, BPH and urinary retention, BIBA from [facility] after being found unresponsive. He was found to be in Septic shock secondary to Ecoli sepsis. Urine cultures + enterococcus and Pseudomonas. He has been evaluated by ID, Urology. Recently had CT angio that was negative for PE. Weekend events noted. Found to have hematoma on right inner thigh. Patient with blood loss anemia. General surgery consulted and recommend conservative management. Leukocytosis could be reactive as recently completed meropenem course. Watch for fever and WBC and f/u ID. Restarting anticaogualtion as per cardiology and surgery in view of hematoma which appears to be resolved. PEG placement by GI 04/07/2017 with EGD suggestive of severe esophageal dysmotility and atrophic gastritis. Replete lytes as indicated. DVT prophylaxis ALPs. Pain control with tylenol, vicodin. as per chart, DNR/DNI. 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 FOLLOW UP PCP in 3-5 days of discharge Cardiology in 2-[address] Asha puentes MD Urology in 1-2 weeks of discharge. Wayne Bernal MD
--- NOTE | 2017-04-08 12:16 | PN- Cardiology ---
Subjective Subjective: The patient is awake, alert The events of the last 24 hours as well as telemetry were reviewed. Review of Systems: The review of systems is negative for chest pains, palpitations nor lightheadedness. The remainder of the 14 point review of systems is noncontributory with the exception of above. Objective Vital Signs and I&Os Vital Signs Date Time Temp Pulse Resp B/P B/P Pulse O2 O2 Flow FiO2 Mean Ox Delivery Rate 04/08 0600 97.8 92 18 108/54 98 04/07 2223 100 115/60 04/07 2152 98.4 103 16 115/58 97 Room Air 04/07 1400 97.7 92 20 110/60 97 Room Air Intake & Output 04/08 1600 04/08 0800 04/08 0000 04/07 1600 04/07 0800 04/07 0000 Intake Total 370 559 0 500 540 Output Total 100 110 150 750 750 Balance 270 449 -150 -250 -210 Intake, IV 114 0 500 450 Intake, Oral 0 0 0 Intake, Other 90 Intake, Tube 120 45 Feeding Intake, Tube 250 400 Irrigant Number 0 0 0 Bowel Movements Output, 100 110 Drainage Output, Urine 0 150 750 750 Patient 174 lb 187 lb 187 lb Weight Weight Bed scale Measurement Method Physical Exam: General: Nontoxic, no apparent distress. HEENT: Sclera and conjunctiva within normal limits, without xanthelasmas. Neck: Carotids 2+ without bruits. Respiratory: Clear to auscultation, air movement is good, without accessory respiratory muscle use. Heart: Regular rate and rhythm, without murmurs, without JVD. Abdomen: Soft, nontender, no masses, normoactive bowel sounds. Extremities: Without clubbing, cyanosis, without edema. Neuro: Nonfocal exam, strength, 5 out of 5 Skin: Within normal limits without lesions. Psych: Mood and affect: Normal Current Medications: Current Medications Sig/Woodrow Start time Last Medication Dose Route Stop Time Status Admin Acetaminophen 650 MG Q4P PRN 03/29 1800 AC 04/02 PO 0038 Atorvastatin Calcium 20 MG DAILY 03/25 1000 AC 04/08 PO 1040 Bisacodyl 10 MG ONCE PRN 03/30 1400 AC 03/30 UT 1400 Carbidopa/Levodopa 1 TAB QPM 04/07 2200 AC PO Carbidopa/Levodopa 1 TAB TID 03/25 1000 AC 04/08 PO 1040 Chlorhexidine 1 GM .STK-MED ONE 04/07 1323 DC Gluconate TOP 04/07 1324 Finasteride 5 MG QPM 04/07 2200 AC PO Glycerin 2 SPRAY Q2P PRN 03/27 0330 AC 03/30 PO 0931 Heparin Sodium 10,000 UNIT .STK-MED ONE 04/08 0231 DC (Porcine) IV 04/08 0232 Heparin Sodium 6,400 UNIT ONCE ONE 04/08 0230 DC 04/08 (Porcine) IV 04/08 0231 0233 Heparin Sodium 25,000 UNIT Q24H 04/07 1715 AC 04/08 (Porcine) IV 0234 Sodium Chloride 500 ML Hydrocodone Bitart/ 1 TAB Q6P PRN 04/02 1400 AC 04/08 Acetaminophen PO 1046 Lidocaine 1 ML .STK-MED ONE 04/07 1323 DC ID 04/07 1324 Melatonin 7.5 MG AT BEDTIME 04/03 2200 AC 04/07 PO 2222 Metoprolol Tartrate 100 MG BID 04/07 1000 AC 04/08 PO 1039 Ondansetron HCl 4 MG .STK-MED ONE 04/07 1629 DC IM 04/07 1630 Pantoprazole Sodium 40 MG DAILY 03/31 1000 AC 04/08 IV 1040 Senna/Docusate Sodium 2 TAB DAILY PRN 03/25 1900 AC 03/28 PO 1534 Sodium Chloride 2 SPRAY Q4P PRN 03/24 1600 AC 04/01 SHEYLA 0253 Warfarin Sodium 5 MG COUMADIN 1700 ONE 04/07 1700 DC 04/07 PO 04/07 1701 1744 Results Last 48 Hrs of Labs/Mics: Laboratory Tests 04/08/17 0815: APTT Cancelled 04/08/17 0815: Anion Gap 11, Estimated GFR > 60, BUN/Creatinine Ratio 38.6 H, PT 13.4 H, INR 1.28 H, APTT 52 H, CBC w Diff NO MAN DIFF REQ, RBC 2.90 L, MCV 87.9, MCH 27.9 , RDW 17.2 H, MPV 8.9, Gran % 79.3 H, Lymphocytes % 10.7 L, Monocytes % 5.7, Eosinophils % 3.6, Basophils % 0.7, Absolute Granulocytes 9.2 H, Absolute Lymphocytes 1.2, Absolute Monocytes 0.7 H, Absolute Eosinophils 0.4, Absolute Basophils 0.1, PUBS MCHC 31.8 L 04/08/17 0120: APTT 34 04/07/17 0707: Anion Gap 12, Estimated GFR > 60, BUN/Creatinine Ratio 34.3 H, PT 13.5 H, INR 1.29 H, CBC w Diff NO MAN DIFF REQ, RBC 2.88 L, MCV 87.8, MCH 28.9, RDW 16.9 H, MPV 9.3, Gran % 77.9 H, Lymphocytes % 9.7 L, Monocytes % 8.7, Eosinophils % 2.0, Basophils % 1.7, Absolute Granulocytes 10.2 H, Absolute Lymphocytes 1.3, Absolute Monocytes 1.1 H, Absolute Eosinophils 0.3, Absolute Basophils 0.2, PUBS MCHC 32.9 L Assessment/Plan Assessment/Plan 1. Septic shock due to urosepsis versus acalculus cholecystitis 2. Elevated troponin, not consistent with an acute coronary syndrome 3. Acute kidney injury 4. Paroxysmal atrial fibrillation on warfarin 5. History of permanent pacemaker 6. History of TIA 7. History of coronary artery disease with remote PCI 8. History of hypertension 9. Parkinson's disease 10. Hematuria, resolved 11. Status post cholecystostomy tube 12. Difficulty swallowing; planned for PEG tube 13. Intramuscular hematoma with decrease in HG level The patient's troponin isoenzyme profile was most likely consistent with underlying sepsis in the setting of acute kidney injury, and not consistent with an acute coronary syndrome. We will maintain an overall conservative approach to his cardiac issues. Anticoagulation will continue to be held at this time given his intramuscular hematoma and anemia. Anticoagulation will need to be restarted, and may do so when appropriate from a GI standpoint. Continue telemetry? No
[2017-04-08 15:31] VITALS: BP 110/60
[2017-04-08 16:24] LABS: PTT 80 SEC (25-37)
[2017-04-08 22:58] VITALS: BP 132/82
[2017-04-09 05:22] LABS: PT 14.2 SEC (9.4-12.5)
[2017-04-09 05:44] LABS: PTT 100 SEC (25-37)
[2017-04-09 07:27] VITALS: BP 143/77
[2017-04-09] MEDS ORDERED: JEVITY 1.2 CAL237 M1 PEG (10:03)
[2017-04-09] MEDS ORDERED: COUMADIN5 M2 PO (11:22)
[2017-04-09] MEDS ORDERED: LOVENOX80 MG/0.1 SC (11:28)
--- NOTE | 2017-04-09 12:13 | CT SCAN REPORT ---
EXAMINATION: CT HEAD WITHOUT CONTRAST CLINICAL INFORMATION: Headache. Assess for hemorrhagic stroke. COMPARISON: CT scan of the head 03/21/2017. TECHNIQUE: Contiguous axial imaging was performed from the skull base to vertex without intravenous administration of contrast. DLP: 713.01 mGy-cm FINDINGS: There is no evidence of acute intracranial hemorrhage or territorial infarction. No abnormal mass effect or midline shift is seen. Parker to white matter differentiation is well preserved. No extra-axial fluid collections are identified. The ventricles and sulci are commensurately prominent consistent with moderate diffuse volume loss, similar compared to prior imaging. There is extensive low attenuation in the periventricular and subcortical white matter, consistent with extensive chronic microvascular ischemic disease. In view of the extensive changes, a more acute focus of ischemia cannot be excluded on the basis of this study. The soft tissues are unremarkable. There are moderate degenerative changes of the left temporomandibular joint. The mastoid air cells are well-aerated. There are inspissated secretions in the right maxillary sinus. IMPRESSION: 1. There are no acute bleeds or territorial infarcts. As described above, there is extensive white matter change most consistent with chronic microvascular ischemic disease. However, in view of the extensive distribution of these findings, a small acute focus of ischemia cannot be excluded.
--- NOTE | 2017-04-09 13:52 | PN- Housestaff ---
Dawn PHILLIPS,Vy 04/09/17 1351: Subjective Follow-up For: #UTI s/p gram-negative urosepsis #Severe pyuria/BPH #Acalculus Cholecystitis s/p leyla #Paroxysmal atrial fibrillation #hyperbilirubinemia Review of Systems Constitutional: Reports: no symptoms. Objective Last 24 Hrs of Vital Signs/I&O Vital Signs Date Time Temp Pulse Resp B/P B/P Pulse O2 O2 Flow FiO2 Mean Ox Delivery Rate 04/09 1608 98.9 93 20 150/84 04/09 1425 98.9 93 20 150/84 98 Room Air 04/09 0930 104 138/72 04/09 0727 97.5 109 10 143/77 94 Room Air 04/08 2258 97.7 86 18 132/82 96 Room Air 04/08 2151 97 125/70 Intake & Output 04/09 1600 04/09 0800 04/09 0000 Intake Total 301 148 9430 Output Total 500 465 Balance 600 225 670 Intake, IV 250 300 Intake, Oral 0 Intake, Tube 600 475 260 Feeding Intake, Tube 575 Irrigant Number 1 0 Bowel Movements Output, 115 Drainage Output, Urine 500 350 Patient 186 lb Weight Weight Bed scale Measurement Method Physical Exam General Appearance: Alert, Cooperative, No Acute Distress Assessment/Plan Assessment: Ms Torres is a 79-year-old gentleman with past medical history of Parkinson's disease, hypertension, permanent pacemaker, BPH and urinary retention, BIBA from [facility] after being found unresponsive. He has subsequently responded to medical therapy and intervention. Problem List: Septic shock secondary to Ecoli sepsis, Urine cultures + enterococcus and Pseudomonas, resolving Metabolic acidosis, resolved DAISHA on CKD, resolved Atrial fibrillation Hyperbilirubinemia Plan: - Meropenem DCed. gave patient one dose of ancef during peg placement. patient is allergic to amoxicillin but notes the allergy is just a rash. monitor. - Patient's leukocytosis remained above normal range. Would f/u ID if any recommendations. Patient completed a full 14-day meropenem course, likely leukocytosis could be reactive due to chronic clinical conditions. - continue AC after placement peg - heparin and coumadin 5mg. inr still subtherapeutic. - Urology on board, appreciate recomendation, we dc'd lopez after PEG placement as per previous urology note. -EGD showed severe esophageal dysmotility and atrophic gastritis and PEG. CHRYSTAL IS - UPDATE HER [id number] Patient was on hold of all meds except metoprolol, due to underlying hematoma shown on CT Lower extremities 04/02/2017. Patient's tachycardia could be due to either being anemic (Hgb 8.3 on latest lab, 7.1 before) or from A-fib. his heart rate was increased today to 139 so we increased bb to 100mg bid. bp was 106/60. no chest pain or sob. -Continued Supplement his electrolytes as needed. -nutrition suggested tube feeding and jevity 1.2 was added -changed meds to PO except final qpm dose sinemet which could not be crushed. -Patient has bed in short term rehab DVT prophylaxis ALPs Pain control with tylenol, vicodin DNI and DNR Kenn Foster 04/09/17 1406: Attending MD Review Statement Attending Statement Attending MD Statement: examined this patient, discuss w/resident/PA/PUBLIC HEALTH SPECIALIST, agreed w/resident/PA/PUBLIC HEALTH SPECIALIST, discussed with family, reviewed EMR data (avail), discussed with nursing, discussed with case mgmt, reviewed images, amended to note Attending Assessment/Plan: Mr. Torres is a 79-year-old gentleman with past medical history of Parkinson's disease, hypertension, permanent pacemaker, BPH and urinary retention, BIBA from [facility] after being found unresponsive. He was found to be in Septic shock secondary to Ecoli sepsis. Urine cultures + enterococcus and Pseudomonas. He has been evaluated by ID, Urology. Recently had CT angio that was negative for PE. Found to have hematoma on right inner thigh. Patient with blood loss anemia. General surgery consulted and recommend conservative management. Leukocytosis could be reactive as recently completed meropenem course. Restarting anticaogualtion as per cardiology and surgery in view of hematoma which appears to be resolved. PEG placement by GI 04/07/2017 with EGD suggestive of severe esophageal dysmotility and atrophic gastritis. Replete lytes as indicated. DVT prophylaxis ALPs. Pain control with tylenol, vicodin. as per chart, DNR/DNI. [facility] [employer]ER Infectious disease Urology Cardiology Gastroenterology Pulmoanry/critical care. FOLLOW UP PCP in 3-5 days of discharge Cardiology in 2-[address] Asha puentes MD Urology in 1-2 weeks of discharge. Wayne Bernal MD
[2017-04-09 14:25] VITALS: BP 150/84
[2017-04-09] MEDS ORDERED: CARBIDOPA-LEVO1 EAC7 PO (16:00)
[2017-04-09 16:08] VITALS: BP 150/84
== END 2017-04-09 16:30 | DRG 698 ==
LOC: ERH 02:45 → 2NB 04:15 → CRI 04:15 → ERHI 04:15 → EDBD 04:15 → ENRESERV 08:18 → CRI 08:21 → ENTRNSPT 03-30 22:00 → 2NB 03-30 22:38 → CMPTRNSPT 03-30 22:44 → 2NB 03-31 09:27
PROVIDERS: Emergency Medicine; Internal Medicine; Internal Medicine Adolescent Medicine; Internal Medicine Critical Care Medicine; Internal Medicine Hematology & Oncology; Internal Medicine Infectious Disease; Internal Medicine Pulmonary Disease; Student in an Organized Health Care Education/Training Program
PROC: 05HY33Z Insertion of Infusion Device into Upper Vein, Percutaneous Approach (ICD-10-PCS; 2017-03-21)
PROC: 0F9430Z Drainage of Gallbladder with Drainage Device, Percutaneous Approach (ICD-10-PCS; principal; 2017-03-22)
PROC: 30233N1 Transfusion of Nonautologous Red Blood Cells into Peripheral Vein, Percutaneous Approach (ICD-10-PCS; 2017-04-03)
PROC: 0DH63UZ Insertion of Feeding Device into Stomach, Percutaneous Approach (ICD-10-PCS; 2017-04-07)
DX: T83.518A Infection and inflammatory reaction due to other urinary catheter, initial encounter (principal); A41.51 Sepsis due to Escherichia coli [E. coli]; I21.A1 Myocardial infarction type 2; R65.21 Severe sepsis with septic shock; R57.8 Other shock; N17.9 Acute kidney failure, unspecified; E87.2 Acidosis; D69.6 Thrombocytopenia, unspecified; N39.0 Urinary tract infection, site not specified; G20 Parkinson's disease; Y84.6 Urinary catheterization as the cause of abnormal reaction of the patient, or of later complication, without mention of misadventure at the time of the procedure; K81.9 Cholecystitis, unspecified; I48.0 Paroxysmal atrial fibrillation; I25.10 Atherosclerotic heart disease of native coronary artery without angina pectoris; Z79.01 Long term (current) use of anticoagulants; Z95.0 Presence of cardiac pacemaker; Z86.73 Personal history of transient ischemic attack (TIA), and cerebral infarction without residual deficits; N40.1 Benign prostatic hyperplasia with lower urinary tract symptoms; R33.8 Other retention of urine; N31.9 Neuromuscular dysfunction of bladder, unspecified; N18.9 Chronic kidney disease, unspecified; K22.4 Dyskinesia of esophagus; Z66 Do not resuscitate; D50.0 Iron deficiency anemia secondary to blood loss (chronic); S70.12XA Contusion of left thigh, initial encounter; X58.XXXA Exposure to other specified factors, initial encounter; B95.2 Enterococcus as the cause of diseases classified elsewhere; B96.5 Pseudomonas (aeruginosa) (mallei) (pseudomallei) as the cause of diseases classified elsewhere; R79.1 Abnormal coagulation profile; Y92.239 Unspecified place in hospital as the place of occurrence of the external cause; E87.6 Hypokalemia
CPT/HCPCS: 2NSBP; 84133; 84300; 87075; CCU; 36415; 71045; 73501; 73562-RT; 74176; 74230; 77012; 81001; 82436; 82570; 86920; 87040; 87070; 87086; 87147; 87449; 87450; 87804; 87804-59; 93005; 93010; 93306; 96361; 96374; 96375; 97110-GO; 97112-GO; 97161-GP; 97165-GO; 97530-GO; 99291; C1769; C1894; J0131; J0690; J0696; J0713; J1170; J1644; J1650; J1885; J2185; J2270; J2405; J3370; J3490; J7040; J7042; J7060; P9016